=== PATIENT | male | born 1950 | race Caucasian/White ===

== ENCOUNTER → 2016-03-09 | Outpatient (CLI) | payer MEDICARE ==
--- NOTE | 2016-03-09 14:26 | CT ---
EXAMINATION TYPE: CT thoracic spine wo con DATE OF EXAM: 03/09/2016 12:35 PM COMPARISON: NONE HISTORY: 65-year-old male complaining of pain to the mid to lower back for 10-15 years TECHNIQUE: Contiguous axial scanning of the thoracic spine without IV contrast. Coronal and sagittal reconstructions performed. CT DLP: 1600 mGycm Automated exposure control for dose reduction was used. FINDINGS: There is a spinal stimulator array centered along the posterior spinal canal at the mid thoracic spin e opposite the T8-T7 level. The leads enter via the T11-T12 interlaminar space. Dependent atelectasis along with emphysema throughout the lungs. There is a slightly accentuated mid to lower thoracic kyphosis but with preserved alignment and verte bral body heights. Mild to moderate multilevel degenerative disc disease is present with variable disc interspace narrow ing, vacuum phenomenon. Scattered mild facet degenerative change mid to lower thoracic spine. At T11-T12, there is left paracentral disc protrusion which appears to cause mild spinal canal stenos is. Changes also result in moderate left neuroforaminal stenosis with the facet arthropathy. No prevertebral or paravertebral soft tissue abnormality seen. IMPRESSION: 1. MIDTHORACIC SPINAL STIMULATOR ARRAY. 2. MILD TO MODERATE MULTILEVEL DEGENERATIVE DISC DISEASE ESPECIALLY IN THE LOWER THORACIC SPINE WITH FACET ARTHROPATHY. 3. A LEFT PARACENTRAL DISC PROTRUSION AT T11-T12 CAUSES MILD SPINAL CANAL STENOSIS. THERE IS ALSO A M ODERATE LEFT NEUROFORAMINAL STENOSIS AT THIS LEVEL. 4. OTHERWISE, NO ELYSE CANAL COMPROMISE. NO VERTEBRAL COMPRESSION COLLAPSE OR MALALIGNMENT.
== END | disposition home or self-care (01) ==
LOC: RADCTMAIN 11:55
PROVIDERS: ATTEND Psychiatry & Neurology Neurology
DX: M51.24 Other intervertebral disc displacement, thoracic region (principal); M48.04 Spinal stenosis, thoracic region; M51.34 Other intervertebral disc degeneration, thoracic region; M99.72 Connective tissue and disc stenosis of intervertebral foramina of thoracic region; M46.94 Unspecified inflammatory spondylopathy, thoracic region
CPT/HCPCS: 72128

== ENCOUNTER → 2016-11-15 | Outpatient (CLI) | payer MEDICARE ==
[2016-11-15 12:39] LABS: CH 30.7; CHCM 31.9; HCT 51.6 % (39.0-53.0); HDW 2.32; HGB 16.5 gm/dL (13.0-17.5); MCH 30.9 pg (25.0-35.0); MCHC 31.9 g/dL (31.0-37.0); MCV 96.7 fL (80.0-100.0); Mean Platelet Volume 7.7; RBC 5.34 m/uL (4.30-5.90); RDW 14.5 % (11.5-15.5); WBC 10.8 k/uL (3.8-10.6)
[2016-11-15 14:52] LABS: Anion Gap 11 mmol/L; Blood Urea Nitrogen 17 mg/dL (9-20); Carbon Dioxide 25 mmol/L (22-30); Chloride 102 mmol/L (98-107); Non-African American GFR(MDRD) >60 (>60 ml/min/1.73 sqM); Potassium 4.7 mmol/L (3.5-5.1); Sodium 138 mmol/L (137-145)
== END | disposition home or self-care (01) ==
LOC: LABPAT 11:57
PROVIDERS: ATTEND Internal Medicine Cardiovascular Disease
DX: Z01.812 Encounter for preprocedural laboratory examination (principal); I35.0 Nonrheumatic aortic (valve) stenosis
CPT/HCPCS: 80051; 82565; 84520; 85027

== ENCOUNTER 2016-11-16 06:20 | Day surgery (SDC) | payer MEDICARE ==
[2016-11-16 07:14] VITALS: TEMP 97.9
[2016-11-16] MEDS ORDERED: MIDAZOLAM 2 MG/2 ML VIAL ONE (07:14)
[2016-11-16] MEDS ORDERED: fentaNYL (PF) 50 MCG/ML 2 ML AMP ONE (07:14)
[2016-11-16] MEDS ORDERED: SODIUM CHLORIDE 0.9% 1,000 ML IV ONE (07:22)
[2016-11-16 07:23] LABS: Glucose,Whole Blood 99 mg/dL (75-99)
[2016-11-16] MEDS ORDERED: BENZOCAINE SPRAY 1 SPRAY CAN MUCOUS MEM ONE (07:27)
[2016-11-16] MEDS ORDERED: MIDAZOLAM 2 MG/2 ML VIAL IV ONE ×2 (07:27→07:35)
[2016-11-16] MEDS ORDERED: fentaNYL (PF) 50 MCG/ML 2 ML AMP IV ONE (07:31)
[2016-11-16] MEDS ORDERED: SODIUM CHLORIDE 0.9% 1,000 ML IV SCH (08:00)
--- NOTE | 2016-11-16 08:04 | P.TEE ---
Indications for Procedure(s): Assessment of the aortic stenosis Date of Procedure: 11/16/16 Preoperative Diagnosis: Severe aortic stenosis, CAD Postoperative Diagnosis: Moderate to severe aortic stenosis Procedure(s) Performed: THERESA Description of Procedure(s): INDICATION: Assessment of the aortic stenosis CONSENT: . Informed consent was obtained from the patient verbally PROCEDURE: Patient was brought to the lab in a fasting state. He was prepped and draped in the usual fashion. He was given conscious sedation with a 2.5 mg of Versed and 50 of fentanyl. The throat was sprayed with Cetacaine. A lubricated Omni probe was introduced in the oropharynx and was advanced into the esophagus and stomach. Multiple views were obtained. Color, pulsed Doppler studies were obtained. Saline contrast bubble injection was also performed. Patient tolerated the procedure well. FINDINGS: The aortic valve is tricuspid with thickening and calcification and reduced opening excursion. By planimetry valve area of 1.1 cm was obtained. There is mild aortic regurgitation. The aortic root is measures 3.7. The mitral valve appeared to be normal without any significant regurgitation. Tricuspid valve appeared to be normal. Left atrial appendage is free of any clot. The interatrial septum appeared to be aneurysmal. Saline contrast bubble injection showed rare Bubbles crossing septum suggestive of a small PFO. Left ventricular function appeared to be normal. A peak gradient of 80 with a mean of 40 was obtained across the aortic valve. Doppler studies suggestive of severe aortic stenosis. There is moderate plaque in the aorta IMPRESSION: #1. Moderate to severe aortic stenosis. #2. Mild aortic regurgitation #3. Tricuspid aortic valve. #4. Normal mitral and tricuspid valves. #5. Aneurysmal interatrial septum with possible small PFO. #6. Left atrial appendage is free of any clot. #7. Left ankle function is normal. #8. There is moderate plaque in the aorta PLAN: . We will proceed with right and left heart catheterization. Further examination depend upon the findings on the cath.
[2016-11-16 08:21] VITALS: RESP 16
[2016-11-16 10:02] VITALS: BP 98/56; PULSE 91
== END 2016-11-16 10:10 | disposition home or self-care (01) ==
LOC: CATHCVL 06:20
PROVIDERS: ATTEND Internal Medicine Cardiovascular Disease
DX: I35.0 Nonrheumatic aortic (valve) stenosis (principal); E78.00 Pure hypercholesterolemia, unspecified; I71.3 Abdominal aortic aneurysm, ruptured; I10 Essential (primary) hypertension; E11.9 Type 2 diabetes mellitus without complications; I25.10 Atherosclerotic heart disease of native coronary artery without angina pectoris; I73.9 Peripheral vascular disease, unspecified; J44.9 Chronic obstructive pulmonary disease, unspecified; F17.210 Nicotine dependence, cigarettes, uncomplicated; Z95.5 Presence of coronary angioplasty implant and graft; Z79.84 Long term (current) use of oral hypoglycemic drugs; Z79.82 Long term (current) use of aspirin; Z79.899 Other long term (current) drug therapy; Z79.51 Long term (current) use of inhaled steroids; Z88.5 Allergy status to narcotic agent
CPT/HCPCS: 93312; 93320; 93325; 99152; J2250; J3010

== ENCOUNTER 2016-12-24 08:01 | Day surgery (SDC) | payer MEDICARE ==
[2016-12-14 12:47] VITALS: BMI 30.4
[~2016-12-24 08:01] MED LIST: ALPRAZolam 0.25 MG TAB PO PRN; ALPRAZolam 0.5 MG TAB PO PRN; ASPIRIN 325 MG TAB PO STA; ATORVASTATIN 80 MG TAB PO STA; NITROGLYCERIN SL TABS 0.4 MG TAB SUBLINGUAL PRN; SODIUM CHLORIDE 0.9% 1,000 ML in EMPTY BAG 1 BAG IV ONE
[2016-12-24 08:46] VITALS: RESP 18
[2016-12-24 08:51] LABS: Basophils # (A) 0.1 k/uL (0-0.2); Basophils % (A) 1 %; CH 30.4; CHCM 32.3; Eosinophils # (A) 0.3 k/uL (0-0.7); Eosinophils % (A) 3 %; HCT 47.9 % (39.0-53.0); HDW 2.17; HGB 15.5 gm/dL (13.0-17.5); Luc # (Auto) 0.13; Luc % (Auto) 1; Lymphocytes # (A) 1.9 k/uL (1.0-4.8); Lymphocytes % (A) 15 %; MCH 30.7 pg (25.0-35.0); MCHC 32.4 g/dL (31.0-37.0); MCV 94.5 fL (80.0-100.0); Mean Platelet Volume 8.5; Monocytes # (A) 0.6 k/uL (0-1.0); Monocytes % (A) 5 %; Neutrophils # (A) 9.2 k/uL (1.3-7.7); Neutrophils % (A) 76 %; RBC 5.07 m/uL (4.30-5.90); RDW 15.2 % (11.5-15.5); WBC 12.1 k/uL (3.8-10.6)
[2016-12-24 08:55] LABS: Glucose,Whole Blood 104 mg/dL (75-99)
[2016-12-24 09:04] LABS: Anion Gap 10 mmol/L; Blood Urea Nitrogen 30 mg/dL (9-20); Calcium 9.8 mg/dL (8.4-10.2); Carbon Dioxide 25 mmol/L (22-30); Chloride 105 mmol/L (98-107); Glucose 105 mg/dL (74-99); Non-African American GFR(MDRD) >60 (>60 ml/min/1.73 sqM); Potassium 4.5 mmol/L (3.5-5.1); Sodium 140 mmol/L (137-145)
[2016-12-24] MEDS ORDERED: MIDAZOLAM 2 MG/2 ML VIAL ONE (09:06)
[2016-12-24] MEDS ORDERED: LIDOCAINE 2% INJ 20 MG/ML (20 ML MDV) ONE ×2 (09:07→09:22)
[2016-12-24] MEDS ORDERED: fentaNYL (PF) 50 MCG/ML 2 ML AMP ONE (09:07)
[2016-12-24] MEDS: MIDAZOLAM 2 MG/2 ML VIAL IV ONE ×2 (09:09→09:13)
[2016-12-24] MEDS ORDERED: fentaNYL (PF) 50 MCG/ML 2 ML AMP IV ONE (09:09)
[2016-12-24] MEDS ORDERED: LIDOCAINE 2% INJ 20 MG/ML SQ ONE ×2 (09:11→09:32)
[2016-12-24] MEDS ORDERED: VERAPAMIL 2.5 MG/ML 2 ML AMP ONE (09:28)
[2016-12-24] MEDS ORDERED: HEPARIN SODIUM 1,000 UN/ML (10ML VL) ONE (09:35)
[2016-12-24] MEDS ORDERED: HYDROmorphone 2 MG/ML 1 ML SYRINGE ONE (09:38)
[2016-12-24] MEDS: HYDROmorphone 2 MG/ML 1 ML SYRINGE IV ONE ×2 (09:38→10:03)
[2016-12-24] MEDS ORDERED: HEPARIN SODIUM 1,000 UN/ML (10ML VL) IV ONE (09:39)
[2016-12-24 09:45] LABS: Site PA
[2016-12-24 09:45] LABS: Site RA
[2016-12-24 09:46] LABS: Site FA
[2016-12-24] MEDS ORDERED: RX INFO: IV CONTRAST WAS GIVEN 1 EACH MISC MISCELLANE PRN (10:17)
[2016-12-24 10:19] LABS: Site PA
[2016-12-24 10:20] LABS: Site RA
[2016-12-24] MEDS ORDERED: oxyCODONE-APAP 10-325MG 1 EACH TAB PO PRN (10:25)
[2016-12-24] MEDS ORDERED: NITROGLYCERIN SL TABS 0.4 MG TAB SUBLINGUAL PRN (10:25)
[2016-12-24] MEDS ORDERED: SODIUM CHLORIDE 0.9% 1,000 ML IV SCH (10:30)
--- NOTE | 2016-12-24 10:59 | P.PCN ---
Date of Procedure: 12/24/16 Preoperative Diagnosis: Aortic stenosis and coronary artery disease Postoperative Diagnosis: The same Procedure(s) Performed: Right heart catheterization through right femoral approach and left heart catheterization from a radial approach on the right side. Patient also had femoral artery cannulation and femoral arteriogram Description of Procedure: HISTORY: The 66-year-old gentleman with history of hypertension, dyslipidemia referral vascular disease and also diabetes and recently evidence of of aortic stenosis by transthoracic echo. Patient subsequently had a THERESA examination which was suggestive of moderate to severe aortic stenosis with a valve area of 1.1 but a peak gradient of 80 and a mean gradient of 40. Patient also has a previous stent placement of the mid RCA and abdominal aortic aneurysm repair. Patient is advised to have a right and left heart catheterization. CONSENT:I have discussed the risks, benefits and alternative therapies for the above-mentioned procedure and for both sedation/analgesia as well as necessary blood product administration, if indicated, as they pertain to this patient. The patient has indicated understanding and acceptance of the risks and procedures discussed. PROCEDURE: LEFT HEART CATHETERIZATION: Patient was brought to the lab in a fasting state. Patient was given some IV sedation. The right groin is infiltrated with lidocaine and right femoral artery was entered using Seldinger technique. A 6-Montserratian catheter was left in place but the wire could not be advanced beyond the bifurcation of the aorta and iliac arteries. Hand injection revealed severe diffuse disease and tortuosity. At this point, the dictation was made to do the left heart catheterization from right radial approach. The skin over the right radial artery was infiltrated with lidocaine. The right radial artery was entered using Seldinger technique and a 6-Montserratian sheath was left in place. Left heart catheterization with selective coronary arteriography was performed. Aortic valve was crossed. Left ventriculography was not performed. RIGHT HEART CATHETERIZATION: This was performed using a Delta- Ramiro catheter from the right femoral approach and right femoral vein. Patient tolerated the procedure well. Hemostasis was obtained with manual compression. TR band was used for the right radial approach. . Patient tolerated the procedure well. No immediate complications were noted and patient was transferred to [facility] in a stable condition Conscious Sedation: Versed 1.5 mg Fentany 50 gHistory.Dilaudid 2mg. Duration 61minutes HEMODYNAMICS: Right heart catheterization: Right atrial pressure is 4/6/1, right ventricular pressure 33/4, pulmonary artery pressure 36/16/23. Pulmonary wedge pressure 9/6/5. Cardiac output by thermodilution method is 6.6. By Kadie method is 5.8, oxygen saturation in the right atrium is 64.9. In the pulmonary artery 68, right to left flow of 1.58 L/m is calculated. Left heart catheterization, left ventricle pressure is 155/5/16. The aortic pressure is 112/67/87. The peak difference is 43 mmHg and the mean gradient is 36 across the aortic valve. The valve area is calculated is 1.1 SELECTIVE CORONARY ARTERIOGRAPHY: LEFT MAIN: This is a normal in length and free of occlusive disease THE LEFT ANTERIOR DESCENDING CORONARY ARTERY: . Huge caliber vessel and free of any Sigmund occlusive disease THE LEFT CIRCUMFLEX AND IS CORONARY ARTERY: This is a moderate caliber vessel with diffuse disease with eccentric 40-50% lesion proximally and about 70-80% stenosis distally before a PLV branch. THE RIGHT CORONARY ARTERY: . Good caliber vessel with a patent stent. There is about 30-40% stenosis in the proximal portion LEFT VENTRICULOGRAPHY: not Performed FINAL IMPRESSION: #1.. Moderate to severe aortic stenosis. #2. Mild pulmonary hypertension #3. Coronary artery disease with a critical lesion in the distal circumflex and mild to moderate disease in the proximal circumflex and proximal right. Plan: Continuation of the maximum medical therapy. Surgical evaluation for possible aortic valve replacement. May also consider stent placement of the circumflex, If I aortic valve replacement is not considered imminent.
[2016-12-24] MEDS ORDERED: HYDROmorphone 1 MG/ML 1 ML SYRINGE IVP PRN (12:14)
[2016-12-24] MEDS: HYDROmorphone 1 MG/ML 1 ML SYRINGE IVP PRN ×2 (12:18→19:40)
[2016-12-24] MEDS: MULTIVITAMINS, THERA 1 EACH TAB PO SCH (17:49)
[2016-12-24] MEDS: POTASSIUM CHLORIDE ER 10 MEQ TAB.ER.PRT PO SCH (17:49)
[2016-12-24] MEDS: NICOTINE 14MG/24HR PATCH TRANSDERM SCH (17:49)
[2016-12-24] MEDS: GLYCOPYRROLATE 1 MG TAB PO SCH ×2 (19:43→19:44)
[2016-12-24 20:14] LABS: Glucose,Whole Blood 88 mg/dL (75-99)
[2016-12-24] MEDS ORDERED: ATORVASTATIN 20 MG TAB PO SCH (21:00)
[2016-12-24] MEDS ORDERED: GABAPENTIN 300 MG CAP PO SCH (21:00)
[2016-12-24] MEDS ORDERED: DOXAZOSIN 4 MG TAB PO SCH (21:00)
[2016-12-24] MEDS: SYMBICORT 80-4.5 MCG INHALER INHALATION SCH (21:45)
[2016-12-25] MEDS: HYDROmorphone 1 MG/ML 1 ML SYRINGE IVP PRN (03:44)
[2016-12-25 06:59] LABS: Anion Gap 8 mmol/L; Blood Urea Nitrogen 18 mg/dL (9-20); Calcium 9.4 mg/dL (8.4-10.2); Carbon Dioxide 25 mmol/L (22-30); Chloride 106 mmol/L (98-107); Glucose 111 mg/dL (74-99); Non-African American GFR(MDRD) >60 (>60 ml/min/1.73 sqM); Potassium 4.5 mmol/L (3.5-5.1); Sodium 139 mmol/L (137-145)
[2016-12-25 07:09] LABS: Glucose,Whole Blood 109 mg/dL (75-99)
[2016-12-25] MEDS ORDERED: PANTOPRAZOLE 40 MG TABLET PO SCH (07:30)
[2016-12-25 08:07] VITALS: BP 137/74; PULSE 88; TEMP 98.1
[2016-12-25] MEDS ORDERED: ASPIRIN 325 MG TAB PO SCH (09:00)
[2016-12-25] MEDS ORDERED: FERROUS SULFATE 325 MG TAB PO SCH (09:00)
[2016-12-25] MEDS ORDERED: FUROSEMIDE 40 MG TAB PO SCH (09:00)
[2016-12-25] MEDS ORDERED: METOPROLOL TARTRATE 25 MG TAB PO SCH (09:00)
[2016-12-25] MEDS ORDERED: ISOSORBIDE MONONITRATE ER 30 MG TAB.ER.24H PO SCH (09:00)
[2016-12-25] MEDS: SYMBICORT 80-4.5 MCG INHALER INHALATION SCH (09:07)
[2016-12-25] MEDS: NICOTINE 14MG/24HR PATCH TRANSDERM SCH (09:25)
[2016-12-25] MEDS: MULTIVITAMINS, THERA 1 EACH TAB PO SCH (09:25)
[2016-12-25] MEDS: POTASSIUM CHLORIDE ER 10 MEQ TAB.ER.PRT PO SCH (09:26)
--- NOTE | 2016-12-25 12:41 | PN ---
PROGRESS NOTE Mr. Estrada was admitted yesterday by Dr. Yoon for a cardiac catheterization. He has aortic stenosis that is moderate to severe and also previous stent of the in the RCA which is patent, but has disease in circumflex. Postprocedure is resting comfortably. His right groin is clean and dry with a small area of ecchymosis and pulses good. Right radial pulse is also good. Blood pressure is 130/80, pulse is 84 per minute. Vital signs otherwise are normal. There is evidence of ejection systolic murmur with a second heart sound that is less obvious. Lungs are clear. Abdomen and lower extremity exam is unchanged. Plan is to increase activity and discharge the patient on his current medical regimen and have him see Dr. Yoon in 1 week. Consideration is being given for aortic valve replacement and single-vessel bypass versus percutaneous approach. This will be further discussed by Dr. Valentine upon discharge. We will increase activity and discharge the patient today and current home medications. Discharge instructions regarding activity, diet, medications were given. Thank you very much for the consult. MMODL / IJN: [id number] /
== END 2016-12-25 11:15 | disposition home or self-care (01) ==
LOC: CATHCVL 08:01 → 3OBS 10:10 → CATHCVL 12-25 11:15
PROVIDERS: ATTEND Internal Medicine Cardiovascular Disease
DX: I35.0 Nonrheumatic aortic (valve) stenosis (principal); I27.20 Pulmonary hypertension, unspecified; I25.10 Atherosclerotic heart disease of native coronary artery without angina pectoris; I10 Essential (primary) hypertension; J44.9 Chronic obstructive pulmonary disease, unspecified; Z95.5 Presence of coronary angioplasty implant and graft; E78.00 Pure hypercholesterolemia, unspecified; F17.210 Nicotine dependence, cigarettes, uncomplicated; Z88.5 Allergy status to narcotic agent; Z79.84 Long term (current) use of oral hypoglycemic drugs; Z79.82 Long term (current) use of aspirin; Z79.51 Long term (current) use of inhaled steroids; Z79.899 Other long term (current) drug therapy
CPT/HCPCS: 94640 ×2; 93460; 80048 ×2; 85018; 82810; 85025; 83036; C1894 ×3; C1769 ×3; S4990 ×2; J2001; J2250; J1170 ×3; J3010; J1644

== ENCOUNTER 2018-07-06 19:50 | Inpatient (IN) | payer MEDICARE, OTHER ==
[2018-07-06] MEDS ORDERED: HYDROmorphone 1 MG/ML 1 ML SYRINGE IVP STA (21:02)
[2018-07-06] MEDS ORDERED: KETOROLAC 30 MG/ML 1 ML VIAL IVP STA (21:02)
--- NOTE | 2018-07-06 21:18 | XR ---
EXAMINATION: XR chest 1V portable DATE AND TIME: 07/06/2018 9:00 PM CLINICAL INDICATION: PHH; Pain TECHNIQUE: AP upright portable COMPARISON: 10/31/2014 FINDINGS: The lungs show bilateral marked silhouetting of the pulmonary vasculature, greater on the right. This is due to a fine reticular pattern of increased density, and the differential includes advanced inte rstitial phase pulmonary edema versus bibasilar pneumonia; clinical delineation necessary. The pleural spaces are negative. The cardiac silhouette is mildly enlarged. The remainder of the mediastinal silhouette is unremarkabl e. The skeletal structures and soft tissues are negative for acute findings. IMPRESSION: BIBASILAR FINDINGS.
--- NOTE | 2018-07-06 21:20 | XR ---
PROCEDURE: XR ribs LT - 4V DATE AND TIME: 07/06/2018 9:13 PM CLINICAL INDICATION: PHH; Pain TECHNIQUE: Department protocol COMPARISON: None FINDINGS: There is no fracture or malalignment. The soft tissues are unremarkable. IMPRESSION: NO ACUTE PROCESS.
[2018-07-06 21:55] LABS: Appearance,Urine Clear (Clear); Bilirubin,Urine Negative (Negative); Blood,Urine Negative (Negative); Color,Urine Light Yellow; Glucose,Urine (UA) Negative (Negative); Ketones,Urine Negative (Negative); Leukocyte Esterase,Urine Negative (Negative); Nitrite,Urine Negative (Negative); Protein,Urine Negative (Negative); Specific Gravity,Urine 1.012 (1.001-1.035); Urobilinogen,Urine <2.0 mg/dL (<2.0)
[2018-07-06] MEDS ORDERED: ALBUTEROL NEBULIZED (CONC) 5 MG, SODIUM CHLORIDE 0.9% NEBULIZ 3 ML INHALATION STA ×2 (22:18)
[2018-07-06] MEDS ORDERED: LIDOCAINE 5% PATCH TOPICAL STA (22:18)
[2018-07-06] MEDS ORDERED: IPRATROPIUM 0.5 MG/2.5 ML NEBU INHALATION STA (22:18)
[2018-07-06] MEDS ORDERED: NALOXONE 0.4 MG/ML 1 ML VIAL IV PRN (23:34)
[2018-07-06] MEDS ORDERED: AZITHROMYCIN 500 MG in SODIUM CHLORIDE 0.9% 250 ML IVPB STA (23:34)
[2018-07-06] MEDS ORDERED: KETOROLAC 30 MG/ML 1 ML VIAL IVP PRN (23:39)
[2018-07-06 23:49] LABS: Basophils # (A) 0.1 k/uL (0-0.2); Basophils % (A) 1 %; Eosinophils # (A) 0.3 k/uL (0-0.7); Eosinophils % (A) 2 %; HCT 49.4 % (39.0-53.0); HGB 16.3 gm/dL (13.0-17.5); Lymphocytes # (A) 2.3 k/uL (1.0-4.8); Lymphocytes % (A) 21 %; MCH 29.8 pg (25.0-35.0); MCHC 33.1 g/dL (31.0-37.0); MCV 90.1 fL (80.0-100.0); Mean Platelet Volume 8.2; Monocytes # (A) 0.5 k/uL (0-1.0); Monocytes % (A) 5 %; Neutrophils # (A) 7.6 k/uL (1.3-7.7); Neutrophils % (A) 70 %; Platelet Count 132 k/uL (150-450); RBC 5.48 m/uL (4.30-5.90); RDW 14.1 % (11.5-15.5); WBC 10.9 k/uL (3.8-10.6)
--- NOTE | 2018-07-06 23:49 | ED ---
General Adult HPI - General Chief complaint: Fall Stated complaint: Fall, SOB, Rib pain Time Seen by Provider: 07/06/18 20:41 Source: patient, family Mode of arrival: ambulatory Limitations: no limitations - History of Present Illness Initial comments: 68-year-old male patient presents to the emergency department today for evaluation of left posterior rib pain after experiencing a fall in his shower. Patient states he was attempting to put on his underwear when he lost his balance and fell backward striking his ribs that on the edge of the shower. Patient states that the lip that is elevated about 4 inches off the ground. Patient denies hitting his head or losing consciousness. Denies any neck or back pain. Patient states that he is having significant pain to the left lower posterior ribs. Patient states the pain worsens significantly when attempting to inspire. Patient states he does feel short of breath with this. He denies any chest pain or hemoptysis. States that he does have COPD and is a smoker. Denies any abdominal pain, nausea, or vomiting. Denies any hematuria. Patient denies any headache, dizziness, weakness, abdominal pain, nausea, vomiting, or difficulties with bowel movements or urination. - Related Data Home Medications Medication Instructions Recorded Confirmed Doxazosin [Cardura] 4 mg PO HS 10/31/14 12/24/16 Ferrous Sulfate [Iron (65 MG 325 mg PO DAILY 10/31/14 12/24/16 Elemental)] Fluticasone/Salmeterol [Advair 2 inhalation PO RT-BID 10/31/14 12/24/16 250-50 Diskus] Furosemide [Lasix] 40 mg PO QAM 10/31/14 12/24/16 Isosorbide Mononitrate ER [Imdur] 30 mg PO QAM 10/31/14 12/24/16 Metoprolol Tartrate [Lopressor] 25 mg PO QAM 10/31/14 12/24/16 Multivitamins, Thera [Multivitamin 1 tab PO DAILY@1200 10/31/14 12/24/16 (formulary)] Omeprazole [PriLOSEC] 20 mg PO AC-BRKFST 10/31/14 12/24/16 Potassium Chloride [Klor-Con 10] 10 meq PO BID 10/31/14 12/24/16 Simvastatin [Zocor] 40 mg PO HS 10/31/14 12/24/16 oxyCODONE-APAP 10-325MG [Percocet 1 tab PO Q12H PRN 10/31/14 12/24/16 10-325 mg] Aspirin 325 mg PO DAILY 11/15/16 12/24/16 Gabapentin 600 mg PO HS 11/15/16 12/24/16 Glycopyrrolate [Robinul] 0.5 mg PO HS 11/15/16 12/24/16 Nitroglycerin Sl Tabs [Nitrostat] 0.4 mg PO DIRECTED PRN 11/15/16 12/24/16 Previous Rx's Medication Instructions Recorded metFORMIN HCL [Glucophage] 850 mg PO AC-BID #60 tab 11/02/14 Allergies Allergy/AdvReac Type Severity Reaction Status Date / Time No Known Allergies Allergy Verified 07/06/18 20:15 Review of Systems ROS Statement: Those systems with pertinent positive or pertinent negative responses have been documented in the HPI. ROS Other: All systems not noted in ROS Statement are negative. Past Medical History Past Medical History: Asthma, Coronary Artery Disease (CAD), Cancer, Heart Failure, Deep Vein Thrombosis (DVT), GERD/Reflux, Hyperlipidemia, Hypertension, Memory Impairment, Osteoarthritis (OA) Additional Past Medical History / Comment(s): Pt stated has had bladder cancer(sx and MED INSTALLALTION INTO BLADDER. ). SKIN CANCER ON LIP. MELANOMA(ON HIS BACK). Per old medical record showed prostate ca 2006/radiation tx. PAST ULCER ,HIATAL HERNIA. AORTIC ANEURYSM(HAD SX) History of Any Multi-Drug Resistant Organisms: None Reported Past Surgical History: Back Surgery, Bladder Surgery, Heart Catheterization With Stent, Hernia Repair, Orthopedic Surgery Additional Past Surgical History / Comment(s): CURRENTLY HAS : 11/07/16 PAIN PUMP (MORPHINE, 0.2 MG) & PAIN STIMULATOR. AAA REPAIR, X2. BACK SX CAGING AND FUSION L4-L5 FUSIONS . LT INGUINAL HERNIA,ABD HERNIA. RT THIGH SX D/T INJURY( PT POOR HX ON WHAT THEY DID BUT THINKS IT MAY HAVE BEEN A CLOT REMOVED. THERESA- 11/16/16 Past Anesthesia/Blood Transfusion Reactions: No Reported Reaction Additional Past Anesthesia/Blood Transfusion Reaction / Comment(s): CLAUSTROPHOBIA Date of Last Stent Placement:: UNK Past Psychological History: Depression Smoking Status: Current every day smoker Past Alcohol Use History: None Reported Past Drug Use History: Marijuana - Past Family History Father History Unknown: Yes Mother History Unknown: Yes General Exam Limitations: no limitations General appearance: alert, in no apparent distress, other (This and appearing adult male patient in mild distress related to pain. Vital signs upon presentation are temperature 98.9F, pulse 87, respirations 20, blood pressure 105/66, pulse ox 91% on room air.) Eye exam: Present: normal appearance, PERRL, EOMI. Absent: scleral icterus, conjunctival injection, periorbital swelling ENT exam: Present: normal exam, normal oropharynx, mucous membranes moist Respiratory exam: Present: wheezes (Coarse expiratory wheezing in the posterior lung chan), decreased breath sounds. Absent: normal lung sounds bilaterally, respiratory distress, rales, rhonchi, stridor Cardiovascular Exam: Present: regular rate, normal rhythm, normal heart sounds. Absent: systolic murmur, diastolic murmur, rubs, gallop, clicks GI/Abdominal exam: Present: soft, normal bowel sounds. Absent: distended, tenderness, guarding, rebound, rigid Extremities exam: Present: normal inspection, full ROM, normal capillary refill. Absent: pedal edema, joint swelling, calf tenderness Back exam: Present: normal inspection, tenderness (Left lower posterior ribs). Absent: CVA tenderness (R), CVA tenderness (L) Neurological exam: Present: alert, oriented X3, CN II-XII intact Psychiatric exam: Present: normal affect, normal mood Skin exam: Present: warm, dry, intact, normal color. Absent: rash Course Vital Signs 07/06/18 07/06/18 07/06/18 20:10 22:48 22:58 Temperature 98.9 F Pulse Rate 87 85 94 Respiratory 20 Rate Blood Pressure 105/66 O2 Sat by Pulse 91 L Oximetry 07/06/18 07/06/18 07/07/18 23:08 23:55 00:35 Temperature 98.8 F Pulse Rate 93 81 Respiratory 18 18 Rate Blood Pressure 119/88 104/70 O2 Sat by Pulse 95 89 L 93 L Oximetry Medical Decision Making - Medical Decision Making 68-year-old male patient presented to the emergency department today for evaluation of left posterior rib pain after this trip and fall accident at home. Physical examination did reveal tenderness over the left posterior lower ribs. Rib series was negative for any displaced fractures. One view chest x-ray shows a reticular pattern consistent with possible pneumonia. Patient does report cough with sputum production. Labs reviewed and did reveal elevated white blood cell count at 10.9. Patient did have evidence for hypoxia on the emergency department. Dipped down to 83% on room air. Given possible pneumonia, concern for rib fracture, and evidence for hypoxia we will admit for oxygen therapy, antibiotics, and pain management to enhance deep breathing. Incentive spirometry is ordered. Did discuss plan with the patient, he is agreeable. - Lab Data Result diagrams: 07/06/18 23:35 07/06/18 23:35 Lab Results 07/06/18 07/06/18 07/06/18 Range/Units 21:45 23:35 23:35 WBC 10.9 H (3.8-10.6) k/uL RBC 5.48 (4.30-5.90) m/uL Hgb 16.3 (13.0-17.5) gm/dL Hct 49.4 (39.0-53.0) % MCV 90.1 (80.0-100.0) fL MCH 29.8 (25.0-35.0) pg MCHC 33.1 (31.0-37.0) g/dL RDW 14.1 (11.5-15.5) % Plt Count 132 L (150-450) k/uL Neutrophils % 70 % Lymphocytes % 21 % Monocytes % 5 % Eosinophils % 2 % Basophils % 1 % Neutrophils # 7.6 (1.3-7.7) k/uL Lymphocytes # 2.3 (1.0-4.8) k/uL Monocytes # 0.5 (0-1.0) k/uL Eosinophils # 0.3 (0-0.7) k/uL Basophils # 0.1 (0-0.2) k/uL Sodium 137 (137-145) mmol/L Potassium 4.1 (3.5-5.1) mmol/L Chloride 103 (98-107) mmol/L Carbon Dioxide 25 (22-30) mmol/L Anion Gap 9 mmol/L BUN 25 H (9-20) mg/dL Creatinine 0.99 (0.66-1.25) mg/dL Est GFR (CKD-EPI)AfAm >90 (>60 ml/min/1.73 sqM) Est GFR (CKD-EPI)NonAf 78 (>60 ml/min/1.73 sqM) Glucose 100 H (74-99) mg/dL Plasma Lactic Acid Jose (0.7-2.0) mmol/L Calcium 9.7 (8.4-10.2) mg/dL Total Bilirubin 1.2 (0.2-1.3) mg/dL AST 14 L (17-59) U/L ALT 16 L (21-72) U/L Alkaline Phosphatase 61 (38-126) U/L Total Protein 7.0 (6.3-8.2) g/dL Albumin 4.1 (3.5-5.0) g/dL Urine Color Light Yellow Urine Appearance Clear (Clear) Urine pH 5.0 (5.0-8.0) Ur Specific [place] 1.012 (1.001-1.035) Urine Protein Negative (Negative) Urine Glucose (UA) Negative (Negative) Urine Ketones Negative (Negative) Urine Blood Negative (Negative) Urine Nitrite Negative (Negative) Urine Bilirubin Negative (Negative) Urine Urobilinogen <2.0 (<2.0) mg/dL Ur Leukocyte Esterase Negative (Negative) 07/06/18 Range/Units 23:35 WBC (3.8-10.6) k/uL RBC (4.30-5.90) m/uL Hgb (13.0-17.5) gm/dL Hct (39.0-53.0) % MCV (80.0-100.0) fL MCH (25.0-35.0) pg MCHC (31.0-37.0) g/dL RDW (11.5-15.5) % Plt Count (150-450) k/uL Neutrophils % % Lymphocytes % % Monocytes % % Eosinophils % % Basophils % % Neutrophils # (1.3-7.7) k/uL Lymphocytes # (1.0-4.8) k/uL Monocytes # (0-1.0) k/uL Eosinophils # (0-0.7) k/uL Basophils # (0-0.2) k/uL Sodium (137-145) mmol/L Potassium (3.5-5.1) mmol/L Chloride (98-107) mmol/L Carbon Dioxide (22-30) mmol/L Anion Gap mmol/L BUN (9-20) mg/dL Creatinine (0.66-1.25) mg/dL Est GFR (CKD-EPI)AfAm (>60 ml/min/1.73 sqM) Est GFR (CKD-EPI)NonAf (>60 ml/min/1.73 sqM) Glucose (74-99) mg/dL Plasma Lactic Acid Jose 1.0 (0.7-2.0) mmol/L Calcium (8.4-10.2) mg/dL Total Bilirubin (0.2-1.3) mg/dL AST (17-59) U/L ALT (21-72) U/L Alkaline Phosphatase (38-126) U/L Total Protein (6.3-8.2) g/dL Albumin (3.5-5.0) g/dL Urine Color Urine Appearance (Clear) Urine pH (5.0-8.0) Ur Specific [place] (1.001-1.035) Urine Protein (Negative) Urine Glucose (UA) (Negative) Urine Ketones (Negative) Urine Blood (Negative) Urine Nitrite (Negative) Urine Bilirubin (Negative) Urine Urobilinogen (<2.0) mg/dL Ur Leukocyte Esterase (Negative) - Radiology Data Radiology results: report reviewed, image reviewed One view x-ray of the chest is obtained. Report was reviewed in its entirety. The lungs show bilateral marketed silhouetting of the pulmonary vasculature, greater on the right. This is due to a fine reticular pattern of increased density in the differential includes advanced interstitial phase pulmonary edema versus bibasilar pneumonia. Clinical limitation as necessary. Result is from Dr. Cassandra Santos. Disposition Clinical Impression: Left rib fracture, Hypoxia, Pneumonia Disposition: ADMITTED IP TO THIS [facility] Condition: Serious Decision to Admit Reason: Admit from EC Decision Date: 07/06/18 Decision Time: 23:48
[2018-07-06 23:59] LABS: ALT 16 U/L (21-72); AST 14 U/L (17-59); Albumin 4.1 g/dL (3.5-5.0); Alkaline Phosphatase 61 U/L (38-126); Anion Gap 9 mmol/L; Blood Urea Nitrogen 25 mg/dL (9-20); Calcium 9.7 mg/dL (8.4-10.2); Carbon Dioxide 25 mmol/L (22-30); Chloride 103 mmol/L (98-107); Glucose 100 mg/dL (74-99); Potassium 4.1 mmol/L (3.5-5.1); Sodium 137 mmol/L (137-145); Total Bilirubin 1.2 mg/dL (0.2-1.3)
[2018-07-07] MEDS ORDERED: PNEUMONIA PROTOCOL UTILIZED 1 EACH MISC PO PRN (00:17)
[2018-07-07] MEDS: HYDROmorphone 1 MG/ML 1 ML SYRINGE IVP PRN ×4 (00:17→22:30)
[2018-07-07] MEDS ORDERED: IPRATROPIUM-ALBUTEROL 3 ML NEB INHALATION PRN (00:17)
[2018-07-07] MEDS ORDERED: NICOTINE 21MG/24HR PATCH TRANSDERM STA (00:26)
[2018-07-07 03:49] VITALS: BMI 28.1
[2018-07-07] MEDS: IPRATROPIUM-ALBUTEROL 3 ML NEB INHALATION SCH ×4 (07:29→19:39)
[2018-07-07] MEDS ORDERED: oxyCODONE-APAP 10-325MG 1 EACH TAB PO PRN (08:47)
[2018-07-07] MEDS ORDERED: NITROGLYCERIN SL TABS 0.4 MG TAB SUBLINGUAL PRN (08:47)
[2018-07-07] MEDS ORDERED: FUROSEMIDE 40 MG TAB PO SCH (09:00)
[2018-07-07] MEDS: GABAPENTIN 300 MG CAP PO SCH ×2 (09:47→22:21)
[2018-07-07] MEDS: ASPIRIN 325 MG TAB PO SCH (09:48)
[2018-07-07] MEDS: FAMOTIDINE 20 MG/2 ML VIAL IV SCH ×2 (09:48→22:29)
[2018-07-07] MEDS: HEPARIN SODIUM,PORCINE 5,000 UNIT/ML 1 ML VIAL SQ SCH ×2 (09:48→22:29)
[2018-07-07] MEDS: ISOSORBIDE MONONITRATE ER 30 MG TAB.ER.24H PO SCH (09:58)
[2018-07-07] MEDS: NICOTINE 21MG/24HR PATCH TRANSDERM SCH (09:58)
[2018-07-07] MEDS: LINAGLIPTIN 5 MG TABLET PO SCH (09:58)
[2018-07-07] MEDS: METOPROLOL TARTRATE 25 MG TAB PO SCH ×2 (09:58→22:28)
--- NOTE | 2018-07-07 12:32 | P.HPIM ---
History of Present Illness 68-year-old male had a mechanical fall in the shower and is came in complaining of rib pain posteriorly. Patient had a chest x-ray and rib x-ray and patient was believed to have pneumonia and was admitted patient does have cough unable to bring up much patient does smoke and does have COPD exacerbation because of that reason I am keeping the patient here. Patient does have aortic stenosis chest x-ray appears to have pulmonary edema rather pneumonia, suspicion is low for pneumonia. Patient although does have bronchitis patient will be treated for that. Patient will be started on a small dose oforal steroids and if he is doing okay patient will be discharged tomorrow patient follows up Dr. Hudson as an outpatient Dr. Hudson will be consulted.ration still has some moderate amount of pain in the left lower rib cage area although there are noted fractures on x- ray. Review of Systems REVIEW OF SYSTEMS: CONSTITUTIONAL: No fever, no malaise, no fatigue. HEENT: No recent visual problems or hearing problems. Denied any sore throat. CARDIOVASCULAR: No chest pain, orthopnea, PND, no palpitations, no syncope. PULMONARY: no hemoptysis. GASTROINTESTINAL: No diarrhea, no nausea, no vomiting, no abdominal pain. NEUROLOGICAL: No headaches, no weakness, no numbness. HEMATOLOGICAL: Denies any bleeding or petechiae. GENITOURINARY: Denies any burning micturition, frequency, or urgency. MUSCULOSKELETAL/RHEUMATOLOGICAL: Denies any joint pain, swelling, or any muscle pain. ENDOCRINE: Denies any polyuria or polydipsia. The rest of the 14-point review of systems is negative. Past Medical History Past Medical History: Asthma, Coronary Artery Disease (CAD), Cancer, Heart Failure, Diabetes Mellitus, Deep Vein Thrombosis (DVT), GERD/Reflux, Hype rlipidemia, Hypertension, Memory Impairment, Osteoarthritis (OA) Additional Past Medical History / Comment(s): Pt stated has had bladder cancer(sx and MED INSTALLALTION INTO BLADDER. ). SKIN CANCER ON LIP. MELANOMA(ON HIS BACK). Per old medical record showed prostate ca 2006/radiation tx. PAST ULCER ,HIATAL HERNIA. AORTIC ANEURYSM(HAD SX) History of Any Multi-Drug Resistant Organisms: None Reported Past Surgical History: Back Surgery, Bladder Surgery, Heart Catheterization With Stent, Hernia Repair, Orthopedic Surgery Additional Past Surgical History / Comment(s): CURRENTLY HAS : 11/07/16 PAIN PUMP (MORPHINE, 0.2 MG) & PAIN STIMULATOR. AAA REPAIR, X2. BACK SX CAGING AND FUSION L4-L5 FUSIONS . LT INGUINAL HERNIA,ABD HERNIA. RT THIGH SX D/T INJURY(PT POOR HX ON WHAT THEY DID BUT THINKS IT MAY HAVE BEEN A CLOT REMOVED. THERESA-11/16/16 Past Anesthesia/Blood Transfusion Reactions: No Reported Reaction Additional Past Anesthesia/Blood Transfusion Reaction / Comment(s): CLAUSTROPHOBIA Date of Last Stent Placement:: UNK Past Psychological History: Depression Additional Psychological History / Comment(s): SOMETIMES GETS DEPRESSED, NO MEDS TAKEN. Smoking Status: Current every day smoker Past Alcohol Use History: None Reported Additional Past Alcohol Use History / Comment(s): STARTED SMOKING AT AGE 14-15 SMOKES LESS THAN 1/2 PPD. Past Drug Use History: Marijuana Additional Drug Use History / Comment(s): OCC SMOKES MARIJUANA FOR PAIN. - Past Family History Father History Unknown: Yes Mother History Unknown: Yes Medications and Allergies Home Medications Medication Instructions Recorded Confirmed Type Doxazosin [Cardura] 4 mg PO HS 10/31/14 07/07/18 History Ferrous Sulfate [Iron (65 MG 325 mg PO DAILY@1200 10/31/14 07/07/18 History Elemental)] Fluticasone/Salmeterol [Advair 2 puff INHALATION RT-BID 10/31/14 07/07/18 History 250-50 Diskus] Furosemide [Lasix] 40 mg PO QAM 10/31/14 07/07/18 History Isosorbide Mononitrate ER [Imdur] 30 mg PO QAM 10/31/14 07/07/18 History Metoprolol Tartrate [Lopressor] 25 mg PO BID 10/31/14 07/07/18 History Multivitamins, Thera [Multivitamin 1 tab PO DAILY@1200 10/31/14 07/07/18 History (formulary)] Omeprazole [PriLOSEC] 20 mg PO AC-BRKFST 10/31/14 07/07/18 History Potassium Chloride [Klor-Con 10] 10 meq PO DAILY@1200 10/31/14 07/07/18 History Simvastatin [Zocor] 40 mg PO HS 10/31/14 07/07/18 History oxyCODONE-APAP 10-325MG [Percocet 1 tab PO Q12H PRN 10/31/14 07/07/18 History 10-325 mg] Nitroglycerin Sl Tabs [Nitrostat] 0.4 mg PO Q5M PRN 11/15/16 07/07/18 History Albuterol Inhaler [Ventolin Hfa 1 - 2 puff INHALATION RT-Q6H PRN 07/07/18 07/07/18 History Inhaler] Aspirin EC [Ecotrin] 325 mg PO DAILY 07/07/18 07/07/18 History Gabapentin [Neurontin] 300 mg PO TID 07/07/18 07/07/18 History sitaGLIPtin [Januvia] 100 mg PO DAILY 07/07/18 07/07/18 History Allergies Allergy/AdvReac Type Severity Reaction Status Date / Time No Known Allergies Allergy Verified 07/07/18 08:41 Physical Exam Vitals: Vital Signs Temp Pulse Pulse Resp BP BP Pulse Ox 07/07/18 11:39 88 07/07/18 11:21 88 07/07/18 08:00 18 07/07/18 07:45 92 07/07/18 07:32 88 07/07/18 07:01 98.8 F 87 18 116/65 94 L 07/07/18 01:39 98.4 F 82 16 125/72 95 07/07/18 00:35 98.8 F 81 18 104/70 93 L 07/06/18 23:55 89 L 07/06/18 23:08 93 18 119/88 95 07/06/18 22:58 94 07/06/18 22:48 85 07/06/18 20:10 98.9 F 87 20 105/66 91 L Intake and Output 07/06/18 07/07/18 07/07/18 22:59 06:59 14:59 Intake Total 240 240 Balance 240 240 Intake: Oral 240 240 Other: Weight 83.915 kg 83.915 kg PHYSICAL EXAMINATION: GENERAL: The patient is alert and oriented x3, not in any acute distress. Well developed, well nourished. HEENT: Pupils are round and equally reacting to light. EOMI. No scleral icterus. No conjunctival pallor. Normocephalic, atraumatic. No pharyngeal erythema. No thyromegaly. CARDIOVASCULAR: S1 and S2 present. No murmurs, rubs, or gallops. PULMONARY: decreased air entry with minimal expiratory wheezing on exam. does have some pain and tenderness below the left lower rib cage area ABDOMEN: Soft, nontender, nondistended, normoactive bowel sounds. No palpable organomegaly. MUSCULOSKELETAL: No joint swelling or deformity. EXTREMITIES: No cyanosis, clubbing, or pedal edema. NEUROLOGICAL: Gross neurological examination did not reveal any focal deficits. SKIN: No rashes. Results CBC & Chem 7: 07/06/18 23:35 07/06/18 23:35 Labs: Abnormal Lab Results - Last 24 Hours (Table) 07/06/18 07/06/18 Range/Units 23:35 23:35 WBC 10.9 H (3.8-10.6) k/uL Plt Count 132 L (150-450) k/uL BUN 25 H (9-20) mg/dL Glucose 100 H (74-99) mg/dL AST 14 L (17-59) U/L ALT 16 L (21-72) U/L Assessment and Plan Plan: -rib pain secondary to mechanical fall and some musculoskeletal injury no obviously fractures continue with anti-inflammatory medications. -tracheobronchitis: Continue the azithromycin my suspicion is low for pneumonia -Congestive heart failure chronic diastolic dysfunction with mild acute exacerbation patient was started on Lasix. Will be discharged tomorrow if his pulmonary edema improves. -COPD with mild acute exacerbation patient will be started on small dose of steroids inhalational treatments pulmonary will be consulted -Severe aortic stenosis -history of DVT in the past , not in any anti-coagulation presently heparin type 2 diabetes mellitus -Hyperlipidemia -Hypertension -Coronary artery disease -DVT prophylaxiswith subcutaneous heparin and the GI prophylaxis with Pepcid
[2018-07-07] MEDS: MULTIVITAMINS, THERA 1 EACH TAB PO SCH (12:39)
[2018-07-07] MEDS: AZITHROMYCIN 500 MG TAB PO SCH (12:39)
[2018-07-07] MEDS: FERROUS SULFATE 325 MG TAB PO SCH (12:39)
[2018-07-07] MEDS: predniSONE 20 MG TAB PO SCH (12:39)
[2018-07-07] MEDS: POTASSIUM CHLORIDE ER 10 MEQ TAB.ER.PRT PO SCH (12:40)
--- NOTE | 2018-07-07 15:49 | P.CNPUL ---
History of Present Illness Consult date: 07/07/18 Reason for consult: chest pain History of present illness: 68-year-old male patient with known history of COPD and moderate to severe aortic stenosis whereas been evaluated for surgical replacement of valvular the patient declined this surgical procedure. The patient is also known to have coronary artery disease, diabetes mellitus, hypertension and previous history of bladder cancer treated by localized chemotherapy and perivesicular and history of melanoma of the back that has been resected and skin cancer of the lip. The patient also reports history of prostate cancer treated by radiation therapy in 2005. This patient is a current every day smoker. The patient while getting out of the shower and wearing his underwear, he fell and 11 on his back causing significant trauma to his posterior chest area. The patient came into the e mergency department. X-rays showed lower lobe pulmonary infiltrates. The patient had noted fractures. No hemoptysis. No pleurisy at this point in time. His pulse ox on room air is 85%. He was placed on oxygen at 4 L to bring his saturation above 90%. He was started on broad-spectrum antibiotics with Zithromax suspecting pneumonia. Earlier this morning he was seen by hospitalist group and he was thought to be in a component of fluid overload. Based on that the patient was started on Lasix 40 mg IV push every 12 hours. He did have some increased lower extremity edema. He is on Symbicort as maintenance. He is doing DuoNeb nebulized treatments around the clock in addition. Pain control is with Percocet 10/325 one tablet every 12 hours and the patient on Dilaudid 1 mg every 3 hours on a when necessary basis. No nausea. No vomiting. No fever. No chills. Review of Systems Constitutional: Denies chills, Denies fever Eyes: denies as per HPI, denies blurred vision, denies bulging eye, denies decreased vision, denies diplopia, denies discharge, denies dry eye, denies irritation, denies itching, denies pain, denies photophobia, denies loss of peripheral vision, denies loss of vision, denies tunnel vision/blind spots Ears: deny: decreased hearing, ear discharge, earache, tinnitus Ears, nose, mouth and throat: Reports as per HPI Cardiovascular: Reports chest pain, Reports decreased exercise tolerance, Reports dyspnea on exertion, Reports edema, Reports leg edema, Reports shortness of breath Respiratory: Reports dyspnea, Reports home oxygen, Reports pain Gastrointestinal: Reports as per HPI Genitourinary: Reports as per HPI Musculoskeletal: Reports as per HPI Musculoskeletal: absent: ankle pain, ankle stiffness, ankle swelling Neurological: Denies numbness, Denies weakness Psychiatric: Reports as per HPI Endocrine: Reports as per HPI Hematologic/Lymphatic: Reports as per HPI Allergic/Immunologic: Reports as per HPI Past Medical History Past Medical History: Asthma, Coronary Artery Disease (CAD), Cancer, Heart Failure, Diabetes Mellitus, Deep Vein Thrombosis (DVT), GERD/Reflux, Hyperlipidemia, Hypertension, Memory Impairment, Osteoarthritis (OA) Additional Past Medical History / Comment(s): Coronary artery disease, moderate to severe aortic valve stenosis, COPD, history of prostate cancer treated by rad iation therapy back in 2005, history of melanoma of the back resected, history of lip cancer resected, history of bladder cancers treated intravesicular chemotherapy, abdominal aortic aneurysm surgically repaired, history of chronic back pain and the patient is a pain stimulator in place and the patient has undergone L4-L5 spinal fusion, diabetes mellitus, history of DVT, hypertension, hyperlipidemia, osteoarthritis, hiatal hernia History of Any Multi-Drug Resistant Organisms: None Reported Past Surgical History: Back Surgery, Bladder Surgery, Heart Catheterization With Stent, Hernia Repair, Orthopedic Surgery Additional Past Surgical History / Comment(s): Insertion of a pain pump on 11/07/2016 for chronic back pain/pain stimulator, abdominal aortic aneurysm repair 2, back pain with spinal fusion at the level of L4-L5, left inguinal hernia repair, abdominal hernia repair, THERESA, removal of a venous clot from the lower extremity in the setting of DVT, bladder surgery with intravesicular chemotherapy, cardiac catheterization with insertion of coronary stents, hernia repair Past Anesthesia/Blood Transfusion Reactions: No Reported Reaction Additional Past Anesthesia/Blood Transfusion Reaction / Comment(s): CLAUSTROPHOBIA Date of Last Stent Placement:: UNK Past Psychological History: Depression Additional Psychological History / Comment(s): SOMETIMES GETS DEPRESSED, NO MEDS TAKEN. Smoking Status: Current every day smoker Past Alcohol Use History: None Reported Additional Past Alcohol Use History / Comment(s): STARTED SMOKING AT AGE 15-15 SMOKES LESS THAN 1/2 PPD. Past Drug Use History: Marijuana Additional Drug Use History / Comment(s): OCC SMOKES MARIJUANA FOR PAIN. - Past Family History Father History Unknown: Yes Mother History Unknown: Yes Medications and Allergies Home Medications Medication Instructions Recorded Confirmed Type Doxazosin [Cardura] 4 mg PO HS 10/31/14 07/07/18 History Ferrous Sulfate [Iron (65 MG 325 mg PO DAILY@1200 10/31/14 07/07/18 History Elemental)] Fluticasone/Salmeterol [Advair 2 puff INHALATION RT-BID 10/31/14 07/07/18 History 250-50 Diskus] Furosemide [Lasix] 40 mg PO QAM 10/31/14 07/07/18 History Isosorbide Mononitrate ER [Imdur] 30 mg PO QAM 10/31/14 07/07/18 History Metoprolol Tartrate [Lopressor] 25 mg PO BID 10/31/14 07/07/18 History Multivitamins, Thera [Multivitamin 1 tab PO DAILY@1200 10/31/14 07/07/18 History (formulary)] Omeprazole [PriLOSEC] 20 mg PO AC-BRKFST 10/31/14 07/07/18 History Potassium Chloride [Klor-Con 10] 10 meq PO DAILY@1200 10/31/14 07/07/18 History Simvastatin [Zocor] 40 mg PO HS 10/31/14 07/07/18 History oxyCODONE-APAP 10-325MG [Percocet 1 tab PO Q12H PRN 10/31/14 07/07/18 History 10-325 mg] Nitroglycerin Sl Tabs [Nitrostat] 0.4 mg PO Q5M PRN 11/15/16 07/07/18 History Albuterol Inhaler [Ventolin Hfa 1 - 2 puff INHALATION RT-Q6H PRN 07/07/18 07/07/18 History Inhaler] Aspirin EC [Ecotrin] 325 mg PO DAILY 07/07/18 07/07/18 History Gabapentin [Neurontin] 300 mg PO TID 07/07/18 07/07/18 History sitaGLIPtin [Januvia] 100 mg PO DAILY 07/07/18 07/07/18 History Allergies Allergy/AdvReac Type Severity Reaction Status Date / Time No Known Allergies Allergy Verified 07/07/18 08:41 Physical Exam Vitals: Vital Signs Temp Pulse Pulse Resp BP BP Pulse Ox 07/07/18 13:32 98.8 F 88 18 92/52 90 L 07/07/18 11:39 88 07/07/18 11:21 88 07/07/18 08:00 18 07/07/18 07:45 92 07/07/18 07:32 88 07/07/18 07:01 98.8 F 87 18 116/65 94 L 07/07/18 01:39 98.4 F 82 16 125/72 95 07/07/18 00:35 98.8 F 81 18 104/70 93 L 07/06/18 23:55 89 L 07/06/18 23:08 93 18 119/88 95 07/06/18 22:58 94 07/06/18 22:48 85 07/06/18 20:10 98.9 F 87 20 105/66 91 L Intake and Output 07/07/18 07/07/18 07/07/18 06:59 14:59 22:59 Intake Total 240 240 Balance 240 240 Intake: Oral 240 240 Other: Weight 83.915 kg Gen. appearance the patient is calm and comfortable likely distress alert and oriented 3 Head exam was generally normal. There was no scleral icterus or corneal arcus. Mucous membranes were moist. Neck was supple and without jugular venous distension, thyromegaly, or carotid bruits. Carotids were easily palpable bilaterally. There was no adenopathy. Lungs sounds are diminished bilaterally along with some limited bibasilar crackles and few scattered expiratory wheeze. The patient has tenderness along the rib cage specially in the left area. No deformities. No his of excessive amount of breathing. Heart sounds are positive for a systolic ejection murmur grade 3/6 heard throughout the precordium mainly in the left lateral sternal border and apex radiating to the neck area. Abdominal exam revealed normal bowel sounds. The abdomen was soft, non-tender, and without masses, organomegaly, or appreciable enlargement of the abdominal aorta. Examination of the extremities revealed easily palpable radial, femoral and pedal pulses. There was no cyanosis, clubbing or edema. Examination of the skin revealed no evidence of significant rashes, suspicious appearing nevi or other concerning lesions. Neurologically the patient is awake and alert and there is no focal neurological deficit. Results - Laboratory Findings CBC and BMP: 07/06/18 23:35 07/06/18 23:35 Abnormal lab findings: Abnormal Labs 07/06/18 07/06/18 23:35 23:35 WBC 10.9 H Plt Count 132 L BUN 25 H Glucose 100 H AST 14 L ALT 16 L - Diagnostic Findings Chest x-ray: image reviewed Assessment and Plan Plan: Assessment 1 acute hypoxic respiratory failure with development of lower lobe pulmonary infiltrates post fall and trauma to the chest. Rule out pulmonary contusion. Rule out interstitial edema in the setting of valvular heart disease and the patient has known history of aortic valve stenosis. Pneumonia is felt to be less likely. 2 COPD 3 coronary artery disease with previous coronary stenting 4 moderate to severe aortic stenosis, not candidate for valve replacement and the patient has declined the surgery 5 aortic aneurysm with previous repair 6 diabetes mellitus 7 remote history of a DVT of lower extremity 8 hypertension 9 hyperlipidemia 10 chronic back pain post insertion of a pain pump/nerve stimulator 11 history of prostate cancer with previous radiation therapy, 2005 12 history of melanoma resected 13 history of skin cancer of the lip, resected 14 history of bladder cancer treated with local intravesicular chemotherapy 15 smoker 16 marijuana use Plan Check pro calcitonin level. Infection is doubtful. Continue diuretics. Wean off FiO2 and consider home oxygen therapy for this patient. Smoking cessation counseling was done. Pain control with Dilaudid and Percocet. We'll continue t o follow.
[2018-07-07] MEDS: SYMBICORT 80-4.5 MCG INHALER INHALATION SCH (19:40)
[2018-07-07] MEDS ORDERED: ATORVASTATIN 20 MG TAB PO SCH (21:00)
[2018-07-07] MEDS ORDERED: DOXAZOSIN 4 MG TAB PO SCH (21:00)
[2018-07-07] MEDS: FUROSEMIDE 10 MG/ML 4 ML VIAL IV SCH (22:29)
[2018-07-08] MEDS: GABAPENTIN 300 MG CAP PO SCH ×3 (01:48→16:25)
[2018-07-08] MEDS: SYMBICORT 80-4.5 MCG INHALER INHALATION SCH (06:02)
[2018-07-08] MEDS: IPRATROPIUM-ALBUTEROL 3 ML NEB INHALATION SCH ×3 (06:02→15:55)
[2018-07-08 07:38] LABS: Anion Gap 8 mmol/L; Blood Urea Nitrogen 27 mg/dL (9-20); Calcium 9.9 mg/dL (8.4-10.2); Carbon Dioxide 30 mmol/L (22-30); Chloride 101 mmol/L (98-107); Glucose 94 mg/dL (74-99); Potassium 4.7 mmol/L (3.5-5.1); Sodium 139 mmol/L (137-145)
[2018-07-08] MEDS: predniSONE 20 MG TAB PO SCH (08:26)
[2018-07-08] MEDS: LINAGLIPTIN 5 MG TABLET PO SCH (08:26)
[2018-07-08] MEDS: METOPROLOL TARTRATE 25 MG TAB PO SCH (08:26)
[2018-07-08] MEDS: AZITHROMYCIN 500 MG TAB PO SCH (08:27)
[2018-07-08] MEDS: ISOSORBIDE MONONITRATE ER 30 MG TAB.ER.24H PO SCH (08:27)
[2018-07-08] MEDS: ASPIRIN 325 MG TAB PO SCH (08:27)
[2018-07-08] MEDS: FAMOTIDINE 20 MG/2 ML VIAL IV SCH (08:27)
[2018-07-08] MEDS: HEPARIN SODIUM,PORCINE 5,000 UNIT/ML 1 ML VIAL SQ SCH (08:27)
[2018-07-08] MEDS: FUROSEMIDE 10 MG/ML 4 ML VIAL IV SCH (08:28)
[2018-07-08] MEDS: NICOTINE 21MG/24HR PATCH TRANSDERM SCH (08:28)
[2018-07-08 09:32] LABS: Glucose,Whole Blood 119 mg/dL (75-99)
[2018-07-08] MEDS: FERROUS SULFATE 325 MG TAB PO SCH (11:26)
[2018-07-08] MEDS: MULTIVITAMINS, THERA 1 EACH TAB PO SCH (11:26)
[2018-07-08] MEDS: POTASSIUM CHLORIDE ER 10 MEQ TAB.ER.PRT PO SCH (11:26)
[2018-07-08 11:32] LABS: Glucose,Whole Blood 96 mg/dL (75-99)
--- NOTE | 2018-07-08 13:02 | P.DS ---
Providers Date of admission: 07/07/18 00:08 Attending physician: Dede Hopkins Consults: 07/07/18 12:28 Consult Physician Routine Consulting Provider: Messi Ramos Consult Reason/Comments: copd Do you want consulting provider notified?: Yes Primary care physician: Marivel Hudson [facility] Course: 68-year-old male had a mechanical fall in the shower and is came in complaining of rib pain posteriorly. Patient had a chest x-ray and rib x-ray and patient was believed to have pneumonia and was admitted patient does have cough unable to bring up much patient does smoke and does have COPD exacerbation because of that reason I am keeping the patient here. Patient does have aortic stenosis chest x-ray appears to have pulmonary edema rather pneumonia, suspicion is low for pneumonia. Patient although does have bronchitis patient will be treated for that. Patient will be started on a small dose oforal steroids and if he is doing okay patient will be discharged tomorrow patient follows up Dr. Hudson as an outpatient Dr. Hudson will be consulted.ration still has some moderate amount of pain in the left lower rib cage area although there are noted fractures on x- ray. 07/08/2018 patient respiratory status improved improved although he is requiring oxygen up in amputation patient is desaturating patient is requiring 4 L his lungs sound clear. Patient will be discharged today and cleared by pulmonology. Patient will be discharged on 40 twice a day of oral Lasix. Patient appears to have diastolic dysfunction with acute exacerbation pulmonary contusion cannot be ruled out although suspicion for pneumonia is extremely low patient may have tracheobronchitis. Patient will not treat need any systemic steroids patient will continue with inhaled steroids will follow Dr. Hudson as an outpatient. PHYSICAL EXAMINATION: GENERAL: The patient is alert and oriented x3, not in any acute distress. Well developed, well nourished. HEENT: Pupils are round and equally reacting to light. EOMI. No scleral icterus. No conjunctival pallor. Normocephalic, atraumatic. No pharyngeal erythema. No thyromegaly. CARDIOVASCULAR: S1 and S2 present. No murmurs, rubs, or gallops. PULMONARY: Chest is clear to auscultation, no wheezing or crackles. ABDOMEN: Soft, nontender, nondistended, normoactive bowel sounds. No palpable organomegaly. MUSCULOSKELETAL: No joint swelling or deformity. EXTREMITIES: No cyanosis, clubbing, or pedal edema. NEUROLOGICAL: Gross neurological examination did not reveal any focal deficits. SKIN: No rashes. For the rest of the hospitalization course and other chronic medical problems that were addressed here please refer to my HPI from yesterday Patient Condition at Discharge: Serious Plan - Discharge Summary New Discharge Prescriptions: New Nicotine 21Mg/24Hr Patch [Habitrol] 1 patch TRANSDERM DAILY #14 patch Azithromycin [Zithromax] 500 mg PO DAILY #3 tab Tiotropium [place] [Spiriva] 1 cap INHALATION DAILY #1 device Continue oxyCODONE-APAP 10-325MG [Percocet 10-325 mg] 1 tab PO Q12H PRN PRN Reason: Pain Simvastatin [Zocor] 40 mg PO HS Omeprazole [PriLOSEC] 20 mg PO AC-BRKFST Isosorbide Mononitrate ER [Imdur] 30 mg PO QAM Multivitamins, Thera [Multivitamin (formulary)] 1 tab PO DAILY@1200 Metoprolol Tartrate [Lopressor] 25 mg PO BID Ferrous Sulfate [Iron (65 MG Elemental)] 325 mg PO DAILY@1200 Doxazosin [Cardura] 4 mg PO HS Fluticasone/Salmeterol [Advair 250-50 Diskus] 2 puff INHALATION RT-BID Potassium Chloride [Klor-Con 10] 10 meq PO DAILY@1200 Nitroglycerin Sl Tabs [Nitrostat] 0.4 mg PO Q5M PRN PRN Reason: Chest Pain sitaGLIPtin [Januvia] 100 mg PO DAILY Albuterol Inhaler [Ventolin Hfa Inhaler] 1 - 2 puff INHALATION RT-Q6H PRN PRN Reason: Shortness Of Breath Gabapentin [Neurontin] 300 mg PO TID Aspirin EC [Ecotrin] 325 mg PO DAILY Changed Furosemide [Lasix] 40 mg PO BID #0 Discharge Medication List Doxazosin [Cardura] 4 mg PO HS 10/31/14 [History] Ferrous Sulfate [Iron (65 MG Elemental)] 325 mg PO DAILY@1200 10/31/14 [History] Fluticasone/Salmeterol [Advair 250-50 Diskus] 2 puff INHALATION RT-BID 10/31/14 [History] Isosorbide Mononitrate ER [Imdur] 30 mg PO QAM 10/31/14 [History] Metoprolol Tartrate [Lopressor] 25 mg PO BID 10/31/14 [History] Multivitamins, Thera [Multivitamin (formulary)] 1 tab PO DAILY@1200 10/31/14 [History] Omeprazole [PriLOSEC] 20 mg PO AC-BRKFST 10/31/14 [History] Potassium Chloride [Klor-Con 10] 10 meq PO DAILY@1200 10/31/14 [History] Simvastatin [Zocor] 40 mg PO HS 10/31/14 [History] oxyCODONE-APAP 10-325MG [Percocet 10-325 mg] 1 tab PO Q12H PRN 10/31/14 [History] Nitroglycerin Sl Tabs [Nitrostat] 0.4 mg PO Q5M PRN 11/15/16 [History] Albuterol Inhaler [Ventolin Hfa Inhaler] 1 - 2 puff INHALATION RT-Q6H PRN 07/07/18 [History] Aspirin EC [Ecotrin] 325 mg PO DAILY 07/07/18 [History] Gabapentin [Neurontin] 300 mg PO TID 07/07/18 [History] sitaGLIPtin [Januvia] 100 mg PO DAILY 07/07/18 [History] Azithromycin [Zithromax] 500 mg PO DAILY #3 tab 07/08/18 [Rx] Furosemide [Lasix] 40 mg PO BID #0 07/08/18 [Rx] Nicotine 21Mg/24Hr Patch [Habitrol] 1 patch TRANSDERM DAILY #14 patch 07/08/18 [Rx] Tiotropium [place] [Spiriva] 1 cap INHALATION DAILY #1 device 07/08/18 [Rx] Follow up Appointment(s)/Referral(s): Marivel Hudson MD [Primary Care Provider] - 3 Days
[2018-07-08 15:01] VITALS: BP 102/54; TEMP 97.9
--- NOTE | 2018-07-08 15:06 | P.PN ---
Subjective Progress Note Date: 07/08/18 On today's evaluation of 07/08/2018, the patient doing extremely well. No specific complaints. Pain is subsided. Eating comfortably. Using incentive spirometer. 4 calcitonin level has been negative. Histamine oxygen 3 L per minute nasal cannula. He feels that his overall pulmonary status back to his baseline. His tachycardia. He is on Zithromax. He is on DuoNeb about treatments around the clock. He was also given Lasix 40 mg IV push every 12 hours. Is on prednisone burst taper starting with 20 mg Objective - Vital Signs Vital signs: Vital Signs Temp 97.9 F 07/08/18 15:00 Pulse 62 07/08/18 15:00 Resp 17 07/08/18 15:00 BP 102/54 07/08/18 15:00 Pulse Ox 91 L 07/08/18 15:00 Intake & Output 07/07/18 07/08/18 07/08/18 18:59 06:59 18:59 Intake Total 735 799 0575 Balance 009 975 9144 Weight 83.915 kg 81.3 kg Intake: Oral [phone] Other: Voiding Method Toilet Toilet # Voids 2 2 - Exam Gen. appearance the patient is calm and comfortable likely distress alert and oriented 3 Head exam was generally normal. There was no scleral icterus or corneal arcus. Mucous membranes were moist. Neck was supple and without jugular venous distension, thyromegaly, or carotid bruits. Carotids were easily palpable bilaterally. There was no adenopathy. Lungs sounds are diminished bilaterally along with some limited bibasilar crackles and few scattered expiratory wheeze. The patient has tenderness along the rib cage specially in the left area. No deformities. No his of excessive amount of breathing. Heart sounds are positive for a systolic ejection murmur grade 3/6 heard throughout the precordium mainly in the left lateral sternal border and apex radiating to the neck area. Abdominal exam revealed normal bowel sounds. The abdomen was soft, non-tender, and without masses, organomegaly, or appreciable enlargement of the abdominal aorta. Examination of the extremities revealed easily palpable radial, femoral and pedal pulses. There was no cyanosis, clubbing or edema. Examination of the skin revealed no evidence of significant rashes, suspicious appearing nevi or other concerning lesions. Neurologically the patient is awake and alert and there is no focal neurological deficit. - Labs CBC & Chem 7: 07/06/18 23:35 07/08/18 07:18 Labs: Abnormal Lab Results - Last 24 Hours (Table) 07/08/18 07/08/18 Range/Units 07:18 09:30 BUN 27 H (9-20) mg/dL POC Glucose (mg/dL) 119 H (75-99) mg/dL Microbiology - Last 24 Hours (Table) 07/07/18 23:35 Blood Culture - Preliminary Blood No Growth after 24 hours Assessment and Plan Plan: Assessment 1 acute hypoxic respiratory failure with development of lower lobe pulmonary infiltrates post fall and trauma to the chest. Rule out pulmonary contusion. Rule out interstitial edema in the setting of valvular heart disease and the patient has known history of aortic valve stenosis. Pneumonia is felt to be l ess likely. 2 COPD 3 coronary artery disease with previous coronary stenting 4 moderate to severe aortic stenosis, not candidate for valve replacement and the patient has declined the surgery 5 aortic aneurysm with previous repair 6 diabetes mellitus 7 remote history of a DVT of lower extremity 8 hypertension 9 hyperlipidemia 10 chronic back pain post insertion of a pain pump/nerve stimulator 11 history of prostate cancer with previous radiation therapy, 2005 12 history of melanoma resected 13 history of skin cancer of the lip, resected 14 history of bladder cancer treated with local intravesicular chemotherapy 15 smoker 16 marijuana use Plan Clinically improved. Pain is under good control. Pneumonia is very unlikely. The patient has been diuresed. Currently untreated oxygen nasal cannula. No shortness of breath. Possible discharge today. Smoking cessation counseling was done. Nicotine patch will be applied at a time of discharge. Follow-up with his primary care.
[2018-07-08 15:58] VITALS: RESP 18
[2018-07-08 16:06] VITALS: PULSE 110
[2018-07-08 16:30] LABS: Glucose,Whole Blood 133 mg/dL (75-99)
== END 2018-07-08 19:06 | disposition home or self-care (01) | DRG 291 ==
LOC: EC 19:50 → 4SSUR 07-07 00:08
PROVIDERS: ADMIT Hospitalist; ATTEND Hospitalist
DX: I11.0 Hypertensive heart disease with heart failure (principal); J96.01 Acute respiratory failure with hypoxia; J44.1 Chronic obstructive pulmonary disease with (acute) exacerbation; S27.329A Contusion of lung, unspecified, initial encounter; I50.33 Acute on chronic diastolic (congestive) heart failure; E11.9 Type 2 diabetes mellitus without complications; E78.5 Hyperlipidemia, unspecified; F17.200 Nicotine dependence, unspecified, uncomplicated; F32.9 Major depressive disorder, single episode, unspecified; F40.240 Claustrophobia; G89.29 Other chronic pain; I25.10 Atherosclerotic heart disease of native coronary artery without angina pectoris; I35.0 Nonrheumatic aortic (valve) stenosis; K21.9 Gastro-esophageal reflux disease without esophagitis; K44.9 Diaphragmatic hernia without obstruction or gangrene; M19.90 Unspecified osteoarthritis, unspecified site; M54.9 Dorsalgia, unspecified; R07.81 Pleurodynia; Z79.82 Long term (current) use of aspirin; Z79.84 Long term (current) use of oral hypoglycemic drugs; Z79.899 Other long term (current) drug therapy; Z85.46 Personal history of malignant neoplasm of prostate; Z85.51 Personal history of malignant neoplasm of bladder; Z85.819 Personal history of malignant neoplasm of unspecified site of lip, oral cavity, and pharynx; Z85.820 Personal history of malignant melanoma of skin; Z86.718 Personal history of other venous thrombosis and embolism; Z86.79 Personal history of other diseases of the circulatory system; Z92.3 Personal history of irradiation; Z95.5 Presence of coronary angioplasty implant and graft; Z98.1 Arthrodesis status; Z92.21 Personal history of antineoplastic chemotherapy; Z87.11 Personal history of peptic ulcer disease; W18.2XXA Fall in (into) shower or empty bathtub, initial encounter; Y92.002 Bathroom of unspecified non-institutional (private) residence as the place of occurrence of the external cause
CPT/HCPCS: 36415; 71045; 80048; 80053; 81003; 83605; 84145; 85025; 87040; 94640; 94760; 96365; 96375; 96376; 99285

== ENCOUNTER 2018-07-12 12:01 | Inpatient (IN) | payer MEDICARE, OTHER ==
--- NOTE | 2018-07-12 12:50 | ED ---
General Adult HPI - General Chief complaint: Shortness of Breath Stated complaint: Back pain Time Seen by Provider: 07/12/18 12:33 Source: patient Mode of arrival: wheelchair Limitations: no limitations - History of Present Illness Initial comments: Dictation was produced using [employer] dictation software. please excuse any grammatical, word or spelling errors. Chief Complaint: 68-year-old male past nuchal history asthma, COPD, heart failure, deep venous thrombosis, supplemental oxygen presents with worsening dyspnea. History of Present Illness: Patient is 68-year-old male with multiple comorbid pulmonary disease presents with worsening shortness of breath. Patient was dilated in the emergency department and admitted approximately 6 days ago. Patient was in hospital for 2 days and discharged. Patient was discharged with home oxygen. She was discharged in stable medical condition. There was concern of pulmonary contusion and possible pneumonia that was thought to be less likely however still a possibility. Patient has any constitutional symptoms. He states his symptoms are worse with exertion. Patient has been having worsening cough as well. The ROS documented in this emergency department record has been reviewed and confirmed by me. Those systems with pertinent positive or negative responses brush ve been documented in the HPI. All other systems are other negative and/or noncontributory. PHYSICAL EXAM: General Impression: Alert and oriented x3, dyspnea. HEENT: Normocephalic atraumatic, extra-ocular movements intact, pupils equal and reactive to light bilaterally, mucous membranes moist. Cardiovascular: Heart regular rate and rhythm, S1&S2 audible, no murmurs, rubs or gallops Chest: Bilateral lung crackling Abdomen: Bowel sounds present, abdomen soft, non-tender, non-distended, no organ omegaly Musculoskeletal: Pulses present and equal in all extremities, no peripheral edema Motor: no focal deficits noted Neurological: CN II-XII grossly intact, no focal motor or sensory deficits noted Skin: Intact with no visualized rashes Psych: Normal affect and mood ED course: 68-year-old male with multiple chronic pulmonary diseases presents with shortness of breath that has been progressive over a fall since the last 6 days. Vital signs upon arrival shows heart rate of 11, oxygen saturation 85% on room air. Patient immediately placed on supplemental oxygen and satting in the low 90s. Patient appears to be acutely dyspneic. He does have lung sounds bilaterally.Chest x-ray was performed showing resolution of previous bibasilar infiltrates however did not demonstrate any pneumothorax or hemothorax. Laboratory evaluation was obtained. Has a sense of 12.1. This appears to be s tress related or secondary to steroids. Blood gases shows alkalosis likely metabolic. Metabolic panel shows findings within acceptable limits. CT of the chest without contrast was obtained showing posterior left ninth rib fracture that is minimally displaced. There is also right middle lobe pneumonia. Clinical presentation is suspicious for pneumonia and given patient's comorbidities patient started on antibiotics. Patient appears stable at this time. Patient be admitted. Discussed patient case with because of is willing to accept admission. EKG interpretation: Ventricular rate 97, sinus rhythm with first-degree AV block, MD interval 210, QS 134, QTC 454. No MD prolongation, no QTC prolongation, no ST or T-wave changes noted. EKG compared to 11/01/2014 showing no changes. Overall, this EKG is unremarkable - Related Data Home Medications Medication Instructions Recorded Confirmed Doxazosin [Cardura] 4 mg PO HS 10/31/14 07/12/18 Ferrous Sulfate [Iron (65 MG 325 mg PO DAILY@1200 10/31/14 07/12/18 Elemental)] Fluticasone/Salmeterol [Advair 2 puff INHALATION RT-BID 10/31/14 07/12/18 250-50 Diskus] Isosorbide Mononitrate ER [Imdur] 30 mg PO QAM 10/31/14 07/12/18 Metoprolol Tartrate [Lopressor] 25 mg PO BID 10/31/14 07/12/18 Multivitamins, Thera [Multivitamin 1 tab PO DAILY@1200 10/31/14 07/12/18 (formulary)] Omeprazole [PriLOSEC] 20 mg PO AC-BRKFST 10/31/14 07/12/18 Potassium Chloride [Klor-Con 10] 10 meq PO DAILY@1200 10/31/14 07/12/18 Simvastatin [Zocor] 40 mg PO HS 10/31/14 07/12/18 oxyCODONE-APAP 10-325MG [Percocet 1 tab PO Q12H PRN 10/31/14 07/12/18 10-325 mg] Nitroglycerin Sl Tabs [Nitrostat] 0.4 mg PO Q5M PRN 11/15/16 07/12/18 Albuterol Inhaler [Ventolin Hfa 1 - 2 puff INHALATION RT-Q6H PRN 07/07/18 07/12/18 Inhaler] Aspirin EC [Ecotrin] 325 mg PO DAILY 07/07/18 07/12/18 Gabapentin [Neurontin] 300 mg PO TID 07/07/18 07/12/18 sitaGLIPtin [Januvia] 100 mg PO DAILY 07/07/18 07/12/18 Tiotropium [place] [Spiriva] 1 cap INHALATION RT-DAILY 07/12/18 07/12/18 Previous Rx's Medication Instructions Recorded Furosemide [Lasix] 40 mg PO BID #0 07/08/18 Nicotine 21Mg/24Hr Patch [Habitrol] 1 patch TRANSDERM DAILY #14 patch 07/08/18 Allergies Allergy/AdvReac Type Severity Reaction Status Date / Time No Known Allergies Allergy Verified 07/12/18 12:52 Review of Systems ROS Statement: Those systems with pertinent positive or pertinent negative responses have been documented in the HPI. ROS Other: All systems not noted in ROS Statement are negative. Past Medical History Past Medical History: Asthma, Coronary Artery Disease (CAD), Cancer, Heart Failure, Diabetes Mellitus, Deep Vein Thrombosis (DVT), GERD/Reflux, Hyperlipidemia, Hypertension, Memory Impairment, Osteoarthritis (OA) Additional Past Medical History / Comment(s): Coronary artery disease, moderate to severe aortic valve stenosis, COPD, history of prostate cancer treated by radiation therapy back in 2005, history of melanoma of the back resected, history of lip cancer resected, history of bladder cancers treated intravesicular chemotherapy, abdominal aortic aneurysm surgically repaired, history of chronic back pain and the patient is a pain stimulator in place and the patient has undergone L4-L5 spinal fusion, diabetes mellitus, history of DVT, hypertension, hyperlipidemia, osteoarthritis, hiatal hernia History of Any Multi-Drug Resistant Organisms: None Reported Past Surgical History: Back Surgery, Bladder Surgery, Heart Catheterization With Stent, Hernia Repair, Orthopedic Surgery Additional Past Surgical History / Comment(s): Insertion of a pain pump on 11/07/2016 for chronic back pain/pain stimulator, abdominal aortic aneurysm repair 2, back pain with spinal fusion at the level of L4-L5, left inguinal hernia repair, abdominal hernia repair, THERESA, removal of a venous clot from the lower extremity in the setting of DVT, bladder surgery with intravesicular chemotherapy, cardiac catheterization with insertion of coronary stents, hernia repair Past Anesthesia/Blood Transfusion Reactions: No Reported Reaction Additional Past Anesthesia/Blood Transfusion Reaction / Comment(s): CLAUSTROPHOBIA Date of Last Stent Placement:: UNK Past Psychological History: Depression Smoking Status: Current every day smoker Past Alcohol Use History: None Reported Past Drug Use History: Marijuana - Past Family History Father History Unknown: Yes Mother History Unknown: Yes General Exam Limitations: no limitations Course Vital Signs 07/12/18 12:23 Temperature 98.6 F Pulse Rate 101 H Respiratory 20 Rate Blood Pressure 119/74 O2 Sat by Pulse 85 L Oximetry Medical Decision Making - Lab Data Result diagrams: 07/12/18 12:52 07/12/18 12:52 Lab Results 07/12/18 07/12/18 07/12/18 Range/Units 12:52 12:52 12:52 WBC (3.8-10.6) k/uL RBC (4.30-5.90) m/uL Hgb (13.0-17.5) gm/dL Hct (39.0-53.0) % MCV (80.0-100.0) fL MCH (25.0-35.0) pg MCHC (31.0-37.0) g/dL RDW (11.5-15.5) % Plt Count (150-450) k/uL Neutrophils % % Lymphocytes % % Monocytes % % Eosinophils % % Basophils % % Neutrophils # (1.3-7.7) k/uL Lymphocytes # (1.0-4.8) k/uL Monocytes # (0-1.0) k/uL Eosinophils # (0-0.7) k/uL Basophils # (0-0.2) k/uL VBG pH 7.46 H (7.31-7.41) VBG pCO2 44 (37-51) mmHg VBG HCO3 31 H (24-28) mmol/L Sodium 140 (137-145) mmol/L Potassium 4.2 (3.5-5.1) mmol/L Chloride 98 (98-107) mmol/L Carbon Dioxide 30 (22-30) mmol/L Anion Gap 12 mmol/L BUN 34 H (9-20) mg/dL Creatinine 0.86 (0.66-1.25) mg/dL Est GFR (CKD-EPI)AfAm >90 (>60 ml/min/1.73 sqM) Est GFR (CKD-EPI)NonAf 90 (>60 ml/min/1.73 sqM) Glucose 124 H (74-99) mg/dL Calcium 10.5 H (8.4-10.2) mg/dL Magnesium 2.1 (1.6-2.3) mg/dL Troponin I (0.000-0.034) ng/mL NT-Pro-B Natriuret Pep pg/mL Blood Type O Positive Blood Type Recheck No Antibody Screen NEGATIVE Spec Expiration Date 07/15/2018235107/12/18 07/12/18 07/12/18 Range/Units 12:52 12:52 12:52 WBC 12.1 H (3.8-10.6) k/uL RBC 6.10 H (4.30-5.90) m/uL Hgb 18.0 H (13.0-17.5) gm/dL Hct 55.5 H (39.0-53.0) % MCV 91.0 (80.0-100.0) fL MCH 29.5 (25.0-35.0) pg MCHC 32.5 (31.0-37.0) g/dL RDW 13.9 (11.5-15.5) % Plt Count 171 (150-450) k/uL Neutrophils % 84 % Lymphocytes % 9 % Monocytes % 5 % Eosinophils % 1 % Basophils % 0 % Neutrophils # 10.1 H (1.3-7.7) k/uL Lymphocytes # 1.1 (1.0-4.8) k/uL Monocytes # 0.6 (0-1.0) k/uL Eosinophils # 0.1 (0-0.7) k/uL Basophils # 0.0 (0-0.2) k/uL VBG pH (7.31-7.41) VBG pCO2 (37-51) mmHg VBG HCO3 (24-28) mmol/L Sodium (137-145) mmol/L Potassium (3.5-5.1) mmol/L Chloride (98-107) mmol/L Carbon Dioxide (22-30) mmol/L Anion Gap mmol/L BUN (9-20) mg/dL Creatinine (0.66-1.25) mg/dL Est GFR (CKD-EPI)AfAm (>60 ml/min/1.73 sqM) Est GFR (CKD-EPI)NonAf (>60 ml/min/1.73 sqM) Glucose (74-99) mg/dL Calcium (8.4-10.2) mg/dL Magnesium (1.6-2.3) mg/dL Troponin I <0.012 (0.000-0.034) ng/mL NT-Pro-B Natriuret Pep 299 pg/mL Blood Type Blood Type Recheck Antibody Screen Spec Expiration Date Disposition Clinical Impression: Pneumonia Disposition: ADMITTED IP TO THIS HOSP Condition: Fair Referrals: Marivel Hudson MD [Primary Care Provider] - 1-2 days Decision Time: 14:42
[2018-07-12 13:03] LABS: Basophils % (A) 0 %; Eosinophils # (A) 0.1 k/uL (0-0.7); Eosinophils % (A) 1 %; HCT 55.5 % (39.0-53.0); Lymphocytes # (A) 1.1 k/uL (1.0-4.8); Lymphocytes % (A) 9 %; MCH 29.5 pg (25.0-35.0); MCHC 32.5 g/dL (31.0-37.0); Mean Platelet Volume 8.5; Monocytes # (A) 0.6 k/uL (0-1.0); Monocytes % (A) 5 %; Neutrophils # (A) 10.1 k/uL (1.3-7.7); Neutrophils % (A) 84 %; Platelet Count 171 k/uL (150-450); RDW 13.9 % (11.5-15.5); WBC 12.1 k/uL (3.8-10.6)
[2018-07-12 13:09] LABS: VBG PH 7.46 (7.31-7.41)
[2018-07-12 13:12] LABS: Anion Gap 12 mmol/L; Blood Urea Nitrogen 34 mg/dL (9-20); Calcium 10.5 mg/dL (8.4-10.2); Carbon Dioxide 30 mmol/L (22-30); Chloride 98 mmol/L (98-107); Glucose 124 mg/dL (74-99); Magnesium 2.1 mg/dL (1.6-2.3); Potassium 4.2 mmol/L (3.5-5.1); Sodium 140 mmol/L (137-145)
--- NOTE | 2018-07-12 13:18 | XR ---
EXAMINATION TYPE: XR chest 1V portable DATE OF EXAM: 07/12/2018 COMPARISON: 07/06/2018 INDICATION: Short of breath TECHNIQUE: Single frontal view of the chest is obtained. FINDINGS: The heart size is normal. The pulmonary vasculature is normal. Previous bibasilar infiltrates have largely resolved. IMPRESSION: 1. Resolution previous bibasilar infiltrates
--- NOTE | 2018-07-12 13:31 | CT ---
EXAMINATION TYPE: CT chest wo con DATE OF EXAM: 07/12/2018 COMPARISON: Chest x-ray same date HISTORY: Back pain CT DLP: 351.2 mGycm. Automated Exposure Control for Dose Reduction was Utilized. TECHNIQUE: CT scan of the thorax is performed without IV contrast. FINDINGS: LUNGS: The right middle lobe shows some partial atelectatic change, some air bronchograms noted, abbi elate for pneumonia. Centrilobular emphysematous changes are present. There is no pleural effusion or pneumothorax seen. The tracheobronchial tree is patent. MEDIASTINUM: Lack of IV contrast is noted to limit evaluation for mediastinal and especially hilar ad enopathy. There are no definitive greater than 1 cm hilar or mediastinal lymph nodes. No cardiomega ly or pericardial effusion is seen. There are dense coronary artery calcifications present. Aorta als o shows atheromatous change. Pulmonary artery is prominent. Metallic density present at the root of t he aorta. OTHER: Gallbladder is distended. Punctate calcifications present within the liver. There is a thoraci c stimulator lead present coursing within the thecal sac to the T8 level. There is a posterior minima lly displaced fracture of the left ninth rib. IMPRESSION: Posterior left ninth rib fracture is minimally displaced. Noncontrast exam. Right middle lobe pneumonia suspected. Coronary artery disease. Correlate for pulmonary artery hypertension. Addit ional findings above.
[2018-07-12] MEDS ORDERED: AZITHROMYCIN 500 MG in SODIUM CHLORIDE 0.9% 250 ML IVPB STA (13:52)
[2018-07-12] MEDS ORDERED: LIDOCAINE 5% PATCH TOPICAL STA (14:44)
[2018-07-12] MEDS: IPRATROPIUM-ALBUTEROL 3 ML NEB INHALATION PRN ×2 (15:10→18:35)
[2018-07-12] MEDS ORDERED: PANTOPRAZOLE 40 MG/10 ML VIAL IVP ONE (15:49)
[2018-07-12] MEDS ORDERED: METOCLOPRAMIDE 5 MG/ML 2 ML VIAL IVP STA (15:49)
[2018-07-12] MEDS ORDERED: NITROGLYCERIN SL TABS 0.4 MG TAB SUBLINGUAL PRN (16:11)
--- NOTE | 2018-07-12 16:21 | P.HPIM ---
History of Present Illness 68-year-old pleasant male with the known history of COPD was recently discharged from the hospital after he was treated for pulmonary contusion came in with compensative shortness of breath cough with the greenish sputum production found to have bilateral pneumonia. Patient is also complaining of severe epigastric abdominal burning sensation patient has predominant right middle lobe pneumonia. Patient denied any fever chills does have leukocytosis. Patient does have COPD, continues to smoke. Patient does have minimal reason examined saturations around 90% on 2 L of oxygen patient had a recent chest wall, and pulmonary con tusion. Patient is still complaining of pain in the knee he takes a deep breath patient does have a pain pump in place. Review of Systems REVIEW OF SYSTEMS: CONSTITUTIONAL: No fever, no malaise, no fatigue. HEENT: No recent visual problems or hearing problems. Denied any sore throat. CARDIOVASCULAR: orthopnea, PND, no palpitations, no syncope. PULMONARY: no hemoptysis. GASTROINTESTINAL: No diarrhea, no nausea, no vomiting, no abdominal pain. NEUROLOGICAL: No headaches, no weakness, no numbness. HEMATOLOGICAL: Denies any bleeding or petechiae. GENITOURINARY: Denies any burning micturition, frequency, or urgency. MUSCULOSKELETAL/RHEUMATOLOGICAL: Denies any joint pain, swelling, or any muscle pain. ENDOCRINE: Denies any polyuria or polydipsia. The rest of the 14-point review of systems is negative. Past Medical History Past Medical History: Asthma, Coronary Artery Disease (CAD), Cancer, Heart Failure, Diabetes Mellitus, Deep Vein Thrombosis (DVT), GERD/Reflux, Hyperlipidemia, Hypertension, Memory Impairment, Osteoarthritis (OA) Additional Past Medical History / Comment(s): Coronary artery disease, moderate to severe aortic valve stenosis, COPD, history of prostate cancer treated by radiation therapy back in 2005, history of melanoma of the back resected, history of lip cancer resected, history of bladder cancers treated intravesicular chemotherapy, abdominal aortic aneurysm surgically repaired, history of chronic back pain and the patient is a pain stimulator in place and the patient has undergone L4-L5 spinal fusion, diabetes mellitus, history of DVT, hypertension, hyperlipidemia, osteoarthritis, hiatal hernia History of Any Multi-Drug Resistant Organisms: None Reported Past Surgical History: Back Surgery, Bladder Surgery, Heart Catheterization With Stent, Hernia Repair, Orthopedic Surgery Additional Past Surgical History / Comment(s): Insertion of a pain pump on 11/07/2016 for chronic back pain/pain stimulator, abdominal aortic aneurysm repair 2, back pain with spinal fusion at the level of L4-L5, left inguinal hernia repair, abdominal hernia repair, THERESA, removal of a venous clot from the lower extremity in the setting of DVT, bladder surgery with intravesicular chemotherapy, cardiac catheterization with insertion of coronary stents, hernia repair Past Anesthesia/Blood Transfusion Reactions: No Reported Reaction Additional Past Anesthesia/Blood Transfusion Reaction / Comment(s): CLAUSTROPHOBIA Date of Last Stent Placement:: UNK Past Psychological History: Depression Smoking Status: Current every day smoker Past Alcohol Use History: None Reported Past Drug Use History: Marijuana - Past Family History Father History Unknown: Yes Mother History Unknown: Yes Medications and Allergies Home Medications Medication Instructions Recorded Confirmed Type Doxazosin [Cardura] 4 mg PO HS 10/31/14 07/12/18 History Ferrous Sulfate [Iron (65 MG 325 mg PO DAILY@1200 10/31/14 07/12/18 History Elemental)] Fluticasone/Salmeterol [Advair 2 puff INHALATION RT-BID 10/31/14 07/12/18 History 250-50 Diskus] Isosorbide Mononitrate ER [Imdur] 30 mg PO QAM 10/31/14 07/12/18 History Metoprolol Tartrate [Lopressor] 25 mg PO BID 10/31/14 07/12/18 History Multivitamins, Thera [Multivitamin 1 tab PO DAILY@1200 10/31/14 07/12/18 History (formulary)] Omeprazole [PriLOSEC] 20 mg PO AC-BRKFST 10/31/14 07/12/18 History Potassium Chloride [Klor-Con 10] 10 meq PO DAILY@1200 10/31/14 07/12/18 History Simvastatin [Zocor] 40 mg PO HS 10/31/14 07/12/18 History oxyCODONE-APAP 10-325MG [Percocet 1 tab PO Q12H PRN 10/31/14 07/12/18 History 10-325 mg] Nitroglycerin Sl Tabs [Nitrostat] 0.4 mg PO Q5M PRN 11/15/16 07/12/18 History Albuterol Inhaler [Ventolin Hfa 1 - 2 puff INHALATION RT-Q6H PRN 07/07/18 07/12/18 History Inhaler] Aspirin EC [Ecotrin] 325 mg PO DAILY 07/07/18 07/12/18 History Gabapentin [Neurontin] 300 mg PO TID 07/07/18 07/12/18 History sitaGLIPtin [Januvia] 100 mg PO DAILY 07/07/18 07/12/18 History Furosemide [Lasix] 40 mg PO BID #0 07/08/18 07/12/18 Rx Nicotine 21Mg/24Hr Patch [Habitrol] 1 patch TRANSDERM DAILY #14 patch 07/08/18 07/12/18 Rx Tiotropium [place] [Spiriva] 1 cap INHALATION RT-DAILY 07/12/18 07/12/18 History Allergies Allergy/AdvReac Type Severity Reaction Status Date / Time No Known Allergies Allergy Verified 07/12/18 12:52 Physical Exam Vitals: Vital Signs Temp Pulse Resp BP Pulse Ox 07/12/18 16:02 105 H 20 126/64 92 L 07/12/18 15:19 99 14 07/12/18 15:10 98 14 95 07/12/18 14:55 105 H 22 117/95 95 07/12/18 12:23 98.6 F 101 H 20 119/74 85 L Intake and Output 07/12/18 07/12/18 07/12/18 06:59 14:59 22:59 Other: Weight 83.915 kg PHYSICAL EXAMINATION: GENERAL: The patient is alert and oriented x3, not in any acute distress. Well developed, well nourished. HEENT: Pupils are round and equally reacting to light. EOMI. No scleral icterus. No conjunctival pallor. Normocephalic, atraumatic. No pharyngeal erythema. No thyromegaly. CARDIOVASCULAR: S1 and S2 present. No murmurs, rubs, or gallops. PULMONARY: Decreased air entry into bilateral lung chan minimal expiratory wheezing was appreciated ABDOMEN: Minimal epigastric abdominal tenderness nondistended, normoactive bowel sounds. No palpable organomegaly. MUSCULOSKELETAL: No joint swelling or deformity. EXTREMITIES: No cyanosis, clubbing, or pedal edema. NEUROLOGICAL: Gross neurological examination did not reveal any focal deficits. SKIN: No rashes. Results CBC & Chem 7: 07/12/18 12:52 05/29/19 12:52 Labs: Abnormal Lab Results - Last 24 Hours (Table) 07/12/18 07/12/18 07/12/18 Range/Units 12:52 12:52 12:52 WBC 12.1 H (3.8-10.6) k/uL RBC 6.10 H (4.30-5.90) m/uL Hgb 18.0 H (13.0-17.5) gm/dL Hct 55.5 H (39.0-53.0) % Neutrophils # 10.1 H (1.3-7.7) k/uL VBG pH 7.46 H (7.31-7.41) VBG HCO3 31 H (24-28) mmol/L BUN 34 H (9-20) mg/dL Glucose 124 H (74-99) mg/dL Calcium 10.5 H (8.4-10.2) mg/dL Assessment and Plan Plan: -Acute hypoxic and hypercapnic respiratory failure secondary to right middle lobe pneumonia along with some mild pneumonia on the left side as well patient will be started on ceftriaxone and azithromycin which is appropriate patient does have COPD exacerbation as well patient will be started on inhaled steroids because of his severe gastritis will hold off on systemic steroids for now pulmonary will be consulted -Epigastric abdominal pain: Secondary to peptic ulcer disease patient will be started on Protonix 40 mg IV twice a day -COPD with mild acute exacerbation -Coronary artery disease received CABG in the past -Moderate to severe aortic stenosis separately not a candidate for anti- correlation patient is not in heart failure exacerbation at this time possibility of a diastolic dysfunction patient is on Lasix at home which will be resumed and continued kidney function is okay -Aortic aneurysm -Type 2 diabetes mellitus -History of DVT in the past not in any anti-coagulation at this time chronic back pain with a pain pump in place -Hyperlipidemia -Continue nicotine use: Counseling was provided -Benign prostatic hypertrophy DVT prophylaxis with the subcutaneous heparin
[2018-07-12] MEDS: SYMBICORT 80-4.5 MCG INHALER INHALATION SCH (18:39)
[2018-07-12] MEDS ORDERED: DOXAZOSIN 4 MG TAB PO SCH (21:00)
[2018-07-12] MEDS ORDERED: ATORVASTATIN 20 MG TAB PO SCH (21:00)
[2018-07-12] MEDS: METOPROLOL TARTRATE 25 MG TAB PO SCH (21:45)
[2018-07-12] MEDS: GABAPENTIN 300 MG CAP PO SCH (21:45)
[2018-07-12] MEDS: oxyCODONE-APAP 10-325MG 1 EACH TAB PO PRN (21:45)
[2018-07-12] MEDS: HEPARIN SODIUM,PORCINE 5,000 UNIT/ML 1 ML VIAL SQ SCH (23:44)
[2018-07-13] MEDS: HEPARIN SODIUM,PORCINE 5,000 UNIT/ML 1 ML VIAL SQ SCH ×2 (07:13→17:26)
[2018-07-13] MEDS: GABAPENTIN 300 MG CAP PO SCH ×2 (07:15→17:26)
[2018-07-13] MEDS: METOPROLOL TARTRATE 25 MG TAB PO SCH (07:15)
[2018-07-13] MEDS ORDERED: NON-FORMULARY DRUG (Omeprazole [Prilosec] 20 MG) PO SCH (07:30)
[2018-07-13] MEDS ORDERED: PANTOPRAZOLE 40 MG/10 ML VIAL IVP SCH (09:00)
[2018-07-13] MEDS ORDERED: ASPIRIN 325 MG TAB PO SCH (09:00)
[2018-07-13] MEDS ORDERED: FUROSEMIDE 40 MG TAB PO SCH (09:00)
[2018-07-13] MEDS ORDERED: NICOTINE 21MG/24HR PATCH TRANSDERM SCH (09:00)
[2018-07-13] MEDS ORDERED: ISOSORBIDE MONONITRATE ER 30 MG TAB.ER.24H PO SCH (09:00)
[2018-07-13] MEDS ORDERED: LINAGLIPTIN 5 MG TABLET PO SCH (09:00)
[2018-07-13] MEDS: oxyCODONE-APAP 10-325MG 1 EACH TAB PO PRN (09:07)
[2018-07-13] MEDS: SYMBICORT 80-4.5 MCG INHALER INHALATION SCH (09:54)
[2018-07-13] MEDS ORDERED: MORPHINE SULFATE 4 MG/ML SYRINGE IVP PRN (11:26)
[2018-07-13] MEDS ORDERED: SENNOSIDES 8.6 MG TAB PO SCH (11:30)
[2018-07-13] MEDS ORDERED: POTASSIUM CHLORIDE ER 10 MEQ TAB.ER.PRT PO SCH (12:00)
[2018-07-13] MEDS ORDERED: FERROUS SULFATE 325 MG TAB PO SCH (12:00)
--- NOTE | 2018-07-13 12:08 | P.CNPUL ---
History of Present Illness Consult date: 07/13/18 Requesting physician: Bebe Pimentel Reason for consult: dyspnea Chief complaint: Worsening shortness of breath, hypoxemia History of present illness: This is 68-year-old white male patient with past medical history of COPD, coronary artery disease, hypertension, hyperlipidemia, osteoarthritis, diabetes mellitus, previous episode of DVT, GERD/reflux, nicotine dependence, and patient just quit smoking last Tuesday, valvular heart disease, recent has severe aortic stenosis and he had declined surgery. Patient's FEV1 from 2017 was 2.63 L or 84% of predicted, with diffusion abnormality, patient has mild COPD. Patient was recently hospitalized last week after sustaining a fall after ge tting out of the shower and tried to put on his underwear, he fell on his back causing significant trauma to his posterior left chest area. Chest x-ray during that admission showed bilateral lower lobe pulmonary infiltrates, patient was treated with antibiotics, and diuretics, and was discharged home in stable condition on 07/08/2018. On 07/12/2018 patient came in to the emergency department for evaluation of worsening shortness of breath, coughing, and patient has been complaining of a lot of pain with deep inspiration in his chest, particularly in posterior left lower area. Patient has been having worsening cough, his room air pulse ox was 85% on room air on admission, he was placed on supplemental oxygen, chest x-ray was performed showing resolution of the previous bibasilar infiltrates, it was negative for pneumothorax or hemothorax. CT chest without contrast was completed showing posterior left ninth rib fracture which is minimally displaced. Showed right middle lobe infiltrate or atelectatic change. Patient is having trouble clearing secretions, his breathing is impaired by his thoracic pain, he does have a pain pump in place for chronic back pain he is on Percocet every 12 hours in addition to Neurontin. Her work showed a white blood cell count of 12.1, hemoglobin was 18, venous blood gas was obtained showing pH of 7.46, pCO2 is 44, and bicarb was 31, related to metabolic alkalosis, electrolytes are within normal limits, BUN is 34 and creatinine was 0.86. Troponin was negative 1, proBNP was 299. Review of Systems All systems: negative Constitutional: Denies chills, Denies fever Eyes: denies blurred vision, denies pain Ears, nose, mouth and throat: Denies headache, Denies sore throat Cardiovascular: Denies chest pain, Denies shortness of breath Respiratory: Reports dyspnea, Reports pain on inspiration, Denies cough Gastrointestinal: Denies abdominal pain, Denies diarrhea, Denies nausea, Denies vomiting Musculoskeletal: Denies myalgias Integumentary: Denies pruritus, Denies rash Neurological: Denies numbness, Denies weakness Psychiatric: Denies anxiety, Denies depression Endocrine: Denies fatigue, Denies weight change Past Medical History Past Medical History: Asthma, Coronary Artery Disease (CAD), Cancer, Heart Failure, Diabetes Mellitus, Deep Vein Thrombosis (DVT), GERD/Reflux, Hyperlipid emia, Hypertension, Memory Impairment, Osteoarthritis (OA) Additional Past Medical History / Comment(s): Coronary artery disease, moderate to severe aortic valve stenosis, COPD, history of prostate cancer treated by radiation therapy back in 2005, history of melanoma of the back resected, history of lip cancer resected, history of bladder cancers treated intravesicular chemotherapy, abdominal aortic aneurysm surgically repaired, history of chronic back pain and the patient is a pain stimulator in place and the patient has undergone L4-L5 spinal fusion, diabetes mellitus, history of DVT, hypertension, hyperlipidemia, osteoarthritis, hiatal hernia History of Any Multi-Drug Resistant Organisms: None Reported Past Surgical History: Back Surgery, Bladder Surgery, Heart Catheterization With Stent, Hernia Repair, Orthopedic Surgery Additional Past Surgical History / Comment(s): Insertion of a pain pump on 11/07/2016 for chronic back pain/pain stimulator, abdominal aortic aneurysm repair 2, back pain with spinal fusion at the level of L4-L5, left inguinal hernia repair, abdominal hernia repair, THERESA, removal of a venous clot from the lower extremity in the setting of DVT, bladder surgery with intravesicular chemotherapy, cardiac catheterization with insertion of coronary stents, hernia repair Past Anesthesia/Blood Transfusion Reactions: No Reported Reaction Additional Past Anesthesia/Blood Transfusion Reaction / Comment(s): CLAUSTROPH OBIA Date of Last Stent Placement:: UNK Past Psychological History: Depression Additional Psychological History / Comment(s): SOMETIMES GETS DEPRESSED, NO MEDS TAKEN. Smoking Status: Former smoker Past Alcohol Use History: None Reported Additional Past Alcohol Use History / Comment(s): STARTED SMOKING AT AGE 14-15 SMOKES LESS THAN 1/2 PPD. Past Drug Use History: Marijuana Additional Drug Use History / Comment(s): OCC SMOKES MARIJUANA FOR PAIN. - Past Family History Father History Unknown: Yes Mother History Unknown: Yes Medications and Allergies Home Medications Medication Instructions Recorded Confirmed Type Doxazosin [Cardura] 4 mg PO HS 10/31/14 07/12/18 History Ferrous Sulfate [Iron (65 MG 325 mg PO DAILY@1200 10/31/14 07/12/18 History Elemental)] Fluticasone/Salmeterol [Advair 2 puff INHALATION RT-BID 10/31/14 07/12/18 History 250-50 Diskus] Isosorbide Mononitrate ER [Imdur] 30 mg PO QAM 10/31/14 07/12/18 History Metoprolol Tartrate [Lopressor] 25 mg PO BID 10/31/14 07/12/18 History Multivitamins, Thera [Multivitamin 1 tab PO DAILY@1200 10/31/14 07/12/18 History (formulary)] Omeprazole [PriLOSEC] 20 mg PO AC-BRKFST 10/31/14 07/12/18 History Potassium Chloride [Klor-Con 10] 10 meq PO DAILY@1200 10/31/14 07/12/18 History Simvastatin [Zocor] 40 mg PO HS 10/31/14 07/12/18 History oxyCODONE-APAP 10-325MG [Percocet 1 tab PO Q12H PRN 10/31/14 07/12/18 History 10-325 mg] Nitroglycerin Sl Tabs [Nitrostat] 0.4 mg PO Q5M PRN 11/15/16 07/12/18 History Albuterol Inhaler [Ventolin Hfa 1 - 2 puff INHALATION RT-Q6H PRN 07/07/18 07/12/18 History Inhaler] Aspirin EC [Ecotrin] 325 mg PO DAILY 07/07/18 07/12/18 History Gabapentin [Neurontin] 300 mg PO TID 07/07/18 07/12/18 History sitaGLIPtin [Januvia] 100 mg PO DAILY 07/07/18 07/12/18 History Furosemide [Lasix] 40 mg PO BID #0 07/08/18 07/12/18 Rx Nicotine 21Mg/24Hr Patch [Habitrol] 1 patch TRANSDERM DAILY #14 patch 05/25/19 05/29/19 Rx Tiotropium [place] [Spiriva] 1 cap INHALATION RT-DAILY 07/12/18 07/12/18 History Allergies Allergy/AdvReac Type Severity Reaction Status Date / Time No Known Allergies Allergy Verified 07/12/18 12:52 Physical Exam Vitals: Vital Signs Temp Pulse Pulse Resp BP BP Pulse Ox 07/13/18 08:00 85 17 07/13/18 07:00 99.4 F 85 17 115/68 90 L 07/13/18 00:57 98.4 F 88 15 126/70 91 L 07/12/18 19:37 98.5 F 113 H 15 105/61 91 L 07/12/18 18:48 100 07/12/18 18:40 100 07/12/18 18:18 101 H 20 131/72 100 07/12/18 16:02 105 H 20 126/64 92 L 07/12/18 15:19 99 14 07/12/18 15:10 98 14 95 07/12/18 14:55 105 H 22 117/95 95 07/12/18 12:23 98.6 F 101 H 20 119/74 85 L Intake and Output 07/12/18 07/13/18 07/13/18 22:59 06:59 14:59 Intake Total 280 280 320 Balance 280 280 320 Intake: Oral 280 280 320 GENERAL EXAM: Alert, pleasant, 68-year-old white male on 2 L of oxygen, with a pulse ox of 90-91% comfortable in no apparent distress. HEAD: Normocephalic/atraumatic. EYES: Normal reaction of pupils, equal size. Conjunctiva pink, sclera white. NOSE: Clear with pink turbinates. THROAT: No erythema or exudates. NECK: No masses, no JVD, no thyroid enlargement, no adenopathy. CHEST: No chest wall deformity. Symmetrical expansion. Posterior left lower chest wall has bruising from a previous fall LUNGS: Equal air entry with diminished breath sounds, basilar crackles CVS: Regular rate and rhythm, normal S1 and S2, no gallops, no murmurs, no rubs ABDOMEN: Soft, nontender. No hepatosplenomegaly, normal bowel sounds, no guarding or rigidity. EXTREMITIES: No clubbing, no edema, no cyanosis, 2+ pulses and upper and lower extremities. MUSCULOSKELETAL: Muscle strength and tone normal. SPINE: No scoliosis or deformity SKIN: No rashes CENTRAL NERVOUS SYSTEM: Alert and oriented -3. No focal deficits, tone is normal in all 4 extremities. PSYCHIATRIC: Alert and oriented -3. Appropriate affect. Intact judgment and insight. Results - Laboratory Findings CBC and BMP: 07/12/18 12:52 07/12/18 12:52 Abnormal lab findings: Abnormal Labs 07/12/18 07/12/18 07/12/18 12:52 12:52 12:52 WBC 12.1 H RBC 6.10 H Hgb 18.0 H Hct 55.5 H Neutrophils # 10.1 H VBG pH 7.46 H VBG HCO3 31 H BUN 34 H Glucose 124 H Calcium 10.5 H - Diagnostic Findings Chest x-ray: report reviewed, image reviewed CT scan - chest: report reviewed, image reviewed Additional studies: EKG reviewed Assessment and Plan Plan: Assessment: #1. Acute hypoxemic respiratory failure related to possibility of underlying pneumonia, chest x-ray showed resolving bilateral infiltrates, but CT chest showed a right middle lobe atelectasis versus pneumonic infiltrate #2. Recent hospitalization for dyspnea related to possibility of pulmonary contusion after sustaining a fall, patient is experiencing amount of pain with deep inspiration related to the chest wall trauma and left ninth rib fracture #3. Mild COPD with baseline FEV1 of 84% #4. Coronary artery disease with previous coronary stenting #5. Moderate to severe aortic stenosis, patient was a poor surgical candidate, and he did decline surgery #6. Abdominal aortic aneurysm with previous repair #7. Diabetes mellitus #8. Remote history of DVT in the lower extremities #9. Hypertension, hyperlipidemia #10. Chronic back pain status post insertion of a pain pump/nerve stimulator #11. History of prostate cancer with previous radiation therapy in 2005 #12. History of melanoma postresection #13. History of skin cancer of the lip, resected #14. History of bladder cancer treated with local intravesicular chemotherapy #15. Nicotine dependence, patient quit smoking last Tuesday, does have extensive smoking history #16. Dehydration, likely related to diuretic therapy, we'll cut back the dose of Lasix Plan: We'll continue current antibiotic coverage, maintain pain control, patient is having difficulty clearing secretions, deep breathing and coughing related to his chest wall pain with deep inspiration. Provide incentive spirometer, breathing and coughing. Continue breathing treatments, chest x-ray and CT chest has been reviewed by Dr. Riggs, patient was seen and evaluated by Dr. Riggs, there is a small patch of atelectasis/infiltrate seen in the right middle lobe, possibly related to early pneumonia. Will cut back to oral Lasix to once daily, patient is prerenal, appears to be dehydrated. I performed a history & physical examination of the patient and discussed their management with my nurse practitioner, Alondra Hartley. I reviewed the nurse practitioner's note and agree with the documented findings and plan of care. Lung sounds are positive for bibasilar crackles. The findings and the impression was discussed with the patient. I attest to the documentation by the nurse practitioner. Time with Patient: Greater than 30
[2018-07-13 15:03] VITALS: BP 110/62; PULSE 93; RESP 15; TEMP 98.4
--- NOTE | 2018-07-13 15:30 | P.DS ---
Providers Date of admission: 07/12/18 14:53 Attending physician: Bebe Pimentel Primary care physician: Marivel [facility] Course: 68-year-old pleasant male with the known history of COPD was recently discharged from the hospital after he was treated for pulmonary contusion came in with compensative shortness of breath cough with the greenish sputum production found to have bilateral pneumonia. Patient is also complaining of severe epigastric abdominal burning sensation patient has predominant right middle lobe pneumonia. Patient denied any fever chills does have leukocytosis. Patient does have COPD, continues to smoke. Patient does have minimal reason examined saturations around 90% on 2 L of oxygen patient had a recent chest wall, and pulmonary contusion. Patient is still complaining of pain in the knee he takes a deep breath patient does have a pain pump in place. 07/13/2018 Patient is hematologically stable was evaluated by pulmonary patient will be discharged on levofloxacin patient is complaining of pain in his pain pump need to be filled. PHYSICAL EXAMINATION: GENERAL: The patient is alert and oriented x3, not in any acute distress. Well developed, well nourished. HEENT: Pupils are round and equally reacting to light. EOMI. No scleral icterus. No conjunctival pallor. Normocephalic, atraumatic. No pharyngeal erythema. No thyromegaly. CARDIOVASCULAR: S1 and S2 present. No murmurs, rubs, or gallops. PULMONARY: Decreased air entry into bilateral lung chan minimal expiratory wheezing was appreciated, minimal improvement in wheezing. But yesterday but pretty much his baseline ABDOMEN: Minimal epigastric abdominal tenderness nondistended, normoactive bowel sounds. No palpable organomegaly. MUSCULOSKELETAL: No joint swelling or deformity. EXTREMITIES: No cyanosis, clubbing, or pedal edema. NEUROLOGICAL: Gross neurological examination did not reveal any focal deficits. SKIN: No rashes. Assessment and Plan Plan: -Acute hypoxic and hypercapnic respiratory failure secondary to right middle lobe pneumonia along with some mild pneumonia on the left side as well patient will be discharged on levofloxacin patient does have COPD exacerbation as well patient will be started on inhaled steroids because of his severe gastritis will hold off on systemic steroids for now pulmonary will be consulted -Epigastric abdominal pain: Secondary to peptic ulcer disease , improved s ymptoms now -COPD with mild acute exacerbation -Coronary artery disease received CABG in the past -Moderate to severe aortic stenosis separately not a candidate for anti- violation patient is not in heart failure exacerbation at this time possibility of a diastolic dysfunction patient is on Lasix at home which will be resumed and continued kidney function is okay -Aortic aneurysm -Type 2 diabetes mellitus -History of DVT in the past not in any anti-coagulation at this time chronic back pain with a pain pump in place -Hyperlipidemia -Continue nicotine use: Counseling was provided -Benign prostatic hypertrophy Patient Condition at Discharge: Fair Plan - Discharge Summary Discharge Rx Participant: Yes New Discharge Prescriptions: New Levofloxacin [Levaquin] 500 mg PO DAILY 5 Days #3 tab No Action oxyCODONE-APAP 10-325MG [Percocet 10-325 mg] 1 tab PO Q12H PRN PRN Reason: Pain Simvastatin [Zocor] 40 mg PO HS Omeprazole [PriLOSEC] 20 mg PO AC-BRKFST Isosorbide Mononitrate ER [Imdur] 30 mg PO QAM Multivitamins, Thera [Multivitamin (formulary)] 1 tab PO DAILY@1200 Metoprolol Tartrate [Lopressor] 25 mg PO BID Ferrous Sulfate [Iron (65 MG Elemental)] 325 mg PO DAILY@1200 Doxazosin [Cardura] 4 mg PO HS Fluticasone/Salmeterol [Advair 250-50 Diskus] 2 puff INHALATION RT-BID Potassium Chloride [Klor-Con 10] 10 meq PO DAILY@1200 Nitroglycerin Sl Tabs [Nitrostat] 0.4 mg PO Q5M PRN PRN Reason: Chest Pain sitaGLIPtin [Januvia] 100 mg PO DAILY Albuterol Inhaler [Ventolin Hfa Inhaler] 1 - 2 puff INHALATION RT-Q6H PRN PRN Reason: Shortness Of Breath Gabapentin [Neurontin] 300 mg PO TID Aspirin EC [Ecotrin] 325 mg PO DAILY Nicotine 21Mg/24Hr Patch [Habitrol] 1 patch TRANSDERM DAILY #14 patch Furosemide [Lasix] 40 mg PO BID #0 Tiotropium [place] [Spiriva] 1 cap INHALATION RT-DAILY Discharge Medication List Doxazosin [Cardura] 4 mg PO HS 10/31/14 [History] Ferrous Sulfate [Iron (65 MG Elemental)] 325 mg PO DAILY@1200 10/31/14 [History] Fluticasone/Salmeterol [Advair 250-50 Diskus] 2 puff INHALATION RT-BID 10/31/14 [History] Isosorbide Mononitrate ER [Imdur] 30 mg PO QAM 10/31/14 [History] Metoprolol Tartrate [Lopressor] 25 mg PO BID 10/31/14 [History] Multivitamins, Thera [Multivitamin (formulary)] 1 tab PO DAILY@1200 10/31/14 [History] Omeprazole [PriLOSEC] 20 mg PO AC-BRKFST 10/31/14 [History] Potassium Chloride [Klor-Con 10] 10 meq PO DAILY@1200 10/31/14 [History] Simvastatin [Zocor] 40 mg PO HS 10/31/14 [History] oxyCODONE-APAP 10-325MG [Percocet 10-325 mg] 1 tab PO Q12H PRN 10/31/14 [History] Nitroglycerin Sl Tabs [Nitrostat] 0.4 mg PO Q5M PRN 11/15/16 [History] Albuterol Inhaler [Ventolin Hfa Inhaler] 1 - 2 puff INHALATION RT-Q6H PRN 07/07/18 [History] Aspirin EC [Ecotrin] 325 mg PO DAILY 07/07/18 [History] Gabapentin [Neurontin] 300 mg PO TID 07/07/18 [History] sitaGLIPtin [Januvia] 100 mg PO DAILY 07/07/18 [History] Furosemide [Lasix] 40 mg PO BID #0 07/08/18 [Rx] Nicotine 21Mg/24Hr Patch [Habitrol] 1 patch TRANSDERM DAILY #14 patch 07/08/18 [Rx] Tiotropium [place] [Spiriva] 1 cap INHALATION RT-DAILY 07/12/18 [History] Levofloxacin [Levaquin] 500 mg PO DAILY 5 Days #3 tab 07/13/18 [Rx] Follow up Appointment(s)/Referral(s): Marivel Hudson MD [Primary Care Provider] - 3 Days Discharge Disposition: HOME SELF-CARE
[2018-07-13 16:52] VITALS: BMI 28.1
[2018-07-14] MEDS ORDERED: PANTOPRAZOLE 40 MG TABLET PO SCH (07:30)
[2018-07-14] MEDS ORDERED: FUROSEMIDE 40 MG TAB PO SCH (09:00)
== END 2018-07-13 17:34 | disposition home or self-care (01) | DRG 193 ==
LOC: EC 12:01 → 4SSUR 14:53
PROVIDERS: ADMIT Internal Medicine; ATTEND Internal Medicine
DX: J18.9 Pneumonia, unspecified organism (principal); J96.02 Acute respiratory failure with hypercapnia; J96.01 Acute respiratory failure with hypoxia; S22.32XA Fracture of one rib, left side, initial encounter for closed fracture; E87.3 Alkalosis; I50.30 Unspecified diastolic (congestive) heart failure; J44.0 Chronic obstructive pulmonary disease with (acute) lower respiratory infection; J44.1 Chronic obstructive pulmonary disease with (acute) exacerbation; F17.210 Nicotine dependence, cigarettes, uncomplicated; E11.9 Type 2 diabetes mellitus without complications; E78.5 Hyperlipidemia, unspecified; E86.0 Dehydration; F32.9 Major depressive disorder, single episode, unspecified; F40.240 Claustrophobia; G89.29 Other chronic pain; I11.0 Hypertensive heart disease with heart failure; I25.10 Atherosclerotic heart disease of native coronary artery without angina pectoris; I35.0 Nonrheumatic aortic (valve) stenosis; I44.0 Atrioventricular block, first degree; I71.4 Abdominal aortic aneurysm, without rupture; K21.9 Gastro-esophageal reflux disease without esophagitis; K27.9 Peptic ulcer, site unspecified, unspecified as acute or chronic, without hemorrhage or perforation; K29.70 Gastritis, unspecified, without bleeding; N40.0 Benign prostatic hyperplasia without lower urinary tract symptoms; T50.2X5A Adverse effect of carbonic-anhydrase inhibitors, benzothiadiazides and other diuretics, initial encounter; Z79.82 Long term (current) use of aspirin; S27.329D Contusion of lung, unspecified, subsequent encounter; W18.30XD Fall on same level, unspecified, subsequent encounter; Z79.84 Long term (current) use of oral hypoglycemic drugs; Z79.899 Other long term (current) drug therapy; Z85.46 Personal history of malignant neoplasm of prostate; Z85.51 Personal history of malignant neoplasm of bladder; Z85.819 Personal history of malignant neoplasm of unspecified site of lip, oral cavity, and pharynx; Z85.820 Personal history of malignant melanoma of skin; Z86.718 Personal history of other venous thrombosis and embolism; Z92.3 Personal history of irradiation; Z95.1 Presence of aortocoronary bypass graft; Z95.5 Presence of coronary angioplasty implant and graft; Z98.1 Arthrodesis status; Z92.21 Personal history of antineoplastic chemotherapy; R41.3 Other amnesia; Z71.6 Tobacco abuse counseling; M54.9 Dorsalgia, unspecified; M19.90 Unspecified osteoarthritis, unspecified site
CPT/HCPCS: 36415; 71045; 71250; 80048; 82803; 83735; 83880; 84484; 85025; 86850; 86900; 86901; 87040; 93005; 94640; 96365; 96366; 96367; 96375; 99285

== ENCOUNTER 2018-12-05 13:26 | Inpatient (IN) | payer MEDICARE, OTHER ==
[2018-12-05] MEDS ORDERED: IPRATROPIUM-ALBUTEROL 3 ML NEB INHALATION STA (14:53)
[2018-12-05] MEDS ORDERED: AZITHROMYCIN 500 MG in SODIUM CHLORIDE 0.9% 250 ML IVPB STA (14:58)
[2018-12-05] MEDS ORDERED: MORPHINE SULFATE 4 MG/ML SYRINGE IV STA (15:00)
[2018-12-05] MEDS ORDERED: IBUPROFEN 600 MG TAB PO STA (15:00)
[2018-12-05] MEDS ORDERED: ACETAMINOPHEN TAB 500 MG TAB PO STA (15:00)
[2018-12-05] MEDS ORDERED: SODIUM CHLORIDE 0.9% 1,000 ML IV STA (15:06)
--- NOTE | 2018-12-05 15:10 | ED ---
General Adult HPI <Nico Daiz - Last Filed: 12/05/18 17:02> - General Source: patient, RN notes reviewed, old records reviewed Mode of arrival: ambulatory Limitations: physical limitation <Dhruv Lovelace - Last Filed: 12/05/18 17:24> - General Chief complaint: Shortness of Breath Stated complaint: Poss Pnuemonia, Abd Pain Time Seen by Provider: 12/05/18 14:41 - History of Present Illness Initial comments: 68-year-old male patient with extensive past medical history including coronary artery disease, COPD on home O2, history of aortic aneurysm repair, DVT, presents ED chief complaint of productive cough, fever, shortness of breath, pleuritic pain in his right upper quadrant/right lower lobe region. Patient worsens has been ongoing for 4 days. Patient denies any chest pain anteriorly. Denies any nausea vomiting. Denies any other complaints. Patient reports that he had aortic aneurysm repair in 3 places in approximately 1984, declines any maintenance or complications since. Systemic: Pt denies fatigue, rash. Pt denies weakness, night sweats, weight loss. Neuro: Pt denies headache, visual disturbances, syncope or pre-syncope. HEENT: Pt denies ocular discharge or irritation, otalgia, rhinorrhea, pharyngitis or notable lymphadenopathy. Cardiopulmonary: Pt denies chest pain, heart palpitations, dyspnea on exertion. Abdominal/GI: Pt denies abdominal pain, n/v/d. : Pt denies dysuria, burning w/ urination, frequency/urgency. Denies new onset urinary or bowel incontinence. MSK: Pt denies myalgia, loss of strength or function in extremities. Neuro: Pt denies new onset weakness, paresthesias. (Dhruv Lovelace) - Related Data Home Medications Medication Instructions Recorded Confirmed Doxazosin [Cardura] 4 mg PO DAILY 10/31/14 12/05/18 Ferrous Sulfate [Iron (65 MG 325 mg PO DAILY 10/31/14 12/05/18 Elemental)] Metoprolol Tartrate [Lopressor] 25 mg PO BID 10/31/14 12/05/18 Potassium Chloride [Klor-Con 10] 20 meq PO DAILY 10/31/14 12/05/18 Simvastatin [Zocor] 40 mg PO DAILY 10/31/14 12/05/18 oxyCODONE-APAP 10-325MG [Percocet 1 tab PO DAILY PRN 10/31/14 12/05/18 10-325 mg] Aspirin EC [Ecotrin] 325 mg PO DAILY 07/07/18 12/05/18 Gabapentin [Neurontin] 300 mg PO TID 07/07/18 12/05/18 Furosemide [Lasix] 40 mg PO DAILY 12/05/18 12/05/18 Omeprazole [PriLOSEC] 20 mg PO AC-BRKFST 12/05/18 12/05/18 metFORMIN HCL [Glucophage] 850 mg PO BID 12/05/18 12/05/18 Allergies Allergy/AdvReac Type Severity Reaction Status Date / Time No Known Allergies Allergy Verified 12/05/18 15:44 Review of Systems ROS Other: All systems not noted in ROS Statement are negative. <Nico Diaz - Last Filed: 12/05/18 17:02> ROS Other: All systems not noted in ROS Statement are negative. <Dhruv Lovelace - Last Filed: 12/05/18 17:24> ROS Statement: Those systems with pertinent positive or pertinent negative responses have been documented in the HPI. Past Medical History Past Medical History: Asthma, Coronary Artery Disease (CAD), Cancer, Heart Failure, Diabetes Mellitus, Deep Vein Thrombosis (DVT), GERD/Reflux, Hyperlipidemia, Hypertension, Memory Impairment, Osteoarthritis (OA) Additional Past Medical History / Comment(s): Coronary artery disease, moderate to severe aortic valve stenosis, COPD, history of prostate cancer treated by radiation therapy back in 2005, history of melanoma of the back resected, history of lip cancer resected, history of bladder cancers treated intravesicular chemotherapy, abdominal aortic aneurysm surgically repaired, history of chronic back pain and the patient is a pain stimulator in place and the patient has undergone L4-L5 spinal fusion, diabetes mellitus, history of DVT, hypertension, hyperlipidemia, osteoarthritis, hiatal hernia History of Any Multi-Drug Resistant Organisms: None Reported Past Surgical History: Back Surgery, Bladder Surgery, Heart Catheterization With Stent, Hernia Repair, Orthopedic Surgery Additional Past Surgical History / Comment(s): Insertion of a pain pump on 11/07/2016 for chronic back pain/pain stimulator, abdominal aortic aneurysm repair 2, back pain with spinal fusion at the level of L4-L5, left inguinal hernia repair, abdominal hernia repair, THERESA, removal of a venous clot from the lower extremity in the setting of DVT, bladder surgery with intravesicular chemotherapy, cardiac catheterization with insertion of coronary stents, hernia repair Past Anesthesia/Blood Transfusion Reactions: No Reported Reaction Additional Past Anesthesia/Blood Transfusion Reaction / Comment(s): CLAUSTROPHOBIA Date of Last Stent Placement:: UNK Past Psychological History: Depression Smoking Status: Former smoker Past Alcohol Use History: None Reported Past Drug Use History: Marijuana - Past Family History Father History Unknown: Yes Mother History Unknown: Yes <Dhruv Lovelace - Last Filed: 12/05/18 17:24> General Exam Limitations: physical limitation <Dhruv Lovelace - Last Filed: 12/05/18 17:24> - General Exam Comments Initial Comments: Constitutional: NAD, AOX3, Pt has pleasant affect. HEENT: NC/AT, trachea midline, neck supple, no lymphadenopathy. Posterior pharynx non erythematous, without exudates. External ears appear normal, without discharge. Mucous membranes moist. Eyes PERRLA, EOM intact. There is no scleral icterus. No pallor noted. Cardiopulmonary: RRR, no murmurs, rubs or gallops, no JVD noted. Wheezing in anterior and posterior lung chan. No peripheral edema. Abdominal exam: Abdomen soft and non-distended. Abdomen mildly tender to palpation in right upper quadrant region. No pulsatile mass. No other areas of abdominal tenderness. Bowel sounds active in LLQ. No hepatosplenomegaly. No ecchymosis Neuro: CN II-XII grossly intact. No nuchal rigidity. No raccon eyes, no brower sign, no hemotympanum. No cervical spinal tenderness. MSK: No posterior calf tenderness bilaterally, homans sign negative bilaterally. Posterior tibialis and radial pulse +2 bilaterally. Sensation intact in upper and lower extremities. Full active ROM in upper and lower extremities, 5/5 stregnth. (Dhruv Lovelace) Course <Nico Diaz - Last Filed: 12/05/18 17:02> Vital Signs 12/05/18 12/05/18 12/05/18 14:21 14:24 15:09 Temperature 101.2 F H Pulse Rate 101 H 100 Respiratory 17 26 H Rate Blood Pressure 125/76 O2 Sat by Pulse 85 L Oximetry 12/05/18 12/05/18 12/05/18 15:24 15:27 16:39 Temperature Pulse Rate 102 H 104 H 104 H Respiratory 26 H 24 Rate Blood Pressure 127/69 O2 Sat by Pulse 90 L 90 L Oximetry - Reevaluation(s) Reevaluation #1: 12/05/18 17:02 Patient reexamined and reevaluated by myself, Dr. Diaz. Patient resting comfortably in bed. Lungs with continued wheezing. Patient and family updated on results and plan. I do agree with the findings, this includes diagnostic interpretation and treatment plan. Case was also discussed in detail with Dr. eubanks, covering for Dr. Hudson who will admit. His group has previously seen this patient. Dr. Hudson will be placed on consult. Case was also discussed with Dr. Galeas with vascular who will review CT films. (Nico Diaz) Medical Decision Making - Lab Data Result diagrams: 12/05/18 15:12 12/05/18 15:12 <Nico Diaz - Last Filed: 12/05/18 17:02> - Lab Data Result diagrams: 12/05/18 15:12 12/05/18 15:12 - EKG Data -: EKG Interpreted by Me (and Dr. Diaz ) <Dhruv Lovelace - Last Filed: 12/05/18 17:24> - Medical Decision Making 68-year-old male patient presented to the chief complaint of 4 days of shortness of breath, right upper quadrant pain, pleuritic right upper quadrant/right lower lobe lung pain. Patient also had productive cough and fevers at home. Patient vital signs are displayed hypoxia, fever. Physical exam displayed mild amount right upper quadrant tenderness. Wheezing in anterior and posterior lung chan. Left investigations revealed a leukocytosis of 13, correlation states the normal limits, bilirubin mildly elevated, no transaminitis. Lactic acid 1.3. Troponin negative. BNP 924. EKG unchanged from prior. Chest x-ray revealed new bibasilar lipase of these concerning for for multifocal pneumonia. CTA revealed a 0.2 cm abdominal aortic aneurysm, no evidence of leakage. Wide patency of aortoiliac bypass graft. No evidence of PE. Emphysema. Patchy right middle lobe pneumonia. Patient administered IV antibiotics Rocephin and azithromycin. 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 Patient pulse ox patient in room during evaluation prior to admission was 95%. Patient will be admitted for pneumonia versus COPD exacerbation. Vascular surgery consulted. Case discussed in depth with Dr. Diaz. (Dhruv Lovelace) - Lab Data Lab Results 12/05/18 12/05/18 12/05/18 Range/Units 15:12 15:12 15:12 WBC 13.0 H (3.8-10.6) k/uL RBC 5.49 (4.30-5.90) m/uL Hgb 17.0 (13.0-17.5) gm/dL Hct 51.8 (39.0-53.0) % MCV 94.4 (80.0-100.0) fL MCH 31.0 (25.0-35.0) pg MCHC 32.8 (31.0-37.0) g/dL RDW 14.4 (11.5-15.5) % Plt Count 147 L (150-450) k/uL Neutrophils % 83 % Lymphocytes % 10 % Monocytes % 5 % Eosinophils % 1 % Basophils % 1 % Neutrophils # 10.7 H (1.3-7.7) k/uL Lymphocytes # 1.3 (1.0-4.8) k/uL Monocytes # 0.7 (0-1.0) k/uL Eosinophils # 0.1 (0-0.7) k/uL Basophils # 0.1 (0-0.2) k/uL PT (9.0-12.0) sec INR (<1.2) APTT (22.0-30.0) sec Sodium 138 (137-145) mmol/L Potassium 4.5 (3.5-5.1) mmol/L Chloride 101 (98-107) mmol/L Carbon Dioxide 25 (22-30) mmol/L Anion Gap 12 mmol/L BUN 17 (9-20) mg/dL Creatinine 0.84 (0.66-1.25) mg/dL Est GFR (CKD-EPI)AfAm >90 (>60 ml/min/1.73 sqM) Est GFR (CKD-EPI)NonAf >90 (>60 ml/min/1.73 sqM) Glucose 109 H (74-99) mg/dL Plasma Lactic Acid Jose 1.3 (0.7-2.0) mmol/L Calcium 9.9 (8.4-10.2) mg/dL Total Bilirubin 2.4 H (0.2-1.3) mg/dL AST 17 (17-59) U/L ALT 16 L (21-72) U/L Alkaline Phosphatase 64 (38-126) U/L Troponin I (0.000-0.034) ng/mL NT-Pro-B Natriuret Pep pg/mL Total Protein 7.9 (6.3-8.2) g/dL Albumin 4.6 (3.5-5.0) g/dL 12/05/18 12/05/18 12/05/18 Range/Units 15:12 15:12 15:12 WBC (3.8-10.6) k/uL RBC (4.30-5.90) m/uL Hgb (13.0-17.5) gm/dL Hct (39.0-53.0) % MCV (80.0-100.0) fL MCH (25.0-35.0) pg MCHC (31.0-37.0) g/dL RDW (11.5-15.5) % Plt Count (150-450) k/uL Neutrophils % % Lymphocytes % % Monocytes % % Eosinophils % % Basophils % % Neutrophils # (1.3-7.7) k/uL Lymphocytes # (1.0-4.8) k/uL Monocytes # (0-1.0) k/uL Eosinophils # (0-0.7) k/uL Basophils # (0-0.2) k/uL PT 11.4 (9.0-12.0) sec INR 1.1 (<1.2) APTT 28.2 (22.0-30.0) sec Sodium (137-145) mmol/L Potassium (3.5-5.1) mmol/L Chloride (98-107) mmol/L Carbon Dioxide (22-30) mmol/L Anion Gap mmol/L BUN (9-20) mg/dL Creatinine (0.66-1.25) mg/dL Est GFR (CKD-EPI)AfAm (>60 ml/min/1.73 sqM) Est GFR (CKD-EPI)NonAf (>60 ml/min/1.73 sqM) Glucose (74-99) mg/dL Plasma Lactic Acid Jose (0.7-2.0) mmol/L Calcium (8.4-10.2) mg/dL Total Bilirubin (0.2-1.3) mg/dL AST (17-59) U/L ALT (21-72) U/L Alkaline Phosphatase (38-126) U/L Troponin I <0.012 (0.000-0.034) ng/mL NT-Pro-B Natriuret Pep 924 pg/mL Total Protein (6.3-8.2) g/dL Albumin (3.5-5.0) g/dL - EKG Data EKG Comments: Ventricular rate 100, painful to 26, QRS 142, QT/QTC 356 is 459. Sinus rhythm with first-degree AV block. Possible left atrial enlargement. Rigth bundle branch block. Abnormal EKG. No considerable change from prior. No concern for acute ischemia. (Dhruv Lovelace) Disposition <Nico Diaz - Last Filed: 12/05/18 17:02> Is patient prescribed a controlled substance at d/c from ED?: No <Dhruv Lovelace - Last Filed: 12/05/18 17:24> Clinical Impression: Pneumonia, COPD exacerbation, Abdominal aortic aneurysm, Sepsis Disposition: ADMITTED IP TO THIS HOSP Condition: Serious Referrals: Marivel Hudson MD [Primary Care Provider] - 1-2 days
[2018-12-05 15:32] LABS: ALT 16 U/L (21-72); AST 17 U/L (17-59); African American GFR (CKD) >90 (>60 ml/min/1.73 sqM); Albumin 4.6 g/dL (3.5-5.0); Alkaline Phosphatase 64 U/L (38-126); Anion Gap 12 mmol/L; Blood Urea Nitrogen 17 mg/dL (9-20); Calcium 9.9 mg/dL (8.4-10.2); Carbon Dioxide 25 mmol/L (22-30); Chloride 101 mmol/L (98-107); Glucose 109 mg/dL (74-99); Potassium 4.5 mmol/L (3.5-5.1); Sodium 138 mmol/L (137-145); Total Bilirubin 2.4 mg/dL (0.2-1.3); Total Protein 7.9 g/dL (6.3-8.2)
[2018-12-05 15:36] LABS: Basophils # (A) 0.1 k/uL (0-0.2); Basophils % (A) 1 %; Eosinophils # (A) 0.1 k/uL (0-0.7); Eosinophils % (A) 1 %; HCT 51.8 % (39.0-53.0); Lymphocytes # (A) 1.3 k/uL (1.0-4.8); Lymphocytes % (A) 10 %; MCHC 32.8 g/dL (31.0-37.0); MCV 94.4 fL (80.0-100.0); Monocytes # (A) 0.7 k/uL (0-1.0); Monocytes % (A) 5 %; Neutrophils # (A) 10.7 k/uL (1.3-7.7); Neutrophils % (A) 83 %; Platelet Count 147 k/uL (150-450); RBC 5.49 m/uL (4.30-5.90); RDW 14.4 % (11.5-15.5)
--- NOTE | 2018-12-05 15:41 | XR ---
EXAMINATION TYPE: XR chest 2V DATE OF EXAM: 12/05/2018 COMPARISON: 07/12/2017 HISTORY: Cough and fever TECHNIQUE: Frontal and lateral views of the chest are obtained. FINDINGS: New right basilar opacity is seen abutting the right minor fissure with right lower lobe v olume loss depressing minor fissure. Left basilar opacity is also developed in the interim. Chronic i nterstitial prominence and pulmonary hyperinflation of COPD. Cardiomediastinal silhouette is within n ormal limits. Diffuse osseous sacralization. Moderate degenerative changes of the spine. IMPRESSION: New bibasilar opacities concerning for multifocal pneumonia.
[2018-12-05] MEDS ORDERED: methylPREDNISolone SOD SUCCI 125 MG/2 ML VIAL IV STA (15:59)
[2018-12-05 16:01] LABS: INR 1.1 (<1.2); Partial Thromboplastin Time 28.2 sec (22.0-30.0); Prothrombin Time 11.4 sec (9.0-12.0)
--- NOTE | 2018-12-05 16:51 | CT ---
EXAMINATION TYPE: CT angio thor/abd pel aorta DATE OF EXAM: 12/05/2018 COMPARISON: None HISTORY: Right upper quadrant pain. Chest pain. CT DLP: mGycm. Automated Exposure Control for Dose Reduction was Utilized. CONTRAST: CT scan of the thorax, abdomen and pelvis is performed , patient injected with mL of . The contrast was Isovue 100 mL. There are 3-D post processed images. FINDINGS: Multiple axial sections were obtained from the diaphragm to the floor the pelvis without and with IV contrast. There is pulmonary emphysema. There is coarse interstitial infiltrate in the posterior lung bases. Th ere is some mild airspace consolidation and atelectasis in the right middle lobe laterally. There is no pleural effusion. There are no hilar masses. There is normal contrast opacification of the pulmona ry arteries. There is no filling defect. Thoracic aorta shows mild atheromatous change. The ascending aorta measures 3.5 cm. There is no thoracic aortic dissection. There are a few mediastinal lymph nod es up to 1 cm. There are no hilar masses. There is large fusiform aneurysm of the lower abdominal aorta. There is aortoiliac bypass graft which appears patent. Aneurysm measures up to 8.1 cm. There is arterial flow in the celiac artery and superior mesenteric artery. There is arterial flow in both renal arteries. I see no evidence of hemodynamic stenosis. There is moderate plaque in the manuelito c arteries. I see no hemodynamic stenosis. There is no evidence of abdominal aortic dissection. Bladder distends smoothly. There is no inguinal hernia. There are multiple diverticula in the sigmoid colon. There is no sign of diverticulitis. There is no evidence of a bowel obstruction. There is no mesenteric edema. There is no ascites or free air. There is implanted device over the left anterior a bdomen. There is implanted device over the posterior right iliac bone. There are spondylotic changes in the thoracic and lumbar spine. I see no bony destructive process. Th ere is no compression fracture. There is disc prosthesis at L4-5 L5-S1. Appendix is not seen. There i s no sign of thickened appendix. IMPRESSION: 8.2 cm abdominal aortic aneurysm. No evidence of leakage. Wide patency of the aortoiliac bypass graft . No evidence of pulmonary embolism. Emphysema. Fibrotic changes and atelectasis at the lung bases. Patchy right middle lobe pneumonia. Si gmoid diverticulosis.
--- NOTE | 2018-12-05 17:42 | ED ---
Medical Decision Making - Lab Data Result diagrams: 12/05/18 15:12 12/05/18 15:12 Lab Results 12/05/18 12/05/18 12/05/18 Range/Units 15:12 15:12 15:12 WBC 13.0 H (3.8-10.6) k/uL RBC 5.49 (4.30-5.90) m/uL Hgb 17.0 (13.0-17.5) gm/dL Hct 51.8 (39.0-53.0) % MCV 94.4 (80.0-100.0) fL MCH 31.0 (25.0-35.0) pg MCHC 32.8 (31.0-37.0) g/dL RDW 14.4 (11.5-15.5) % Plt Count 147 L (150-450) k/uL Neutrophils % 83 % Lymphocytes % 10 % Monocytes % 5 % Eosinophils % 1 % Basophils % 1 % Neutrophils # 10.7 H (1.3-7.7) k/uL Lymphocytes # 1.3 (1.0-4.8) k/uL Monocytes # 0.7 (0-1.0) k/uL Eosinophils # 0.1 (0-0.7) k/uL Basophils # 0.1 (0-0.2) k/uL PT (9.0-12.0) sec INR (<1.2) APTT (22.0-30.0) sec Sodium 138 (137-145) mmol/L Potassium 4.5 (3.5-5.1) mmol/L Chloride 101 (98-107) mmol/L Carbon Dioxide 25 (22-30) mmol/L Anion Gap 12 mmol/L BUN 17 (9-20) mg/dL Creatinine 0.84 (0.66-1.25) mg/dL Est GFR (CKD-EPI)AfAm >90 (>60 ml/min/1.73 sqM) Est GFR (CKD-EPI)NonAf >90 (>60 ml/min/1.73 sqM) Glucose 109 H (74-99) mg/dL Plasma Lactic Acid Jose 1.3 (0.7-2.0) mmol/L Calcium 9.9 (8.4-10.2) mg/dL Total Bilirubin 2.4 H (0.2-1.3) mg/dL AST 17 (17-59) U/L ALT 16 L (21-72) U/L Alkaline Phosphatase 64 (38-126) U/L Troponin I (0.000-0.034) ng/mL NT-Pro-B Natriuret Pep pg/mL Total Protein 7.9 (6.3-8.2) g/dL Albumin 4.6 (3.5-5.0) g/dL 12/05/18 12/05/18 12/05/18 Range/Units 15:12 15:12 15:12 WBC (3.8-10.6) k/uL RBC (4.30-5.90) m/uL Hgb (13.0-17.5) gm/dL Hct (39.0-53.0) % MCV (80.0-100.0) fL MCH (25.0-35.0) pg MCHC (31.0-37.0) g/dL RDW (11.5-15.5) % Plt Count (150-450) k/uL Neutrophils % % Lymphocytes % % Monocytes % % Eosinophils % % Basophils % % Neutrophils # (1.3-7.7) k/uL Lymphocytes # (1.0-4.8) k/uL Monocytes # (0-1.0) k/uL Eosinophils # (0-0.7) k/uL Basophils # (0-0.2) k/uL PT 11.4 (9.0-12.0) sec INR 1.1 (<1.2) APTT 28.2 (22.0-30.0) sec Sodium (137-145) mmol/L Potassium (3.5-5.1) mmol/L Chloride (98-107) mmol/L Carbon Dioxide (22-30) mmol/L Anion Gap mmol/L BUN (9-20) mg/dL Creatinine (0.66-1.25) mg/dL Est GFR (CKD-EPI)AfAm (>60 ml/min/1.73 sqM) Est GFR (CKD-EPI)NonAf (>60 ml/min/1.73 sqM) Glucose (74-99) mg/dL Plasma Lactic Acid Jose (0.7-2.0) mmol/L Calcium (8.4-10.2) mg/dL Total Bilirubin (0.2-1.3) mg/dL AST (17-59) U/L ALT (21-72) U/L Alkaline Phosphatase (38-126) U/L Troponin I <0.012 (0.000-0.034) ng/mL NT-Pro-B Natriuret Pep 924 pg/mL Total Protein (6.3-8.2) g/dL Albumin (3.5-5.0) g/dL Critical Care Time Critical Care Time: Yes Total Critical Care Time: 27 Disposition Clinical Impression: Pneumonia, COPD exacerbation, Abdominal aortic aneurysm, Sepsis Disposition: ADMITTED IP TO THIS HOSP Condition: Serious Is patient prescribed a controlled substance at d/c from ED?: No Referrals: Marivel Hudson MD [Primary Care Provider] - 1-2 days
[2018-12-05] MEDS: IPRATROPIUM-ALBUTEROL 3 ML NEB INHALATION SCH (19:09)
[2018-12-05] MEDS: SODIUM CHLORIDE 0.9% 1,000 ML IV SCH (19:31)
[2018-12-05] MEDS: IBUPROFEN 800 MG TAB PO PRN (23:22)
[2018-12-05] MEDS: ACETAMINOPHEN TAB 325 MG TAB PO PRN (23:23)
[2018-12-06] MEDS: methylPREDNISolone SOD SUCCI 125 MG/2 ML VIAL IV SCH ×5 (01:27→23:30)
[2018-12-06 05:43] LABS: Appearance,Urine Clear (Clear); Bilirubin,Urine Negative (Negative); Blood,Urine Negative (Negative); Color,Urine Yellow; Glucose,Urine (UA) Negative (Negative); Ketones,Urine Negative (Negative); Leukocyte Esterase,Urine Negative (Negative); Mucus,Urine Rare /hpf; Nitrite,Urine Negative (Negative); PH, Urine 5.5 (5.0-8.0); Protein,Urine 1+ (Negative); RBC,Urine 2 /hpf (0-5); Squamous Epithelial Cell,Urine <1 /hpf (0-4); Urobilinogen,Urine <2.0 mg/dL (<2.0); WBC,Urine 1 /hpf (0-5)
[2018-12-06 05:47] LABS: Specific Gravity,Urine 1.047 (1.001-1.035)
[2018-12-06] MEDS: PANTOPRAZOLE 40 MG TABLET PO SCH (06:33)
[2018-12-06] MEDS: IBUPROFEN 800 MG TAB PO PRN ×2 (06:33→22:51)
[2018-12-06] MEDS: SODIUM CHLORIDE 0.9% 1,000 ML IV SCH ×3 (06:38→20:51)
[2018-12-06 06:51] LABS: Basophils % (A) 0 %; Eosinophils % (A) 0 %; HCT 45.7 % (39.0-53.0); Lymphocytes # (A) 0.6 k/uL (1.0-4.8); Lymphocytes % (A) 7 %; MCH 31.2 pg (25.0-35.0); MCHC 32.7 g/dL (31.0-37.0); MCV 95.2 fL (80.0-100.0); Mean Platelet Volume 7.7; Monocytes # (A) 0.2 k/uL (0-1.0); Monocytes % (A) 2 %; Neutrophils # (A) 7.1 k/uL (1.3-7.7); Neutrophils % (A) 90 %; Platelet Count 117 k/uL (150-450); RDW 14.3 % (11.5-15.5); WBC 7.8 k/uL (3.8-10.6)
[2018-12-06 06:56] LABS: African American GFR (CKD) >90 (>60 ml/min/1.73 sqM); Anion Gap 11 mmol/L; Blood Urea Nitrogen 23 mg/dL (9-20); Calcium 9.2 mg/dL (8.4-10.2); Carbon Dioxide 22 mmol/L (22-30); Chloride 104 mmol/L (98-107); Glucose 186 mg/dL (74-99); Potassium 4.3 mmol/L (3.5-5.1); Sodium 137 mmol/L (137-145)
[2018-12-06] MEDS: IPRATROPIUM-ALBUTEROL 3 ML NEB INHALATION SCH ×4 (07:01→20:12)
--- NOTE | 2018-12-06 09:15 | P.GSCN ---
History of Present Illness Consult date: 12/06/18 History of present illness: The patient is a 68-year-old who presented to the ER for worsening shortness of breath. Upon initial evaluation and workup a computed tomography scan of his thorax and abdomen was performed, it identified a 8 cm aneurysm per the report therefore we were notified. After further investigation the patient previously had an open aortobifemoral bypass which is patent and excluding the aneurysm sac. The patient denies any abdominal pains. Chest pains. He denies any fevers, chills, nausea, vomiting or diarrhea. Review of Systems 14 point review of systems performed, pertinent positives and negatives per the HPI Past Medical History Past Medical History: Asthma, Coronary Artery Disease (CAD), Cancer, Heart Failure, Diabetes Mellitus, Deep Vein Thrombosis (DVT), GERD/Reflux, Hyperlipidemia, Hypertension, Memory Impairment, Osteoarthritis (OA) Additional Past Medical History / Comment(s): Coronary artery disease, moderate to severe aortic valve stenosis, COPD, history of prostate cancer treated by radiation therapy back in 2005, history of melanoma of the back resected, history of lip cancer resected, history of bladder cancers treated intravesicular chemotherapy, abdominal aortic aneurysm surgically repaired, history of chronic back pain and the patient is a pain stimulator in place and the patient has undergone L4-L5 spinal fusion, diabetes mellitus, history of DVT, hypertension, hyperlipidemia, osteoarthritis, hiatal hernia History of Any Multi-Drug Resistant Organisms: None Reported Past Surgical History: Back Surgery, Bladder Surgery, Heart Catheterization With Stent, Hernia Repair, Orthopedic Surgery Additional Past Surgical History / Comment(s): Insertion of a pain pump on 11/07/2016 for chronic back pain/pain stimulator, abdominal aortic aneurysm repair 2, back pain with spinal fusion at the level of L4-L5, left inguinal hernia repair, abdominal hernia repair, THERESA, removal of a venous clot from the lower extremity in the setting of DVT, bladder surgery with intravesicular chemotherapy, cardiac catheterization with insertion of coronary stents, hernia repair Past Anesthesia/Blood Transfusion Reactions: No Reported Reaction Additional Past Anesthesia/Blood Transfusion Reaction / Comm: CLAUSTROPHOBIA Date of Last Stent Placement:: UNK Past Psychological History: Depression Smoking Status: Former smoker Past Alcohol Use History: None Reported Past Drug Use History: Marijuana - Past Family History Father History Unknown: Yes Mother History Unknown: Yes Medications and Allergies Home Medications Medication Instructions Recorded Confirmed Type Doxazosin [Cardura] 4 mg PO DAILY 10/31/14 12/05/18 History Ferrous Sulfate [Iron (65 MG 325 mg PO DAILY 10/31/14 12/05/18 History Elemental)] Metoprolol Tartrate [Lopressor] 25 mg PO BID 10/31/14 12/05/18 History Potassium Chloride [Klor-Con 10] 20 meq PO DAILY 10/31/14 12/05/18 History Simvastatin [Zocor] 40 mg PO DAILY 10/31/14 12/05/18 History oxyCODONE-APAP 10-325MG [Percocet 1 tab PO DAILY PRN 10/31/14 12/05/18 History 10-325 mg] Aspirin EC [Ecotrin] 325 mg PO DAILY 07/07/18 12/05/18 History Gabapentin [Neurontin] 300 mg PO TID 07/07/18 12/05/18 History Furosemide [Lasix] 40 mg PO DAILY 12/05/18 12/05/18 History Omeprazole [PriLOSEC] 20 mg PO AC-BRKFST 12/05/18 12/05/18 History metFORMIN HCL [Glucophage] 850 mg PO BID 12/05/18 12/05/18 History Allergies Allergy/AdvReac Type Severity Reaction Status Date / Time No Known Allergies Allergy Verified 12/05/18 15:44 Surgical - Exam Vital Signs Temp Pulse Resp BP Pulse Ox 101.2 F H 101 H 17 125/76 85 L 12/05/18 14:21 12/05/18 14:21 12/05/18 14:21 12/05/18 14:21 12/05/18 14:21 Gen. is a pleasant cooperative male in no acute distress sitting at the bedside. HEENT is normocephalic, atraumatic, excellent motion intact. He wears glasses. Heart is regular in rate and rhythm. Lungs with x-ray wheezes bilaterally. Abdomen is soft, nontender nondistended. Appropriate scarring. There is a nerve stimulator the subcu tissues. Bilateral lower extremities are warm and dry. Easily palpable left dorsalis pedis and posterior tibial. Weakly palpable right dorsalis pedis and posterior tibial. Adequate capillary refill. Chronic venous stasis changes Results Computed tomography scan is reviewed. Aorto bifemoral bypass intact with exclusion of the aneurysmal sac - Labs 12/06/18 06:05 12/06/18 06:05 Abnormal Lab Results - Last 24 Hours (Table) 12/05/18 12/05/18 12/06/18 Range/Units 15:12 15:12 05:00 WBC 13.0 H (3.8-10.6) k/uL Plt Count 147 L (150-450) k/uL Neutrophils # 10.7 H (1.3-7.7) k/uL Lymphocytes # (1.0-4.8) k/uL BUN (9-20) mg/dL Glucose 109 H (74-99) mg/dL Total Bilirubin 2.4 H (0.2-1.3) mg/dL ALT 16 L (21-72) U/L Ur Specific Lilly 1.047 H (1.001-1.035) Urine Protein 1+ H (Negative) Urine Mucus Rare H (None) /hpf 12/06/18 12/06/18 Range/Units 06:05 06:05 WBC (3.8-10.6) k/uL Plt Count 117 L (150-450) k/uL Neutrophils # (1.3-7.7) k/uL Lymphocytes # 0.6 L (1.0-4.8) k/uL BUN 23 H (9-20) mg/dL Glucose 186 H (74-99) mg/dL Total Bilirubin (0.2-1.3) mg/dL ALT (21-72) U/L Ur Specific Lilly (1.001-1.035) Urine Protein (Negative) Urine Mucus (None) /hpf Diabetes panel 12/05/18 12/06/18 Range/Units 15:12 06:05 Sodium 138 137 (137-145) mmol/L Potassium 4.5 4.3 (3.5-5.1) mmol/L Chloride 101 104 (98-107) mmol/L Carbon Dioxide 25 22 (22-30) mmol/L BUN 17 23 H (9-20) mg/dL Creatinine 0.84 0.93 (0.66-1.25) mg/dL Glucose 109 H 186 H (74-99) mg/dL Calcium 9.9 9.2 (8.4-10.2) mg/dL AST 17 (17-59) U/L ALT 16 L (21-72) U/L Alkaline Phosphatase 64 (38-126) U/L Total Protein 7.9 (6.3-8.2) g/dL Albumin 4.6 (3.5-5.0) g/dL Calcium panel 12/05/18 12/06/18 Range/Units 15:12 06:05 Calcium 9.9 9.2 (8.4-10.2) mg/dL Albumin 4.6 (3.5-5.0) g/dL Pituitary panel 12/05/18 12/06/18 Range/Units 15:12 06:05 Sodium 138 137 (137-145) mmol/L Potassium 4.5 4.3 (3.5-5.1) mmol/L Chloride 101 104 (98-107) mmol/L Carbon Dioxide 25 22 (22-30) mmol/L BUN 17 23 H (9-20) mg/dL Creatinine 0.84 0.93 (0.66-1.25) mg/dL Glucose 109 H 186 H (74-99) mg/dL Calcium 9.9 9.2 (8.4-10.2) mg/dL Adrenal panel 12/05/18 12/06/18 Range/Units 15:12 06:05 Sodium 138 137 (137-145) mmol/L Potassium 4.5 4.3 (3.5-5.1) mmol/L Chloride 101 104 (98-107) mmol/L Carbon Dioxide 25 22 (22-30) mmol/L BUN 17 23 H (9-20) mg/dL Creatinine 0.84 0.93 (0.66-1.25) mg/dL Glucose 109 H 186 H (74-99) mg/dL Calcium 9.9 9.2 (8.4-10.2) mg/dL Total Bilirubin 2.4 H (0.2-1.3) mg/dL AST 17 (17-59) U/L ALT 16 L (21-72) U/L Alkaline Phosphatase 64 (38-126) U/L Total Protein 7.9 (6.3-8.2) g/dL Albumin 4.6 (3.5-5.0) g/dL Assessment and Plan Assessment: #1 infrarenal abdominal aortic aneurysm status post repair in the 80s #2 shortness of breath #3 history of cardiac stent placement Plan: At this time, the patient appears to be fully protected in regards to his abdominal aortic aneurysm. The repair appears durable per the computed tomography scan. At this time no further workup or evaluation from our standpoint. We'll follow-up with him as an outpatient since he has no vascular follow-up in many years.
[2018-12-06] MEDS: HEPARIN SODIUM,PORCINE 5,000 UNIT/ML 1 ML VIAL SQ SCH ×3 (10:04→23:30)
[2018-12-06] MEDS: METOPROLOL TARTRATE 25 MG TAB PO SCH ×2 (10:05→20:51)
[2018-12-06] MEDS: DOXAZOSIN 4 MG TAB PO SCH (10:05)
[2018-12-06] MEDS: ATORVASTATIN 20 MG TAB PO SCH (10:05)
[2018-12-06] MEDS: GABAPENTIN 300 MG CAP PO SCH ×3 (10:14→20:51)
--- NOTE | 2018-12-06 12:47 | P.HPIM ---
History of Present Illness H&P Date: 12/05/18 Chief Complaint: Back pain Patient is a 68-year-old male with a known history of COPD on home oxygen, hypertension, diabetes type 2 [id number], coronary artery disease with history of stent placement November impairment and previous history of DVT, moderate to severe aortic valve stenosis and other multiple medical problems came to ER with complaints of cough fever and worsening shortness of breath. Patient has been having symptoms for the past 4 days. Patient's symptoms started with right upper abdominal pain and back pain and has been getting worse. Patient also developed fever and rigors to ER with worsening symptoms. Otherwise patient denied any chest pain. No nausea vomiting or abdominal pain or diarrhea. Patient does have shortness of breath. Cough with minimal sputum production. Patient does use oxygen at home due to COPD Patient does have a history of abdominal aortic aneurysm repaired. Chest x-ray showed new bibasilar opacities concerning for multifocal pneumonia WBC 13.4, T-max was [address] angiogram of the thorax showed 8.2 cm abdominal aortic aneurysm. No evidence of leakage. Wide patency of the aortoiliac bypass graft. No evidence of pulmonary embolism. Fibrotic changes and atelectasis at the lung bases. Patchy right middle lobe pneumonia. Sigmoid diverticulosis. Review of Systems Constitutional: Does have fever and chills.. No generalized weakness or weight loss. Abdomen: Patient denied nausea vomiting and diarrhea and abdominal pain. Cardiovascular: Patient denies any chest pain or short of breath no palpitations. Respiratory: Cough with minimal sputum production and shortness of breath Neurologic: Patient denied any numbness or tingling headache. Musculoskeletal: Patient denies any complaints of joint swelling or deformity. Skin: Negative Psychiatric: Negative Endocrine: No heat or cold intolerance. No recent weight gain. Genitourinary: No dysuria or hematuria. All other 14 point ROS negative except the above Past Medical History Past Medical History: Asthma, Coronary Artery Disease (CAD), Cancer, Heart Failure, Diabetes Mellitus, Deep Vein Thrombosis (DVT), GERD/Reflux, Hyperlipi demia, Hypertension, Memory Impairment, Osteoarthritis (OA) Additional Past Medical History / Comment(s): Coronary artery disease, moderate to severe aortic valve stenosis, COPD, history of prostate cancer treated by radiation therapy back in 2005, history of melanoma of the back resected, history of lip cancer resected, history of bladder cancers treated intravesicular chemotherapy, abdominal aortic aneurysm surgically repaired, history of chronic back pain and the patient is a pain stimulator in place and the patient has undergone L4-L5 spinal fusion, diabetes mellitus, history of DVT, hypertension, hyperlipidemia, osteoarthritis, hiatal hernia History of Any Multi-Drug Resistant Organisms: None Reported Past Surgical History: Back Surgery, Bladder Surgery, Heart Catheterization With Stent, Hernia Repair, Orthopedic Surgery Additional Past Surgical History / Comment(s): Insertion of a pain pump on 11/07/2016 for chronic back pain/pain stimulator, abdominal aortic aneurysm repair 2, back pain with spinal fusion at the level of L4-L5, left inguinal hernia repair, abdominal hernia repair, THERESA, removal of a venous clot from the lower extremity in the setting of DVT, bladder surgery with intravesicular chemotherapy, cardiac catheterization with insertion of coronary stents, hernia repair Past Anesthesia/Blood Transfusion Reactions: No Reported Reaction Additional Past Anesthesia/Blood Transfusion Reaction / Comment(s): CLAUSTROP HOBIA Date of Last Stent Placement:: UNK Past Psychological History: Depression Smoking Status: Former smoker Past Alcohol Use History: None Reported Past Drug Use History: Marijuana - Past Family History Father History Unknown: Yes Mother History Unknown: Yes Medications and Allergies Home Medications Medication Instructions Recorded Confirmed Type Doxazosin [Cardura] 4 mg PO DAILY 10/31/14 12/05/18 History Ferrous Sulfate [Iron (65 MG 325 mg PO DAILY 10/31/14 12/05/18 History Elemental)] Metoprolol Tartrate [Lopressor] 25 mg PO BID 10/31/14 12/05/18 History Potassium Chloride [Klor-Con 10] 20 meq PO DAILY 10/31/14 12/05/18 History Simvastatin [Zocor] 40 mg PO DAILY 10/31/14 12/05/18 History oxyCODONE-APAP 10-325MG [Percocet 1 tab PO DAILY PRN 10/31/14 12/05/18 History 10-325 mg] Aspirin EC [Ecotrin] 325 mg PO DAILY 07/07/18 12/05/18 History Gabapentin [Neurontin] 300 mg PO TID 07/07/18 12/05/18 History Furosemide [Lasix] 40 mg PO DAILY 12/05/18 12/05/18 History Omeprazole [PriLOSEC] 20 mg PO AC-BRKFST 12/05/18 12/05/18 History metFORMIN HCL [Glucophage] 850 mg PO BID 12/05/18 12/05/18 History Allergies Allergy/AdvReac Type Severity Reaction Status Date / Time No Known Allergies Allergy Verified 12/05/18 15:44 Physical Exam Vitals: Vital Signs Temp Pulse Resp BP Pulse Ox 12/05/18 19:19 98 12/05/18 19:10 98 12/05/18 19:00 100 112/68 92 L 12/05/18 18:30 98 8 L 122/63 90 L 12/05/18 18:22 98 18 128/83 90 L 12/05/18 18:17 93 18 89 L 12/05/18 16:39 104 H 24 127/69 90 L 12/05/18 15:27 104 H 12/05/18 15:24 102 H 26 H 90 L 12/05/18 15:09 100 12/05/18 14:24 26 H 12/05/18 14:21 101.2 F H 101 H 17 125/76 85 L Intake and Output 12/05/18 12/05/18 12/06/18 14:59 22:59 06:59 Other: Weight 81.647 kg PHYSICAL EXAMINATION: Patient is lying in the bed comfortably, no acute distress, awake alert and oriented.. HEENT: Normocephalic. Neck is supple. Pupils reactive. Nostrils clear. Oral cavity is moist. Ears reveal no drainage. Neck reveals no JVD, carotid bruits, or thyromegaly. CHEST EXAMINATION: Trachea is central. Symmetrical expansion. Bibasilar diminis hed air entry and coarse breath sounds. Mild expiratory wheeze.. CARDIAC: Normal S1, S2 with no gallops. No murmurs ABDOMEN: Soft. Nontender. Bowel sounds normal. No organomegaly. No abdominal bruits. Extremities: reveal no edema. No clubbing or cyanosis Neurologically awake, alert, oriented x3 with well-coordinated movements. No focal deficits noted Skin: No rash or skin lesions. Psychiatric: Coperative. Nonsuicidal Musculoskeletal: No joint swelling or deformity. Normal range of motion. Results CBC & Chem 7: 12/06/18 06:05 12/06/18 06:05 Labs: Abnormal Lab Results - Last 24 Hours (Table) 10/22/19 10/22/19 Range/Units 15:12 15:12 WBC 13.0 H (3.8-10.6) k/uL Plt Count 147 L (150-450) k/uL Neutrophils # 10.7 H (1.3-7.7) k/uL Glucose 109 H (74-99) mg/dL Total Bilirubin 2.4 H (0.2-1.3) mg/dL ALT 16 L (21-72) U/L Thrombosis Risk Factor Assmnt - DVT/VTE Prophylaxis DVT/VTE Prophylaxis: Pharmacologic Prophylaxis ordered Assessment and Plan Assessment: Multifocal pneumonia Sepsis secondary to pneumonia Acute COPD exacerbation secondary to above Chronic hypoxic respiratory failure. On home oxygen dependent 8.2 cm abdominal aortic aneurysm. With history of repair. Coronary artery disease with history of stent placement Chronic CHF with diastolic dysfunction Moderate to severe aortic valve stenosis History of prostate cancer status post radiation in 2005 History of melanoma of the back resected Diabetes type 2 non-insulin. History of DVT Hyperlipidemia Osteoarthritis of multiple joints Hiatal hernia Chronic back pain with metastatic bladder and placement History of spinal fusion at the level JULIA to L5 Depression Previous history of smoking and marijuana use DVT problems with heparin subcu Plan: Patient be continued on antibiotics no cough ceftriaxone and azithromycin. Continue with DuoNeb's and IV steroids. Pulmonary was consulted. Due to abdominal aortic aneurysm at 8.2 cm vascular surgery was counseled as well. Continue the home medications and follow closely. Prognosis is guarded with multiple medical problems and comorbid conditions. Discussed with his son at bedside in detail. Time with Patient: Greater than 30
[2018-12-06 15:20] LABS: Glucose,Whole Blood 162 mg/dL (75-99)
--- NOTE | 2018-12-06 16:12 | P.CNPUL ---
History of Present Illness Consult date: 12/06/18 Requesting physician: Ronald E Mandeep Reason for consult: dyspnea, cough Chief complaint: Shortness of breath, cough, fever History of present illness: This is a 68-year-old white male patient with history of moderately severe chronic obstructive pulmonary disease with a baseline FEV1 of 3.12 L or 84% of predicted, history of aortic aneurysm, chronic pain syndrome, diabetes mellitus type 2, coronary arteriosclerosis, hypertension, hyperlipidemia, and chronic and ongoing tobacco dependence who came into the hospital on 12/05/2018 for evaluation of cough with production of phlegm, fever, worsening shortness of breath, pleuritic pain in his right mid and lower chest area. Apparently his sy mptoms started 4 days prior to presentation. No nausea or vomiting, no hemoptysis. He was quite bronchospastic and congested on presentation, chest x- ray was obtained showing new bibasilar opacities concerning for multifocal pneumonia. CT of the thoracic aorta showed 8.2 cm abdominal aortic aneurysm with no evidence of leakage, and patient's aorto iliac bypass graft was patent, no evidence of pulmonary embolism. She was febrile on presentation with the temp of 101.2F. Labs showed a mild leukocytosis with a white blood cell count 13, hemoglobin of 17, Coreg ablation profile was within normal limits, electrolytes and renal profile were normal, proBNP was 124, troponin was negative, urinalysis was negative for any signs of infection. He was started on azithromycin and ceftriaxone, breathing treatments and IV steroids. Review of Systems All systems: negative Constitutional: Denies chills, Denies fever Eyes: denies blurred vision, denies pain Ears, nose, mouth and throat: Denies headache, Denies sore throat Cardiovascular: Reports chest pain, Denies shortness of breath Respiratory: Reports cough with sputum, Reports dyspnea, Reports home oxygen, Denies cough Gastrointestinal: Denies abdominal pain, Denies diarrhea, Denies nausea, Denies vomiting Musculoskeletal: Denies myalgias Integumentary: Denies pruritus, Denies rash Neurological: Denies numbness, Denies weakness Psychiatric: Denies anxiety, Denies depression Endocrine: Denies fatigue, Denies weight change Past Medical History Past Medical History: Asthma, Coronary Artery Disease (CAD), Cancer, Heart Failure, Diabetes Mellitus, Deep Vein Thrombosis (DVT), GERD/Reflux, Hyperlipidemia, Hypertension, Memory Impairment, Osteoarthritis (OA) Additional Past Medical History / Comment(s): Coronary artery disease, moderate to severe aortic valve stenosis, COPD, history of prostate cancer treated by radiation therapy back in 2005, history of melanoma of the back resected, history of lip cancer resected, history of bladder cancers treated intravesicular chemotherapy, abdominal aortic aneurysm surgically repaired, history of chronic back pain and the patient is a pain stimulator in place and the patient has undergone L4-L5 spinal fusion, diabetes mellitus, history of DVT, hypertension, hyperlipidemia, osteoarthritis, hiatal hernia History of Any Multi-Drug Resistant Organisms: None Reported Past Surgical History: Back Surgery, Bladder Surgery, Heart Catheterization With Stent, Hernia Repair, Orthopedic Surgery Additional Past Surgical History / Comment(s): Insertion of a pain pump on 11/07/2016 for chronic back pain/pain stimulator, abdominal aortic aneurysm repair 2, back pain with spinal fusion at the level of L4-L5, left inguinal hernia repair, abdominal hernia repair, THERESA, removal of a venous clot from the lower extremity in the setting of DVT, bladder surgery with intravesicular chemotherapy, cardiac catheterization with insertion of coronary stents, hernia repair Past Anesthesia/Blood Transfusion Reactions: No Reported Reaction Additional Past Anesthesia/Blood Transfusion Reaction / Comment(s): CLAUSTROPHOBIA Date of Last Stent Placement:: UNK Past Psychological History: Depression Smoking Status: Former smoker Past Alcohol Use History: None Reported Past Drug Use History: Marijuana - Past Family History Father History Unknown: Yes Mother History Unknown: Yes Medications and Allergies Home Medications Medication Instructions Recorded Confirmed Type Doxazosin [Cardura] 4 mg PO DAILY 10/31/14 12/05/18 History Ferrous Sulfate [Iron (65 MG 325 mg PO DAILY 10/31/14 12/05/18 History Elemental)] Metoprolol Tartrate [Lopressor] 25 mg PO BID 10/31/14 12/05/18 History Potassium Chloride [Klor-Con 10] 20 meq PO DAILY 10/31/14 12/05/18 History Simvastatin [Zocor] 40 mg PO DAILY 10/31/14 12/05/18 History oxyCODONE-APAP 10-325MG [Percocet 1 tab PO DAILY PRN 10/31/14 12/05/18 History 10-325 mg] Aspirin EC [Ecotrin] 325 mg PO DAILY 07/07/18 12/05/18 History Gabapentin [Neurontin] 300 mg PO TID 07/07/18 12/05/18 History Furosemide [Lasix] 40 mg PO DAILY 12/05/18 12/05/18 History Omeprazole [PriLOSEC] 20 mg PO AC-BRKFST 12/05/18 12/05/18 History metFORMIN HCL [Glucophage] 850 mg PO BID 12/05/18 12/05/18 History Allergies Allergy/AdvReac Type Severity Reaction Status Date / Time No Known Allergies Allergy Verified 12/05/18 15:44 Physical Exam Vitals: Vital Signs Temp Pulse Pulse Resp BP BP Pulse Ox 12/06/18 15:41 98 12/06/18 15:31 90 90 L 12/06/18 14:00 97.9 F 93 30 H 111/65 12/06/18 11:55 97.6 F 84 20 111/65 90 L 12/06/18 11:02 80 12/06/18 10:53 85 12/06/18 08:45 97.1 F L 98 20 107/58 93 L 12/06/18 07:12 82 12/06/18 07:02 75 12/06/18 04:00 97.2 F L 71 18 116/84 12/06/18 00:00 98 F 85 16 105/64 93 L 12/05/18 19:19 98 12/05/18 19:10 98 12/05/18 19:00 100 112/68 92 L 12/05/18 18:30 98 8 L 122/63 90 L 12/05/18 18:22 98 18 128/83 90 L 12/05/18 18:17 93 18 89 L 12/05/18 16:39 104 H 24 127/69 90 L Intake and Output 12/06/18 12/06/18 12/06/18 06:59 14:59 22:59 Intake Total 800 740 Output Total 450 Balance 350 740 Intake: Intake, IV Titration 800 740 Amount Sodium Chloride 0.9% 1, 800 640 000 ml @ 80 mls/hr IV . [id number] [facility] Rx#:[id number] cefTRIAXone 1 gm In 100 Sodium Chloride 0.9% 50 ml @ 100 mls/hr IVPB Q24HR [facility] Rx#:[id number] Output: Urine 450 GENERAL EXAM: Alert, pleasant, 68-year-old white male, comfortable in no apparent distress. HEAD: Normocephalic/atraumatic. EYES: Normal reaction of pupils, equal size. Conjunctiva pink, sclera white. NOSE: Clear with pink turbinates. THROAT: No erythema or exudates. NECK: No masses, no JVD, no thyroid enlargement, no adenopathy. CHEST: No chest wall deformity. Symmetrical expansion. LUNGS: Equal air entry with CVS: Regular rate and rhythm, normal S1 and S2, no gallops, no murmurs, no rubs ABDOMEN: Soft, nontender. No hepatosplenomegaly, normal bowel sounds, no guarding or rigidity. EXTREMITIES: No clubbing, no edema, no cyanosis, 2+ pulses and upper and lower extremities. MUSCULOSKELETAL: Muscle strength and tone normal. SPINE: No scoliosis or deformity SKIN: No rashes CENTRAL NERVOUS SYSTEM: Alert and oriented -3. No focal deficits, tone is normal in all 4 extremities. PSYCHIATRIC: Alert and oriented -3. Appropriate affect. Intact judgment and insight. Results - Laboratory Findings CBC and BMP: 12/06/18 06:05 12/06/18 06:05 PT/INR, D-dimer PT 11.4 sec (9.0-12.0) 12/05/18 15:12 INR 1.1 (<1.2) 12/05/18 15:12 Abnormal lab findings: Abnormal Labs 12/05/18 12/05/18 12/06/18 15:12 15:12 05:00 WBC 13.0 H Plt Count 147 L Neutrophils # 10.7 H Lymphocytes # BUN Glucose 109 H POC Glucose (mg/dL) Total Bilirubin 2.4 H ALT 16 L Ur Specific [place] 1.047 H Urine Protein 1+ H Urine Mucus Rare H 12/06/18 12/06/18 12/06/18 06:05 06:05 15:08 WBC Plt Count 117 L Neutrophils # Lymphocytes # 0.6 L BUN 23 H Glucose 186 H POC Glucose (mg/dL) 162 H Total Bilirubin ALT Ur Specific [place] Urine Protein Urine Mucus - Diagnostic Findings Chest x-ray: report reviewed, image reviewed CT scan - chest: report reviewed, image reviewed Assessment and Plan Plan: Assessment: #1. Acute dyspnea, fever, pleuritic chest pain related to possibility of right lower lobe pneumonia #2. 8.2 cm abdominal aortic aneurysm without evidence of a leak, vascular surgery is following, no further intervention recommended at this time. CT of the thoracic aorta showed patent aortoiliac bypass graft #3. Mild COPD with baseline FEV1 of 84% of predicted #4. Coronary artery disease with previous coronary artery stenting graft #5. Moderate to severe aortic stenosis, and patient was a poor surgical candidate and he did decline surgery #5. Abdominal aortic aneurysm with previous repair #6. Diabetes mellitus type 2 #7. Remote history of DVT in the lower extremities #8. Hypertension #9. Hyperlipidemia #10. Chronic back pain status post insertion of the pump/nerve stimulator #11. History of prostate cancer with previous radiation therapy in 2005 #12. History of melanoma, postresection #13. History of bladder cancer treated with local intravesicular chemotherapy #14. Nicotine dependence, chronic and ongoing Plan: Continue current antibiotic coverage, continue IV steroids and nebulized bronchodilators, chest x-ray has been reviewed showing right lower lobe basilar opacity likely related to underlying pneumonia. Collect sputum culture. Patient is in no acute distress, will continue to closely follow. Smoking cessation was again recommended I performed a history & physical examination of the patient and discussed their management with my nurse practitioner, Alondra Hartley. I reviewed the nurse practitioner's note and agree with the documented findings and plan of care. Lung sounds are positive for diffuse wheezes throughout the lung chan. The findings and the impression was discussed with the patient. I attest to the documentation by the nurse practitioner. Time with Patient: Greater than 30
[2018-12-06] MEDS: AZITHROMYCIN 500 MG in SODIUM CHLORIDE 0.9% 250 ML IVPB SCH (16:49)
[2018-12-06] MEDS: oxyCODONE-APAP 10-325MG 1 EACH TAB PO PRN (17:09)
[2018-12-06] MEDS: INSULIN ASPART (NovoLOG) 100 UNIT/ML VIAL SQ SCH ×2 (17:10→20:50)
[2018-12-06 17:16] LABS: Glucose,Whole Blood 146 mg/dL (75-99)
[2018-12-06 20:41] LABS: Glucose,Whole Blood 212 mg/dL (75-99)
[2018-12-07] MEDS: ACETAMINOPHEN TAB 325 MG TAB PO PRN (00:30)
[2018-12-07 05:44] LABS: Basophils % (A) 0 %; Eosinophils % (A) 0 %; HGB 14.7 gm/dL (13.0-17.5); Lymphocytes # (A) 0.5 k/uL (1.0-4.8); Lymphocytes % (A) 4 %; MCH 30.8 pg (25.0-35.0); MCV 96.4 fL (80.0-100.0); Mean Platelet Volume 8.4; Monocytes # (A) 0.3 k/uL (0-1.0); Monocytes % (A) 2 %; Neutrophils # (A) 12.7 k/uL (1.3-7.7); Neutrophils % (A) 93 %; Platelet Count 122 k/uL (150-450); RBC 4.77 m/uL (4.30-5.90); RDW 14.1 % (11.5-15.5); WBC 13.7 k/uL (3.8-10.6)
[2018-12-07 05:51] LABS: African American GFR (CKD) >90 (>60 ml/min/1.73 sqM); Anion Gap 7 mmol/L; Blood Urea Nitrogen 25 mg/dL (9-20); Carbon Dioxide 24 mmol/L (22-30); Chloride 106 mmol/L (98-107); Glucose 158 mg/dL (74-99); Sodium 137 mmol/L (137-145)
[2018-12-07] MEDS: methylPREDNISolone SOD SUCCI 125 MG/2 ML VIAL IV SCH ×4 (06:44→23:18)
[2018-12-07] MEDS: INSULIN ASPART (NovoLOG) 100 UNIT/ML VIAL SQ SCH ×4 (06:44→20:34)
[2018-12-07] MEDS: PANTOPRAZOLE 40 MG TABLET PO SCH (06:45)
[2018-12-07 06:46] LABS: Glucose,Whole Blood 164 mg/dL (75-99)
--- NOTE | 2018-12-07 07:17 | XR ---
EXAMINATION TYPE: XR chest 1V DATE OF EXAM: 12/07/2018 HISTORY: Shortness of breath. COMPARISON: 12/05/2018 TECHNIQUE: Single view of the chest is submitted. FINDINGS: Demonstrated are scattered senescent parenchymal change. Right lower lobe infiltrate persists. Patchy density left lower lobe persists as well although does a ppear to be improved. The heart is stable. Hilar and mediastinal structures are within normal limits. Degenerative changes are seen of the dorsal spine. IMPRESSION: 1. Right lower lobe infiltrate persists. Patchy density left lower lobe persists as well although do es appear to be improved.
[2018-12-07] MEDS: METOPROLOL TARTRATE 25 MG TAB PO SCH ×2 (08:23→20:34)
[2018-12-07] MEDS: DOXAZOSIN 4 MG TAB PO SCH (08:23)
[2018-12-07] MEDS: oxyCODONE-APAP 10-325MG 1 EACH TAB PO PRN (08:23)
[2018-12-07] MEDS: HEPARIN SODIUM,PORCINE 5,000 UNIT/ML 1 ML VIAL SQ SCH ×3 (08:24→23:18)
[2018-12-07] MEDS: GABAPENTIN 300 MG CAP PO SCH ×3 (08:24→20:34)
[2018-12-07] MEDS: ATORVASTATIN 20 MG TAB PO SCH (08:24)
[2018-12-07] MEDS: IPRATROPIUM-ALBUTEROL 3 ML NEB INHALATION SCH ×4 (10:08→20:07)
--- NOTE | 2018-12-07 11:22 | P.PN ---
Subjective Progress Note Date: 12/07/18 Principal diagnosis: Acute right lower lobe community-acquired pneumonia and acute exacerbation of COPD This is a 68-year-old white male patient with history of moderately severe c hronic obstructive pulmonary disease with a baseline FEV1 of 3.12 L or 84% of predicted, history of aortic aneurysm, chronic pain syndrome, diabetes mellitus type 2, coronary arteriosclerosis, hypertension, hyperlipidemia, and chronic and ongoing tobacco dependence who came into the hospital on 12/05/2018 for evaluation of cough with production of phlegm, fever, worsening shortness of breath, pleuritic pain in his right mid and lower chest area. Apparently his symptoms started 4 days prior to presentation. No nausea or vomiting, no hemoptysis. He was quite bronchospastic and congested on presentation, chest x- ray was obtained showing new bibasilar opacities concerning for multifocal pneum onia. CT of the thoracic aorta showed 8.2 cm abdominal aortic aneurysm with no evidence of leakage, and patient's aorto iliac bypass graft was patent, no evidence of pulmonary embolism. She was febrile on presentation with the temp of 101.2F. Labs showed a mild leukocytosis with a white blood cell count 13, hemoglobin of 17, Coreg ablation profile was within normal limits, electrolytes and renal profile were normal, proBNP was 124, troponin was negative, urinalysis was negative for any signs of infection. He was started on azithromycin and ceftriaxone, breathing treatments and IV steroids. Patient was reevaluated today on 12/07/2018, patient is feeling much better, breathing a lot easier, hardly any cough no wheezing no shortness of breath, no chest pain. O2 saturation remains marginal, patient is presently on 5 L nasal cannula, and O2 saturation is 90%. His chest x-ray showed right lower lobe infiltrate, and patchy density in the left lower lobe with minimal improvement. CBC continues to show leukocytosis with WBC count of 13.7 hemoglobin is 14.7 basic metabolic profile is normal. Overall the patient feels much better today compared to how he felt yesterday. Remains on antibiotics and bronchodilators for presumptive community-acquired pneumonia and mild exacerbation of COPD. Objective - Vital Signs Vital signs: Vital Signs Temp 97.7 F 12/07/18 08:00 Pulse 87 12/07/18 10:26 Resp 18 12/07/18 08:00 BP 124/80 12/07/18 08:00 Pulse Ox 90 L 12/07/18 08:00 Intake & Output 12/06/18 12/07/18 12/07/18 18:59 06:59 18:59 Intake Total 1060 960 370 Output Total 1450 250 Balance 1060 -490 120 Weight 83.6 kg Intake: IV 320 960 320 Sodium Chloride 0.9% 1, 320 960 320 000 ml @ 80 mls/hr IV . [id number] [facility] Rx#:[id number] Intake, IV Titration 740 50 Amount Sodium Chloride 0.9% 1, 640 000 ml @ 80 mls/hr IV . [id number] [facility] Rx#:[id number] cefTRIAXone 1 gm In 100 50 Sodium Chloride 0.9% 50 ml @ 100 mls/hr IVPB Q24HR [facility] Rx#:[id number] Output: Urine 1450 250 - Exam GENERAL EXAM: Alert, pleasant, 68-year-old white male, comfortable in no apparent distress. HEENT: PERRLA, EOMI, no active. CHEST: No chest wall deformity. Symmetrical expansion. LUNGS: Minimal fine crackles at the bases especially at the right base, diminished bilaterally. CVS: Regular rate and rhythm, normal S1 and S2, no gallops, no murmurs, no rubs ABDOMEN: Multiple old surgical scars noted, soft nontender no megaly no rebound no guarding. EXTREMITIES: No clubbing, no edema, no cyanosis, 2+ pulses and upper and lower extremities. MUSCULOSKELETAL: Muscle strength and tone normal. SPINE: No scoliosis or deformity SKIN: No rashes CENTRAL NERVOUS SYSTEM: Alert and oriented -3. No gross focal neurologic deficit. PSYCHIATRIC: Normal mood, affect and normal mental status examination. - Labs CBC & Chem 7: 12/07/18 04:41 12/07/18 04:41 Labs: Abnormal Lab Results - Last 24 Hours (Table) 12/06/18 12/06/18 12/06/18 Range/Units 15:08 17:05 20:30 WBC (3.8-10.6) k/uL Plt Count (150-450) k/uL Neutrophils # (1.3-7.7) k/uL Lymphocytes # (1.0-4.8) k/uL BUN (9-20) mg/dL Glucose (74-99) mg/dL POC Glucose (mg/dL) 162 H 146 H 212 H (75-99) mg/dL 10/24/19 10/24/19 10/24/19 Range/Units 04:41 04:41 06:34 WBC 13.7 H (3.8-10.6) k/uL Plt Count 122 L (150-450) k/uL Neutrophils # 12.7 H (1.3-7.7) k/uL Lymphocytes # 0.5 L (1.0-4.8) k/uL BUN 25 H (9-20) mg/dL Glucose 158 H (74-99) mg/dL POC Glucose (mg/dL) 164 H (75-99) mg/dL Microbiology - Last 24 Hours (Table) 12/05/18 15:12 Blood Culture - Preliminary Blood No Growth after 24 hours Assessment and Plan Assessment: #1. Acute right lower lobe community-acquired pneumonia. And possible left lower lobe limited infiltrate/pneumonia. #2. 8.2 cm abdominal aortic aneurysm without evidence of a leak, vascular surgery is following, no further intervention recommended at this time. CT of the thoracic aorta showed patent aortoiliac bypass graft #3. Mild COPD with baseline FEV1 of 84% of predicted #4. Coronary artery disease with previous coronary artery stenting graft #5. Moderate to severe aortic stenosis, and patient was a poor surgical candidate and he did decline surgery #5. Abdominal aortic aneurysm with previous repair #6. Diabetes mellitus type 2 #7. Remote history of DVT in the lower extremities #8. Hypertension #9. Hyperlipidemia #10. Chronic back pain status post insertion of the pump/nerve stimulator #11. History of prostate cancer with previous radiation therapy in 2005 #12. History of melanoma, postresection #13. History of bladder cancer treated with local intravesicular chemotherapy #14. Nicotine dependence, chronic and ongoing #15 acute hypoxic respiratory failure secondary to bilateral pneumonia. [place] to be community-acquired, unless proven otherwise Recommendation: Continue oxygen, Continue bronchodilators Continue antibiotics presently on Rocephin and Zithromax Counseled regarding smoking cessation Resume his previous home meds Patient will be transferred to a regular medical floor he is presently a selective overflow. We'll continue to follow, possible discharge planning in the next 24-48 hours. Time with Patient: Less than 30
[2018-12-07 11:59] LABS: Glucose,Whole Blood 133 mg/dL (75-99)
[2018-12-07] MEDS: AZITHROMYCIN 500 MG in SODIUM CHLORIDE 0.9% 250 ML IVPB SCH (15:25)
[2018-12-07 16:37] LABS: Glucose,Whole Blood 134 mg/dL (75-99)
[2018-12-07 20:30] LABS: Glucose,Whole Blood 148 mg/dL (75-99)
[2018-12-07] MEDS: SODIUM CHLORIDE 0.9% 1,000 ML IV SCH (20:34)
[2018-12-07] MEDS: IBUPROFEN 800 MG TAB PO PRN (23:18)
--- NOTE | 2018-12-07 23:27 | P.PN ---
Subjective Progress Note Date: 12/06/18 Principal diagnosis: Right lower lobe pneumonia Patient is a 68-year-old male with a known history of COPD on home oxygen, hypertension, diabetes type 2 [id number], coronary artery disease with history of stent placement November impairment and previous history of DVT, moderate to severe aortic valve stenosis and other multiple medical problems came to ER with complaints of cough fever and worsening shortness of breath. Patient has been having symptoms for the past 4 days. Patient's symptoms started with right upper abdominal pain and back pain and has been getting worse. Patient also developed fever and rigors to ER with worsening symptoms. Otherwise patient denied any chest pain. No nausea vomiting or abdominal pain or diarrhea. Patient does have shortness of breath. Cough with minimal sputum production. Patient does use oxygen at home due to COPD Patient does have a history of abdominal aortic aneurysm repaired. Chest x-ray showed new bibasilar opacities concerning for multifocal pneumonia WBC 13.4, T-max was [address] angiogram of the thorax showed 8.2 cm abdominal aortic aneurysm. No evidence of leakage. Wide patency of the aortoiliac bypass graft. No evidence of pulmonary embolism. Fibrotic changes and atelectasis at the lung bases. Patchy right middle lobe pneumonia. Sigmoid diverticulosis. 12/06/2018 Patient's breathing status is improving. Currently being continued on antibiotics in the form of ceftriaxone and azithromycin. Pulmonary is following. Patient was seen vascular surgery. No surgical intervention recommended for aortic aneurysm which has been previously pain and is stable now. Patient has been afebrile. Continued on breathing treatments and IV steroids. Patient is having expiratory wheezing present. Currently requiring oxygen with another cannula. Current medications reviewed. Objective - Vital Signs Vital signs: Vital Signs Temp 97.6 F 12/06/18 20:00 Pulse 89 12/06/18 20:25 Resp 16 12/06/18 20:00 BP 105/67 12/06/18 20:00 Pulse Ox 89 L 12/06/18 20:00 Intake & Output 12/06/18 12/06/18 12/07/18 06:59 18:59 06:59 Intake Total 880 1060 80 Output Total 700 650 Balance 180 1060 -570 Intake: IV 320 80 Sodium Chloride 0.9% 1, 320 80 000 ml @ 80 mls/hr IV . [id number] [facility] Rx#:[id number] Intake, IV Titration 880 740 Amount Sodium Chloride 0.9% 1, 880 640 000 ml @ 80 mls/hr IV . [id number] [facility] Rx#:[id number] cefTRIAXone 1 gm In 100 Sodium Chloride 0.9% 50 ml @ 100 mls/hr IVPB Q24HR [facility] Rx#:[id number] Output: Urine 700 650 - Exam PHYSICAL EXAMINATION: Patient is lying in the bed comfortably, no acute distress, awake alert and oriented.. HEENT: Normocephalic. Neck is supple. Pupils reactive. Nostrils clear. Oral cavity is moist. Ears reveal no drainage. Neck reveals no JVD, carotid bruits, or thyromegaly. CHEST EXAMINATION: Trachea is central. Symmetrical expansion. bi lateral expiratory wheeze Lung chan clear to auscultation and percussion. CARDIAC: Normal S1, S2 with no gallops. No murmurs ABDOMEN: Soft. Bowel sounds normal. No organomegaly. No abdominal bruits. Extremities: reveal no edema. No clubbing or cyanosis Neurologically awake, alert, oriented x3 with well-coordinated movements. No focal deficits noted Skin: No rash or skin lesions. Psychiatric: Coperative. Nonsuicidal Musculoskeletal: No joint swelling or deformity. Normal range of motion. - Labs CBC & Chem 7: 12/07/18 04:41 12/07/18 04:41 Labs: Abnormal Lab Results - Last 24 Hours (Table) 12/06/18 12/06/18 12/06/18 Range/Units 05:00 06:05 06:05 Plt Count 117 L (150-450) k/uL Lymphocytes # 0.6 L (1.0-4.8) k/uL BUN 23 H (9-20) mg/dL Glucose 186 H (74-99) mg/dL POC Glucose (mg/dL) (75-99) mg/dL Ur Specific [place] 1.047 H (1.001-1.035) Urine Protein 1+ H (Negative) Urine Mucus Rare H (None) /hpf 12/06/18 12/06/18 12/06/18 Range/Units 15:08 17:05 20:30 Plt Count (150-450) k/uL Lymphocytes # (1.0-4.8) k/uL BUN (9-20) mg/dL Glucose (74-99) mg/dL POC Glucose (mg/dL) 162 H 146 H 212 H (75-99) mg/dL Ur Specific [place] (1.001-1.035) Urine Protein (Negative) Urine Mucus (None) /hpf Microbiology - Last 24 Hours (Table) 12/05/18 15:12 Blood Culture - Preliminary Blood No Growth after 24 hours Assessment and Plan Assessment: Right lower lobe pneumonia Sepsis secondary to pneumonia Acute COPD exacerbation secondary to above Chronic hypoxic respiratory failure. On home oxygen dependent 8.2 cm abdominal aortic aneurysm. With history of repair. Coronary artery disease with history of stent placement Chronic CHF with diastolic dysfunction Moderate to severe aortic valve stenosis History of prostate cancer status post radiation in 2005 History of melanoma of the back resected Diabetes type 2 non-insulin. History of DVT Hyperlipidemia Osteoarthritis of multiple joints Hiatal hernia Chronic back pain with metastatic bladder and placement History of spinal fusion at the level JULIA to L5 Depression Previous history of smoking and marijuana use DVT problems with heparin subcu Plan: Patient be continued on antibiotics no cough ceftriaxone and azithromycin. Continue with DuoNeb's and IV steroids. Pulmonary is following. Due to abdominal aortic aneurysm at 8.2 cm vascular surgery was counseled as well. No surgical intervention recommended at this time. Continue the home medications and follow closely. Prognosis is guarded with multiple medical problems and comorbid conditions. Discussed with his son at bedside in detail. Time with Patient: Greater than 30
--- NOTE | 2018-12-07 23:29 | P.PN ---
Subjective Progress Note Date: 12/07/18 Principal diagnosis: Right lower lobe pneumonia Patient is a 68-year-old male with a known history of COPD on home oxygen, hypertension, diabetes type 2 [id number], coronary artery disease with history of stent placement November impairment and previous history of DVT, moderate to severe aortic valve stenosis and other multiple medical problems came to ER with complaints of cough fever and worsening shortness of breath. Patient has been having symptoms for the past 4 days. Patient's symptoms started with right upper abdominal pain and back pain and has been getting worse. Patient also developed fever and rigors to ER with worsening symptoms. Otherwise patient denied any chest pain. No nausea vomiting or abdominal pain or diarrhea. Patient does have shortness of breath. Cough with minimal sputum production. Patient does use oxygen at home due to COPD Patient does have a history of abdominal aortic aneurysm repaired. Chest x-ray showed new bibasilar opacities concerning for multifocal pneumonia WBC 13.4, T-max was [address] angiogram of the thorax showed 8.2 cm abdominal aortic aneurysm. No evidence of leakage. Wide patency of the aortoiliac bypass graft. No evidence of pulmonary embolism. Fibrotic changes and atelectasis at the lung bases. Patchy right middle lobe pneumonia. Sigmoid diverticulosis. 12/06/2018 Patient's breathing status is improving. Currently being continued on antibiotics in the form of ceftriaxone and azithromycin. Pulmonary is following. Patient was seen vascular surgery. No surgical intervention recommended for aortic aneurysm which has been previously pain and is stable now. Patient has been afebrile. Continued on breathing treatments and IV steroids. Patient is having expiratory wheezing present. Currently requiring oxygen with another cannula. 12/07/2018 Patient is currently sitting in a chair comfortably. Breathing status is much improved. Currently requiring oxygen with another cannula at 5 L. Chest x-ray showed right lower lobe infiltrate and patchy density in the left lower lobe with minimal improvement. WBC count increased to 13.7. Hemoglobin 14.7 Patient is being continued on antibiotics IV steroids and breathing treatments. Anticipate discharge in next 24-48 hours of more clinical improvement Current medications reviewed. Objective - Vital Signs Vital signs: Vital Signs Temp 97.8 F 12/07/18 16:00 Pulse 98 12/07/18 20:07 Resp 30 H 12/07/18 19:00 BP 118/73 12/07/18 19:00 Pulse Ox 90 L 12/07/18 20:07 Intake & Output 12/07/18 12/07/18 12/08/18 06:59 18:59 06:59 Intake Total 960 1980 Output Total 1450 850 Balance -490 1130 Weight 83.6 kg Intake: IV 960 730 Azithromycin 500 mg In 250 Sodium Chloride 0.9% 250 ml @ 250 mls/hr IVPB DAILY@1600 [facility] Rx#: [id number] Sodium Chloride 0.9% 1, 960 480 000 ml @ 20 mls/hr IV . Q24H [facility] Rx#:[id number] Intake, IV Titration 50 Amount cefTRIAXone 1 gm In 50 Sodium Chloride 0.9% 50 ml @ 100 mls/hr IVPB Q24HR [facility] Rx#:[id number] Oral 1200 Output: Urine 1450 850 Other: # Voids 2 - Exam PHYSICAL EXAMINATION: Patient is lying in the bed comfortably, no acute distress, awake alert and oriented.. HEENT: Normocephalic. Neck is supple. Pupils reactive. Nostrils clear. Oral cavity is moist. Ears reveal no drainage. Neck reveals no JVD, carotid bruits, or thyromegaly. CHEST EXAMINATION: Trachea is central. Symmetrical expansion. bi lateral expiratory wheeze Lung chan clear to auscultation and percussion. CARDIAC: Normal S1, S2 with no gallops. No murmurs ABDOMEN: Soft. Bowel sounds normal. No organomegaly. No abdominal bruits. Extremities: reveal no edema. No clubbing or cyanosis Neurologically awake, alert, oriented x3 with well-coordinated movements. No focal deficits noted Skin: No rash or skin lesions. Psychiatric: Coperative. Nonsuicidal Musculoskeletal: No joint swelling or deformity. Normal range of motion. - Labs CBC & Chem 7: 12/07/18 04:41 12/07/18 04:41 Labs: Abnormal Lab Results - Last 24 Hours (Table) 12/06/18 12/07/18 12/07/18 Range/Units 20:30 04:41 04:41 WBC 13.7 H (3.8-10.6) k/uL Plt Count 122 L (150-450) k/uL Neutrophils # 12.7 H (1.3-7.7) k/uL Lymphocytes # 0.5 L (1.0-4.8) k/uL BUN 25 H (9-20) mg/dL Glucose 158 H (74-99) mg/dL POC Glucose (mg/dL) 212 H (75-99) mg/dL 12/07/18 12/07/18 12/07/18 Range/Units 06:34 11:47 16:26 WBC (3.8-10.6) k/uL Plt Count (150-450) k/uL Neutrophils # (1.3-7.7) k/uL Lymphocytes # (1.0-4.8) k/uL BUN (9-20) mg/dL Glucose (74-99) mg/dL POC Glucose (mg/dL) 164 H 133 H 134 H (75-99) mg/dL Microbiology - Last 24 Hours (Table) 12/05/18 15:12 Blood Culture - Preliminary Blood No Growth after 48 hours Assessment and Plan Assessment: Right lower lobe pneumonia Sepsis secondary to pneumonia Acute COPD exacerbation secondary to above Chronic hypoxic respiratory failure. On home oxygen dependent 8.2 cm abdominal aortic aneurysm. With history of repair. Coronary artery disease with history of stent placement Chronic CHF with diastolic dysfunction Moderate to severe aortic valve stenosis History of prostate cancer status post radiation in 2005 History of melanoma of the back resected Diabetes type 2 non-insulin. History of DVT Hyperlipidemia Osteoarthritis of multiple joints Hiatal hernia Chronic back pain with metastatic bladder and placement History of spinal fusion at the level JULIA to L5 Depression Previous history of smoking and marijuana use DVT problems with heparin subcu Plan: Patient be continued on antibiotics no cough ceftriaxone and azithromycin. Continue with DuoNeb's and IV steroids. Pulmonary is following. Due to abdominal aortic aneurysm at 8.2 cm vascular surgery was counseled as well. No surgical intervention recommended at this time. Continue the home medications and follow closely. Prognosis is guarded with multiple medical problems and comorbid conditions. Discussed with his son at bedside in detail. Time with Patient: Greater than 30
[2018-12-08] MEDS: methylPREDNISolone SOD SUCCI 125 MG/2 ML VIAL IV SCH ×2 (06:16→12:11)
[2018-12-08] MEDS: INSULIN ASPART (NovoLOG) 100 UNIT/ML VIAL SQ SCH ×2 (06:54→13:01)
[2018-12-08] MEDS: PANTOPRAZOLE 40 MG TABLET PO SCH (06:55)
[2018-12-08 06:58] LABS: Glucose,Whole Blood 119 mg/dL (75-99)
--- NOTE | 2018-12-08 07:13 | XR ---
EXAMINATION TYPE: XR chest 1V DATE OF EXAM: 12/08/2018 CLINICAL HISTORY: Difficulty breathing progress study. TECHNIQUE: Single AP portable upright view of the chest is obtained. COMPARISON: Chest x-ray from one day earlier and older studies. FINDINGS: Cardiac silhouette size is stable and mildly enlarged. There are reticular interstitial ch anges with persistent right lateral basilar opacity. Some improved aeration since prior study. Patchy left basilar atelectasis remains present. No pleural effusion or pneumothorax. Osseous structures ar e intact. IMPRESSION: Improving right lower lobe acute infiltrate. No new infiltrate is seen.
[2018-12-08] MEDS: IPRATROPIUM-ALBUTEROL 3 ML NEB INHALATION SCH ×2 (08:37→11:41)
[2018-12-08 08:42] VITALS: PULSE 112
[2018-12-08] MEDS: METOPROLOL TARTRATE 25 MG TAB PO SCH (08:42)
[2018-12-08] MEDS: ATORVASTATIN 20 MG TAB PO SCH (08:42)
[2018-12-08] MEDS: GABAPENTIN 300 MG CAP PO SCH ×2 (08:42→15:15)
[2018-12-08] MEDS: HEPARIN SODIUM,PORCINE 5,000 UNIT/ML 1 ML VIAL SQ SCH ×2 (08:43→15:15)
[2018-12-08] MEDS: DOXAZOSIN 4 MG TAB PO SCH (08:43)
[2018-12-08 12:05] LABS: Glucose,Whole Blood 129 mg/dL (75-99)
[2018-12-08 12:15] VITALS: RESP 24; TEMP 98.2
--- NOTE | 2018-12-08 12:22 | P.PN ---
Subjective Progress Note Date: 12/08/18 Principal diagnosis: Acute right lower lobe community-acquired pneumonia and acute exacerbation of COPD This is a 68-year-old white male patient with history of moderately severe c hronic obstructive pulmonary disease with a baseline FEV1 of 3.12 L or 84% of predicted, history of aortic aneurysm, chronic pain syndrome, diabetes mellitus type 2, coronary arteriosclerosis, hypertension, hyperlipidemia, and chronic and ongoing tobacco dependence who came into the hospital on 12/05/2018 for evaluation of cough with production of phlegm, fever, worsening shortness of breath, pleuritic pain in his right mid and lower chest area. Apparently his symptoms started 4 days prior to presentation. No nausea or vomiting, no hemoptysis. He was quite bronchospastic and congested on presentation, chest x- ray was obtained showing new bibasilar opacities concerning for multifocal pneum onia. CT of the thoracic aorta showed 8.2 cm abdominal aortic aneurysm with no evidence of leakage, and patient's aorto iliac bypass graft was patent, no evidence of pulmonary embolism. She was febrile on presentation with the temp of 101.2F. Labs showed a mild leukocytosis with a white blood cell count 13, hemoglobin of 17, Coreg ablation profile was within normal limits, electrolytes and renal profile were normal, proBNP was 124, troponin was negative, urinalysis was negative for any signs of infection. He was started on azithromycin and ceftriaxone, breathing treatments and IV steroids. Patient was reevaluated today on 12/07/2018, patient is feeling much better, breathing a lot easier, hardly any cough no wheezing no shortness of breath, no chest pain. O2 saturation remains marginal, patient is presently on 5 L nasal cannula, and O2 saturation is 90%. His chest x-ray showed right lower lobe infiltrate, and patchy density in the left lower lobe with minimal improvement. CBC continues to show leukocytosis with WBC count of 13.7 hemoglobin is 14.7 basic metabolic profile is normal. Overall the patient feels much better today compared to how he felt yesterday. Remains on antibiotics and bronchodilators for presumptive community-acquired pneumonia and mild exacerbation of COPD. Patient was reevaluated today on 12/08/2018, continues to improve, continues to feel better, he has a bit of a cough slightly blood-tinged, no fever no chills no chest pain no nausea no vomiting no abdominal pain. All labs this morning were reviewed, continues to have normal electrolytes, WBC count is 13.7. Clinically the patient is doing great, chest x-ray is showing slight improvemen t. In the right lower lobe infiltrate. Hence I would recommend sending the patient home today on oral antibiotics, and bronchodilators and follow up with me in the next 10 days in the office. Objective - Vital Signs Vital signs: Vital Signs Temp 98.2 F 12/08/18 12:00 Pulse 112 H 12/08/18 12:05 Resp 24 12/08/18 12:00 BP 141/125 12/08/18 12:00 Pulse Ox 90 L 12/08/18 12:00 Intake & Output 12/07/18 12/08/18 12/08/18 18:59 06:59 18:59 Intake Total 1980 240 210 Output Total 850 900 325 Balance 1130 -660 -115 Intake: IV 730 240 160 Azithromycin 500 mg In 250 Sodium Chloride 0.9% 250 ml @ 250 mls/hr IVPB DAILY@1600 [facility] Rx#: [id number] Sodium Chloride 0.9% 1, 480 240 160 000 ml @ 20 mls/hr IV . Q24H [facility] Rx#:[id number] Intake, IV Titration 50 50 Amount cefTRIAXone 1 gm In 50 50 Sodium Chloride 0.9% 50 ml @ 100 mls/hr IVPB Q24HR [facility] Rx#:[id number] Oral 1200 Output: Urine 850 900 325 Other: Voiding Method Urinal # Voids 2 1 - Exam GENERAL EXAM: Alert, pleasant, 68-year-old white male, comfortable in no apparent distress. HEENT: PERRLA, EOMI, no active. CHEST: No chest wall deformity. Symmetrical expansion. LUNGS: Minimal fine crackles at the bases especially at the right base, diminished bilaterally. CVS: Regular rate and rhythm, normal S1 and S2, no gallops, no murmurs, no rubs ABDOMEN: Multiple old surgical scars noted, soft nontender no megaly no rebound no guarding. EXTREMITIES: No clubbing, no edema, no cyanosis, 2+ pulses and upper and lower extremities. MUSCULOSKELETAL: Muscle strength and tone normal. SPINE: No scoliosis or deformity SKIN: No rashes CENTRAL NERVOUS SYSTEM: Alert and oriented -3. No gross focal neurologic deficit. PSYCHIATRIC: Normal mood, affect and normal mental status examination. - Labs CBC & Chem 7: 12/07/18 04:41 12/07/18 04:41 Labs: Abnormal Lab Results - Last 24 Hours (Table) 12/07/18 12/07/18 12/08/18 Range/Units 16:26 20:18 06:46 POC Glucose (mg/dL) 134 H 148 H 119 H (75-99) mg/dL 12/08/18 Range/Units 11:54 POC Glucose (mg/dL) 129 H (75-99) mg/dL Microbiology - Last 24 Hours (Table) 12/05/18 15:12 Blood Culture - Preliminary Blood No Growth after 48 hours Assessment and Plan Assessment: #1. Acute right lower lobe community-acquired pneumonia. And possible left lower lobe limited infiltrate/pneumonia. #2. 8.2 cm abdominal aortic aneurysm without evidence of a leak, vascular surgery is following, no further intervention recommended at this time. CT of the thoracic aorta showed patent aortoiliac bypass graft #3. Mild COPD with baseline FEV1 of 84% of predicted #4. Coronary artery disease with previous coronary artery stenting graft #5. Moderate to severe aortic stenosis, and patient was a poor surgical candidate and he did decline surgery #5. Abdominal aortic aneurysm with previous repair #6. Diabetes mellitus type 2 #7. Remote history of DVT in the lower extremities #8. Hypertension #9. Hyperlipidemia #10. Chronic back pain status post insertion of the pump/nerve stimulator #11. History of prostate cancer with previous radiation therapy in 2005 #12. History of melanoma, postresection #13. History of bladder cancer treated with local intravesicular chemotherapy #14. Nicotine dependence, chronic and ongoing #15 acute hypoxic respiratory failure secondary to bilateral pneumonia. Oark to be community-acquired, unless proven otherwise Recommendation: Continue oxygen, Continue bronchodilators Switch patient to oral antibiotics. Oral prednisone burst and taper, and consider discharging the patient home today. Follow-up on outpatient basis. Suggest Ceftin 500 twice a day for 1 week and prednisone 30 mg tapered over 2 weeks. Time with Patient: Less than 30
[2018-12-08 12:29] VITALS: BP 135/85
[2018-12-08] MEDS ORDERED: predniSONE 50 MG TAB PO SCH (14:15)
[2018-12-08] MEDS: oxyCODONE-APAP 10-325MG 1 EACH TAB PO PRN (15:15)
[2018-12-08] MEDS ORDERED: AZITHROMYCIN 500 MG TAB PO SCH (16:00)
--- NOTE | 2018-12-12 14:07 | CDI ---
Documentation Clarification Form Date: 12/12/18 From: Yennifer Cope Phone: If you have a question about this query, please contact Jennifer Irizarry, Voice Systems Engineer at [phone] between 8am and 5pm. Admit Date: 12/05/18 Discharge Date: 12/08/18 Patient Name: Sean Noble Visit Number: [id number] ATTENTION: The Clinical Documentation Specialists (CDI) and [facility] Coding Staff appreciate your assistance in clarifying documentation. Please respond to the clarification below the line at the bottom and electronically sign. The CDI & [facility] Coding staff will review the response and follow-up if needed. Please note: Queries are made part of the Legal Health Record. If you have any questions, please contact the author of this message via ITS. Dear Dr Woodard documentation has been found in the medical record: You stated in the H&P and PNs that the patient had chronic hypoxic respiratory failure ans on home oxygen dependent. Dr Hudson states in the PNs 12/06 12/07 & 12/08 the patient has acute on chronic hypoxic respiratory failure secondary to bilateral pneumonia. History/Risk Factors: COPD on home oxygen, chronic diastolic CHF w HTN, aortic stenosis, AAA Clinical Indicators: He presents w complaint of productive cough, fever, SOB, pleuritic pain in his right upper quadrant/right lower lobe region. Vitals: T-101.2, P-101, R-26, O2 sat-85 RA, SOB, labored, accessory muscle, pursed lip cough Treatment: ATP acute respiratory distress/pneumonia - advance triage protocol, nebulizer, IV Zithromax, IV Rocephin, IV Solu-Medrol, oxygen In your opinion, what is the most clinically appropriate diagnosis for this patient? Chronic hypoxic respiratory failure Acute on chronic hypoxic respiratory failure Other explanation of clinical findings Unable to determine (no explanation for clinical findings) Acute on chronic hypoxic respiratory failure MTDD
--- NOTE | 2018-12-17 23:42 | P.DS ---
Providers Date of admission: 12/05/18 16:51 Expected date of discharge: 12/08/18 Attending physician: Ronald Kaufman MD Consults: 12/05/18 17:18 Consult Physician Stat Consulting Provider: Tiffany Galeas Consult Reason/Comments: abdominal aortic aneursym Do you want consulting provider notified?: Yes Consult Physician Stat Consulting Provider: Marivel Hudson Consult Reason/Comments: CAP, copd exacerbation, abdominal aortic aneursym Do you want consulting provider notified?: Yes Primary care physician: Marivel Hudson Hospital Course: Discharge Diagnosis Right lower lobe pneumonia Sepsis secondary to pneumonia Acute COPD exacerbation secondary to above acute on Chronic hypoxic respiratory failure. On home oxygen dependent 8.2 cm abdominal aortic aneurysm. With history of repair. Coronary artery disease with history of stent placement Chronic CHF with diastolic dysfunction Moderate to severe aortic valve stenosis History of prostate cancer status post radiation in 2005 History of melanoma of the back resected Diabetes type 2 non-insulin. History of DVT Hyperlipidemia Osteoarthritis of multiple joints Hiatal hernia Chronic back pain with metastatic bladder and placement History of spinal fusion at the level JULIA to L5 Depression Previous history of smoking and marijuana use DVT problems with heparin subcu Hospital course Patient is a 68-year-old male with a known history of COPD on home oxygen, hypertension, diabetes type 2 [id number], coronary artery disease with history of stent placement November impairment and previous history of DVT, moderate to severe aortic valve stenosis and other multiple medical problems came to ER with complaints of cough fever and worsening shortness of breath. Patient has been having symptoms for the past 4 days. Patient's symptoms started with right upper abdominal pain and back pain and has been getting worse. Patient also developed fever and rigors to ER with worsening symptoms. Otherwise patient denied any chest pain. No nausea vomiting or abdominal pain or diarrhea. Patient does have shortness of breath. Cough with minimal sputum production. Patient does use oxygen at home due to COPD Patient does have a history of abdominal aortic aneurysm repaired. Chest x-ray showed new bibasilar opacities concerning for multifocal pneumonia WBC 13.4, T-max was [address] angiogram of the thorax showed 8.2 cm abdominal aortic aneurysm. No evidence of leakage. Wide patency of the aortoiliac bypass graft. No evidence of pulmonary embolism. Fibrotic changes and atelectasis at the lung bases. Patchy right middle lobe pneumonia. Sigmoid diverticulosis. 12/06/2018 Patient's breathing status is improving. Currently being continued on antibiotics in the form of ceftriaxone and azithromycin. Pulmonary is following. Patient was seen vascular surgery. No surgical intervention recommended for aortic aneurysm which has been previously pain and is stable now. Patient has been afebrile. Continued on breathing treatments and IV steroids. Patient is having expiratory wheezing present. Currently requiring oxygen with another cannula. 12/07/2018 Patient is currently sitting in a chair comfortably. Breathing status is much improved. Currently requiring oxygen with another cannula at 5 L. Chest x-ray showed right lower lobe infiltrate and patchy density in the left lower lobe with minimal improvement. WBC count increased to 13.7. Hemoglobin 14.7 Patient is being continued on antibiotics IV steroids and breathing treatments. Anticipate discharge in next 24-48 hours of more clinical improvement 12/08/2018 Patient is currently feeling better. No complaints of chest pain not worsening shortness of breath. Patient does have cough without sputum. Able to ambulate without much short of breath. Electrolytes within normal limits. WBC count is 13.7. Chest x-ray showed improvement in aeration. Patient with likely done antibiotic course and follow-up as an outpatient in the pulmonary clinic. Currently being discharged home. - Vital Signs Vital signs: Vital Signs Temp 98.2 F 12/08/18 12:00 Pulse 112 H 12/08/18 12:05 Resp 24 12/08/18 12:00 BP 141/125 12/08/18 12:00 Pulse Ox 90 L 12/08/18 12:00 Intake & Output 12/07/18 12/08/18 12/08/18 18:59 06:59 18:59 Intake Total 1980 240 210 Output Total 850 900 325 Balance 1130 -660 -115 Intake: IV 730 240 160 Azithromycin 500 mg In 250 Sodium Chloride 0.9% 250 ml @ 250 mls/hr IVPB DAILY@1600 [facility] Rx#: [id number] Sodium Chloride 0.9% 1, 480 240 160 000 ml @ 20 mls/hr IV . Q24H [facility] Rx#:[id number] Intake, IV Titration 50 50 Amount cefTRIAXone 1 gm In 50 50 Sodium Chloride 0.9% 50 ml @ 100 mls/hr IVPB Q24HR [facility] Rx#:[id number] Oral 1200 Output: Urine 850 900 325 Other: Voiding Method Urinal # Voids 2 1 - Exam GENERAL EXAM: Alert, pleasant, 68-year-old white male, comfortable in no apparent distress. HEENT: PERRLA, EOMI, no active. CHEST: No chest wall deformity. Symmetrical expansion. LUNGS: Minimal fine crackles at the bases especially at the right base, diminished bilaterally. CVS: Regular rate and rhythm, normal S1 and S2, no gallops, no murmurs, no rubs ABDOMEN: Multiple old surgical scars noted, soft nontender no megaly no rebound no guarding. EXTREMITIES: No clubbing, no edema, no cyanosis, 2+ pulses and upper and lower extremities. MUSCULOSKELETAL: Muscle strength and tone normal. SPINE: No scoliosis or deformity SKIN: No rashes CENTRAL NERVOUS SYSTEM: Alert and oriented -3. No gross focal neurologic deficit. PSYCHIATRIC: Normal mood, affect and normal mental status examination. - Labs CBC & Chem 7: 12/07/18 04:41 12/07/18 04:41 Labs: Abnormal Lab Results - Last 24 Hours (Table) 12/07/18 12/07/18 12/08/18 Range/Units 16:26 20:18 06:46 POC Glucose (mg/dL) 134 H 148 H 119 H (75-99) mg/dL 12/08/18 Range/Units 11:54 POC Glucose (mg/dL) 129 H (75-99) mg/dL Microbiology - Last 24 Hours (Table) 12/05/18 15:12 Blood Culture - Preliminary Blood No Growth after 48 hours Patient Condition at Discharge: Fair Plan - Discharge Summary Discharge Rx Participant: Yes New Discharge Prescriptions: New Cefuroxime Axetil [Ceftin] 500 mg PO BID 7 Days #14 tab predniSONE See Taper PO DIRECTED #30 tab Ipratropium-Albuterol Nebulize [Duoneb 0.5 mg-3 mg/3 ml Soln] 3 ml INHALATION RT-QID #60 ampul.neb Continue oxyCODONE-APAP 10-325MG [Percocet 10-325 mg] 1 tab PO DAILY PRN PRN Reason: Pain Simvastatin [Zocor] 40 mg PO DAILY Metoprolol Tartrate [Lopressor] 25 mg PO BID Ferrous Sulfate [Iron (65 MG Elemental)] 325 mg PO DAILY Doxazosin [Cardura] 4 mg PO DAILY Potassium Chloride [Klor-Con 10] 20 meq PO DAILY Gabapentin [Neurontin] 300 mg PO TID Aspirin EC [Ecotrin] 325 mg PO DAILY metFORMIN HCL [Glucophage] 850 mg PO BID Omeprazole [PriLOSEC] 20 mg PO AC-BRKFST Furosemide [Lasix] 40 mg PO DAILY Discharge Medication List Doxazosin [Cardura] 4 mg PO DAILY 10/31/14 [History] Ferrous Sulfate [Iron (65 MG Elemental)] 325 mg PO DAILY 10/31/14 [History] Metoprolol Tartrate [Lopressor] 25 mg PO BID 10/31/14 [History] Potassium Chloride [Klor-Con 10] 20 meq PO DAILY 10/31/14 [History] Simvastatin [Zocor] 40 mg PO DAILY 10/31/14 [History] oxyCODONE-APAP 10-325MG [Percocet 10-325 mg] 1 tab PO DAILY PRN 10/31/14 [History] Aspirin EC [Ecotrin] 325 mg PO DAILY 07/07/18 [History] Gabapentin [Neurontin] 300 mg PO TID 07/07/18 [History] Furosemide [Lasix] 40 mg PO DAILY 12/05/18 [History] Omeprazole [PriLOSEC] 20 mg PO AC-BRKFST 12/05/18 [History] metFORMIN HCL [Glucophage] 850 mg PO BID 12/05/18 [History] Cefuroxime Axetil [Ceftin] 500 mg PO BID 7 Days #14 tab 12/08/18 [Rx] Ipratropium-Albuterol Nebulize [Duoneb 0.5 mg-3 mg/3 ml Soln] 3 ml INHALATION RT-QID #60 ampul.neb 12/08/18 [Rx] predniSONE See Taper PO DIRECTED #30 tab 12/08/18 [Rx] Follow up Appointment(s)/Referral(s): Marivel Hudson MD [Primary Care Provider] - 12/22/18 3:00 pm [facility], [NON-STAFF] - 1-2 Days Patient Instructions/Handouts: COPD (Chronic Obstructive Pulmonary Disease) (DC) Discharge Disposition: HOME WITH HOME HEALTH SERVICES
== END 2018-12-08 15:20 | disposition home health service (06) | DRG 871 ==
LOC: EC 13:26 → 3SCARD 16:51 → 2SICU 12-06 13:45 → 4MS4W 12-08 12:55
PROVIDERS: ADMIT Internal Medicine; ATTEND Internal Medicine
DX: A41.9 Sepsis, unspecified organism (principal); J18.1 Lobar pneumonia, unspecified organism; J96.21 Acute and chronic respiratory failure with hypoxia; J44.0 Chronic obstructive pulmonary disease with (acute) lower respiratory infection; J44.1 Chronic obstructive pulmonary disease with (acute) exacerbation; I50.32 Chronic diastolic (congestive) heart failure; J98.11 Atelectasis; I35.0 Nonrheumatic aortic (valve) stenosis; I71.4 Abdominal aortic aneurysm, without rupture; K21.9 Gastro-esophageal reflux disease without esophagitis; E78.5 Hyperlipidemia, unspecified; M19.90 Unspecified osteoarthritis, unspecified site; K44.9 Diaphragmatic hernia without obstruction or gangrene; I44.0 Atrioventricular block, first degree; G89.4 Chronic pain syndrome; M54.9 Dorsalgia, unspecified; I11.0 Hypertensive heart disease with heart failure; K57.30 Diverticulosis of large intestine without perforation or abscess without bleeding; I25.10 Atherosclerotic heart disease of native coronary artery without angina pectoris; F17.210 Nicotine dependence, cigarettes, uncomplicated; Z71.6 Tobacco abuse counseling; Z99.81 Dependence on supplemental oxygen; Z79.82 Long term (current) use of aspirin; Z79.84 Long term (current) use of oral hypoglycemic drugs; Z79.899 Other long term (current) drug therapy; Z96.9 Presence of functional implant, unspecified; Z86.79 Personal history of other diseases of the circulatory system; Z86.718 Personal history of other venous thrombosis and embolism; Z85.46 Personal history of malignant neoplasm of prostate; Z92.3 Personal history of irradiation; Z85.820 Personal history of malignant melanoma of skin; Z85.819 Personal history of malignant neoplasm of unspecified site of lip, oral cavity, and pharynx; Z85.51 Personal history of malignant neoplasm of bladder; Z92.21 Personal history of antineoplastic chemotherapy; Z98.1 Arthrodesis status; Z95.5 Presence of coronary angioplasty implant and graft; Z86.59 Personal history of other mental and behavioral disorders; E11.9 Type 2 diabetes mellitus without complications
CPT/HCPCS: 36415; 71045; 71046; 71275; 74174; 80048; 80053; 81001; 83605; 83880; 84484; 85025; 85610; 85730; 87040; 87070; 87205; 93005; 94640; 96361; 96365; 96366; 96367; 96372; 96375; 96376; 99285

== ENCOUNTER 2019-01-02 13:46 | Inpatient (IN) | payer MEDICARE, OTHER ==
--- NOTE | 2019-01-02 14:19 | ED ---
Extremity Problem HPI - General Chief complaint: Extremity Problem,Nontraumatic Stated complaint: Ankle Swelling Time Seen by Provider: 01/02/19 13:54 Source: patient Mode of arrival: wheelchair Limitations: no limitations - History of Present Illness Initial comments: Patient is a 68-year-old male presenting to the emergency Department with complaints of left lower leg, left ankle, left foot swelling x 1 week. Patient denies any injuries or trauma to his leg or ankle. Patient denies history of DVT. Patient states he noticed this some mild pain and swelling about a week ago and symptoms have just worsened. Patient is able to walk however it get sore quickly. Patient denies any recent travel. Patient denies recent fever, chills. Patient states he is getting over pneumonia for the past month. Patient states those symptoms have been resolving. Patient has no other complaints at this time. Upon arrival to the ER, vital signs are stable. - Related Data Home Medications Medication Instructions Recorded Confirmed Doxazosin [Cardura] 4 mg PO DAILY 10/31/14 01/02/19 oxyCODONE-APAP 10-325MG [Percocet 1 tab PO DAILY PRN 10/31/14 01/02/19 10-325 mg] Omeprazole [PriLOSEC] 20 mg PO DAILY 12/05/18 01/02/19 metFORMIN HCL [Glucophage] 850 mg PO BID 12/05/18 01/02/19 Previous Rx's Medication Instructions Recorded Ipratropium-Albuterol Nebulize 3 ml INHALATION RT-QID #60 12/08/18 [Duoneb 0.5 mg-3 mg/3 ml Soln] ampul.neb Allergies Allergy/AdvReac Type Severity Reaction Status Date / Time No Known Allergies Allergy Verified 01/02/19 16:31 Review of Systems ROS Statement: Those systems with pertinent positive or pertinent negative responses have been documented in the HPI. ROS Other: All systems not noted in ROS Statement are negative. Past Medical History Past Medical History: Asthma, Coronary Artery Disease (CAD), Cancer, Heart Failure, Diabetes Mellitus, Deep Vein Thrombosis (DVT), GERD/Reflux, Hyperl ipidemia, Hypertension, Memory Impairment, Osteoarthritis (OA) Additional Past Medical History / Comment(s): Coronary artery disease, moderate to severe aortic valve stenosis, COPD, history of prostate cancer treated by radiation therapy back in 2005, history of melanoma of the back resected, history of lip cancer resected, history of bladder cancers treated intravesicular chemotherapy, abdominal aortic aneurysm surgically repaired, history of chronic back pain and the patient is a pain stimulator in place and the patient has undergone L4-L5 spinal fusion, diabetes mellitus, history of DVT, hypertension, hyperlipidemia, osteoarthritis, hiatal hernia History of Any Multi-Drug Resistant Organisms: None Reported Past Surgical History: Back Surgery, Bladder Surgery, Heart Catheterization With Stent, Hernia Repair, Orthopedic Surgery Additional Past Surgical History / Comment(s): Insertion of a pain pump on 11/07/2016 for chronic back pain/pain stimulator, abdominal aortic aneurysm repair 2, back pain with spinal fusion at the level of L4-L5, left inguinal hernia repair, abdominal hernia repair, THERESA, removal of a venous clot from the lower extremity in the setting of DVT, bladder surgery with intravesicular chemotherapy, cardiac catheterization with insertion of coronary stents, hernia repair Past Anesthesia/Blood Transfusion Reactions: No Reported Reaction Additional Past Anesthesia/Blood Transfusion Reaction / Comment(s): CLAUST ROPHOBIA Date of Last Stent Placement:: UNK Past Psychological History: Depression Smoking Status: Former smoker Past Alcohol Use History: None Reported Past Drug Use History: Marijuana - Past Family History Father History Unknown: Yes Mother History Unknown: Yes General Exam - General Exam Comments Initial Comments: GENERAL: Well-appearing, well-nourished and in no acute distress. HEAD: Atraumatic, normocephalic. EYES: Pupils equal round and reactive to light, extraocular movements intact, sclera anicteric, conjunctiva are normal. ENT: TMs normal, nares patent, oropharynx clear without exudates. Moist mucous membranes. NECK: Normal range of motion, supple without lymphadenopathy or JVD. LUNGS: Breath sounds clear to auscultation bilaterally and equal. No wheezes rales or rhonchi. HEART: Regular rate and rhythm without murmurs, rubs or gallops. ABDOMEN: Soft, nontender, normoactive bowel sounds. No guarding, no rebound. No masses appreciated. : Deferred EXTREMITIES: Patient has moderate swelling of the left lower leg, ankle, foot. Area is eryt hematous, dry skin and bruising into the left foot. Patient does have normal range of motion of the left ankle over painful at the end range. Patient has pain with palpation of the posterior Achilles area as well as distal calf area. Patient is neurovascular intact. Sensation is equal and bilateral. NEUROLOGICAL: Normal speech, normal gait. PSYCH: Normal mood, normal affect. SKIN: Warm, Dry, normal turgor, no rashes or lesions noted. Limitations: no limitations Course Vital Signs 01/02/19 13:50 Temperature 98.8 F Pulse Rate 104 H Respiratory 20 Rate Blood Pressure 119/97 O2 Sat by Pulse 90 L Oximetry Medical Decision Making - Medical Decision Making Patient is a 68-year-old male presenting with left lower leg, ankle, foot swelling 1 week. Patient denies any injuries or trauma to the area. X-rays reveal no acute fractures or dislocations of the ankle or foot. Ultrasound of the left lower extremity reveals an acute DVT from the external iliac vein through the popliteal vein. Case is discussed with Dr. Daiz. Patient will be admitted and started on high-dose heparin. Patient was accepted by Dr. Pimentel. Lab work, chest x-ray, BMP were ordered and are pending at this time. - Lab Data Result diagrams: 01/02/19 16:20 01/02/19 16:20 Lab Results 01/02/19 01/02/19 01/02/19 Range/Units 16:20 16:20 16:20 WBC 6.7 (3.8-10.6) k/uL RBC 4.86 (4.30-5.90) m/uL Hgb 14.7 (13.0-17.5) gm/dL Hct 45.8 (39.0-53.0) % MCV 94.3 (80.0-100.0) fL MCH 30.3 (25.0-35.0) pg MCHC 32.1 (31.0-37.0) g/dL RDW 14.4 (11.5-15.5) % Plt Count 170 (150-450) k/uL Neutrophils % 61 % Lymphocytes % 25 % Monocytes % 6 % Eosinophils % 5 % Basophils % 1 % Neutrophils # 4.1 (1.3-7.7) k/uL Lymphocytes # 1.7 (1.0-4.8) k/uL Monocytes # 0.4 (0-1.0) k/uL Eosinophils # 0.3 (0-0.7) k/uL Basophils # 0.1 (0-0.2) k/uL PT 10.9 (9.0-12.0) sec INR 1.0 (<1.2) APTT 26.9 (22.0-30.0) sec Sodium 138 (137-145) mmol/L Potassium 4.2 (3.5-5.1) mmol/L Chloride 103 (98-107) mmol/L Carbon Dioxide 28 (22-30) mmol/L Anion Gap 7 mmol/L BUN 14 (9-20) mg/dL Creatinine 0.71 (0.66-1.25) mg/dL Est GFR (CKD-EPI)AfAm >90 (>60 ml/min/1.73 sqM) Est GFR (CKD-EPI)NonAf >90 (>60 ml/min/1.73 sqM) Glucose 87 (74-99) mg/dL Calcium 9.5 (8.4-10.2) mg/dL Total Bilirubin 0.9 (0.2-1.3) mg/dL AST 16 L (17-59) U/L ALT 17 L (21-72) U/L Alkaline Phosphatase 65 (38-126) U/L Total Protein 6.4 (6.3-8.2) g/dL Albumin 3.7 (3.5-5.0) g/dL Disposition Clinical Impression: Deep vein thrombosis (DVT) of left lower extremity Disposition: ADMITTED IP TO THIS [facility] Condition: Stable Is patient prescribed a controlled substance at d/c from ED?: No Referrals: Marivel Hudson MD [Primary Care Provider] - 1-2 days Decision Date: 01/02/19 Decision Time: 16:18
--- NOTE | 2019-01-02 14:33 | XR ---
EXAMINATION TYPE: XR ankle complete LT, XR foot complete LT DATE OF EXAM: 01/02/2019 CLINICAL HISTORY: Left foot and ankle swelling with no known injury TECHNIQUE: Frontal, lateral and oblique images of the left ankle and foot are obtained. COMPARISON: None. FINDINGS: There is no acute fracture/dislocation evident in the left ankle. The ankle mortise appea rs within normal limits. The overlying soft tissue appears unremarkable. There is no acute fracture or dislocation evident in the left foot. Very small plantar heel spur is seen. The joint spaces in t he left foot are aligned. There is extensive degenerative change of the first metatarsal phalangeal j oint with osseous proliferation, joint space narrowing, and opposing surface sclerosis. Degenerative changes of the first tarsometatarsal joint and distal interphalangeal joints are also seen. Diffuse s oft tissue swelling is seen around the low ankle joint. IMPRESSION: 1. No acute fracture or dislocation in the left ankle or foot. 2. Diffuse soft tissue swelling in the low ankle joint is moderate. 3. Advanced degenerative change of the first metatarsal phalangeal joint and mild degenerative change s of the first tarsometatarsal joint and distal interphalangeal joints.
--- NOTE | 2019-01-02 15:36 | US ---
EXAMINATION TYPE: US venous doppler duplex LE LT DATE OF EXAM: 01/02/2019 3:24 PM COMPARISON: NONE CLINICAL HISTORY: pain, swelling left lower leg. Left leg swelling. SIDE PERFORMED: Left TECHNIQUE: The lower extremity deep venous system is examined utilizing real time linear array sonog price with graded compression, doppler sonography and color-flow sonography. VESSELS IMAGED: External Iliac Vein (EIV) Common Femoral Vein Deep Femoral Vein Greater Saphenous Vein * Femoral Vein Popliteal Vein Small Saphenous Vein * Proximal Calf Veins (* superficial vessels) Left Leg: Positive for DVT External iliac Vein to the Popliteal Vein. Grayscale, color doppler, spectral doppler imaging performed of the deep veins of the lower extremiti es. IMPRESSION: Exam is positive for acute deep venous thrombosis from the external iliac vein through t he popliteal vein.
[2019-01-02] MEDS ORDERED: HEPARIN SODIUM,PORCINE 5,000 UNIT/ML 1 ML VIAL IV PRN (16:07)
[2019-01-02] MEDS ORDERED: HEPARIN SODIUM,PORCINE 10,000 UNIT/ML 1 ML VIAL IV ONE (16:07)
[2019-01-02] MEDS ORDERED: NALOXONE 0.4 MG/ML 1 ML VIAL IV PRN (16:08)
[2019-01-02] MEDS ORDERED: ACETAMINOPHEN TAB 325 MG TAB PO PRN (16:08)
[2019-01-02 16:40] LABS: ALT 17 U/L (21-72); AST 16 U/L (17-59); African American GFR (CKD) >90 (>60 ml/min/1.73 sqM); Albumin 3.7 g/dL (3.5-5.0); Alkaline Phosphatase 65 U/L (38-126); Anion Gap 7 mmol/L; Blood Urea Nitrogen 14 mg/dL (9-20); Calcium 9.5 mg/dL (8.4-10.2); Carbon Dioxide 28 mmol/L (22-30); Chloride 103 mmol/L (98-107); Glucose 87 mg/dL (74-99); Non-African American GFR(CKD) >90 (>60 ml/min/1.73 sqM); Potassium 4.2 mmol/L (3.5-5.1); Sodium 138 mmol/L (137-145); Total Bilirubin 0.9 mg/dL (0.2-1.3); Total Protein 6.4 g/dL (6.3-8.2)
[2019-01-02 16:41] LABS: Partial Thromboplastin Time 26.9 sec (22.0-30.0); Prothrombin Time 10.9 sec (9.0-12.0)
[2019-01-02 16:46] LABS: Basophils # (A) 0.1 k/uL (0-0.2); Basophils % (A) 1 %; Eosinophils # (A) 0.3 k/uL (0-0.7); Eosinophils % (A) 5 %; HCT 45.8 % (39.0-53.0); HGB 14.7 gm/dL (13.0-17.5); Lymphocytes # (A) 1.7 k/uL (1.0-4.8); Lymphocytes % (A) 25 %; MCH 30.3 pg (25.0-35.0); MCHC 32.1 g/dL (31.0-37.0); MCV 94.3 fL (80.0-100.0); Mean Platelet Volume 7.5; Monocytes # (A) 0.4 k/uL (0-1.0); Monocytes % (A) 6 %; Neutrophils # (A) 4.1 k/uL (1.3-7.7); Neutrophils % (A) 61 %; Platelet Count 170 k/uL (150-450); RBC 4.86 m/uL (4.30-5.90); RDW 14.4 % (11.5-15.5); WBC 6.7 k/uL (3.8-10.6)
--- NOTE | 2019-01-02 16:56 | XR ---
EXAMINATION TYPE: XR chest 2V DATE OF EXAM: 01/02/2019 COMPARISON: 12/22/2018 HISTORY: Ankle swelling TECHNIQUE: Frontal and lateral views of the chest are obtained. FINDINGS: There is some patchy infiltrates and the lower lobes bilaterally. Heart size is normal. Th ere is no pleural effusion. There is no mediastinal adenopathy. There are no hilar masses. IMPRESSION: Infiltrate and atelectasis in both lower lobes slightly worse than last exam. No heart f ailure seen.
--- NOTE | 2019-01-02 17:15 | P.HPIM ---
History of Present Illness 68-year-old pleasant male came in with complaints of left leg swelling going on for about a week. Patient denies any previous history of DVT. Patient denied any recent travel but patient doesn't ambulate much are not active because of the low back pain. Patient had recent surgery. Patient denied any recent weight loss. Patient had CAT scan of the chest or thoracic aortic CT which did not show any pulmonary nodules. Patient the Tumor When His Colonoscopy Were Prostate Testing Was Done. Patient Is Found to Have DVT Extensive Extending up to the Left External Iliacs. Patient Was Started on IV Heparin . Review of Systems REVIEW OF SYSTEMS: CONSTITUTIONAL: No fever, no malaise, no fatigue. HEENT: No recent visual problems or hearing problems. Denied any sore throat. CARDIOVASCULAR: No chest pain, orthopnea, PND, no palpitations, no syncope. PULMONARY: No shortness of breath, no cough, no hemoptysis. GASTROINTESTINAL: No diarrhea, no nausea, no vomiting, no abdominal pain. NEUROLOGICAL: No headaches, no weakness, no numbness. HEMATOLOGICAL: Denies any bleeding or petechiae. GENITOURINARY: Denies any burning micturition, frequency, or urgency. MUSCULOSKELETAL/RHEUMATOLOGICAL: Denies any joint pain, does have left leg swelling, or any muscle pain. ENDOCRINE: Denies any polyuria or polydipsia. The rest of the 14-point review of systems is negative. Past Medical History Past Medical History: Asthma, Coronary Artery Disease (CAD), Cancer, Heart Failure, Diabetes Mellitus, Deep Vein Thrombosis (DVT), GERD/Reflux, Hyperlipidemia, Hypertension, Memory Impairment, Osteoarthritis (OA) Additional Past Medical History / Comment(s): Coronary artery disease, moderate to severe aortic valve stenosis, COPD, history of prostate cancer treated by radiation therapy back in 2005, history of melanoma of the back resected, history of lip cancer resected, history of bladder cancers treated intravesicular chemotherapy, abdominal aortic aneurysm surgically repaired, history of chronic back pain and the patient is a pain stimulator in place and the patient has undergone L4-L5 spinal fusion, diabetes mellitus, history of DVT, hypertension, hyperlipidemia, osteoarthritis, hiatal hernia History of Any Multi-Drug Resistant Organisms: None Reported Past Surgical History: Back Surgery, Bladder Surgery, Heart Catheterization With Stent, Hernia Repair, Orthopedic Surgery Additional Past Surgical History / Comment(s): Insertion of a pain pump on 11/07/2016 for chronic back pain/pain stimulator, abdominal aortic aneurysm repair 2, back pain with spinal fusion at the level of L4-L5, left inguinal hernia repair, abdominal hernia repair, THERESA, removal of a venous clot from the lower extremity in the setting of DVT, bladder surgery with intravesicular chemotherapy, cardiac catheterization with insertion of coronary stents, hernia repair Past Anesthesia/Blood Transfusion Reactions: No Reported Reaction Additional Past Anesthesia/Blood Transfusion Reaction / Comment(s): CLAUSTROPHOBIA Date of Last Stent Placement:: UNK Past Psychological History: Depression Smoking Status: Former smoker Past Alcohol Use History: None Reported Past Drug Use History: Marijuana - Past Family History Father History Unknown: Yes Mother History Unknown: Yes Medications and Allergies Home Medications Medication Instructions Recorded Confirmed Type Doxazosin [Cardura] 4 mg PO DAILY 10/31/14 12/05/18 History oxyCODONE-APAP 10-325MG [Percocet 1 tab PO DAILY PRN 10/31/14 12/05/18 History 10-325 mg] Omeprazole [PriLOSEC] 20 mg PO AC-BRKFST 12/05/18 12/05/18 History metFORMIN HCL [Glucophage] 850 mg PO BID 12/05/18 12/05/18 History Ipratropium-Albuterol Nebulize 3 ml INHALATION RT-QID #60 12/08/18 Rx [Duoneb 0.5 mg-3 mg/3 ml Soln] ampul.neb Allergies Allergy/AdvReac Type Severity Reaction Status Date / Time No Known Allergies Allergy Verified 01/02/19 16:31 Physical Exam Vitals: Vital Signs Temp Pulse Resp BP Pulse Ox 01/02/19 13:50 98.8 F 104 H 20 119/97 90 L Intake and Output 01/02/19 01/02/19 01/02/19 06:59 14:59 22:59 Other: Weight 81.647 kg PHYSICAL EXAMINATION: GENERAL: The patient is alert and oriented x3, not in any acute distress. Well developed, well nourished. HEENT: Pupils are round and equally reacting to light. EOMI. No scleral icterus. No conjunctival pallor. Normocephalic, atraumatic. No pharyngeal erythema. No thyromegaly. CARDIOVASCULAR: S1 and S2 present. No murmurs, rubs, or gallops. PULMONARY: Chest is clear to auscultation, no wheezing or crackles. ABDOMEN: Soft, nontender, nondistended, normoactive bowel sounds. No palpable organomegaly. MUSCULOSKELETAL: No joint swelling or deformity. EXTREMITIES: No cyanosis, clubbing, significant swelling of the left leg NEUROLOGICAL: Gross neurological examination did not reveal any focal deficits. SKIN: No rashes. Results CBC & Chem 7: 01/02/19 16:20 01/02/19 16:20 Labs: Abnormal Lab Results - Last 24 Hours (Table) 01/02/19 Range/Units 16:20 AST 16 L (17-59) U/L ALT 17 L (21-72) U/L Assessment and Plan Plan: 1 acute left lower limb DVT: Etiology of for DVT is unknown patient is less functional lately. Patient can use to smoke. Patient will be started on Eliquis probably can be discharged tomorrow. Will order compression socks to prevent post-thrombotic pain -COPD without any acute exacerbation, patient can use to smoke consulted alivia ha smoking cessation is provided Heparin coronary artery disease -Congestive heart failure chronic diastolic dysfunction without any acute exacerbation -Hyperlipidemia -Hypertension -History of severe stenosis follows up with the cardiology as an outpatient -Chronic low back pain with previous history of L4-L5 lumbar spinal fusion surgery
[2019-01-02] MEDS: HEPARIN SOD,PORK IN 0.45% NACL 25,000 UNIT in 0.45% NACL 1 250ML.BAG IV SCH (17:16)
[2019-01-02] MEDS ORDERED: oxyCODONE-APAP 10-325MG 1 EACH TAB PO PRN (17:16)
[2019-01-02 18:07] LABS: Glucose,Whole Blood 80 mg/dL (75-99)
[2019-01-02] MEDS: metFORMIN 850 MG TAB PO SCH (18:08)
[2019-01-02] MEDS: IPRATROPIUM-ALBUTEROL 3 ML NEB INHALATION SCH (19:39)
[2019-01-02 21:06] LABS: Glucose,Whole Blood 117 mg/dL (75-99)
[2019-01-03] MEDS ORDERED: PANTOPRAZOLE 40 MG TABLET PO STA (00:07)
[2019-01-03] MEDS ORDERED: MAG HYDROX/AL HYDROX/SIMETH 30 ML CUP PO PRN (00:07)
[2019-01-03 06:35] LABS: Basophils # (A) 0.1 k/uL (0-0.2); Basophils % (A) 1 %; Eosinophils # (A) 0.4 k/uL (0-0.7); Eosinophils % (A) 5 %; HCT 46.3 % (39.0-53.0); HGB 15.3 gm/dL (13.0-17.5); Lymphocytes # (A) 1.5 k/uL (1.0-4.8); Lymphocytes % (A) 20 %; MCH 31.3 pg (25.0-35.0); MCV 94.8 fL (80.0-100.0); Monocytes # (A) 0.5 k/uL (0-1.0); Monocytes % (A) 6 %; Neutrophils # (A) 5.2 k/uL (1.3-7.7); Neutrophils % (A) 67 %; Platelet Count 204 k/uL (150-450); RBC 4.88 m/uL (4.30-5.90); RDW 14.3 % (11.5-15.5); WBC 7.8 k/uL (3.8-10.6)
--- NOTE | 2019-01-03 06:40 | P.GSCN ---
History of Present Illness History of present illness: 68-year-old white male, patient came with history of for left leg swelling and pain for the past 1 week. Patient has no history of shortness of breath or chest pain no history of DVT in the past. Patient had ultrasound which showed DVT of the left extremity patient is on heparin medical history history of COPD diabetes hypertension Patient has history of for chronic pain and has a pain pump patient also history of COPD diabetes hypertension Neck examination neck is supple no bruit appreciated chest examination first and second sound is normal good entry both lungs Abdomen soft nontender vascular examination brachial radial femoral pulses are palpable left leg has a marked swelling no vascular compromise noted Impression is DVT left lower extremity with no vascular compromise Plan is patient will heparin which will be continued thigh-high KASSIE hose follow with you thank you Past Medical History Past Medical History: Asthma, Coronary Artery Disease (CAD), Cancer, Heart Failure, Diabetes Mellitus, Deep Vein Thrombosis (DVT), GERD/Reflux, Hyperlipidemia, Hypertension, Memory Impairment, Osteoarthritis (OA) Additional Past Medical History / Comment(s): Coronary artery disease, moderate to severe aortic valve stenosis, COPD, history of prostate cancer treated by radiation therapy back in 2005, history of melanoma of the back resected, history of lip cancer resected, history of bladder cancers treated i ntravesicular chemotherapy, abdominal aortic aneurysm surgically repaired, history of chronic back pain and the patient is a pain stimulator in place and the patient has undergone L4-L5 spinal fusion, diabetes mellitus, history of DVT, hypertension, hyperlipidemia, osteoarthritis, hiatal hernia History of Any Multi-Drug Resistant Organisms: None Reported Past Surgical History: Back Surgery, Bladder Surgery, Heart Catheterization With Stent, Hernia Repair, Orthopedic Surgery Additional Past Surgical History / Comment(s): Insertion of a pain pump on 11/07/2016 for chronic back pain/pain stimulator, abdominal aortic aneurysm repair 2, back pain with spinal fusion at the level of L4-L5, left inguinal hernia repair, abdominal hernia repair, THERESA, removal of a venous clot from the lower extremity in the setting of DVT, bladder surgery with intravesicular chemotherapy, cardiac catheterization with insertion of coronary stents, hernia repair Past Anesthesia/Blood Transfusion Reactions: No Reported Reaction Additional Past Anesthesia/Blood Transfusion Reaction / Comm: CLAUSTROPHOBIA Date of Last Stent Placement:: UNK Past Psychological History: Depression Smoking Status: Former smoker Past Alcohol Use History: None Reported Past Drug Use History: Marijuana - Past Family History Father History Unknown: Yes Mother History Unknown: Yes Medications and Allergies Home Medications Medication Instructions Recorded Confirmed Type Doxazosin [Cardura] 4 mg PO DAILY 10/31/14 01/02/19 History oxyCODONE-APAP 10-325MG [Percocet 1 tab PO DAILY PRN 10/31/14 01/02/19 History 10-325 mg] Omeprazole [PriLOSEC] 20 mg PO DAILY 12/05/18 01/02/19 History metFORMIN HCL [Glucophage] 850 mg PO BID 12/05/18 01/02/19 History Ipratropium-Albuterol Nebulize 3 ml INHALATION RT-QID #60 12/08/18 01/02/19 Rx [Duoneb 0.5 mg-3 mg/3 ml Soln] ampul.neb Apixaban [Eliquis] 5 mg PO BID #45 tab 01/02/19 Rx Allergies Allergy/AdvReac Type Severity Reaction Status Date / Time No Known Allergies Allergy Verified 01/02/19 16:31 Surgical - Exam Vital Signs Temp Pulse Resp BP Pulse Ox 98.8 F 104 H 20 119/97 90 L 01/02/19 13:50 01/02/19 13:50 01/02/19 13:50 01/02/19 13:50 01/02/19 13:50 Results - Labs 01/03/19 06:07 01/02/19 16:20 Abnormal Lab Results - Last 24 Hours (Table) 01/02/19 01/02/19 01/02/19 Range/Units 16:20 21:05 22:22 APTT 83.7 H (22.0-30.0) sec POC Glucose (mg/dL) 117 H (75-99) mg/dL AST 16 L (17-59) U/L ALT 17 L (21-72) U/L Diabetes panel 01/02/19 Range/Units 16:20 Sodium 138 (137-145) mmol/L Potassium 4.2 (3.5-5.1) mmol/L Chloride 103 (98-107) mmol/L Carbon Dioxide 28 (22-30) mmol/L BUN 14 (9-20) mg/dL Creatinine 0.71 (0.66-1.25) mg/dL Glucose 87 (74-99) mg/dL Calcium 9.5 (8.4-10.2) mg/dL AST 16 L (17-59) U/L ALT 17 L (21-72) U/L Alkaline Phosphatase 65 (38-126) U/L Total Protein 6.4 (6.3-8.2) g/dL Albumin 3.7 (3.5-5.0) g/dL Calcium panel 01/02/19 Range/Units 16:20 Calcium 9.5 (8.4-10.2) mg/dL Albumin 3.7 (3.5-5.0) g/dL Pituitary panel 01/02/19 Range/Units 16:20 Sodium 138 (137-145) mmol/L Potassium 4.2 (3.5-5.1) mmol/L Chloride 103 (98-107) mmol/L Carbon Dioxide 28 (22-30) mmol/L BUN 14 (9-20) mg/dL Creatinine 0.71 (0.66-1.25) mg/dL Glucose 87 (74-99) mg/dL Calcium 9.5 (8.4-10.2) mg/dL Adrenal panel 01/02/19 Range/Units 16:20 Sodium 138 (137-145) mmol/L Potassium 4.2 (3.5-5.1) mmol/L Chloride 103 (98-107) mmol/L Carbon Dioxide 28 (22-30) mmol/L BUN 14 (9-20) mg/dL Creatinine 0.71 (0.66-1.25) mg/dL Glucose 87 (74-99) mg/dL Calcium 9.5 (8.4-10.2) mg/dL Total Bilirubin 0.9 (0.2-1.3) mg/dL AST 16 L (17-59) U/L ALT 17 L (21-72) U/L Alkaline Phosphatase 65 (38-126) U/L Total Protein 6.4 (6.3-8.2) g/dL Albumin 3.7 (3.5-5.0) g/dL
[2019-01-03 07:03] LABS: Glucose,Whole Blood 97 mg/dL (75-99)
[2019-01-03] MEDS: metFORMIN 850 MG TAB PO SCH (07:13)
[2019-01-03] MEDS: IPRATROPIUM-ALBUTEROL 3 ML NEB INHALATION SCH ×2 (07:20→11:28)
[2019-01-03] MEDS ORDERED: PANTOPRAZOLE 40 MG TABLET PO SCH (07:30)
[2019-01-03] MEDS: HEPARIN SOD,PORK IN 0.45% NACL 25,000 UNIT in 0.45% NACL 1 250ML.BAG IV SCH (08:06)
[2019-01-03] MEDS ORDERED: DOXAZOSIN 4 MG TAB PO SCH (09:00)
[2019-01-03 11:20] LABS: Glucose,Whole Blood 106 mg/dL (75-99)
[2019-01-03] MEDS ORDERED: APIXABAN 5 MG TAB PO SCH (11:45)
[2019-01-03 13:43] VITALS: BP 114/66; PULSE 112; RESP 16; TEMP 98.2
--- NOTE | 2019-01-03 14:44 | P.DS ---
Providers Date of admission: 01/02/19 16:02 Attending physician: Bebe Pimentel Consults: 01/02/19 16:49 Consult Physician Routine Consulting Provider: Rigoberto Aranda Consult Reason/Comments: dvt extensive Do you want consulting provider notified?: Yes Primary care physician: Mairvel Tristan [facility] Course: 68-year-old pleasant male came in with complaints of left leg swelling going on for about a week. Patient denies any previous history of DVT. Patient denied any recent travel but patient doesn't ambulate much are not active because of the low back pain. Patient had recent surgery. Patient denied any recent weight loss. Patient had CAT scan of the chest or thoracic aortic CT which did not show any pulmonary nodules. Patient the Tumor When His Colonoscopy Were Prostate Testing Was Done. Patient Is Found to Have DVT Extensive Extending up to the Left External Iliacs. Patient Was Started on IV Heparin . 01/03/2019 Patient is feeling well patient was evaluated by Dr. Aranda from vascular surgery patient started having some wheeze because of which I'll provide him with this prescription of Symbicort and patient was asked to quit smoking. Patient will be discharged on Eliquis and compression socks. Follow-up with vascular surgery as an outpatient PHYSICAL EXAMINATION: GENERAL: The patient is alert and oriented x3, not in any acute distress. Well developed, well nourished. HEENT: Pupils are round and equally reacting to light. EOMI. No scleral icterus. No conjunctival pallor. Normocephalic, atraumatic. No pharyngeal erythema. No thyromegaly. CARDIOVASCULAR: S1 and S2 present. No murmurs, rubs, or gallops. PULMONARY: Chest is clear to auscultation, no wheezing or crackles. ABDOMEN: Soft, nontender, nondistended, normoactive bowel sounds. No palpable organomegaly. MUSCULOSKELETAL: No joint swelling or deformity. EXTREMITIES: No cyanosis, clubbing, significant swelling of the left leg NEUROLOGICAL: Gross neurological examination did not reveal any focal deficits. SKIN: No rashes. Assessment and Plan Plan: acute left lower limb DVT: Etiology of for DVT is unknown patient is less functional lately. Xiomara Patient will be started on Eliquis probably can be discharged tomorrow. -COPD with mild acute exacerbation, patient can use to smoke consulted regarding smoking cessation is provided Heparin coronary artery disease -Congestive heart failure chronic diastolic dysfunction without any acute exacerbation -Hyperlipidemia -Hypertension -History of severe aortic stenosis follows up with the cardiology as an outpatient -Chronic low back pain with previous history of L4-L5 lumbar spinal fusion surgery Patient Condition at Discharge: Stable Plan - Discharge Summary New Discharge Prescriptions: New Apixaban [Eliquis] 5 mg PO BID #45 tab No Action oxyCODONE-APAP 10-325MG [Percocet 10-325 mg] 1 tab PO DAILY PRN PRN Reason: Pain Doxazosin [Cardura] 4 mg PO DAILY metFORMIN HCL [Glucophage] 850 mg PO BID Omeprazole [PriLOSEC] 20 mg PO DAILY Ipratropium-Albuterol Nebulize [Duoneb 0.5 mg-3 mg/3 ml Soln] 3 ml INHALATION RT-QID #60 ampul.neb Discharge Medication List Doxazosin [Cardura] 4 mg PO DAILY 10/31/14 [History] oxyCODONE-APAP 10-325MG [Percocet 10-325 mg] 1 tab PO DAILY PRN 10/31/14 [History] Omeprazole [PriLOSEC] 20 mg PO DAILY 12/05/18 [History] metFORMIN HCL [Glucophage] 850 mg PO BID 12/05/18 [History] Ipratropium-Albuterol Nebulize [Duoneb 0.5 mg-3 mg/3 ml Soln] 3 ml INHALATION RT-QID #60 ampul.neb 12/08/18 [Rx] Apixaban [Eliquis] 5 mg PO BID #45 tab 01/02/19 [Rx] Follow up Appointment(s)/Referral(s): Marivel Hudson MD [Primary Care Provider] - 01/05/19 9:45 am [facility], [NON-STAFF] - Rigoberto Aranda MD [STAFF PHYSICIAN] - 01/10/19 1:00 pm Patient Instructions/Handouts: Deep Vein Thrombosis (DC) Activity/Diet/Wound Care/Special Instructions: Eliquis is filled in [facility] pharmacy with a free month coupon and then cost per month is $8.50. Discharge Disposition: HOME WITH HOME HEALTH SERVICES
== END 2019-01-03 13:05 | disposition home health service (06) | DRG 300 ==
LOC: EC 13:46 → 4MS4W 16:02
PROVIDERS: ADMIT Internal Medicine; ATTEND Internal Medicine
DX: I82.422 Acute embolism and thrombosis of left iliac vein (principal); I50.32 Chronic diastolic (congestive) heart failure; J44.1 Chronic obstructive pulmonary disease with (acute) exacerbation; I82.432 Acute embolism and thrombosis of left popliteal vein; I25.10 Atherosclerotic heart disease of native coronary artery without angina pectoris; M19.90 Unspecified osteoarthritis, unspecified site; F32.9 Major depressive disorder, single episode, unspecified; E78.5 Hyperlipidemia, unspecified; G89.29 Other chronic pain; I11.0 Hypertensive heart disease with heart failure; I35.0 Nonrheumatic aortic (valve) stenosis; E11.9 Type 2 diabetes mellitus without complications; K21.9 Gastro-esophageal reflux disease without esophagitis; Z79.899 Other long term (current) drug therapy; Z79.84 Long term (current) use of oral hypoglycemic drugs; Z79.01 Long term (current) use of anticoagulants; Z85.46 Personal history of malignant neoplasm of prostate; Z85.819 Personal history of malignant neoplasm of unspecified site of lip, oral cavity, and pharynx; Z85.820 Personal history of malignant melanoma of skin; Z86.718 Personal history of other venous thrombosis and embolism; Z86.79 Personal history of other diseases of the circulatory system; Z87.891 Personal history of nicotine dependence; Z95.5 Presence of coronary angioplasty implant and graft; Z98.1 Arthrodesis status; Z98.890 Other specified postprocedural states
CPT/HCPCS: 36415; 71046; 80053; 83880; 85025; 85610; 85730; 87324; 94640; 96365; 96376; 99285

== ENCOUNTER 2020-11-11 16:31 | Inpatient (IN) | payer MEDICARE ==
--- NOTE | 2020-11-11 17:58 | ED ---
General Adult HPI - General Chief complaint: Extremity Problem,Nontraumatic Stated complaint: foot pain Time Seen by Provider: 11/11/20 17:48 Source: patient, family, RN notes reviewed, old records reviewed Mode of arrival: ambulatory Limitations: no limitations - History of Present Illness Initial comments: This is a 70-year-old male, alert and oriented 4, presents to the emergency room with a family member complaining of left foot and lower leg swelling over the past week. He states over the past 2 days the toes have become increasingly red with drainage and discoloration. He states it has a foul smell. He denies any pain but states has good sensation. He denies any fevers or nausea and vomiting. He has a history of coronary artery disease, [id number] diabetes, retention, DVT, osteoarthritis, COPD with home oxygen at 3 L. He is a smoker. -: week(s) (1) Location: left (Foot and lower leg), lower extremity Associated Symptoms: denies other symptoms Treatments Prior to Arrival: none - Related Data Home Medications Medication Instructions Recorded Confirmed oxyCODONE-APAP 10-325MG [Percocet 1 tab PO DAILY 10/31/14 11/11/20 10-325 mg] Omeprazole [PriLOSEC] 20 mg PO DAILY 12/05/18 11/11/20 metFORMIN HCL [Glucophage] 850 mg PO BID 12/05/18 11/11/20 Aspirin EC [Ecotrin Low Dose] 81 mg PO DAILY 11/11/20 11/11/20 Budesonide/Formoterol Fumarate 2 puff INHALATION RT-BID 11/11/20 11/11/20 [Symbicort 160-4.5 Mcg Inhaler] Potassium Chloride [Potassium 10 meq PO BID 11/11/20 11/11/20 Chloride ER] Allergies Allergy/AdvReac Type Severity Reaction Status Date / Time No Known Allergies Allergy Verified 11/11/20 20:57 Review of Systems ROS Statement: Those systems with pertinent positive or pertinent negative responses have been documented in the HPI. ROS Other: All systems not noted in ROS Statement are negative. Past Medical History Past Medical History: Asthma, Coronary Artery Disease (CAD), Cancer, Heart Failure, Diabetes Mellitus, Deep Vein Thrombosis (DVT), GERD/Reflux, Hyperlipidemia, Hypertension, Memory Impairment, Osteoarthritis (OA) Additional Past Medical History / Comment(s): Coronary artery disease, moderate to severe aortic valve stenosis, COPD, history of prostate cancer treated by radiation therapy back in 2005, history of melanoma of the back resected, history of lip cancer resected, history of bladder cancers treated intravesicular chemotherapy, abdominal aortic aneurysm surgically repaired, history of chronic back pain and the patient is a pain stimulator in place and the patient has undergone L4-L5 spinal fusion, diabetes mellitus, history of DVT, hypertension, hyperlipidemia, osteoarthritis, hiatal hernia History of Any Multi-Drug Resistant Organisms: None Reported Past Surgical History: Back Surgery, Bladder Surgery, Heart Catheterization With Stent, Hernia Repair, Orthopedic Surgery Additional Past Surgical History / Comment(s): Insertion of a pain pump on 11/07/2016 for chronic back pain/pain stimulator, abdominal aortic aneurysm repair 2, back pain with spinal fusion at the level of L4-L5, left inguinal hernia repair, abdominal hernia repair, THERESA, removal of a venous clot from the lower extremity in the setting of DVT, bladder surgery with intravesicular chemotherapy, cardiac catheterization with insertion of coronary stents, hernia repair Past Anesthesia/Blood Transfusion Reactions: No Reported Reaction Additional Past Anesthesia/Blood Transfusion Reaction / Comment(s): CLAUSTROPHOBIA Date of Last Stent Placement:: UNK Past Psychological History: Depression Smoking Status: Current every day smoker Past Alcohol Use History: None Reported Past Drug Use History: Marijuana - Past Family History Father History Unknown: Yes Mother History Unknown: Yes General Exam Limitations: no limitations General appearance: alert, in no apparent distress Head exam: Present: atraumatic, normocephalic, normal inspection Eye exam: Present: normal appearance, EOMI ENT exam: Present: normal exam, normal oropharynx, mucous membranes moist Neck exam: Present: normal inspection, full ROM. Absent: tenderness, meningismus, lymphadenopathy Respiratory exam: Present: decreased breath sounds. Absent: respiratory distress, wheezes, chest wall tenderness, accessory muscle use Cardiovascular Exam: Present: regular rate, normal rhythm, normal heart sounds. Absent: systolic murmur, diastolic murmur, rubs, gallop, clicks Left Lower Leg exam: Present: tenderness, swelling, erythema. Absent: Homans' sign Ankle exam: Present: tenderness, swelling, erythema Foot/Toe exam: Present: tenderness, swelling, erythema. Absent: deformity, calcaneal tenderness Neurovascular tendon exam: Absent: abnormal cap refill, motor deficit, sensory deficit, extremity cold to touch, pallor Neurological exam: Present: alert, oriented X3 Psychiatric exam: Present: normal affect, normal mood Skin exam: Present: warm, dry, intact, normal color. Absent: rash, cyanosis, diaphoretic, petechiae, pallor Course Vital Signs 11/11/20 17:08 Temperature 98.9 F Pulse Rate 98 Respiratory 20 Rate Blood Pressure 113/73 O2 Sat by Pulse 91 L Oximetry EKG Findings - EKG Results: EKG: sinus rhythm (Ventricular rate 97, IA interval of 0.260 first degree block. QRS 0.138, QTc 0.452), not changed from: (12/05/2018) Medical Decision Making - Medical Decision Making X-ray of the left foot shows some osteoarthritis at the first MP joint with soft tissue swelling. Patient's white blood cell count is 7.3 he has been afebrile. Patient will be started on IV antibiotics and admitted to the hospital for cellulitis. I did speak with Shelby Dean regarding admission. Case was discussed with Dr. Sunshine. - Lab Data Result diagrams: 11/11/20 18:24 11/11/20 18:24 Lab Results 11/11/20 11/11/20 Range/Units 18:24 18:24 WBC 7.3 (3.8-10.6) k/uL RBC 5.42 (4.30-5.90) m/uL Hgb 16.3 (13.0-17.5) gm/dL Hct 50.8 (39.0-53.0) % MCV 93.7 (80.0-100.0) fL MCH 30.1 (25.0-35.0) pg MCHC 32.2 (31.0-37.0) g/dL RDW 14.4 (11.5-15.5) % Plt Count 129 L (150-450) k/uL MPV 9.9 Neutrophils % 65 % Lymphocytes % 23 % Monocytes % 7 % Eosinophils % 3 % Basophils % 1 % Neutrophils # 4.7 (1.3-7.7) k/uL Lymphocytes # 1.7 (1.0-4.8) k/uL Monocytes # 0.5 (0-1.0) k/uL Eosinophils # 0.2 (0-0.7) k/uL Basophils # 0.1 (0-0.2) k/uL Sodium 133 L (137-145) mmol/L Potassium 5.3 H (3.5-5.1) mmol/L Chloride 101 (98-107) mmol/L Carbon Dioxide 21 L (22-30) mmol/L Anion Gap 11 mmol/L BUN 15 (9-20) mg/dL Creatinine 0.69 (0.66-1.25) mg/dL Est GFR (CKD-EPI)AfAm >90 (>60 ml/min/1.73 sqM) Est GFR (CKD-EPI)NonAf >90 (>60 ml/min/1.73 sqM) Glucose 80 (74-99) mg/dL Calcium 9.4 (8.4-10.2) mg/dL Total Bilirubin 1.0 (0.2-1.3) mg/dL AST 20 (17-59) U/L ALT 8 (4-49) U/L Alkaline Phosphatase 74 (38-126) U/L Total Protein 7.1 (6.3-8.2) g/dL Albumin 4.0 (3.5-5.0) g/dL Disposition Clinical Impression: Cellulitis and abscess of foot Disposition: ADMITTED IP TO THIS [facility] Condition: Fair Decision Date: 11/11/20 Decision Time: 19:29
--- NOTE | 2020-11-11 18:29 | XR ---
EXAMINATION TYPE: XR foot complete LT DATE OF EXAM: 11/11/2020 COMPARISON: 01/02/2019 HISTORY: Pain and swelling TECHNIQUE: 3 views FINDINGS: There is spurring at the first MP joint. I see no fracture nor dislocation. There is small plantar calcaneal spur. There is soft tissue swelling of the forefoot. IMPRESSION: There is some osteoarthritis at the first MP joint. Soft tissue swelling which appears ne w compared to old exam.
[2020-11-11 19:00] LABS: ALT 8 U/L (4-49); AST 20 U/L (17-59); African American GFR (CKD) >90 (>60 ml/min/1.73 sqM); Alkaline Phosphatase 74 U/L (38-126); Anion Gap 11 mmol/L; Blood Urea Nitrogen 15 mg/dL (9-20); Calcium 9.4 mg/dL (8.4-10.2); Carbon Dioxide 21 mmol/L (22-30); Chloride 101 mmol/L (98-107); Glucose 80 mg/dL (74-99); Non-African American GFR(CKD) >90 (>60 ml/min/1.73 sqM); Sodium 133 mmol/L (137-145); Total Protein 7.1 g/dL (6.3-8.2)
[2020-11-11 19:05] LABS: Basophils # (A) 0.1 k/uL (0-0.2); Basophils % (A) 1 %; Eosinophils # (A) 0.2 k/uL (0-0.7); Eosinophils % (A) 3 %; HCT 50.8 % (39.0-53.0); HGB 16.3 gm/dL (13.0-17.5); Lymphocytes # (A) 1.7 k/uL (1.0-4.8); Lymphocytes % (A) 23 %; MCH 30.1 pg (25.0-35.0); MCHC 32.2 g/dL (31.0-37.0); MCV 93.7 fL (80.0-100.0); Mean Platelet Volume 9.9; Monocytes # (A) 0.5 k/uL (0-1.0); Monocytes % (A) 7 %; Neutrophils # (A) 4.7 k/uL (1.3-7.7); Neutrophils % (A) 65 %; Platelet Count 129 k/uL (150-450); RBC 5.42 m/uL (4.30-5.90); RDW 14.4 % (11.5-15.5); WBC 7.3 k/uL (3.8-10.6)
[2020-11-11 19:09] LABS: Potassium 5.3 mmol/L (3.5-5.1)
[2020-11-11] MEDS ORDERED: cefTRIAXone IN SWFI 1,000 MG/10 ML SYRINGE IVP STA (19:12)
[2020-11-11] MEDS ORDERED: NALOXONE 0.4 MG/ML 1 ML VIAL IV PRN (19:29)
--- NOTE | 2020-11-12 09:30 | P.HPIM ---
History of Present Illness This is a pleasant 70 years old male with multiple medical problems including Asthma, Coronary Artery Disease status post stent placement, urinary bladder cancer status post intravesical chemotherapy, Heart Failure, Diabetes Mellitus, Deep Vein Thrombosis , GERD/Reflux, Hyperlipidemia, Hypertension, Memory Impairment, Osteoarthritis , with history of back surgery and pain pump and stimulator since 2017 and L4 to L5 spinal fusion,moderate to severe aortic valve stenosis status post aortic aneurysm repair Patient presents because of left lower extremity cellulitis with redness and swelling for about one week involving his left foot and distal left leg. His leg problem with stainless. He denies chest pain or dyspnea or coughing. No diarrhea or abdominal complaints. No urinary complaint He takes metformin 850 mg twice a day for his diabetes Hemodynamically stable and afebrile on admission Labs including CBC, BMP and liver enzymes are unremarkable except for mildly high potassium at 5.3 and mildly low sodium at 133 EKG showing sinus rhythm with first-degree AV block at [address]-T changes with right bundle branch block and QTC 452 Left foot x-ray, there is some osteoarthritis of the first MP joint. Soft tissue swelling which appears new compared to old exam Review of Systems CONSTITUTIONAL: No fever, no malaise, no fatigue. HEENT: No recent visual problems or hearing problems. Denied any sore throat. CARDIOVASCULAR: No orthopnea, PND, no palpitations, no syncope. PULMONARY: No shortness of breath, no cough, no hemoptysis. GASTROINTESTINAL: No diarrhea, no nausea, no vomiting, no abdominal pain. Normoactive bowel sounds. NEUROLOGICAL: No headaches, no weakness, no numbness. HEMATOLOGICAL: Denies any bleeding or petechiae. GENITOURINARY: Denies any burning micturition, frequency, or urgency. MUSCULOSKELETAL/RHEUMATOLOGICAL: Denies any joint pain, swelling, or any muscle pain. ENDOCRINE: Denies any polyuria or polydipsia. Past Medical History Past Medical History: Asthma, Coronary Artery Disease (CAD), Cancer, Heart Failure, Diabetes Mellitus, Deep Vein Thrombosis (DVT), GERD/Reflux, Hyperlipidemia, Hypertension, Memory Impairment, Osteoarthritis (OA) Additional Past Medical History / Comment(s): Coronary artery disease, moderate to severe aortic valve stenosis, COPD, history of prostate cancer treated by radiation therapy back in 2005, history of melanoma of the back resected, history of lip cancer resected, history of bladder cancers treated intravesicular chemotherapy, abdominal aortic aneurysm surgically repaired, history of chronic back pain and the patient is a pain stimulator in place and the patient has undergone L4-L5 spinal fusion, diabetes mellitus, history of DVT, hypertension, hyperlipidemia, osteoarthritis, hiatal hernia History of Any Multi-Drug Resistant Organisms: None Reported Past Surgical History: Back Surgery, Bladder Surgery, Heart Catheterization With Stent, Hernia Repair, Orthopedic Surgery Additional Past Surgical History / Comment(s): Insertion of a pain pump on 11/07/2016 for chronic back pain/pain stimulator, abdominal aortic aneurysm repair 2, back pain with spinal fusion at the level of L4-L5, left inguinal hernia repair, abdominal hernia repair, THERESA, removal of a venous clot from the lower extremity in the setting of DVT, bladder surgery with intravesicular chemotherapy, cardiac catheterization with insertion of coronary stents, hernia repair Past Anesthesia/Blood Transfusion Reactions: No Reported Reaction Additional Past Anesthesia/Blood Transfusion Reaction / Comment(s): CLAUSTROPHOBIA Date of Last Stent Placement:: UNK Past Psychological History: Depression Smoking Status: Current every day smoker Past Alcohol Use History: None Reported Past Drug Use History: Marijuana - Past Family History Father History Unknown: Yes Mother History Unknown: Yes Medications and Allergies Home Medications Medication Instructions Recorded Confirmed Type oxyCODONE-APAP 10-325MG [Percocet 1 tab PO DAILY 10/31/14 11/11/20 History 10-325 mg] Omeprazole [PriLOSEC] 20 mg PO DAILY 12/05/18 11/11/20 History metFORMIN HCL [Glucophage] 850 mg PO BID 12/05/18 11/11/20 History Aspirin EC [Ecotrin Low Dose] 81 mg PO DAILY 11/11/20 11/11/20 History Budesonide/Formoterol Fumarate 2 puff INHALATION RT-BID 11/11/20 11/11/20 History [Symbicort 160-4.5 Mcg Inhaler] Potassium Chloride [Potassium 10 meq PO BID 11/11/20 11/11/20 History Chloride ER] Allergies Allergy/AdvReac Type Severity Reaction Status Date / Time No Known Allergies Allergy Verified 11/11/20 20:57 Physical Exam Vitals: Vital Signs Temp Pulse Resp BP Pulse Ox 11/11/20 17:08 98.9 F 98 20 113/73 91 L Intake and Output 11/11/20 11/11/20 11/11/20 06:59 14:59 22:59 Other: Weight 77.111 kg GENERAL: The patient is alert and oriented x3, not in any acute distress. Well developed, well nourished. HEENT: Pupils are round and equally reacting to light. EOMI. No scleral icterus. No conjunctival pallor. Normocephalic, atraumatic. No pharyngeal erythema. No thyromegaly. CARDIOVASCULAR: S1 and S2 present. No murmurs, rubs, or gallops. PULMONARY: Chest is clear to auscultation, no wheezing or crackles. ABDOMEN: Soft, nontender, nondistended, normoactive bowel sounds. No palpable o rganomegaly. MUSCULOSKELETAL: No joint swelling or deformity. -EXTREMITIES: No cyanosis, clubbing, or pedal edema. Cellulitis of the left foot up to the distal half of the leg, with redness swelling. Nontender. No ulcer or discharge. small Black ischar on the lateral leg NEUROLOGICAL: Gross neurological examination did not reveal any focal deficits. SKIN: No rashes. No petechiae Results CBC & Chem 7: 11/11/20 18:24 11/11/20 18:24 Labs: Abnormal Lab Results - Last 24 Hours (Table) 11/11/20 11/11/20 Range/Units 18:24 18:24 Plt Count 129 L (150-450) k/uL Sodium 133 L (137-145) mmol/L Potassium 5.3 H (3.5-5.1) mmol/L Carbon Dioxide 21 L (22-30) mmol/L Assessment and Plan Assessment: Left foot cellulitis Diabetes mellitus Hypertension Hyperlipidemia History of coronary artery disease status post stent placement History of coronary bladder cancer status post internal physical chemotherapy Chronic heart failure History of deep venous thrombosis, currently not on anticoagulation History of GERD MEMORY impairment History of osteoarthritis and degenerative back disease status post L4 to L5 spinal effusion and pain pump and stimulator Under to severe aortic valve stenosis History of aortic aneurysm repair Plan: This is a pleasant 70 years old male who presents with left foot cellulitis Continue with antibiotics,and follow-up culture results Monitored glucose and insulin sliding scale consult infectious disease and vascular surgery team given his extensive vascular surgery Check hemoglobin A1c Labs and medication were reviewed.. Continue same treatment. Continue with symptomatic treatment. Resume home medication. Monitor lytes and vitals. DVT and GI prophylaxis. Further recommendations depends on the clinical course of the patient DVT prophylaxis: Subcutaneous heparin GI Prophylaxis: Pepcid PT/OT: Pending Prognosis is guarded
[2020-11-12] MEDS: ASPIRIN 81 MG PO SCH (10:33)
[2020-11-12] MEDS: metFORMIN 850 MG TAB PO SCH ×2 (10:33→17:58)
--- NOTE | 2020-11-12 13:50 | P.GSCN ---
History of Present Illness Consult date: 11/12/20 Reason for Consult: cellulitis Requesting physician: Ronald E Sheet History of present illness: This is a 70-year-old male who presented to the emergency department with increased redness and swelling to his left lower extremity. Patient states he's noticed a couple wounds with drainage over the last week which has been progressively getting worse. He has a past medical history including aortic valve stenosis with aortic artery repair in the 1980s, aortobifem bypass, DVT, coronary artery disease with stent, diabetes mellitus, current smoker history of prostate cancer status post radiation therapy, hypertension, hyperlipidemia, osteoarthritis and GERD. Patient is not on any anticoagulation or antiplatelet therapy other than a low-dose aspirin. States his blood sugars have been well controlled, he was diagnosed with type 2 diabetes approximately one year ago. He does not follow with any vascular surgeons. States he has seen Dr. Aranda in the past. He denies any known fevers but states that he has had some chills at home. He has been afebrile. He denies any shortness of breath, chest pain, abdominal pain, nausea, vomiting, however does state that he still has lower extremity pain but improved with pain medication. Patient had a x-ray of the left foot showing some osteoarthritis at the first MP joint. Soft tissue swelling which appears new compared to old exam. Review of Systems A 14 point review of systems was completed all pertinent positives and negatives as stated in the HPI. Past Medical History Past Medical History: Asthma, Coronary Artery Disease (CAD), Cancer, Heart Failure, Diabetes Mellitus, Deep Vein Thrombosis (DVT), GERD/Reflux, Hyperlipidemia, Hypertension, Memory Impairment, Osteoarthritis (OA) Additional Past Medical History / Comment(s): Coronary artery disease, moderate to severe aortic valve stenosis, COPD, history of prostate cancer treated by radiation therapy back in 2005, history of melanoma of the back resected, history of lip cancer resected, history of bladder cancers treated intravesicular chemotherapy, abdominal aortic aneurysm surgically repaired, history of chronic back pain and the patient is a pain stimulator in place and the patient has undergone L4-L5 spinal fusion, diabetes mellitus, history of DVT, hypertension, hyperlipidemia, osteoarthritis, hiatal hernia History of Any Multi-Drug Resistant Organisms: None Reported Past Surgical History: Back Surgery, Bladder Surgery, Heart Catheterization With Stent, Hernia Repair, Orthopedic Surgery Additional Past Surgical History / Comment(s): Insertion of a pain pump on 11/07/2016 for chronic back pain/pain stimulator, abdominal aortic aneurysm repair 2, back pain with spinal fusion at the level of L4-L5, left inguinal hernia repair, abdominal hernia repair, THERESA, removal of a venous clot from the lower extremity in the setting of DVT, bladder surgery with intravesicular chemotherapy, cardiac catheterization with insertion of coronary stents, hernia repair Past Anesthesia/Blood Transfusion Reactions: No Reported Reaction Additional Past Anesthesia/Blood Transfusion Reaction / Comm: CLAUSTROPHOBIA Date of Last Stent Placement:: UNK Past Psychological History: Depression Smoking Status: Current every day smoker Past Alcohol Use History: None Reported Past Drug Use History: Marijuana - Past Family History Father History Unknown: Yes Mother History Unknown: Yes Medications and Allergies Home Medications Medication Instructions Recorded Confirmed Type oxyCODONE-APAP 10-325MG [Percocet 1 tab PO DAILY 10/31/14 11/11/20 History 10-325 mg] Omeprazole [PriLOSEC] 20 mg PO DAILY 12/05/18 11/11/20 History metFORMIN HCL [Glucophage] 850 mg PO BID 12/05/18 11/11/20 History Aspirin EC [Ecotrin Low Dose] 81 mg PO DAILY 11/11/20 11/11/20 History Budesonide/Formoterol Fumarate 2 puff INHALATION RT-BID 11/11/20 11/11/20 History [Symbicort 160-4.5 Mcg Inhaler] Potassium Chloride [Potassium 10 meq PO BID 11/11/20 11/11/20 History Chloride ER] Allergies Allergy/AdvReac Type Severity Reaction Status Date / Time No Known Allergies Allergy Verified 11/11/20 20:57 Surgical - Exam Vital Signs Temp Pulse Resp BP Pulse Ox 98.9 F 98 20 113/73 91 L 11/11/20 17:08 11/11/20 17:08 11/11/20 17:08 11/11/20 17:08 11/11/20 17:08 General appearance: The patient is alert, oriented, in no acute distress. HET: Head is normocephalic and atraumatic. Neck: Supple without lymphadenopathy. Trachea midline. Heart: S1 S2. Regular rate and rhythm. Lungs: Diminished with wheezes. Abdomen: Soft, nontender, nondistended. Extremities: Bilateral palpable lower extremity pulses. Left lower extremity with +1 edema, redness to anterior aspect of jorgensen and first through fourth toes. Nontender to palpation. Diabetic ulcer to the anterior aspect of jorgensen and small diabetic ulcer to the posterior aspect of calf. No drainage noted. Neurological: No focal deficits. Alert and oriented 3. Strength and sensation are grossly intact. Results - Labs 11/11/20 18:24 11/11/20 18:24 Abnormal Lab Results - Last 24 Hours (Table) 11/11/20 11/11/20 Range/Units 18:24 18:24 Plt Count 129 L (150-450) k/uL Sodium 133 L (137-145) mmol/L Potassium 5.3 H (3.5-5.1) mmol/L Carbon Dioxide 21 L (22-30) mmol/L Microbiology - Last 24 Hours (Table) 11/11/20 18:24 Gram Stain - Preliminary Foot - Left Wound Culture - Preliminary Diabetes panel 11/11/20 Range/Units 18:24 Sodium 133 L (137-145) mmol/L Potassium 5.3 H (3.5-5.1) mmol/L Chloride 101 (98-107) mmol/L Carbon Dioxide 21 L (22-30) mmol/L BUN 15 (9-20) mg/dL Creatinine 0.69 (0.66-1.25) mg/dL Glucose 80 (74-99) mg/dL Calcium 9.4 (8.4-10.2) mg/dL AST 20 (17-59) U/L ALT 8 (4-49) U/L Alkaline Phosphatase 74 (38-126) U/L Total Protein 7.1 (6.3-8.2) g/dL Albumin 4.0 (3.5-5.0) g/dL Calcium panel 11/11/20 Range/Units 18:24 Calcium 9.4 (8.4-10.2) mg/dL Albumin 4.0 (3.5-5.0) g/dL Pituitary panel 11/11/20 Range/Units 18:24 Sodium 133 L (137-145) mmol/L Potassium 5.3 H (3.5-5.1) mmol/L Chloride 101 (98-107) mmol/L Carbon Dioxide 21 L (22-30) mmol/L BUN 15 (9-20) mg/dL Creatinine 0.69 (0.66-1.25) mg/dL Glucose 80 (74-99) mg/dL Calcium 9.4 (8.4-10.2) mg/dL Adrenal panel 11/11/20 Range/Units 18:24 Sodium 133 L (137-145) mmol/L Potassium 5.3 H (3.5-5.1) mmol/L Chloride 101 (98-107) mmol/L Carbon Dioxide 21 L (22-30) mmol/L BUN 15 (9-20) mg/dL Creatinine 0.69 (0.66-1.25) mg/dL Glucose 80 (74-99) mg/dL Calcium 9.4 (8.4-10.2) mg/dL Total Bilirubin 1.0 (0.2-1.3) mg/dL AST 20 (17-59) U/L ALT 8 (4-49) U/L Alkaline Phosphatase 74 (38-126) U/L Total Protein 7.1 (6.3-8.2) g/dL Albumin 4.0 (3.5-5.0) g/dL - Imaging Comments: X-ray left foot: There is some osteoarthritis at the first MP joint. Soft tissue swelling which appears new compared to exam. Assessment and Plan Assessment: 1. Cellulitis of left lower extremity 2. History of vascular disease, status post aortobifem bypass 3. History of coronary artery disease status post stent 4. History of abdominal aortic aneurysm with repair 5. Type 2 diabetes mellitus 6. Current smoker Plan: 1. Continue IV antibiotics as ordered 2. Elevate left lower extremity, compression stocking 3. Patient has palpable bilateral lower extremity pulses, there is no indication for any vascular surgical intervention Thank you for this consultation and allowing us take part in the plan of care of your patient during his hospital stay The impression and plan of care has been dictated as directed. Dr. Galeas I performed a history and examination of this patient, discussed the same with the dictator. I agree with the dictator's note ,documented as a scribe. Any additional findings or plans will be noted.
[2020-11-12] MEDS ORDERED: oxyCODONE-APAP 5-325MG 1 EACH TAB PO PRN (14:52)
[2020-11-12 17:48] LABS: Glucose,Whole Blood 80 mg/dL (75-99)
[2020-11-12 20:28] LABS: Glucose,Whole Blood 94 mg/dL (75-99)
[2020-11-12] MEDS: SYMBICORT 160-4.5 MCG INHALER INHALATION SCH (20:42)
[2020-11-12] MEDS ORDERED: FAMOTIDINE 20 MG/2 ML VIAL IV SCH (21:00)
[2020-11-12] MEDS: HEPARIN SODIUM,PORCINE/PF 5,000 UNIT/0.5 ML SYRINGE SQ SCH (21:16)
[2020-11-13 06:36] LABS: African American GFR (CKD) >90 (>60 ml/min/1.73 sqM); Anion Gap 6 mmol/L; Blood Urea Nitrogen 16 mg/dL (9-20); Calcium 9.1 mg/dL (8.4-10.2); Carbon Dioxide 28 mmol/L (22-30); Chloride 99 mmol/L (98-107); Glucose 81 mg/dL (74-99); Non-African American GFR(CKD) >90 (>60 ml/min/1.73 sqM); Potassium 4.6 mmol/L (3.5-5.1); Sodium 133 mmol/L (137-145)
[2020-11-13 07:44] LABS: Glucose,Whole Blood 90 mg/dL (75-99)
[2020-11-13] MEDS: SYMBICORT 160-4.5 MCG INHALER INHALATION SCH ×2 (08:19→19:40)
--- NOTE | 2020-11-13 08:36 | P.CONS ---
History of Present Illness - Reason for Consult Consult date: 11/12/20 left leg and foot cellulitis Requesting physician: Ronald E Sheet - Chief Complaint redness and swelling to the left leg and foot x 1 week - History of Present Illness History of present illness : Patient is 70-year-old male presenting to the ER for evaluation of left lower leg and left foot swelling and redness that have been getting worse for the last 1 week patient denies having any trauma to the area patient main complaint has been increasing redness with drainage and discoloration and a foul smell patient did have mild dull aching pain 2-3 out of 10 no radiation did have some chills but denies high-grade fever with the symptom the patient has been evaluated by the ER physician on arrival to the ER patient was afebrile patient did have a normal white count kidney function was normal liver enzymes are normal varghese PCR was negative patient did have x-rays of the foot osteoarthritis at the first MP joint soft tissue swelling patient was started on cefazolin admitted to the hospital infectious disease was consulted for further management of antibiotic therapy Review of system: CONSTITUTIONAL: Positive for weakness denies fever. EYES: No complaint. ENT: No complaint. RESPIRATORY: No complaint. CARDIOVASCULAR: No complaint. GENITOURINARY: No complaint. GASTROINTESTINAL: No complaint. MUSCULOSKELETAL as per history of present illness. INTEGUMENTARY: As per history of present illness PSYCHOLOGIC: No complaint. ENDOCRINE: No complaint. NEUROLOGIC: No complaint. Past medical history : Reviewed, documented below Past surgical history : Reviewed, documented below Social history: Reviewed, documented below Medications: Reviewed, as documented below EXAMINATION: Vital sigans= Reviewed and documented below GENERAL DESCRIPTION: Elderly male lying in bed, no distress. No tachypnea or accessory muscle of respiration use. HEENT: Shows Pallor , no scleral icterus. Oral mucous membrane is dry. NECK: Trachea central, no thyromegaly. LUNGS: Unlabored breathing. Clear to auscultation anteriorly. No wheeze or crackle. HEART: S1, S2, regular rate and rhythm. ABDOMEN: Soft, no tenderness , guarding or rigidity EXTREMITIES: Left lower leg with swelling redness and did have a swelling redness on dorsal aspect of his left foot with some maceration but no drainage was noticed. SKIN: No rash, no masses palpable. NEUROLOGICAL: The patient is awake, alert, oriented x3, mood and affect normal. LABS AND RADIOLOGY: Reviewed results see below Assessment : Patient with a left lower extremity cellulitis as well as involving the left foot dorsal aspect with some maceration possible her combination of bacterial as well as fungal cellulitis, with evidence of any abscess Plan: 1-cefazolin dose will be adjusted up to 2 g every 8 hour 2-we will apply Mycolog cream to the left foot and left leg area 3-gentle IV fluid We will follow on clinical condition and cultures to further adjust medication if needed Thank you for this consultation we will follow the patient along with you Past Medical History Past Medical History: Asthma, Coronary Artery Disease (CAD), Cancer, Heart Failure, Diabetes Mellitus, Deep Vein Thrombosis (DVT), GERD/Reflux, Hyperlipidemia, Hypertension, Memory Impairment, Osteoarthritis (OA) Additional Past Medical History / Comment(s): Coronary artery disease, moderate to severe aortic valve stenosis, COPD, history of prostate cancer treated by radiation therapy back in 2005, history of melanoma of the back resected, history of lip cancer resected, history of bladder cancers treated intravesicular chemotherapy, abdominal aortic aneurysm surgically repaired, history of chronic back pain and the patient is a pain stimulator in place and the patient has undergone L4-L5 spinal fusion, diabetes mellitus, history of DVT, hypertension, hyperlipidemia, osteoarthritis, hiatal hernia History of Any Multi-Drug Resistant Organisms: None Reported Past Surgical History: Back Surgery, Bladder Surgery, Heart Catheterization With Stent, Hernia Repair, Orthopedic Surgery Additional Past Surgical History / Comment(s): Insertion of a pain pump on 11/07/2016 for chronic back pain/pain stimulator, abdominal aortic aneurysm repair 2, back pain with spinal fusion at the level of L4-L5, left inguinal hernia repair, abdominal hernia repair, THERESA, removal of a venous clot from the lower extremity in the setting of DVT, bladder surgery with intravesicular chemotherapy, cardiac catheterization with insertion of coronary stents, hernia repair Past Anesthesia/Blood Transfusion Reactions: No Reported Reaction Additional Past Anesthesia/Blood Transfusion Reaction / Comm: CLAUSTROPHOBIA Date of Last Stent Placement:: UNK Past Psychological History: Depression Additional Psychological History / Comment(s): SOMETIMES GETS DEPRESSED, NO MEDS TAKEN. Smoking Status: Current every day smoker Past Alcohol Use History: None Reported Additional Past Alcohol Use History / Comment(s): STARTED SMOKING AT AGE 14-15 SMOKES LESS THAN 1/2 PPD. Past Drug Use History: Marijuana Additional Drug Use History / Comment(s): OCC SMOKES MARIJUANA FOR PAIN. - Past Family History Father History Unknown: Yes Mother History Unknown: Yes Medications and Allergies Home Medications Medication Instructions Recorded Confirmed Type oxyCODONE-APAP 10-325MG [Percocet 1 tab PO DAILY 10/31/14 11/11/20 History 10-325 mg] Omeprazole [PriLOSEC] 20 mg PO DAILY 12/05/18 11/11/20 History metFORMIN HCL [Glucophage] 850 mg PO BID 12/05/18 11/11/20 History Aspirin EC [Ecotrin Low Dose] 81 mg PO DAILY 11/11/20 11/11/20 History Budesonide/Formoterol Fumarate 2 puff INHALATION RT-BID 11/11/20 11/11/20 History [Symbicort 160-4.5 Mcg Inhaler] Potassium Chloride [Potassium 10 meq PO BID 11/11/20 11/11/20 History Chloride ER] Allergies Allergy/AdvReac Type Severity Reaction Status Date / Time No Known Allergies Allergy Verified 11/11/20 20:57 Physical Exam Vitals: Vital Signs Temp Pulse Pulse Pulse Resp BP BP 11/12/20 20:00 92 20 11/12/20 19:08 98.7 F 92 20 132/75 11/12/20 14:08 97.7 F 89 16 132/80 11/12/20 13:23 87 18 130/84 11/12/20 10:35 87 18 108/59 Pulse Ox 11/12/20 20:00 11/12/20 19:08 97 11/12/20 14:08 94 L 11/12/20 13:23 95 11/12/20 10:35 96 Intake and Output 11/12/20 11/12/20 11/13/20 14:59 22:59 06:59 Intake Total 240 Balance 240 Intake: Oral 240 Other: Voiding Method Toilet Urinal # Voids 1 Weight 77.111 kg Results CBC & Chem 7: 11/11/20 18:24 11/13/20 04:44 Labs: Microbiology - Last 24 Hours (Table) 11/11/20 18:30 Blood Culture - Preliminary Blood No Growth after 24 hours 11/11/20 18:15 Blood Culture - Preliminary Blood No Growth after 24 hours 09/28/21 18:24 Gram Stain - Preliminary Foot - Left Wound Culture - Preliminary
[2020-11-13] MEDS: metFORMIN 850 MG TAB PO SCH ×2 (08:59→18:53)
[2020-11-13] MEDS: ASPIRIN 81 MG PO SCH (08:59)
[2020-11-13] MEDS: HEPARIN SODIUM,PORCINE/PF 5,000 UNIT/0.5 ML SYRINGE SQ SCH ×2 (08:59→21:14)
[2020-11-13] MEDS: TRIAMCINOLONE 0.1% CREAM 80 GM TUBE TOPICAL SCH ×2 (08:59→21:14)
[2020-11-13] MEDS: NYSTATIN 100,000UNIT/GM CREAM 30 GM TUBE TOPICAL SCH ×2 (08:59→21:14)
[2020-11-13] MEDS: FAMOTIDINE 20 MG TAB PO SCH ×2 (08:59→21:14)
[2020-11-13] MEDS ORDERED: NYSTAT-TRIAMCIN 100,000-0.1 UNIT/GM-% CREAM 30 GM TUBE TOPICAL SCH (09:00)
[2020-11-13 09:18] LABS: HCT 47.3 % (39.6-50.0); HGB 15.4 g/dL (13.0-17.0); Lymphocytes % (A) 22.5 %; MCH 29.7 pg (27.0-32.0); MCHC 32.6 g/dL (32.0-37.0); MCV 91.3 fL (80.0-97.0); Mean Platelet Volume 11.9 fL (9.5-12.2); Monocytes % (A) 7.6 %; Neutrophils # (A) 5.04 X 10*3/uL (1.80-7.70); Neutrophils % (A) 64.6 %; Platelet Count 137 X 10*3/uL (140-440); RBC 5.18 X 10*6/uL (4.40-5.60); RDW 14.8 % (11.5-14.5); WBC 7.79 X 10*3/uL (4.50-10.00)
[2020-11-13 09:19] LABS: Basophils # (A) 0.08 X 10*3/uL (0.00-0.10); Eosinophils # (A) 0.31 X 10*3/uL (0.04-0.35); Lymphocytes # (A) 1.75 X 10*3/uL (0.90-5.00); Monocytes # (A) 0.59 X 10*3/uL (0.20-1.00)
--- NOTE | 2020-11-13 10:25 | CDI ---
Documentation Clarification Form Date: 11/13/2020 09:59:14 AM From: Melany Rodriguez RN CCDS Admit Date: 11/13/2020 08:37:00 AM Patient Name: Real Estrada Visit Number: [id number] Discharge Date: ATTENTION: The Clinical Documentation Specialists (CDI) and [facility] Coding Staff appreciate your assistance in clarifying documentation. Please respond to the clarification below the line at the bottom and electronically sign. The CDI & [facility] Coding staff will review the response and follow-up if needed. Please note: Queries are made part of the Legal Health Record. If you have any questions, please contact the author of this message via ITS. Dr. Ronald Kaufman Cellulitis is documented 11/11, H&P. Additional clarification regarding the type of cellulitis is requested. History/risk factors: 70-year-old male presents to the ED with left lower extremity cellulitis with redness and swelling for approximately one week. Medical History: CAD, DM, HTN and Osteoarthritis. H&P 11/12 Clinical Indicators: Left foot x-ray 11/11: There is some osteoarthritis at the first MP joint. Soft tissue swelling which appears new compared to old exam. ID Consult 11/12: Patient with a left lower extremity cellulitis as well as involving the left foot dorsal aspect with some maceration possible combination of bacterial as well as fungal cellulitis, without evidence of abscess. Treatment: 11/11 x 1 Rocephin IVP; 11/11 d/c 11/12 Cefazolin 1,000mg Ivpb Q8HR; 11/13 to present Cefazolin 2gm IVPB Q8HR EVANGELINA. 11/12 to current Metformin Hcl 850mg PO BID w/ meals. Please clarify the type of cellulitis, if known: [ ] Cellulitis due to diabetes [ ] Other, please specify: [ ] Unable to determine (Template Last Revised: April 2020) Cellulitis , risk factor is diabetes MTDD
--- NOTE | 2020-11-13 11:40 | P.PN ---
Subjective Progress Note Date: 11/13/20 Shunt seen and examined with no acute changes through the night. He has Gio wrap to the left lower extremity for compression. Antibiotics have been increased to Cefazolin 2 g every 8 hours. Patient has remained afebrile. He denies any increased pain to left lower extremity. Objective - Vital Signs Vital signs: Vital Signs Temp 98.1 F 11/13/20 07:00 Pulse 82 11/13/20 07:00 Resp 16 11/13/20 07:00 BP 129/75 11/13/20 07:00 Pulse Ox 94 L 11/13/20 07:00 Intake & Output 11/12/20 11/13/20 11/13/20 18:59 06:59 18:59 Intake Total 240 Balance 240 Weight 77.111 kg Intake: Oral 240 Other: Voiding Method Toilet Urinal # Voids 1 1 - Exam General appearance: The patient is alert, oriented, in no acute distress. HET: Head is normocephalic and atraumatic. Extremities: Normal skin color and turgor. Left lower extremity with swelling. Dressing clean dry and intact. Good capillary refill. Bilateral palpable dorsalis pedis pulses. Neurological: No focal deficits. Strength and sensation are grossly intact. - Labs CBC & Chem 7: 11/13/20 04:44 11/13/20 04:44 Labs: Abnormal Lab Results - Last 24 Hours (Table) 11/13/20 Range/Units 04:44 Sodium 133 L (137-145) mmol/L Microbiology - Last 24 Hours (Table) 11/11/20 18:30 Blood Culture - Preliminary Blood No Growth after 24 hours 11/11/20 18:15 Blood Culture - Preliminary Blood No Growth after 24 hours 11/11/20 18:24 Gram Stain - Preliminary Foot - Left Wound Culture - Preliminary Assessment and Plan Assessment: 1. Cellulitis of left lower extremity 2. History of vascular disease, status post aortobifem bypass 3. History of coronary artery disease status post stent 4. History of abdominal aortic aneurysm with repair 5. Type 2 diabetes mellitus 6. Current smoker Plan: 1. Continue IV antibiotics as ordered 2. Elevate left lower extremity, compression stocking 3. Patient has palpable bilateral lower extremity pulses, there is no indication for any vascular surgical intervention 4. We will sign off at this time. Discussed with patient recommend outpatient follow-up with vascular surgery due to previous vascular disease. Thank you for this consultation and allowing us take part in the plan of care of your patient during his hospital stay The impression and plan of care has been dictated as directed. Dr. Galeas I performed a history and examination of this patient, discussed the same with the dictator. I agree with the dictator's note ,documented as a scribe. Any additional findings or plans will be noted.
[2020-11-13 11:54] LABS: Glucose,Whole Blood 97 mg/dL (75-99)
--- NOTE | 2020-11-13 12:34 | P.PN ---
Subjective This is a pleasant 70 years old male with multiple medical problems including Asthma, Coronary Artery Disease status post stent placement, urinary bladder cancer status post intravesical chemotherapy, Heart Failure, Diabetes Mellitus, Deep Vein Thrombosis , GERD/Reflux, Hyperlipidemia, Hypertension, Memory Impairment, Osteoarthritis , with history of back surgery and pain pump and stimulator since 2017 and L4 to L5 spinal fusion,moderate to severe aortic valve stenosis status post aortic aneurysm repair Patient presents because of left lower extremity cellulitis with redness and swelling for about one week involving his left foot and distal left leg. His leg problem with stainless. He denies chest pain or dyspnea or coughing. No diarrhea or abdominal complaints. No urinary complaint He takes metformin 850 mg twice a day for his diabetes Hemodynamically stable and afebrile on admission Labs including CBC, BMP and liver enzymes are unremarkable except for mildly high potassium at 5.3 and mildly low sodium at 133 EKG showing sinus rhythm with first-degree AV block at [address]-T changes with right bundle branch block and QTC 452 Left foot x-ray, there is some osteoarthritis of the first MP joint. Soft tissue swelling which appears new compared to old exam 11/13/2020 Patient with left leg cellulitis which is significantly improved today. He was continued on cefazolin. He was prescribed Percocet daily when necessary for pain Vitals and labs are stable. Patient wants to go home however he agrees to stay for now Continue on cefazolin No need for surgical intervention per vascular team Objective - Vital Signs Vital signs: Vital Signs Temp 98.1 F 11/13/20 07:00 Pulse 82 11/13/20 08:00 Resp 16 11/13/20 08:00 BP 129/75 11/13/20 07:00 Pulse Ox 94 L 11/13/20 07:00 Intake & Output 11/12/20 11/13/20 11/13/20 18:59 06:59 18:59 Intake Total 240 Balance 240 Weight 77.111 kg Intake: Oral 240 Other: Voiding Method Toilet Toilet Urinal Urinal # Voids 1 1 - Exam GENERAL: The patient is alert and oriented x3, not in any acute distress. Well developed, well nourished. HEENT: Pupils are round and equally reacting to light. EOMI. No scleral icterus. No conjunctival pallor. Normocephalic, atraumatic. No pharyngeal erythema. No thyromegaly. CARDIOVASCULAR: S1 and S2 present. No murmurs, rubs, or gallops. PULMONARY: Chest is clear to auscultation, no wheezing or crackles. ABDOMEN: Soft, nontender, nondistended, normoactive bowel sounds. No palpable organomegaly. MUSCULOSKELETAL: No joint swelling or deformity. -EXTREMITIES: No cyanosis, clubbing, or pedal edema. Cellulitis of the left foot up to the distal half of the leg, with redness swelling. Nontender. No ulcer or discharge. small Black ischar on the lateral leg NEUROLOGICAL: Gross neurological examination did not reveal any focal deficits. SKIN: No rashes. No petechiae - Labs CBC & Chem 7: 11/13/20 04:44 11/13/20 04:44 Labs: Abnormal Lab Results - Last 24 Hours (Table) 11/13/20 11/13/20 Range/Units 04:44 04:44 RDW 14.8 H (11.5-14.5) % Plt Count 137 L (140-440) X 10*3/uL Sodium 133 L (137-145) mmol/L Microbiology - Last 24 Hours (Table) 11/11/20 18:30 Blood Culture - Preliminary Blood No Growth after 24 hours 11/11/20 18:15 Blood Culture - Preliminary Blood No Growth after 24 hours Assessment and Plan Assessment: Left foot cellulitis Diabetes mellitus Hypertension Hyperlipidemia History of coronary artery disease status post stent placement History of coronary bladder cancer status post internal physical chemotherapy Chronic heart failure History of deep venous thrombosis, currently not on anticoagulation History of GERD MEMORY impairment History of osteoarthritis and degenerative back disease status post L4 to L5 spinal effusion and pain pump and stimulator Under to severe aortic valve stenosis History of aortic aneurysm repair Plan: This is a pleasant 70 years old male who presents with left foot cellulitis Continue with antibiotics, cefazolin Monitored glucose and insulin sliding scale consult infectious disease and vascular surgery team on the case Labs and medication were reviewed.. Continue same treatment. Continue with symptomatic treatment. Resume home medication. Monitor lytes and vitals. DVT and GI prophylaxis. Further recommendations depends on the clinical course of the patient DVT prophylaxis: Subcutaneous heparin GI Prophylaxis: Pepcid PT/OT: Pending
[2020-11-13 17:55] LABS: Glucose,Whole Blood 93 mg/dL (75-99)
[2020-11-13 20:41] LABS: Glucose,Whole Blood 124 mg/dL (75-99)
[2020-11-13] MEDS ORDERED: QUEtiapine 50 MG TAB PO ONE (23:10)
[2020-11-13] MEDS: NICOTINE 14MG/24HR PATCH TRANSDERM SCH (23:18)
--- NOTE | 2020-11-14 01:33 | PN ---
PROGRESS NOTE DATE OF SERVICE: 11/13/2020. REASON FOR FOLLOW UP: left leg and foot cellulitis. INTERVAL HISTORY: The patient is afebrile. The patient is breathing comfortably. Patient denies having any chest pain, shortness of breath, cough, no abdominal pain, or any worsening pain to the left foot or leg area. PHYSICAL EXAMINATION: Blood pressure 143/79, pulse of 105, temperature 98.6. He is 94% on 4 L nasal cannula. General description is an elderly male up in the bed in no distress. Respiratory system: Unlabored breathing, clear to auscultation anteriorly. Heart S1, S2. Regular rate and rhythm. Abdomen soft, no tenderness. The left foot and leg swelling and redness has slightly decreased. LABS: Wound culture now showing Staph aureus. DIAGNOSTIC IMPRESSION AND PLAN: Patient with left foot and leg abscess and cellulitis. Culture with presumptive Staph aureus. Patient is covered with cefazolin, local care to continue with Mycolog cream with discharge antibiotic based on culture report. Continue supportive care. MMODL / IJN: [id number] / MTDD
[2020-11-14 07:35] LABS: Glucose,Whole Blood 81 mg/dL (75-99)
[2020-11-14] MEDS: SYMBICORT 160-4.5 MCG INHALER INHALATION SCH ×2 (07:51→20:27)
[2020-11-14] MEDS: TRIAMCINOLONE 0.1% CREAM 80 GM TUBE TOPICAL SCH ×2 (08:17→21:29)
[2020-11-14] MEDS: NYSTATIN 100,000UNIT/GM CREAM 30 GM TUBE TOPICAL SCH ×2 (08:17→21:29)
[2020-11-14] MEDS: FAMOTIDINE 20 MG TAB PO SCH ×2 (09:39→21:27)
[2020-11-14] MEDS: ASPIRIN 81 MG PO SCH (09:39)
[2020-11-14] MEDS: metFORMIN 850 MG TAB PO SCH ×2 (09:39→18:00)
[2020-11-14] MEDS: NICOTINE 14MG/24HR PATCH TRANSDERM SCH (09:39)
[2020-11-14] MEDS: HEPARIN SODIUM,PORCINE/PF 5,000 UNIT/0.5 ML SYRINGE SQ SCH ×2 (09:39→21:28)
[2020-11-14 12:33] LABS: Glucose,Whole Blood 76 mg/dL (75-99)
--- NOTE | 2020-11-14 15:56 | PN ---
PROGRESS NOTE DATE OF SERVICE: 11/14/2020 REASON FOR FOLLOWUP: Left foot and leg wound and cellulitis. INTERVAL HISTORY: The patient is afebrile. The patient is currently breathing comfortably. No chest pain, shortness of breath or cough. No abdominal pain or any worsening pain to the left foot and leg area. PHYSICAL EXAMINATION: Blood pressure 135/80 with a pulse of 97, temperature 98.1. He is 92% on 4 L nasal cannula. GENERAL DESCRIPTION: General description is an elderly male up in the chair in no distress. RESPIRATORY SYSTEM: Unlabored breathing. Clear to auscultation anteriorly. HEART: S1, S2. Regular rate and rhythm. ABDOMEN: Soft. No tenderness. Left foot and leg swelling and redness have improved. DIAGNOSTIC IMPRESSION AND PLAN: Patient with left foot and leg cellulitis. Culture with presumptive Staph aureus. Sensitivities pending. Plan at this time is to continue with IV cefazolin with attention to white count culture. To continue supportive care. MMODL / IJN: [id number] /
[2020-11-14 17:24] LABS: Glucose,Whole Blood 79 mg/dL (75-99)
[2020-11-14 20:21] LABS: Glucose,Whole Blood 100 mg/dL (75-99)
[2020-11-15 07:34] LABS: Glucose,Whole Blood 81 mg/dL (75-99)
[2020-11-15] MEDS: HEPARIN SODIUM,PORCINE/PF 5,000 UNIT/0.5 ML SYRINGE SQ SCH (07:36)
[2020-11-15] MEDS: FAMOTIDINE 20 MG TAB PO SCH (07:36)
[2020-11-15] MEDS: NICOTINE 14MG/24HR PATCH TRANSDERM SCH (07:36)
[2020-11-15] MEDS: ASPIRIN 81 MG PO SCH (07:36)
[2020-11-15] MEDS: TRIAMCINOLONE 0.1% CREAM 80 GM TUBE TOPICAL SCH (07:37)
[2020-11-15] MEDS: metFORMIN 850 MG TAB PO SCH (07:37)
[2020-11-15] MEDS: NYSTATIN 100,000UNIT/GM CREAM 30 GM TUBE TOPICAL SCH (07:37)
[2020-11-15 08:25] VITALS: BP 144/76; PULSE 96; RESP 17; TEMP 96.8
[2020-11-15] MEDS: SYMBICORT 160-4.5 MCG INHALER INHALATION SCH (08:35)
--- NOTE | 2020-11-15 11:21 | P.PN ---
Subjective Progress Note Date: 11/14/20 Principal diagnosis: Left foot/leg cellulitis/abscess 70 years old male with multiple medical problems including Asthma, Coronary Artery Disease status post stent placement, urinary bladder cancer status post intravesical chemotherapy, Heart Failure, Diabetes Mellitus, Deep Vein Thrombosis , GERD/Reflux, Hyperlipidemia, Hypertension, Memory Impairment, Osteoarthritis , with history of back surgery and pain pump and stimulator since 2017 and L4 to L5 spinal fusion,moderate to severe aortic valve stenosis status post aortic aneurysm repair Patient presents because of left lower extremity cellulitis with redness and swelling for about one week involving his left foot and distal left leg. His leg problem with stainless. He denies chest pain or dyspnea or coughing. No diarrhea or abdominal complaints. No urinary complaint He takes metformin 850 mg twice a day for his diabetes Hemodynamically stable and afebrile on admission Labs including CBC, BMP and liver enzymes are unremarkable except for mildly high potassium at 5.3 and mildly low sodium at 133 EKG showing sinus rhythm with first-degree AV block at [address]-T changes with right bundle branch block and QTC 452 Left foot x-ray, there is some osteoarthritis of the first MP joint. Soft tissue swelling which appears new compared to old exam Objective - Vital Signs Vital signs: Vital Signs Temp 98.1 F 11/14/20 07:00 Pulse 97 11/14/20 07:00 Resp 18 11/14/20 07:00 BP 135/80 11/14/20 07:00 Pulse Ox 92 L 11/14/20 07:00 Intake & Output 11/13/20 11/14/20 11/14/20 18:59 06:59 18:59 Other: Voiding Method Toilet Toilet Urinal Urinal # Voids 3 2 - Exam GENERAL: The patient is alert and oriented x3, not in any acute distress. Well developed, well nourished. HEENT: Pupils are round and equally reacting to light. EOMI. No scleral icterus. No conjunctival pallor. Normocephalic, atraumatic. No pharyngeal erythema. No thyromegaly. CARDIOVASCULAR: S1 and S2 present. No murmurs, rubs, or gallops. PULMONARY: Chest is clear to auscultation, no wheezing or crackles. ABDOMEN: Soft, nontender, nondistended, normoactive bowel sounds. No palpable organomegaly. MUSCULOSKELETAL: No joint swelling or deformity. -EXTREMITIES: No cyanosis, clubbing, or pedal edema. Cellulitis of the left foot up to the distal half of the leg, with redness swelling. Nontender. No ulcer or discharge. small Black ischar on the lateral leg NEUROLOGICAL: Gross neurological examination did not reveal any focal deficits. SKIN: No rashes. No petechiae - Labs CBC & Chem 7: 11/13/20 04:44 11/13/20 04:44 Labs: Abnormal Lab Results - Last 24 Hours (Table) 11/13/20 Range/Units 20:40 POC Glucose (mg/dL) 124 H (75-99) mg/dL Microbiology - Last 24 Hours (Table) 11/11/20 18:15 Blood Culture - Preliminary Blood No Growth after 48 hours 11/11/20 18:30 Blood Culture - Preliminary Blood No Growth after 48 hours 11/11/20 18:24 Gram Stain - Preliminary Foot - Left Wound Culture - Preliminary Presumptive Staph aureus Assessment and Plan Assessment: Left foot cellulitis Diabetes mellitus Hypertension Hyperlipidemia History of coronary artery disease status post stent placement History of coronary bladder cancer status post internal physical chemotherapy Chronic heart failure History of deep venous thrombosis, currently not on anticoagulation History of GERD MEMORY impairment History of osteoarthritis and degenerative back disease status post L4 to L5 spinal effusion and pain pump and stimulator Under to severe aortic valve stenosis History of aortic aneurysm repair Plan: This is a pleasant 70 years old male who presents with left foot cellulitis Continue with antibiotics, cefazolin Monitored glucose and insulin sliding scale consult infectious disease and vascular surgery team on the case Labs and medication were reviewed.. Continue same treatment. Continue with symptomatic treatment. Resume home medication. Monitor lytes and vitals. DVT and GI prophylaxis. Further recommendations depends on the clinical course of the patient DVT prophylaxis: Subcutaneous heparin GI Prophylaxis: Pepcid PT/OT: Pending
[2020-11-15 12:36] LABS: Glucose,Whole Blood 80 mg/dL (75-99)
--- NOTE | 2020-11-15 14:17 | PN ---
PROGRESS NOTE DATE OF SERVICE: 11/15/2020 REASON FOR FOLLOWUP: Left foot, leg wound and cellulitis. INTERVAL HISTORY: The patient is afebrile. The patient is feeling better, breathing comfortably. Overall pain and discomfort to the left foot and leg has decreased. No abdominal pain or diarrhea. PHYSICAL EXAMINATION: Blood pressure is 144/76, pulse of 96, temperature 97.8. He is 91% on 4 L nasal cannula. GENERAL DESCRIPTION: General description is an elderly male up in the chair in no distress. RESPIRATORY SYSTEM: Unlabored breathing. Left leg is currently dressed. No obvious drainage. LABS: Wound culture finalized with MSSA. Blood culture has been negative. DIAGNOSTIC IMPRESSION AND PLAN: Patient with left foot wound and cellulitis, finishing therapy with oral Keflex with Mycolog cream to the left foot, leg wound. Advised to follow up in one week and close outpatient followup. MMEMBERL / IJN: [id number] /
== END 2020-11-15 12:53 | disposition home or self-care (01) | DRG 603 ==
LOC: EC 16:31 → 6NMEDSUR 19:50 → OBSVTOIN 11-13 08:37 → 6NMEDSUR 11-14 00:46
PROVIDERS: ADMIT Hospitalist; ATTEND Hospitalist
DX: L03.116 Cellulitis of left lower limb (principal); L02.612 Cutaneous abscess of left foot; E11.9 Type 2 diabetes mellitus without complications; E78.5 Hyperlipidemia, unspecified; F17.200 Nicotine dependence, unspecified, uncomplicated; F32.9 Major depressive disorder, single episode, unspecified; F40.240 Claustrophobia; I25.10 Atherosclerotic heart disease of native coronary artery without angina pectoris; I35.0 Nonrheumatic aortic (valve) stenosis; I44.0 Atrioventricular block, first degree; I50.9 Heart failure, unspecified; I11.0 Hypertensive heart disease with heart failure; J44.9 Chronic obstructive pulmonary disease, unspecified; Z20.822 Contact with and (suspected) exposure to COVID-19; M19.079 Primary osteoarthritis, unspecified ankle and foot; Z79.51 Long term (current) use of inhaled steroids; Z79.82 Long term (current) use of aspirin; Z79.84 Long term (current) use of oral hypoglycemic drugs; Z85.46 Personal history of malignant neoplasm of prostate; Z85.51 Personal history of malignant neoplasm of bladder; Z85.819 Personal history of malignant neoplasm of unspecified site of lip, oral cavity, and pharynx; Z85.820 Personal history of malignant melanoma of skin; Z86.718 Personal history of other venous thrombosis and embolism; Z86.79 Personal history of other diseases of the circulatory system; Z92.3 Personal history of irradiation; Z95.5 Presence of coronary angioplasty implant and graft; Z98.1 Arthrodesis status; Z92.21 Personal history of antineoplastic chemotherapy
CPT/HCPCS: 36415; 80048; 80053; 85025; 87040; 87070; 87077; 87186; 87205; 87635; 93005; 94640; 99284

== ENCOUNTER 2021-08-24 19:30 | Inpatient (IN) | payer MEDICARE ==
[2021-08-24] MEDS ORDERED: SODIUM CHLORIDE 0.9% 1,000 ML IV STA (20:05)
[2021-08-24] MEDS ORDERED: SODIUM CHLORIDE 0.9% 1,000 ML IV ONE (20:05)
[2021-08-24] MEDS ORDERED: ACETAMINOPHEN TAB 500 MG TAB PO STA (20:08)
[2021-08-24 20:49] LABS: Basophils # (A) 0.1 k/uL (0-0.2); Basophils % (A) 1 %; Eosinophils % (A) 1 %; HCT 45.3 % (39.0-53.0); HGB 14.9 gm/dL (13.0-17.5); Lymphocytes # (A) 0.3 k/uL (1.0-4.8); Lymphocytes % (A) 6 %; MCH 30.6 pg (25.0-35.0); MCHC 32.9 g/dL (31.0-37.0); MCV 92.9 fL (80.0-100.0); Mean Platelet Volume 9.6; Monocytes # (A) 0.6 k/uL (0-1.0); Monocytes % (A) 11 %; Neutrophils # (A) 4.5 k/uL (1.3-7.7); Neutrophils % (A) 80 %; Platelet Count 131 k/uL (150-450); RBC 4.88 m/uL (4.30-5.90); RDW 13.5 % (11.5-15.5); WBC 5.6 k/uL (3.8-10.6)
[2021-08-24 21:05] LABS: ALT 18 U/L (4-49); AST 48 U/L (17-59); African American GFR (CKD) >90 (>60 ml/min/1.73 sqM); Albumin 3.9 g/dL (3.5-5.0); Alcohol <10 mg/dL; Alkaline Phosphatase 69 U/L (38-126); Anion Gap 12 mmol/L; Blood Urea Nitrogen 20 mg/dL (9-20); Calcium 9.1 mg/dL (8.4-10.2); Carbon Dioxide 22 mmol/L (22-30); Chloride 101 mmol/L (98-107); Glucose 107 mg/dL (74-99); Non-African American GFR(CKD) >90 (>60 ml/min/1.73 sqM); Sodium 135 mmol/L (137-145); Total Bilirubin 1.5 mg/dL (0.2-1.3); Total Protein 6.9 g/dL (6.3-8.2)
--- NOTE | 2021-08-24 21:13 | XR ---
EXAMINATION TYPE: XR chest 2V DATE OF EXAM: 08/24/2021 8:55 PM COMPARISON: Chest radiographs from 01/02/2019, CT angiogram 12/05/2018. TECHNIQUE: XR chest 2V Frontal and lateral views of the chest. CLINICAL INDICATION:Male, 71 years old with history of altered mental status; FINDINGS: Lungs/Pleura: Chronic interstitial lung changes seen throughout the lungs. There are hazy opacities w ithin lung bases. There is no evidence of pleural effusion or pneumothorax. Pulmonary vascularity: Unremarkable. Heart/mediastinum: Cardiomediastinal silhouette is unremarkable. Musculoskeletal: No acute osseous pathology. IMPRESSION: Suspected airspace disease within the lung bases superimposed on chronic interstitial changes and [employer] D. Correlate for aspiration.
[2021-08-24 21:14] LABS: INR 1.2 (<1.2); Partial Thromboplastin Time 27.6 sec (22.0-30.0); Prothrombin Time 12.3 sec (9.0-12.0)
--- NOTE | 2021-08-24 21:18 | CT ---
EXAMINATION TYPE: CT brain wo con CT DLP: 1512.4 mGycm, Automated exposure control for dose reduction was used. DATE OF EXAM: 08/24/2021 9:12 PM COMPARISON: None CLINICAL INDICATION:Male, 71 years old with history of Altered mental status, TECHNIQUE: Brain: Multiple axial CT images of the brain were obtained without IV contrast. FINDINGS: Brain: Extra-axial spaces: No abnormal extra-axial fluid collections. Ventricular system: Dilatation in proportion to cerebral atrophy. Cerebral parenchyma: Cerebral atrophy. No acute intraparenchymal hemorrhage or mass effect. The jeffries -white junction is well differentiated. Scattered hypoattenuating areas are seen within the white mat ter. Cerebellum: Unremarkable. Mass effect: No evidence of midline shift. Intracranial vasculature: Atherosclerotic calcifications of the intracranial vessels. Soft tissues: Normal. Calvarium/osseous structures: No depressed skull fracture. Paranasal sinuses and mastoid air cells: Moderate scattered paranasal sinus disease. Visualized orbits: Orbital contents are intact. IMPRESSION: 1. No acute intracranial process. 2. Nonspecific white matter changes, likely secondary to chronic small vessel ischemic disease. 3. Moderate paranasal sinus disease.
[2021-08-24 21:39] LABS: Appearance,Urine Cloudy (Clear); Bilirubin,Urine Negative (Negative); Blood,Urine Small (Negative); Color,Urine Yellow; Glucose,Urine (UA) Negative (Negative); Ketones,Urine 2+ (Negative); Leukocyte Esterase,Urine Negative (Negative); Mucus,Urine Rare /hpf; Nitrite,Urine Negative (Negative); PH, Urine 5.5 (5.0-8.0); Protein,Urine 1+ (Negative); RBC,Urine 3 /hpf (0-5); Specific Gravity,Urine 1.022 (1.001-1.035); Squamous Epithelial Cell,Urine <1 /hpf (0-4); Urobilinogen,Urine <2.0 mg/dL (<2.0); WBC,Urine 1 /hpf (0-5)
[2021-08-24] MEDS ORDERED: AMPICILLIN-SULBACTAM 3 GM in SODIUM CHLORIDE 0.9% 100 ML IVPB STA (22:19)
--- NOTE | 2021-08-24 22:20 | ED ---
Altered Mental Status HPI - General Chief Complaint: Altered Mental Status Stated Complaint: Altered mental status Time Seen by Provider: 08/24/21 20:05 Source: EMS Mode of arrival: EMS Limitations: altered mental status - History of Present Illness Initial Comments: 71-year-old male with past medical history of AAA, diabetes, coronary artery disease presents to the emergency department with altered mental status. EMS provided the history. States that the patient has been weak and altered at home. He lives with his sister and nephew. They state that at baseline he is normally able to take care of himself however he has decompensated over the past several days. Patient presents with a strong smell of urine. He had a high fever and cough. Patient does admit to some abdominal discomfort. No chest pain. No numbness or tingling in his extremities. Patient is a very poor historian and therefore the remainder of the HPI is limited - Related Data Home Medications Medication Instructions Recorded Confirmed oxyCODONE-APAP 10-325MG [Percocet 1 tab PO DAILY 10/31/14 08/24/21 10-325 mg] Omeprazole [PriLOSEC] 20 mg PO DAILY 12/05/18 08/24/21 metFORMIN HCL [Glucophage] 850 mg PO BID 12/05/18 08/24/21 Budesonide/Formoterol Fumarate 2 puff INHALATION RT-BID 11/11/20 08/24/21 [Symbicort 160-4.5 Mcg Inhaler] Potassium Chloride [Potassium 20 meq PO DAILY 11/11/20 08/24/21 Chloride ER] Morphine Pain Pump 1 dose SQ CONTINUOUS 08/24/21 08/24/21 Naloxone HCl 4 mg NS ONETIME PRN 08/24/21 08/24/21 Allergies Allergy/AdvReac Type Severity Reaction Status Date / Time No Known Allergies Allergy Verified 08/24/21 21:58 Review of Systems ROS Statement: Those systems with pertinent positive or pertinent negative responses have been documented in the HPI. ROS Other: All systems not noted in ROS Statement are negative. Past Medical History Past Medical History: Asthma, Coronary Artery Disease (CAD), Cancer, Heart Failure, Diabetes Mellitus, Deep Vein Thrombosis (DVT), GERD/Reflux, Hyperlipidemia, Hypertension, Memory Impairment, Osteoarthritis (OA) Additional Past Medical History / Comment(s): Coronary artery disease, moderate to severe aortic valve stenosis, COPD, history of prostate cancer treated by radiation therapy back in 2005, history of melanoma of the back resected, history of lip cancer resected, history of bladder cancers treated intravesicular chemotherapy, abdominal aortic aneurysm surgically repaired, history of chronic back pain and the patient is a pain stimulator in place and the patient has undergone L4-L5 spinal fusion, diabetes mellitus, history of DVT, hypertension, hyperlipidemia, osteoarthritis, hiatal hernia History of Any Multi-Drug Resistant Organisms: None Reported Past Surgical History: Back Surgery, Bladder Surgery, Heart Catheterization With Stent, Hernia Repair, Orthopedic Surgery Additional Past Surgical History / Comment(s): Insertion of a pain pump on 11/07/2016 for chronic back pain/pain stimulator, abdominal aortic aneurysm repair 2, back pain with spinal fusion at the level of L4-L5, left inguinal hernia repair, abdominal hernia repair, THERESA, removal of a venous clot from the lower extremity in the setting of DVT, bladder surgery with intravesicular chemotherapy, cardiac catheterization with insertion of coronary stents, hernia repair Past Anesthesia/Blood Transfusion Reactions: No Reported Reaction Additional Past Anesthesia/Blood Transfusion Reaction / Comment(s): CLAUSTROPHOBIA Date of Last Stent Placement:: UNK Past Psychological History: Depression Additional Psychological History / Comment(s): SOMETIMES GETS DEPRESSED, NO MEDS TAKEN. Smoking Status: Current every day smoker Past Alcohol Use History: None Reported Additional Past Alcohol Use History / Comment(s): STARTED SMOKING AT AGE 14-15 SMOKES LESS THAN 1/2 PPD. Past Drug Use History: Marijuana Additional Drug Use History / Comment(s): OCC SMOKES MARIJUANA FOR PAIN. - Past Family History Father History Unknown: Yes Mother History Unknown: Yes General Exam Limitations: altered mental status General appearance: in no apparent distress, lethargic Head exam: Present: atraumatic, normocephalic, normal inspection Eye exam: Present: normal appearance, PERRL, EOMI. Absent: scleral icterus, conjunctival injection, periorbital swelling ENT exam: Present: mucous membranes dry, other (Copious nasal secretions) Neck exam: Present: normal inspection. Absent: tenderness, meningismus, lymphadenopathy Respiratory exam: Present: wheezes. Absent: respiratory distress Cardiovascular Exam: Present: normal rhythm, tachycardia GI/Abdominal exam: Present: soft, normal bowel sounds, other (Pain pump over left abdomen). Absent: distended, tenderness, guarding, rebound, rigid Extremities exam: Present: pedal edema (Chronic lower extremity venous stasis) Neurological exam: Present: altered Psychiatric exam: Present: flat affect Skin exam: Present: warm, dry, intact. Absent: rash Course Vital Signs 08/24/21 08/24/21 08/24/21 20:01 20:27 21:44 Temperature 102.6 F H 99.6 F Pulse Rate 127 H 115 H Respiratory 20 19 Rate Blood Pressure 148/112 143/85 O2 Sat by Pulse 95 98 Oximetry 08/24/21 21:57 Temperature Pulse Rate 123 H Respiratory 16 Rate Blood Pressure 106/63 O2 Sat by Pulse 97 Oximetry Medical Decision Making - Medical Decision Making Upon arrival patient is placed into room 8. A thorough history and physical exam was performed. Patient does have chronic venous stasis of the lower extremities. IV access is established and laboratories is her conducted. He is given a gram of Tylenol and started on normal saline. Laboratory studies are reviewed. He does have small ketones in the urine. He does come back positive for Covid. I did CT the patient's abdomen and pelvis because of his reported abdominal pain which does demonstrate an 8 cm aneurysm. This is unchanged from the patient's previous imaging in 2019. Patient was given a dose of antibiotics while awaiting workup. CT of his brain was performed which demonstrates no acute injury no process. Chest x-ray demonstrates airspace disease with the lung bases superimposed on chronic interstitial changes. Possible aspiration. Upon reevaluation the patient is much more awake and alert. His heart rate has improved to 100. I did speak with the patient's nephew. Recommended admission for which he did agree to. I spoke with Sonido from [facility] and I will place pulmonology on consult - Lab Data Result diagrams: 08/24/21 20:26 08/24/21 20:26 Lab Results 08/24/21 08/24/21 08/24/21 Range/Units 20:26 20:26 20:26 WBC 5.6 (3.8-10.6) k/uL RBC 4.88 (4.30-5.90) m/uL Hgb 14.9 (13.0-17.5) gm/dL Hct 45.3 (39.0-53.0) % MCV 92.9 (80.0-100.0) fL MCH 30.6 (25.0-35.0) pg MCHC 32.9 (31.0-37.0) g/dL RDW 13.5 (11.5-15.5) % Plt Count 131 L (150-450) k/uL MPV 9.6 Neutrophils % 80 % Lymphocytes % 6 % Monocytes % 11 % Eosinophils % 1 % Basophils % 1 % Neutrophils # 4.5 (1.3-7.7) k/uL Lymphocytes # 0.3 L (1.0-4.8) k/uL Monocytes # 0.6 (0-1.0) k/uL Eosinophils # 0.0 (0-0.7) k/uL Basophils # 0.1 (0-0.2) k/uL PT 12.3 H (9.0-12.0) sec INR 1.2 H (<1.2) APTT 27.6 (22.0-30.0) sec Sodium (137-145) mmol/L Potassium (3.5-5.1) mmol/L Chloride (98-107) mmol/L Carbon Dioxide (22-30) mmol/L Anion Gap mmol/L BUN (9-20) mg/dL Creatinine (0.66-1.25) mg/dL Est GFR (CKD-EPI)AfAm (>60 ml/min/1.73 sqM) Est GFR (CKD-EPI)NonAf (>60 ml/min/1.73 sqM) Glucose (74-99) mg/dL Plasma Lactic Acid Jose (0.7-2.0) mmol/L Calcium (8.4-10.2) mg/dL Total Bilirubin (0.2-1.3) mg/dL AST (17-59) U/L ALT (4-49) U/L Alkaline Phosphatase (38-126) U/L Troponin I (0.000-0.034) ng/mL Total Protein (6.3-8.2) g/dL Albumin (3.5-5.0) g/dL Urine Color Yellow Urine Appearance Cloudy (Clear) Urine pH 5.5 (5.0-8.0) Ur Specific [place] 1.022 (1.001-1.035) Urine Protein 1+ H (Negative) Urine Glucose (UA) Negative (Negative) Urine Ketones 2+ H (Negative) Urine Blood Small H (Negative) Urine Nitrite Negative (Negative) Urine Bilirubin Negative (Negative) Urine Urobilinogen <2.0 (<2.0) mg/dL Ur Leukocyte Esterase Negative (Negative) Urine RBC 3 (0-5) /hpf Urine WBC 1 (0-5) /hpf Ur Squamous Epith Cells <1 (0-4) /hpf Urine Mucus Rare H (None) /hpf Serum Alcohol mg/dL Coronavirus (PCR) (Not Detectd) Influenza Type A RNA (Not Detectd) Influenza Type B (PCR) (Not Detectd) 08/24/21 08/24/21 08/24/21 Range/Units 20:26 20:26 20:26 WBC (3.8-10.6) k/uL RBC (4.30-5.90) m/uL Hgb (13.0-17.5) gm/dL Hct (39.0-53.0) % MCV (80.0-100.0) fL MCH (25.0-35.0) pg MCHC (31.0-37.0) g/dL RDW (11.5-15.5) % Plt Count (150-450) k/uL MPV Neutrophils % % Lymphocytes % % Monocytes % % Eosinophils % % Basophils % % Neutrophils # (1.3-7.7) k/uL Lymphocytes # (1.0-4.8) k/uL Monocytes # (0-1.0) k/uL Eosinophils # (0-0.7) k/uL Basophils # (0-0.2) k/uL PT (9.0-12.0) sec INR (<1.2) APTT (22.0-30.0) sec Sodium 135 L (137-145) mmol/L Potassium 4.0 (3.5-5.1) mmol/L Chloride 101 (98-107) mmol/L Carbon Dioxide 22 (22-30) mmol/L Anion Gap 12 mmol/L BUN 20 (9-20) mg/dL Creatinine 0.78 (0.66-1.25) mg/dL Est GFR (CKD-EPI)AfAm >90 (>60 ml/min/1.73 sqM) Est GFR (CKD-EPI)NonAf >90 (>60 ml/min/1.73 sqM) Glucose 107 H (74-99) mg/dL Plasma Lactic Acid Jose 1.3 (0.7-2.0) mmol/L Calcium 9.1 (8.4-10.2) mg/dL Total Bilirubin 1.5 H (0.2-1.3) mg/dL AST 48 (17-59) U/L ALT 18 (4-49) U/L Alkaline Phosphatase 69 (38-126) U/L Troponin I <0.012 (0.000-0.034) ng/mL Total Protein 6.9 (6.3-8.2) g/dL Albumin 3.9 (3.5-5.0) g/dL Urine Color Urine Appearance (Clear) Urine pH (5.0-8.0) Ur Specific [place] (1.001-1.035) Urine Protein (Negative) Urine Glucose (UA) (Negative) Urine Ketones (Negative) Urine Blood (Negative) Urine Nitrite (Negative) Urine Bilirubin (Negative) Urine Urobilinogen (<2.0) mg/dL Ur Leukocyte Esterase (Negative) Urine RBC (0-5) /hpf Urine WBC (0-5) /hpf Ur Squamous Epith Cells (0-4) /hpf Urine Mucus (None) /hpf Serum Alcohol <10 mg/dL Coronavirus (PCR) (Not Detectd) Influenza Type A RNA (Not Detectd) Influenza Type B (PCR) (Not Detectd) 08/24/21 08/24/21 Range/Units 23:42 23:42 WBC (3.8-10.6) k/uL RBC (4.30-5.90) m/uL Hgb (13.0-17.5) gm/dL Hct (39.0-53.0) % MCV (80.0-100.0) fL MCH (25.0-35.0) pg MCHC (31.0-37.0) g/dL RDW (11.5-15.5) % Plt Count (150-450) k/uL MPV Neutrophils % % Lymphocytes % % Monocytes % % Eosinophils % % Basophils % % Neutrophils # (1.3-7.7) k/uL Lymphocytes # (1.0-4.8) k/uL Monocytes # (0-1.0) k/uL Eosinophils # (0-0.7) k/uL Basophils # (0-0.2) k/uL PT (9.0-12.0) sec INR (<1.2) APTT (22.0-30.0) sec Sodium (137-145) mmol/L Potassium (3.5-5.1) mmol/L Chloride (98-107) mmol/L Carbon Dioxide (22-30) mmol/L Anion Gap mmol/L BUN (9-20) mg/dL Creatinine (0.66-1.25) mg/dL Est GFR (CKD-EPI)AfAm (>60 ml/min/1.73 sqM) Est GFR (CKD-EPI)NonAf (>60 ml/min/1.73 sqM) Glucose (74-99) mg/dL Plasma Lactic Acid Jose (0.7-2.0) mmol/L Calcium (8.4-10.2) mg/dL Total Bilirubin (0.2-1.3) mg/dL AST (17-59) U/L ALT (4-49) U/L Alkaline Phosphatase (38-126) U/L Troponin I (0.000-0.034) ng/mL Total Protein (6.3-8.2) g/dL Albumin (3.5-5.0) g/dL Urine Color Urine Appearance (Clear) Urine pH (5.0-8.0) Ur Specific [place] (1.001-1.035) Urine Protein (Negative) Urine Glucose (UA) (Negative) Urine Ketones (Negative) Urine Blood (Negative) Urine Nitrite (Negative) Urine Bilirubin (Negative) Urine Urobilinogen (<2.0) mg/dL Ur Leukocyte Esterase (Negative) Urine RBC (0-5) /hpf Urine WBC (0-5) /hpf Ur Squamous Epith Cells (0-4) /hpf Urine Mucus (None) /hpf Serum Alcohol mg/dL Coronavirus (PCR) Detected A (Not Detectd) Influenza Type A RNA Not Detected (Not Detectd) Influenza Type B (PCR) Not Detected (Not Detectd) - EKG Data EKG Comments: EKG demonstrates a sinus tachycardia with a rate of 122. AK interval 180. QRS 154. QTC is 391. There is a right bundle-branch block. ST segment depression V2 through V6 as well as one, 2, aVL and no changes compared to previous Disposition Clinical Impression: Acute encephalopathy, Pyrexia, COVID-19, Tachycardia, Abdominal aortic aneurysm Disposition: ADMITTED IP TO THIS HOSP Condition: Stable Is patient prescribed a controlled substance at d/c from ED?: No Time of Disposition: 00:20 Decision to Admit Reason: Admit from EC Decision Date: 08/25/21 Decision Time: 00:20
--- NOTE | 2021-08-24 23:45 | CT ---
EXAMINATION TYPE: CT abdomen pelvis w con DATE OF EXAM: 08/24/2021 COMPARISON: 12/05/2018 HISTORY: Abd pain fever CT DLP: 965.8 mGycm Automated exposure control for dose reduction was used. CONTRAST: Performed with IV Contrast, patient injected with 100 mL of Isovue 370. Images obtained from the diaphragm to the floor the pelvis with IV contrast. There is some mild atelectasis at the lung bases. Heart size is fairly normal. No pericardial effusio n. No pleural effusion. Liver spleen stomach pancreas and gallbladder appear intact. The bile ducts a re not dilated. Abdominal aorta is atheromatous. There is aortoiliac bypass graft. There is contrast opacification of the graft. There is 8.2 cm aneurysm of the lower abdominal aorta. Right kidney is sm all and consistent with some atrophy. Left kidney appears fairly normal. There is no hydronephrosis. Ureters are not dilated. No retroperitoneal adenopathy. There is extensive vascular calcification. Th ere is Galeas catheter in the urinary bladder. Urinary bladder almost empty. No inguinal hernia. No fr ee fluid in the pelvis. No pelvic mass. There is a neurostimulator implant over the right posterior lower lumbar spine. There is disc prosthe sis at L4-5 and L5-S1. There is apparent laminectomy defect in the lower lumbar spine. The hip joints appear intact. No free air. No sign of a bowel obstruction. No mesenteric edema. There is arterial flow in the celiac artery and superior mesenteric artery. There is arterial flow in both renal arteries. There is plaque formation at the origins of the vessels of the abdominal aorta. There is patency of the proximal femoral arteries. There is extensive plaque in the iliac arteries b ilaterally. There is arterial flow demonstrated in the branches of both internal iliac arteries. IMPRESSION: Large lower abdominal aortic aneurysm. Aorto femoral bypass graft which appears patent. Extensive wander que formation. There is some stenosis at the origins of the celiac artery and superior mesenteric art jayy and renal arteries up to 50%. Subsegmental atelectasis at the lung bases. There is progression of the plaque formation in the phillip c artery and superior mesenteric artery compared to the old exam. Atelectasis at the lung bases impro patricia compared to old exam. Aneurysm is unchanged.
[2021-08-25] MEDS ORDERED: ACETAMINOPHEN TAB 325 MG TAB PO PRN (00:20)
[2021-08-25] MEDS ORDERED: NALOXONE 0.4 MG/ML 1 ML VIAL IV PRN (00:20)
[2021-08-25] MEDS ORDERED: IBUPROFEN 400 MG TAB PO PRN (00:20)
[2021-08-25] MEDS: SYMBICORT 160-4.5 MCG INHALER INHALATION SCH ×2 (07:28→19:32)
[2021-08-25 07:56] LABS: Glucose,Whole Blood 99 mg/dL (70-110)
[2021-08-25] MEDS: PANTOPRAZOLE 40 MG TABLET PO SCH (08:04)
[2021-08-25] MEDS: oxyCODONE-APAP 10-325MG 1 EACH TAB PO SCH (10:21)
[2021-08-25] MEDS: POTASSIUM CHLORIDE ER 10 MEQ TAB.ER.PRT PO SCH (10:22)
--- NOTE | 2021-08-25 10:59 | P.CNPUL ---
History of Present Illness Consult date: 08/25/21 Requesting physician: Dede Hopkins Reason for consult: dyspnea, cough, hypoxemia, pneumonia, abnormal CXR/CT Chief complaint: Shortness of breath. History of present illness: Pulmonary consult dated 08/25/2021. 71-year-old male, seen in room 8, and emergency department. The patient looks much older than his stated age. He has a history of abdominal aortic aneurysm, diabetes, coronary disease, and COPD. The patient apparently came in to the emergency room, with mental status changes. EMS apparently provided history to the physician in the emergency department. He apparently been weak and poorly responsive at home. He apparently lives with his sister and nephew. Over the couple days or so prior to admission to the emergency department, the patient's mental status to decline. He also apparently smelled of urine. He apparently also had a high fever and cough, and some shortness of breath. Currently, the patient's on 3 L nasal cannula. He is getting saline at 130 mL an hour. The patient is a very poor historian. The patient did test positive for coronavirus. He states he is vaccinated. Medical history the chart includes COPD, diabetes, and GERD. The patient does continue to smoke cigarettes. White count 5.6, hemoglobin 14.9, hematocrit 45.3, platelet count 231,000. PT 12.3 INR 1.2 PTT 27.6. Sodium 135, potassium 4, chlorides 101, CO2 22, BUN 20, and creatinine 0.78. Total bilirubin was 1.5. Urine has 2+ ketones small amount of blood 1+ protein and rare mucus. Testing for coronavirus was positive. Brain CT was negative. Chest x-ray shows some possible bibasilar airspace disease in a patient with possible underlying COPD chronic interstitial changes. Review of Systems REVIEW OF SYSTEMS: CONSTITUTIONAL: Weakness. NEUROLOGIC: Mental status changes. HEENT: [ Negative.] CARDIAC: [Negative.] PULMONARY: Shortness of breath and cough. GI: [Negative.] : [Negative.] RHEUMATOLOGIC: [ Negative.] IMMUNOLOGIC: [ Negative.] ENDOCRINE: [Negative. ] DERMATOLOGIC: [Negative.] Past Medical History Past Medical History: Asthma, Coronary Artery Disease (CAD), Cancer, Heart Failure, Diabetes Mellitus, Deep Vein Thrombosis (DVT), GERD/Reflux, Hyperlipidemia, Hypertension, Memory Impairment, Osteoarthritis (OA) Additional Past Medical History / Comment(s): Coronary artery disease, moderate to severe aortic valve stenosis, COPD, history of prostate cancer treated by radiation therapy back in 2005, history of melanoma of the back resected, history of lip cancer resected, history of bladder cancers treated intravesicular chemotherapy, abdominal aortic aneurysm surgically repaired, history of chronic back pain and the patient is a pain stimulator in place and the patient has undergone L4-L5 spinal fusion, diabetes mellitus, history of DVT, hypertension, hyperlipidemia, osteoarthritis, hiatal hernia History of Any Multi-Drug Resistant Organisms: None Reported Past Surgical History: Back Surgery, Bladder Surgery, Heart Catheterization With Stent, Hernia Repair, Orthopedic Surgery Additional Past Surgical History / Comment(s): Insertion of a pain pump on 11/07/2016 for chronic back pain/pain stimulator, abdominal aortic aneurysm repair 2, back pain with spinal fusion at the level of L4-L5, left inguinal hernia repair, abdominal hernia repair, THERESA, removal of a venous clot from the lower extremity in the setting of DVT, bladder surgery with intravesicular chemotherapy, cardiac catheterization with insertion of coronary stents, hernia repair Past Anesthesia/Blood Transfusion Reactions: No Reported Reaction Additional Past Anesthesia/Blood Transfusion Reaction / Comment(s): CLAUSTROPHOBIA Date of Last Stent Placement:: UNK Past Psychological History: Depression Additional Psychological History / Comment(s): SOMETIMES GETS DEPRESSED, NO MEDS TAKEN. Smoking Status: Current every day smoker Past Alcohol Use History: None Reported Additional Past Alcohol Use History / Comment(s): STARTED SMOKING AT AGE 14-15 SMOKES LESS THAN 1/2 PPD. Past Drug Use History: Marijuana Additional Drug Use History / Comment(s): OCC SMOKES MARIJUANA FOR PAIN. - Past Family History Father History Unknown: Yes Mother History Unknown: Yes Medications and Allergies Home Medications Medication Instructions Recorded Confirmed Type oxyCODONE-APAP 10-325MG [Percocet 1 tab PO DAILY 10/31/14 08/24/21 History 10-325 mg] Omeprazole [PriLOSEC] 20 mg PO DAILY 12/05/18 08/24/21 History metFORMIN HCL [Glucophage] 850 mg PO BID 12/05/18 08/24/21 History Budesonide/Formoterol Fumarate 2 puff INHALATION RT-BID 11/11/20 08/24/21 History [Symbicort 160-4.5 Mcg Inhaler] Potassium Chloride [Potassium 20 meq PO DAILY 11/11/20 08/24/21 History Chloride ER] Morphine Pain Pump 1 dose SQ CONTINUOUS 08/24/21 08/24/21 History Naloxone HCl 4 mg NS ONETIME PRN 08/24/21 08/24/21 History Allergies Allergy/AdvReac Type Severity Reaction Status Date / Time No Known Allergies Allergy Verified 08/24/21 21:58 Physical Exam Osteopathic Statement: *. No significant issues noted on an osteopathic structural exam other than those noted in the History and Physical/Consult. Vitals: Vital Signs Temp Pulse Resp BP Pulse Ox 08/25/21 10:25 96 16 129/77 95 08/25/21 07:40 97.4 F L 101 H 16 133/89 100 08/25/21 07:29 100 08/25/21 05:31 100 16 130/86 96 08/25/21 03:05 99 14 118/71 97 08/24/21 21:57 123 H 16 106/63 97 08/24/21 21:44 99.6 F 08/24/21 20:27 115 H 19 143/85 98 08/24/21 20:01 102.6 F H 127 H 20 148/112 95 Intake and Output 08/24/21 08/25/21 08/25/21 22:59 06:59 14:59 Output Total 1300 Balance -1300 Output: Urine 1300 Uretheral ([place]) 1300 Other: Weight 68.039 kg No acute distress, oriented 3. No conversational dyspnea or use of accessory muscles. HEENT examination is grossly unremarkable. Neck supple. Full range of motion. No adenopathy thyromegaly or neck vein distention. Cardiovascular examination reveals regular rhythm rate. S1-S2 normal. No S3 or S4. No discernible murmur noted. Heart rate 96 bpm. Heart sounds are distant. Lungs reveal scattered bilateral rhonchi. No wheezes. No crackles. Breath sounds equal bilaterally. 3 L saturation is 95%. Abdomen soft bowel sounds are heard. No masses or tenderness. Extremities reveal lower extremity chronic venous stasis changes, with mild edema. No cyanosis or clubbing. Skin is without rash or lesion. Neurologic examination is brief but nonfocal. Results - Laboratory Findings CBC and BMP: 08/24/21 20:26 08/24/21 20:26 PT/INR, D-dimer PT 12.3 sec (9.0-12.0) H 08/24/21 20:26 INR 1.2 (<1.2) H 08/24/21 20:26 Abnormal lab findings: Abnormal Labs 08/24/21 08/24/21 08/24/21 20:26 20:26 20:26 Plt Count 131 L Lymphocytes # 0.3 L PT 12.3 H INR 1.2 H Sodium Glucose Total Bilirubin Urine Protein 1+ H Urine Ketones 2+ H Urine Blood Small H Urine Mucus Rare H Coronavirus (PCR) 08/24/21 08/24/21 20:26 23:42 Plt Count Lymphocytes # PT INR Sodium 135 L Glucose 107 H Total Bilirubin 1.5 H Urine Protein Urine Ketones Urine Blood Urine Mucus Coronavirus (PCR) Detected A - Diagnostic Findings Chest x-ray: image reviewed Assessment and Plan Assessment: Acute mental status changes, currently being evaluated by the primary service. Brain CT was negative for anything acute. Shortness of breath, likely related to patient's underlying COPD, as well as possible coronavirus associated pneumonitis. Ongoing tobacco use with nicotine addiction. History of diabetes mellitus. History of gastroesophageal reflux disease. Possible coronary artery disease. History of heart failure. History of deep venous thrombosis. History of hyperlipidemia. History of hypertension. Prostate cancer, status post radiation, 2005. History of melanoma. History of bladder cancer. Multiple other medical problems and comorbidities. Plan: Plan dated 08/25/2021. Currently, the patient's on Symbicort. We will had a albuterol inhaler. In addition, the patient should be on vitamins, have a d-dimer done, be given Decadron 6 mg a day, and also Lovenox at 40 mg subcu daily. We will continue to follow the patient make recommendations were appropriate. Prognosis is guarded. It's hard to know whether or not his shortness of breath relates his underlying COPD, or mild coronavirus associated pneumonitis. The patient was given a dose of Unasyn in the emergency department. We will continue to follow. Prognosis is guarded. Time with Patient: Greater than 30
[2021-08-25] MEDS: ALBUTEROL HFA INHALER INHALATION SCH ×3 (11:41→19:32)
[2021-08-25 12:48] LABS: Glucose,Whole Blood 98 mg/dL (70-110)
[2021-08-25] MEDS: INSULIN ASPART (NovoLOG) 100 UNIT/ML VIAL SQ SCH ×3 (14:36→20:06)
--- NOTE | 2021-08-25 14:57 | P.HPIM ---
History of Present Illness H&P Date: 08/25/21 This is a 71-year-old male who was recently brought to the emergency room altered mental status via EMS and admitted for further evaluation. Patient reports he lives with his sister and family members and is normally able to care for himself but has been becoming more weak and unable to walk. Patient is somewhat of a poor historian and will have conversation but gets confused often. Patient with some abdominal discomfort with no guarding or rigidity noted on exam and patient reports he was having some nausea but denies vomiting or diarrhea. Patient is currently maintained on oxygen and reports he does not wear this at home. Patient does have a past medical history of asthma, coronary artery disease, heart failure, diabetes, DVT gastroesophageal reflux disease, hyperlipidemia, hypertension, osteoarthritis, and memory impairment. Patient does report chronic back pain as well. Patient also presented to the emergency department with fever and was found to be Covid positive. Patient currently maintained on 6 L via nasal cannula and does report shortness of breath. Pulmonary has been consulted. Chest x-ray showed airspace disease with the lung bases superimposed on chronic interstitial changes and COPD with possible aspiration. EKG showed sinus tachycardia with a heart rate of 122. When asking if the patient was vaccinated for Covid he was unsure and did not believe so. Again, the patient is a poor historian. Pulmonary has been consulted. Review Of Systems: Constitutional: No fever, no chills, no night sweats. No weight change. No weakness, fatigue or lethargy. No daytime sleepiness. EENT: No headache. No blurred vision or double vision, no loss of vision. No loss of Hearing, no ringing in the ears, no dizziness. No nasal drainage or congestion. No epistaxis. No sore throat. Lungs: No shortness of breath, cough, no sputum production. No wheezing. Cardiovascular: No chest pain, no lower extremity edema. No palpitations. No paroxysmal nocturnal dyspnea. No orthopnea. No lightheadedness or dizziness. No syncopal episodes. Abdominal: No abdominal pain. No nausea, vomiting. No diarrhea. No constipation. No bloody or tarry stools.. No loss of appetite. Genitourinary: No dysuria, increased frequency, urgency. No urinary retention. Musculoskeletal: No myalgias. No muscle weakness, no gait dysfunction, no frequent falls. No back pain. No neck pain. Integumentary: No wounds, no lesions. No rash or pruritus. No unusual bruising. No change in hair or nails. Neurologic: No aphasia. No facial droop. No change in mentation. No head injury. No headache. No paralysis. No paresthesia. Psychiatric: No depression. No anxiety. No mood swings. Endocrine: No abnormal blood sugars. No weight change. No excessive sweating or thirst. No cold intolerance. PHYSICAL EXAMINATION: GENERAL: The patient is alert and oriented x2, ill-appearing, unkempt, thin, frail , hunched over HEENT: Pupils are round and equally reacting to light. EOMI. no scleral icterus. No conjunctival pallor. Normocephalic, atraumatic. No pharyngeal erythema. No thyromegaly. CARDIOVASCULAR: S1 and S2 muffled PULMONARY: diminished breath sounds bilaterally with some scattered rhonchi noted. ABDOMEN: soft. Nontender on exam. non-distended, normoactive bowel sounds. No palpable organomegaly. MUSCULOSKELETAL: No joint swelling or deformity. EXTREMITIES: No cyanosis, clubbing, or pedal edema. Mild lower extremity edema noted NEUROLOGICAL: Gross neurological examination did not reveal any focal deficits. Diffuse weakness SKIN: No rashes. Assessment: Altered mental status, present on admission, possibly secondary to COVID-19 Acute hypoxic respiratory failure with shortness of breath possibly secondary to COPD, acute exacerbation and also a component of COVID-19, possible pneumonitis Diabetes mellitus Gastroesophageal reflux disease History of heart failure, unknown EF History of deep vein thrombosis Hyperlipidemia Hypertension Continued ongoing nicotine dependence Chronic back pain GI prophylaxis DVT prophylaxis Full code Plan: Recommend to continue with current medications and management of COVID-19. Pulmonary following and patient will be initiated on Decadron along with vitamin C and D and zinc supplements and will receive albuterol and Symbicort inhalers. Patient currently on 4-6 L via nasal cannula and reports he does not wear oxygen in the outpatient setting and will wean FiO2 as tolerated. Patient also has COPD history. Per ER report patient did have some abdominal pain on admission and underwent CT abdomen which shows a large lower abdominal aortic aneurysm and aortofemoral bypass graft appears patent and there is extensive plaque formation with some stenosis at the origins of the celiac artery and superior mesenteric artery and renal arteries up to 50% and these appear new compared to previous exam and the aneurysm is unchanged. Will need outpatient follow-up for this. Patient also with weakness and unsure of the home situation as he is currently reporting he lives with his sister and family. Patient has a history of diabetes and [facility] reports he takes Glucophage twice a day and will hold this for now and place the patient on Accu-Cheks before meals and at bedtime along with sliding scale and closely monitor. Patient does have a pain pump and also takes Percocets in the outpatient setting. Most likely this is secondary to his chronic back pain. The impression and plan of care has been dictated by Mary Ann Yoo, nurse practitioner as directed. Dr. Margarito MD I have performed a history and examination and MDM of this patient, discussed the same with the dictator, and agree with the dictator's assessment and plan as written ,documented as a scribe. Based on total visit time, I have performed more than 50% of the visit. Any additional findings or plans will be noted. Past Medical History Past Medical History: Asthma, Coronary Artery Disease (CAD), Cancer, Heart Failure, Diabetes Mellitus, Deep Vein Thrombosis (DVT), GERD/Reflux, Hyperlipidemia, Hypertension, Memory Impairment, Osteoarthritis (OA) Additional Past Medical History / Comment(s): Coronary artery disease, moderate to severe aortic valve stenosis, COPD, history of prostate cancer treated by radiation therapy back in 2005, history of melanoma of the back resected, history of lip cancer resected, history of bladder cancers treated intravesicular chemotherapy, abdominal aortic aneurysm surgically repaired, hi story of chronic back pain and the patient is a pain stimulator in place and the patient has undergone L4-L5 spinal fusion, diabetes mellitus, history of DVT, hypertension, hyperlipidemia, osteoarthritis, hiatal hernia History of Any Multi-Drug Resistant Organisms: None Reported Past Surgical History: Back Surgery, Bladder Surgery, Heart Catheterization With Stent, Hernia Repair, Orthopedic Surgery Additional Past Surgical History / Comment(s): Insertion of a pain pump on 11/07/2016 for chronic back pain/pain stimulator, abdominal aortic aneurysm repair 2, back pain with spinal fusion at the level of L4-L5, left inguinal hernia repair, abdominal hernia repair, THERESA, removal of a venous clot from the lower extremity in the setting of DVT, bladder surgery with intravesicular chemotherapy, cardiac catheterization with insertion of coronary stents, hernia repair Past Anesthesia/Blood Transfusion Reactions: No Reported Reaction Additional Past Anesthesia/Blood Transfusion Reaction / Comment(s): CLAUSTROPHOBIA Date of Last Stent Placement:: UNK Past Psychological History: Depression Additional Psychological History / Comment(s): SOMETIMES GETS DEPRESSED, NO MEDS TAKEN. Smoking Status: Current every day smoker Past Alcohol Use History: None Reported Additional Past Alcohol Use History / Comment(s): STARTED SMOKING AT AGE 15-15 SMOKES LESS THAN 1/2 PPD. Past Drug Use History: Marijuana Additional Drug Use History / Comment(s): OCC SMOKES MARIJUANA FOR PAIN. - Past Family History Father History Unknown: Yes Mother History Unknown: Yes Medications and Allergies Home Medications Medication Instructions Recorded Confirmed Type oxyCODONE-APAP 10-325MG [Percocet 1 tab PO DAILY 10/31/14 08/24/21 History 10-325 mg] Omeprazole [PriLOSEC] 20 mg PO DAILY 12/05/18 08/24/21 History metFORMIN HCL [Glucophage] 850 mg PO BID 12/05/18 08/24/21 History Budesonide/Formoterol Fumarate 2 puff INHALATION RT-BID 11/11/20 08/24/21 History [Symbicort 160-4.5 Mcg Inhaler] Potassium Chloride [Potassium 20 meq PO DAILY 11/11/20 08/24/21 History Chloride ER] Morphine Pain Pump 1 dose SQ CONTINUOUS 08/24/21 08/24/21 History Naloxone HCl 4 mg NS ONETIME PRN 08/24/21 08/24/21 History Allergies Allergy/AdvReac Type Severity Reaction Status Date / Time No Known Allergies Allergy Verified 08/24/21 21:58 Physical Exam Vitals: Vital Signs Temp Pulse Resp BP Pulse Ox 08/25/21 07:40 97.4 F L 101 H 16 133/89 100 08/25/21 07:29 100 08/25/21 05:31 100 16 130/86 96 08/25/21 03:05 99 14 118/71 97 08/24/21 21:57 123 H 16 106/63 97 08/24/21 21:44 99.6 F 08/24/21 20:27 115 H 19 143/85 98 08/24/21 20:01 102.6 F H 127 H 20 148/112 95 Intake and Output 08/24/21 08/25/21 08/25/21 22:59 06:59 14:59 Other: Weight 68.039 kg Results CBC & Chem 7: 08/24/21 20:26 08/24/21 20:26 Labs: Abnormal Lab Results - Last 24 Hours (Table) 08/24/21 08/24/21 08/24/21 Range/Units 20:26 20:26 20:26 Plt Count 131 L (150-450) k/uL Lymphocytes # 0.3 L (1.0-4.8) k/uL PT 12.3 H (9.0-12.0) sec INR 1.2 H (<1.2) Sodium (137-145) mmol/L Glucose (74-99) mg/dL Total Bilirubin (0.2-1.3) mg/dL Urine Protein 1+ H (Negative) Urine Ketones 2+ H (Negative) Urine Blood Small H (Negative) Urine Mucus Rare H (None) /hpf Coronavirus (PCR) (Not Detectd) 08/24/21 08/24/21 Range/Units 20:26 23:42 Plt Count (150-450) k/uL Lymphocytes # (1.0-4.8) k/uL PT (9.0-12.0) sec INR (<1.2) Sodium 135 L (137-145) mmol/L Glucose 107 H (74-99) mg/dL Total Bilirubin 1.5 H (0.2-1.3) mg/dL Urine Protein (Negative) Urine Ketones (Negative) Urine Blood (Negative) Urine Mucus (None) /hpf Coronavirus (PCR) Detected A (Not Detectd)
[2021-08-25] MEDS: NON FORMULARY DRUG (Morphine Pain Pump 1 DOSE) SQ SCH (16:58)
[2021-08-25 17:09] LABS: Glucose,Whole Blood 69 mg/dL (70-110)
[2021-08-25 17:41] LABS: Glucose,Whole Blood 65 mg/dL (70-110)
[2021-08-25 17:57] LABS: Glucose,Whole Blood 85 mg/dL (70-110)
[2021-08-25 20:06] LABS: Glucose,Whole Blood 102 mg/dL (70-110)
[2021-08-25] MEDS: ENOXAPARIN 40 MG/0.4 ML SYRINGE SQ SCH (20:06)
[2021-08-26] MEDS: NON FORMULARY DRUG (Morphine Pain Pump 1 DOSE) SQ SCH (03:08)
[2021-08-26 06:59] LABS: Glucose,Whole Blood 122 mg/dL (70-110)
[2021-08-26] MEDS: INSULIN ASPART (NovoLOG) 100 UNIT/ML VIAL SQ SCH ×4 (07:14→20:14)
--- NOTE | 2021-08-26 07:29 | CA ---
Transthoracic Echo Report Name: Real Estrada Age: 71 Gender: M : 1950 Exam Date: 08/25/2021 13:32 Exam Location: [facility] Ht (in): 68 Wt (lb): 150 Ordering Physician: Mary Ann Yoo Attending/Referring Phys: Seamer Cris Hinojosa RDCS Procedure CPT: Indications: chf?/covid Cardiac Hx: Technical Quality: Fair Contrast 1: Total Dose (mL): Contrast 2: Total Dose (mL): MEASUREMENTS (Male / Female) Normal Values 2D ECHO LV Diastolic Diameter PLAX 3.9 cm 4.2 - 5.9 / 3.9 - 5.3 cm LV Systolic Diameter PLAX 2.4 cm IVS Diastolic Thickness 1.3 cm 0.6 - 1.0 / 0.6 - 0.9 cm LVPW Diastolic Thickness 1.3 cm 0.6 - 1.0 / 0.6 - 0.9 cm LV Relative Wall Thickness 0.7 RV Internal Dim ED PLAX 2.8 cm LVOT Diameter 1.5 cm LA Systolic Diameter LX 4.1 cm 3.0 - 4.0 / 2.7 - 3.8 cm M-MODE Aortic Root Diameter MM 3.9 cm MV E Point Septal Separation 0.7 cm DOPPLER AV Peak Velocity 307.1 cm/s AV Peak Gradient 37.7 mmHg AV Mean Velocity 263.8 cm/s AV Mean Gradient 29.2 mmHg AV Velocity Time Integral 70.6 cm LVOT Peak Velocity 84.5 cm/s LVOT Peak Gradient 2.9 mmHg AV Area Cont Eq pk 0.5 cm??? TR Peak Velocity 272.8 cm/s TR Peak Gradient 29.8 mmHg Right Ventricular Systolic Press 33.0 mmHg FINDINGS Left Ventricle Left ventricular ejection fraction is estimated at 55-60 %. Left ventricular cavity size normal. Mild concentric left ventricular hypertrophy. Right Ventricle Normal right ventricular size and function. Mild pulmonary hypertension. Right Atrium Normal right atrial size. Left Atrium Mild left atrial dilatation. No evidence for an atrial septal defect. Mitral Valve Mitral valve thickened. Moderate mitral annular calcification. Mild mitral regurgitation. Aortic Valve Moderate thickening of the aortic valve cusps. Moderate aortic stenosis with a peak gradient of 38 mmHg and a mean gradient of 29 mmHg. Tricuspid Valve Mild tricuspid regurgitation. Tricuspid valve appears to be normal Pulmonic Valve Pulmonic valve not well visualized. Pericardium Normal pericardium. No pericardial effusion. Aorta Mild aortic dilatation at the level of the sinuses of valsalva (root). CONCLUSIONS 1. Normal size and systolic function 2. Mild mitral and tricuspid regurgitation 3. Moderate aortic stenosis with severely calcified cusps. Previewed by: Dr. Beltran Lobo MD (Electronically Signed) Final Date: 26 August 2021 07:28
[2021-08-26] MEDS: dexAMETHasone 2 MG TAB PO SCH (08:38)
[2021-08-26] MEDS: ENOXAPARIN 40 MG/0.4 ML SYRINGE SQ SCH ×2 (08:38→20:14)
[2021-08-26] MEDS: oxyCODONE-APAP 10-325MG 1 EACH TAB PO SCH (08:38)
[2021-08-26] MEDS: POTASSIUM CHLORIDE ER 10 MEQ TAB.ER.PRT PO SCH (08:38)
[2021-08-26] MEDS: PANTOPRAZOLE 40 MG TABLET PO SCH (08:38)
[2021-08-26] MEDS: PIPERACILLIN-TAZOBACTAM 3.375 GM in SODIUM CHLORIDE 0.9% 100 ML IVPB SCH ×2 (08:40→16:14)
[2021-08-26] MEDS ORDERED: VANCOMYCIN IV PER PHARMACY 1 EACH MISC MISCELLANE PRN (08:46)
[2021-08-26] MEDS ORDERED: ENOXAPARIN 40 MG/0.4 ML SYRINGE SQ SCH (09:00)
[2021-08-26 09:19] LABS: African American GFR (CKD) 110.8 (60.0-200.0); Anion Gap 10.5 mmol/L (10.00-18.00); BUN/Creat Ratio 23.71 Ratio (12.00-20.00); Blood Urea Nitrogen 16.6 mg/dL (9.0-27.0); Calcium 8.2 mg/dL (8.7-10.3); Carbon Dioxide 25.5 mmol/L (20.0-27.5); Non-African American GFR(CKD) 95.6 (60.0-200.0); Potassium 3.7 mmol/L (3.5-5.5)
[2021-08-26] MEDS: ALBUTEROL HFA INHALER INHALATION SCH ×4 (09:52→19:21)
[2021-08-26] MEDS: SYMBICORT 160-4.5 MCG INHALER INHALATION SCH ×2 (09:52→19:21)
[2021-08-26 10:08] LABS: C Reactive Protein 1.3 mg/dL (<1.0); Magnesium 1.5 mg/dL (1.6-2.3)
[2021-08-26 11:35] LABS: Glucose,Whole Blood 94 mg/dL (70-110)
[2021-08-26] MEDS: VANCOMYCIN 1,250 MG in SODIUM CHLORIDE 0.9% 250 ML IVPB SCH ×2 (12:10→21:03)
--- NOTE | 2021-08-26 12:39 | P.PN ---
Subjective Progress Note Date: 08/26/21 Principal diagnosis: Mental status changes. Pulmonary consult dated 08/25/2021. 71-year-old male, seen in room 8, and emergency department. The patient looks much older than his stated age. He has a history of abdominal aortic aneurysm, diabetes, coronary disease, and COPD. The patient apparently came in to the emergency room, with mental status changes. EMS apparently provided history to the physician in the emergency department. He apparently been weak and poorly responsive at home. He apparently lives with his sister and nephew. Over the couple days or so prior to admission to the emergency department, the patient's mental status to decline. He also apparently smelled of urine. He apparently also had a high fever and cough, and some shortness of breath. Currently, the patient's on 3 L nasal cannula. He is getting saline at 130 mL an hour. The patient is a very poor historian. The patient did test positive for coronavirus. He states he is vaccinated. Medical history the chart includes COPD, diabetes, and GERD. The patient does continue to smoke cigarettes. White count 5.6, hemoglobin 14.9, hematocrit 45.3, platelet count 231,000. PT 12.3 IN R 1.2 PTT 27.6. Sodium 135, potassium 4, chlorides 101, CO2 22, BUN 20, and creatinine 0.78. Total bilirubin was 1.5. Urine has 2+ ketones small amount of blood 1+ protein and rare mucus. Testing for coronavirus was positive. Brain CT was negative. Chest x-ray shows some possible bibasilar airspace disease in a patient with possible underlying COPD chronic interstitial changes. Progress note dated 08/26/2021. The patient was seen in consultation yesterday. Please see my note above. 71- year-old male, again seen in room 455. Currently, the patient's getting Zosyn and vancomycin. Blood cultures were positive for gram-positive cocci in clusters. He's not receiving any IV fluids. He is on 5 L nasal cannula. He appears much more awake and alert today although his memory is not that great. Lab data today includes a sodium 137, potassium 3.7, chlorides 101, CO2 26, anion gap 11, BUN 17, creatinine 0.7. Glucose is 94. Calcium 8.2, magnesium 1.5, LDH 748, and C-reactive protein 1.3. Blood cultures were positive for gram-positive cocci in clusters. For that reason, vancomycin was added until identification is determined. Objective - Vital Signs Vital signs: Vital Signs Temp 98.5 F 08/26/21 07:24 Pulse 94 08/26/21 07:24 Resp 18 08/26/21 07:24 BP 129/77 08/26/21 07:24 Pulse Ox 96 08/26/21 07:24 FiO2 Intake & Output 08/25/21 08/26/21 08/26/21 18:59 06:59 18:59 Output Total 2100 500 Balance -2100 -500 Weight 68.039 kg Output: Urine 2100 500 Uretheral (Galeas) 1700 Other: Voiding Method Indwelling Catheter Indwelling Catheter - Exam No acute distress, oriented 3. No conversational dyspnea or use of accessory muscles. HEENT examination is grossly unremarkable. Neck supple. Full range of motion. No adenopathy thyromegaly or neck vein distention. Cardiovascular examination reveals regular rhythm rate. S1-S2 normal. No S3 or S4. No discernible murmur noted. Heart rate 94 bpm. Heart sounds are distant. Lungs reveal scattered bilateral rhonchi. No wheezes. No crackles. Breath sounds equal bilaterally. 5 L saturation is 96%. Abdomen soft bowel sounds are heard. No masses or tenderness. Extremities reveal lower extremity chronic venous stasis changes, with mild edema. No cyanosis or clubbing. Skin is without rash or lesion. Neurologic examination is brief but nonfocal. - Labs CBC & Chem 7: 08/24/21 20:26 08/26/21 05:38 Labs: Abnormal Lab Results - Last 24 Hours (Table) 08/25/21 08/25/21 08/26/21 Range/Units 17:08 17:32 05:38 BUN/Creatinine Ratio 23.71 H (12.00-20.00) Ratio POC Glucose (mg/dL) 69 L 65 L (70-110) mg/dL Calcium 8.2 L (8.7-10.3) mg/dL Magnesium (1.6-2.3) mg/dL Lactate Dehydrogenase (313-618) U/L C-Reactive Protein (<1.0) mg/dL 08/26/21 08/26/21 Range/Units 05:38 06:58 BUN/Creatinine Ratio (12.00-20.00) Ratio POC Glucose (mg/dL) 122 H (70-110) mg/dL Calcium (8.7-10.3) mg/dL Magnesium 1.5 L (1.6-2.3) mg/dL Lactate Dehydrogenase 748 H (313-618) U/L C-Reactive Protein 1.3 H (<1.0) mg/dL Microbiology - Last 24 Hours (Table) 08/24/21 20:00 Blood Culture Gram Stain - Preliminary Blood 08/24/21 20:00 Blood Culture - Final Blood 08/24/21 20:15 Blood Culture - Preliminary Blood No Growth after 24 hours Assessment and Plan Assessment: Acute mental status changes, currently being evaluated by the primary service. Brain CT was negative for anything acute. Shortness of breath, likely related to patient's underlying COPD, as well as p ossible coronavirus associated pneumonitis. Ongoing tobacco use with nicotine addiction. History of diabetes mellitus. History of gastroesophageal reflux disease. Possible coronary artery disease. History of heart failure. History of deep venous thrombosis. History of hyperlipidemia. History of hypertension. Prostate cancer, status post radiation, 2005. History of melanoma. History of bladder cancer. Multiple other medical problems and comorbidities. Plan: Plan dated 08/25/2021. Currently, the patient's on Symbicort. We will had a albuterol inhaler. In addition, the patient should be on vitamins, have a d-dimer done, be given Decadron 6 mg a day, and also Lovenox at 40 mg subcu daily. We will continue to follow the patient make recommendations were appropriate. Prognosis is guarded. It's hard to know whether or not his shortness of breath relates his underlying COPD, or mild coronavirus associated pneumonitis. The patient was given a dose of Unasyn in the emergency department. We will continue to follow. Prognosis is guarded. Plan dated 08/26/2021. The patient appears much more awake and alert. The patient's medications are reviewed. He is on albuterol inhaler, and Symbicort. In addition, the patient is on Decadron, and Lovenox. We will continue to follow the patient and make recommendations were appropriate. Labs, x-rays, and medications are all reviewed. Prognosis is guarded. The patient does continue to smoke and we counseled about the importance of smoking cessation. 5 L saturation is 96%. Prognosis is certainly guarded. Time with Patient: Less than 30
[2021-08-26 13:48] VITALS: BMI 22.8
--- NOTE | 2021-08-26 14:27 | CT ---
EXAMINATION TYPE: CT chest angio for PE DATE OF EXAM: 08/26/2021 COMPARISON: 07/12/2018 HISTORY: +covid CT DLP: 333.1 mGycm CONTRAST: CT chest with contrast and 3D reconstruction with MIP imaging is performed with IV Contrast, patient injected with 80cc mL of Isovue 370. Contrast-enhanced CT of the chest was performed through the course of the pulmonary arteries with alicia g and mediastinal window settings submitted. 3D reconstruction with MIP imaging was also performed. PULMONARY ARTERIES: The pulmonary arteries and their major tributaries are patent. I do not see josefina dence for sizable filling defect to suggest pulmonary embolic process. LUNGS: Moderate emphysematous changes noted. Groundglass infiltrate left upper lobe 8 mm. Additional pulmonary nodule measuring 8.1 mm left upper lobe image 78 mild spiculation suggested. Basilar compre ssive atelectasis right greater than left with small right-sided effusion. No focal infiltrate identi fied. MEDIASTINUM: Thoracic aorta is of normal caliber,however, evaluation is limited given timing of the contrast bolus. If there is concern for thoracic aortic pathology consider THERESA. Correlate clinicall y . The heart is enlarged. No evidence for mediastinal mass. No mediastinal lymph nodes greater daniel n 1cm. HILAR STRUCTURES: No evidence for mass. No hilar lymph nodes greater than 1 cm. UPPER ABDOMEN: No significant abnormality is seen. IMPRESSION: 1. No evidence for Pulmonary embolism at this time. 2. Suspicious appearing pulmonary nodule left upper lobe with mild spiculation suggested. 3. Basilar compressive atelectasis. Small right-sided pleural effusion. 4 a moderate emphysematous ch sara with hyperinflation.
[2021-08-26] MEDS ORDERED: Magnesium Replacement Protocol 1 EACH MISC MISCELLANE PRN (15:06)
[2021-08-26] MEDS: MAGNESIUM SULFATE-D5W PMX 1 GM in DEXTROSE/WATER 1 100ML.BAG IVPB SCH ×2 (16:13→17:16)
[2021-08-26 16:25] LABS: Glucose,Whole Blood 110 mg/dL (70-110)
[2021-08-26 17:05] LABS: Basophils # (A) 0 X 10*3/uL (0.00-0.10); Basophils % (A) 0 %; Eosinophils # (A) 0 X 10*3/uL (0.04-0.35); Eosinophils % (A) 0 %; HCT 42.8 % (39.6-50.0); HGB 13.6 g/dL (13.0-17.0); Immature Grans, Automated 0.2 %; Lymphocytes # (A) 0.68 X 10*3/uL (0.90-5.00); Lymphocytes % (A) 15.1 %; MCH 29.5 pg (27.0-32.0); MCHC 31.8 g/dL (32.0-37.0); MCV 92.8 fL (80.0-97.0); Mean Platelet Volume 12.2 fL (9.5-12.2); Monocytes # (A) 0.67 X 10*3/uL (0.20-1.00); Monocytes % (A) 14.9 %; NRBC Per 100 WBC 0 /100 WBCS (0.0-0.0); Neutrophils # (A) 3.13 X 10*3/uL (1.80-7.70); Neutrophils % (A) 69.8 %; Platelet Count 98 X 10*3/uL (140-440); RBC 4.61 X 10*6/uL (4.40-5.60); RDW 13.8 % (11.5-14.5); WBC 4.49 X 10*3/uL (4.50-10.00)
[2021-08-26 20:03] LABS: Glucose,Whole Blood 178 mg/dL (70-110)
--- NOTE | 2021-08-26 23:28 | P.CONS ---
History of Present Illness - Reason for Consult Consult date: 08/26/21 - History of Present Illness Patient is a 71-year-old male with a past medical history significant for COPD diabetes mellitus coronary artery disease patient presenting to the ER with mental status changes apparently the patient has been weak and poorly responsive at home and the symptom has been getting worse for the last few days patient denies having any headache or URI symptoms no chest pain or shortness wi th occasional cough no abdominal pain or any diarrhea, patient on presentation to the hospital to have a fever of 102.6 F, patient did have a normal white count with lymphopenia D-dimer was mildly elevated procalcitonin normal creatinine is normal urine is negative did have positive COVID test influenza testing was negative patient did have a chest x-ray suspected airspace disease within the lung bases superimposed on chronic interstitial changes patient also have a CT abdominal pelvis lower abdominal aortic aneurysm extensive plaques formation stenosis at the origin of the celiac artery atelectasis the lung bases patient did have blood culture drawn which came back positive gram-positive c occi patient was started on vancomycin infectious he was consulted for further management of antibiotic therapy patient is already being managed for underlying COPD and covid19 by pulmonary Past Medical History Past Medical History: Asthma, Coronary Artery Disease (CAD), Cancer, Heart Failure, Diabetes Mellitus, Deep Vein Thrombosis (DVT), GERD/Reflux, Hype rlipidemia, Hypertension, Memory Impairment, Osteoarthritis (OA) Additional Past Medical History / Comment(s): Coronary artery disease, moderate to severe aortic valve stenosis, COPD, history of prostate cancer treated by radiation therapy back in 2005, history of melanoma of the back resected, history of lip cancer resected, history of bladder cancers treated intravesicul ar chemotherapy, abdominal aortic aneurysm surgically repaired, history of chronic back pain and the patient is a pain stimulator in place and the patient has undergone L4-L5 spinal fusion, diabetes mellitus, history of DVT, hypertension, hyperlipidemia, osteoarthritis, hiatal hernia History of Any Multi-Drug Resistant Organisms: None Reported Past Surgical History: Back Surgery, Bladder Surgery, Heart Catheterization With Stent, Hernia Repair, Orthopedic Surgery Additional Past Surgical History / Comment(s): Insertion of a pain pump on 11/07/2016 for chronic back pain/pain stimulator, abdominal aortic aneurysm repair 2, back pain with spinal fusion at the level of L4-L5, left inguinal hernia repair, abdominal hernia repair, THERESA, removal of a venous clot from the lower extremity in the setting of DVT, bladder surgery with intravesicular chemotherapy, cardiac catheterization with insertion of coronary stents, hernia repair Past Anesthesia/Blood Transfusion Reactions: No Reported Reaction Additional Past Anesthesia/Blood Transfusion Reaction / Comm: CLAUSTROPHOBIA Date of Last Stent Placement:: UNK Past Psychological History: Depression Additional Psychological History / Comment(s): SOMETIMES GETS DEPRESSED, NO MEDS TAKEN. Smoking Status: Current every day smoker Past Alcohol Use History: None Reported Additional Past Alcohol Use History / Comment(s): STARTED SMOKING AT AGE 14-15 SMOKES LESS THAN 1/2 PPD. Past Drug Use History: Marijuana Additional Drug Use History / Comment(s): OCC SMOKES MARIJUANA FOR PAIN. - Past Family History Father History Unknown: Yes Mother History Unknown: Yes Medications and Allergies Home Medications Medication Instructions Recorded Confirmed Type oxyCODONE-APAP 10-325MG [Percocet 1 tab PO DAILY 10/31/14 08/24/21 History 10-325 mg] Omeprazole [PriLOSEC] 20 mg PO DAILY 12/05/18 08/24/21 History metFORMIN HCL [Glucophage] 850 mg PO BID 12/05/18 08/24/21 History Budesonide/Formoterol Fumarate 2 puff INHALATION RT-BID 11/11/20 08/24/21 History [Symbicort 160-4.5 Mcg Inhaler] Potassium Chloride [Potassium 20 meq PO DAILY 11/11/20 08/24/21 History Chloride ER] Morphine Pain Pump 1 dose SQ CONTINUOUS 08/24/21 08/24/21 History Naloxone HCl 4 mg NS ONETIME PRN 08/24/21 08/24/21 History Allergies Allergy/AdvReac Type Severity Reaction Status Date / Time No Known Allergies Allergy Verified 08/24/21 21:58 Physical Exam Vitals: Vital Signs Temp Pulse Pulse Resp BP BP Pulse Ox 08/26/21 07:24 98.5 F 94 18 129/77 96 08/26/21 05:23 99.3 F 95 16 129/74 92 L 08/26/21 01:34 99.1 F 102 H 17 121/73 92 L 08/25/21 22:38 101 H 92 L 08/25/21 21:51 98.7 F 109 H 18 113/56 91 L 08/25/21 19:50 16 08/25/21 18:00 98.3 F 97 16 127/76 93 L 08/25/21 15:32 96 08/25/21 14:00 98.7 F 90 18 124/68 98 08/25/21 12:49 93 16 127/83 94 L 08/25/21 10:25 96 16 129/77 95 Intake and Output 08/25/21 08/26/21 08/26/21 22:59 06:59 14:59 Output Total 400 500 Balance -400 -500 Output: Urine 400 500 Other: Voiding Method Indwelling Catheter Results CBC & Chem 7: 08/26/21 05:38 08/26/21 05:38 Labs: Abnormal Lab Results - Last 24 Hours (Table) 08/25/21 08/25/21 08/25/21 Range/Units 11:09 17:08 17:32 D-Dimer 1.82 H (<0.60) mg/L FEU BUN/Creatinine Ratio (12.00-20.00) Ratio POC Glucose (mg/dL) 69 L 65 L (70-110) mg/dL Calcium (8.7-10.3) mg/dL 08/26/21 08/26/21 Range/Units 05:38 06:58 D-Dimer (<0.60) mg/L FEU BUN/Creatinine Ratio 23.71 H (12.00-20.00) Ratio POC Glucose (mg/dL) 122 H (70-110) mg/dL Calcium 8.2 L (8.7-10.3) mg/dL Microbiology - Last 24 Hours (Table) 08/24/21 20:00 Blood Culture Gram Stain - Preliminary Blood 08/24/21 20:00 Blood Culture - Final Blood 08/24/21 20:15 Blood Culture - Preliminary Blood No Growth after 24 hours Assessment and Plan Plan: 1patient presented hospital with mental status changes some cough patient did have a fever more likely related to underlying COVID-19 infection in this patient seem to have shown clinical improvement with the current treatment provided by pulmonary including dexamethasone Lovenox zinc and ascorbic acid to continue no evidence of any secondary bacterial pneumonia with normal procalcitonin. 2patient is a positive blood culture with gram-positive cocci waiting for the final ID, if staph epi will be disregarded as contamination however if staph auris further work-up will be needed with possible source. 3blood cultures will be repeated document clearance of bacteremia. 4vancomycin pharmacy to dose target trough of 15 while watching kidney function and vancomycin trough closely. We will follow on clinical condition and cultures to further adjust medication if needed Thank you for this consultation will follow this patient along with you Time with Patient: Greater than 30
[2021-08-27] MEDS: PIPERACILLIN-TAZOBACTAM 3.375 GM in SODIUM CHLORIDE 0.9% 100 ML IVPB SCH ×2 (00:19→08:00)
[2021-08-27] MEDS: NON FORMULARY DRUG (Morphine Pain Pump 1 DOSE) SQ SCH (03:54)
[2021-08-27 07:17] LABS: Basophils % (A) 1 %; Eosinophils % (A) 0 %; HCT 46.1 % (39.0-53.0); HGB 14.2 gm/dL (13.0-17.5); Lymphocytes # (A) 0.8 k/uL (1.0-4.8); Lymphocytes % (A) 27 %; MCH 29.5 pg (25.0-35.0); MCHC 30.9 g/dL (31.0-37.0); MCV 95.5 fL (80.0-100.0); Mean Platelet Volume 10.2; Monocytes # (A) 0.3 k/uL (0-1.0); Monocytes % (A) 11 %; Neutrophils # (A) 1.8 k/uL (1.3-7.7); Neutrophils % (A) 60 %; Platelet Count 98 k/uL (150-450); RBC 4.83 m/uL (4.30-5.90); RDW 13.7 % (11.5-15.5); WBC 3.1 k/uL (3.8-10.6)
[2021-08-27 07:30] LABS: Glucose,Whole Blood 73 mg/dL (70-110)
[2021-08-27] MEDS: INSULIN ASPART (NovoLOG) 100 UNIT/ML VIAL SQ SCH ×4 (07:32→20:58)
[2021-08-27 07:40] LABS: African American GFR (CKD) >90 (>60 ml/min/1.73 sqM); Anion Gap 6 mmol/L; Blood Urea Nitrogen 16 mg/dL (9-20); Calcium 8.1 mg/dL (8.4-10.2); Carbon Dioxide 25 mmol/L (22-30); Chloride 103 mmol/L (98-107); Glucose 80 mg/dL (74-99); Magnesium 1.8 mg/dL (1.6-2.3); Non-African American GFR(CKD) >90 (>60 ml/min/1.73 sqM); Sodium 134 mmol/L (137-145)
[2021-08-27] MEDS: oxyCODONE-APAP 10-325MG 1 EACH TAB PO SCH (08:02)
[2021-08-27] MEDS: ENOXAPARIN 40 MG/0.4 ML SYRINGE SQ SCH (08:03)
[2021-08-27] MEDS: POTASSIUM CHLORIDE ER 10 MEQ TAB.ER.PRT PO SCH (08:03)
[2021-08-27] MEDS: dexAMETHasone 2 MG TAB PO SCH (08:03)
[2021-08-27] MEDS: PANTOPRAZOLE 40 MG TABLET PO SCH (08:03)
[2021-08-27] MEDS: VANCOMYCIN 1,250 MG in SODIUM CHLORIDE 0.9% 250 ML IVPB SCH (08:10)
--- NOTE | 2021-08-27 08:50 | P.PN ---
Subjective Progress Note Date: 08/26/21 This is a 71-year-old male who was recently brought to the emergency room altered mental status via EMS and admitted for further evaluation. Patient reports he lives with his sister and family members and is normally able to care for himself but has been becoming more weak and unable to walk. Patient is somewhat of a poor historian and will have conversation but gets confused often. Patient with some abdominal discomfort with no guarding or rigidity noted on exam and patient reports he was having some nausea but denies vomiting or diarrhea. Patient is currently maintained on oxygen and reports he does not wear this at home. Patient does have a past medical history of asthma, coronary artery disease, heart failure, diabetes, DVT gastroesophageal reflux disease, hyperlipidemia, hypertension, osteoarthritis, and memory impairment. Patient does report chronic back pain as well. Patient also presented to the emergency department with fever and was found to be Covid positive. Patient currently maintained on 6 L via nasal cannula and does report shortness of breath. Pulmonary has been consulted. Chest x-ray showed airspace disease with the lung bases superimposed on chronic interstitial changes and COPD with possible aspiration. EKG showed sinus tachycardia with a heart rate of 122. When asking if the patient was vaccinated for Covid he was unsure and did not believe so. Again, the patient is a poor historian. Pulmonary has been consulted. 08/26/2021 Patient is seen in follow-up this morning appears more awake and alert although continues with confusion. Patient is currently sitting up in the chair and maintained on 5 L of oxygen via nasal cannula with pulmonary following. Patient reports today that he does normally wear oxygen in the outpatient setting although as mentioned previously patient is confused at times. Patient is maintained on oral dexamethasone along with inhalers and subcutaneous Lovenox along with vitamins and was found to have positive blood cultures showing gram- positive clusters and will add vancomycin and follow-up with repeat blood cul tures. Patient also continues with low-grade fevers. Patient reports the tolerating diet with no reports of nausea or vomiting patient denies any chest pain. Have physical therapy evaluate the patient and patient may likely need ECF. Review of systems: Constitutional: No reports of fatigue, fever, or chills Cardiovascular: No reports of chest pain or palpitations Respiratory: reports of shortness of breath GI: No reports of nausea, vomiting, or diarrhea : No reports of dysuria or retention Neurovascular: reports of generalized weakness All medications have been reviewed Active Medications Acetaminophen (Acetaminophen Tab 325 Mg Tab) 650 mg PO Q6HR PRN PRN Reason: Mild Pain or Fever > 100.5 Albuterol Sulfate (Albuterol Hfa Inhaler) 2 puff INHALATION RT-QID FOR[facility]LY [facility], 1928[facility]1983 Last Admin: 08/26/21 12:40 Dose: 2 puff Budesonide/Formoterol Fumarate (Symbicort 160-4.5 Mcg Inhaler) 2 puff INHALATION RT-BID [facility], [facility]–1983 Last Admin: 08/26/21 09:52 Dose: 2 puff Dexamethasone (Dexamethasone 2 Mg Tab) 6 mg PO DAILY [facility], [facility]1983 Last Admin: 08/26/21 08:38 Dose: 6 mg Enoxaparin Sodium (Enoxaparin 40 Mg/0.4 Ml Syringe) 40 mg SQ BID [facility], [facility]–1983 Last Admin: 08/26/21 08:38 Dose: 40 mg Piperacillin Sod/Tazobactam (Sod 3.375 gm/ Sodium Chloride) 100 mls @ 25 mls/hr IVPB Q8HR [facility], [facility]–1983; Protocol Last Admin: 08/26/21 08:40 Dose: 25 mls/hr Vancomycin HCl 1,250 mg/ (Sodium Chloride) 250 mls @ 125 mls/hr IVPB Q12HR [facility], [facility]–1983 Last Admin: 08/26/21 12:10 Dose: 125 mls/hr Magnesium Sulfate/Dextrose 1 (gm/ IV Solution) 100 mls @ 100 mls/hr IVPB Q1H [facility], [facility]–1983 Stop: 08/26/21 17:14 Ibuprofen (Ibuprofen 400 Mg Tab) 400 mg PO Q6HR PRN PRN Reason: Mild Pain or Fever > 100.5 Insulin Aspart (Insulin Aspart (Novolog) 100 Unit/Ml Vial) 0 unit SQ ACHS [facility], [facility]; Protocol Last Admin: 08/26/21 11:58 Dose: Not Given Miscellaneous Information (Magnesium Replacement Protocol 1 Each Misc) 1 each MISCELLANE DAILY PRN; Protocol PRN Reason: Per Protocol Naloxone HCl (Naloxone 0.4 Mg/Ml 1 Ml Vial) 0.2 mg IV Q2M PRN PRN Reason: Opioid Reversal Non-Formulary Medication (Morphine Pain Pump) 1 dose SQ CONTINUOUS [facility], [facility] Last Admin: 08/26/21 03:08 Dose: Not Given Oxycodone/Acetaminophen (Oxycodone-Apap 10-325mg 1 Each Tab) 1 each PO DAILY [facility] Last Admin: 08/26/21 08:38 Dose: 1 each Pantoprazole Sodium (Pantoprazole 40 Mg Tablet) 40 mg PO AC-BRKFST [facility], [facility]–1983 Last Admin: 08/26/21 08:38 Dose: 40 mg Potassium Chloride (Potassium Chloride Er 10 Meq Tab.Er.Prt) 20 meq PO DAILY [facility] Last Admin: 08/26/21 08:38 Dose: 20 meq PHYSICAL EXAMINATION: GENERAL: The patient is alert and oriented x2, ill-appearing, unkempt, thin, frail , more awake today and sitting up in the chair HEENT: Pupils are round and equally reacting to light. EOMI. no scleral icterus. No conjunctival pallor. Normocephalic, atraumatic. No pharyngeal erythema. No thyromegaly. CARDIOVASCULAR: S1 and S2 muffled PULMONARY: diminished breath sounds bilaterally with some scattered rhonchi noted. ABDOMEN: soft. Nontender on exam. non-distended, normoactive bowel sounds. No palpable organomegaly. MUSCULOSKELETAL: No joint swelling or deformity. EXTREMITIES: No cyanosis, clubbing, or pedal edema. Mild lower extremity edema noted NEUROLOGICAL: Gross neurological examination did not reveal any focal deficits. Diffuse weakness SKIN: No rashes. Assessment: Altered mental status, present on admission, possibly secondary to COVID-19 Acute hypoxic respiratory failure with shortness of breath possibly secondary to COPD, acute exacerbation and also a component of COVID-19, possible pneumonitis Bacteremia Diabetes mellitus Gastroesophageal reflux disease History of heart failure, unknown EF History of deep vein thrombosis Hyperlipidemia Hypertension Continued ongoing nicotine dependence Chronic back pain GI prophylaxis DVT prophylaxis Full code Plan: Recommend to continue with current medications and management of COVID-19. Pulmonary following and patient is maintained on Decadron along with vitamin C and D and zinc supplements and will receive albuterol and Symbicort inhalers. Patient currently on 5L via nasal cannula and reports he does not wear oxygen in the outpatient setting and will wean FiO2 as tolerated. Patient also has COPD history. Patient also with weakness and unsure of the home situation as he is currently reporting he lives with his sister and family. Patient has a history of diabetes and med rec reports he takes Glucophage twice a day and will hold this for now and place the patient on Accu-Cheks before meals and at bedtime along with sliding scale and closely monitor. Will have physical therapy evaluate the patient and also social work consult for possible ECF. Patient was found to have positive blood cultures and being initiated on IV antibiotics and will follow-up with labs and repeat blood cultures and also have consulted infectious disease and appreciate input and recommendations. Patient did have a positive d-dimer and will obtain CTa of the chest to evaluate for PE and will continue with subcutaneous Lovenox twice daily. The impression and plan of care has been dictated by Mary Ann Yoo, nurse practitioner as directed. Dr. Margarito MD I have performed a history and examination and MDM of this patient, discussed the same with the dictator, and agree with the dictator's assessment and plan as written ,documented as a scribe. Based on total visit time, I have performed more than 50% of the visit. Any additional findings or plans will be noted. Objective - Vital Signs Vital signs: Vital Signs Temp 98.5 F 08/26/21 07:24 Pulse 94 08/26/21 07:24 Resp 18 08/26/21 07:24 BP 129/77 08/26/21 07:24 Pulse Ox 96 08/26/21 07:24 FiO2 Intake & Output 08/25/21 08/26/21 08/26/21 18:59 06:59 18:59 Output Total 2100 500 Balance -2100 -500 Weight 68.039 kg Output: Urine 2100 500 Uretheral (Galeas) 1700 Other: Voiding Method Indwelling Catheter Indwelling Catheter - Labs CBC & Chem 7: 08/27/21 07:00 08/27/21 07:00 Labs: Abnormal Lab Results - Last 24 Hours (Table) 08/25/21 08/25/21 08/25/21 Range/Units 11:09 17:08 17:32 D-Dimer 1.82 H (<0.60) mg/L FEU BUN/Creatinine Ratio (12.00-20.00) Ratio POC Glucose (mg/dL) 69 L 65 L (70-110) mg/dL Calcium (8.7-10.3) mg/dL 08/26/21 08/26/21 Range/Units 05:38 06:58 D-Dimer (<0.60) mg/L FEU BUN/Creatinine Ratio 23.71 H (12.00-20.00) Ratio POC Glucose (mg/dL) 122 H (70-110) mg/dL Calcium 8.2 L (8.7-10.3) mg/dL Microbiology - Last 24 Hours (Table) 08/24/21 20:00 Blood Culture Gram Stain - Preliminary Blood 08/24/21 20:00 Blood Culture - Final Blood 08/24/21 20:15 Blood Culture - Preliminary Blood No Growth after 24 hours
[2021-08-27] MEDS: SYMBICORT 160-4.5 MCG INHALER INHALATION SCH ×2 (09:07→19:47)
[2021-08-27] MEDS: ALBUTEROL HFA INHALER INHALATION SCH ×4 (09:07→19:47)
[2021-08-27 11:15] LABS: Glucose,Whole Blood 105 mg/dL (70-110)
--- NOTE | 2021-08-27 11:52 | CDI ---
Documentation Clarification Form Date: 08/27/2021 11:34:22 AM From: Viv Miller CCS, CCDS Admit Date: 08/25/2021 12:20:00 AM Patient Name: Real Estrada Visit Number: [id number] Discharge Date: ATTENTION: The Clinical Documentation Specialists (CDI) and [facility] Coding Staff appreciate your assistance in clarifying documentation. Please respond to the clarification below the line at the bottom and electronically sign. The CDI & [facility] Coding staff will review the response and follow-up if needed. Please note: Queries are made part of the Legal Health Record. If you have any questions, please contact the author of this message via ITS. Dr. Bebe Pimentel: Your patient has the documented diagnosis of unspecified CHF in the 08/25 Pulmonary Consult and in the subsequent 08/26 subsequent Pulmonary Progress Note. An Echocardiogram was ordered by the attending physician on 08/25. Additional information regarding the Type & Acuity of CHF is requested. History/Risk Factors per the 08/25 H/P: Asthma, CAD, Prostate Cancer status post Radiation therapy, Melanoma resected, Lip Cancer, Bladder Cancers treated with Chemotherapy, Heart Failure, DM, DVT, GERD, Hyperlipidemia, Hypertension, Memory loss, Moderate to Severe Aortic Valve Stenosis, COPD, AAA: repaired, Chronic Back Pain with pain stimulator in place status post L4-L5 Spinal Fusion, Osteoarthritis. Clinical Indicators: Presented to the ED on 08/24 via EMS from home with Altered Mental Status, weakness, strong smelling urine, high fever and cough. Admit with COVID-19, Acute encephalopathy, Pyrexia, Tachycardia, Abdominal aortic aneurysm. 08/24 VS: T 102.6, P 127, R 20, BP 148/112, 106/63, PO 95 4Lnc, BMI: 22.8 08/24 LAB: Plt Ct 131, Lymph 0.3; PT 12.3, INR 1.2; Na 135, Glucose 107, total Bilirubin 1.5 UA: Cloudy, 1+ protein, 2+ Ketones, Small Blood. BNP: not done. Alcohol <10 COVID Detected Influenza A/B: not detected 08/24 CXR: Suspected airspace disease superimposed on chronic interstitial changes & COPD. Correlate for aspiration. 08/24 CT Abd/Pelvis: Large lower AAA w/aortofemoral bypass graft: patent. Subsegmental atelectasis at the lung bases. Plaque formation in the celiac artery & superior mesenteric artery. Atelectasis at the lung bases. 08/24 EKG: R 122 sinus tachycardia, Right BBB 08/25 ECHO: Indications: CHF?/COVID EF 55-60%, Mild LVH. Mild pulmonary hypertension. Mild MR. Moderate aortic stenosis. Mild TR. Treatment 08/24: IV Na Chl 1,000 mls @ 999 mls/hr q1H, IV Na Chl 1,000 mls @ 130 mls/hr q7H, IV Ampicillin 100 mls @ 200 mls/hr x1. 08/25: INH Symbicort, INH Ventolin, Lovenox 40 mg sq BID 08/26: IV Zosyn 100 mls @ 25 mls/hr q8H, po Hexadrol, Lovenox sq, IV Vancomycin 250 mls @ 125 mls/hr q12H, IV Mag Sulfate/Dextrose 100 mls @ 100 mls/hr q1H Home meds: Morphine pain pump, Percocet, Glucophage, Kcl, Prilosec, Naloxone, INH Symbicort In your professional opinion, can you please clarify the Type & Acuity of CHF if known? [ ] Chronic Diastolic Heart Failure (preserved EF) [ ] Acute on Chronic Diastolic Heart Failure (preserved EF) [ ] CHF is ruled out [ ] Other, please specify [ ] Unable to determine (Template Last Revised: March 2020) 08/28 Query response documented in the 08/27 Attn Phys PN (Dr. Pimentel): Chronic Diastolic CHF (CDS: KOLE) MTDD
--- NOTE | 2021-08-27 11:54 | P.PN ---
Subjective Progress Note Date: 08/27/21 Principal diagnosis: Mental status changes. Pulmonary consult dated 08/25/2021. 71-year-old male, seen in room 8, and emergency department. The patient looks much older than his stated age. He has a history of abdominal aortic aneurysm, diabetes, coronary disease, and COPD. The patient apparently came in to the emergency room, with mental status changes. EMS apparently provided history to the physician in the emergency department. He apparently been weak and poorly responsive at home. He apparently lives with his sister and nephew. Over the couple days or so prior to admission to the emergency department, the patient's mental status to decline. He also apparently smelled of urine. He apparently also had a high fever and cough, and some shortness of breath. Currently, the patient's on 3 L nasal cannula. He is getting saline at 130 mL an hour. The patient is a very poor historian. The patient did test positive for coronavirus. He states he is vaccinated. Medical history the chart includes COPD, diabetes, and GERD. The patient does continue to smoke cigarettes. White count 5.6, hemoglobin 14.9, hematocrit 45.3, platelet count 231,000. PT 12.3 IN R 1.2 PTT 27.6. Sodium 135, potassium 4, chlorides 101, CO2 22, BUN 20, and creatinine 0.78. Total bilirubin was 1.5. Urine has 2+ ketones small amount of blood 1+ protein and rare mucus. Testing for coronavirus was positive. Brain CT was negative. Chest x-ray shows some possible bibasilar airspace disease in a patient with possible underlying COPD chronic interstitial changes. Progress note dated 08/26/2021. The patient was seen in consultation yesterday. Please see my note above. 71- year-old male, again seen in room 455. Currently, the patient's getting Zosyn and vancomycin. Blood cultures were positive for gram-positive cocci in clusters. He's not receiving any IV fluids. He is on 5 L nasal cannula. He appears much more awake and alert today although his memory is not that great. Lab data today includes a sodium 137, potassium 3.7, chlorides 101, CO2 26, anion gap 11, BUN 17, creatinine 0.7. Glucose is 94. Calcium 8.2, magnesium 1.5, LDH 748, and C-reactive protein 1.3. Blood cultures were positive for gram-positive cocci in clusters. For that reason, vancomycin was added until identification is determined. Progress note dated 08/27/2021. The patient is seen in room 455. He appears relatively comfortable. He is currently on 4 L nasal cannula. Saturations are in the low 90s. The patient has no new complaints today. He is feeling better. Blood cultures did show gram-positive cocci in clusters. He previously was on Zosyn and vancomycin. White count 3.1, he will 14.2, hematocrit 46.1, and platelet count 98,000. Sodium 134, potassium 4, chlorides 103, CO2 25, within normal BUN and creatinine. CT angiogram was negative for pulmonary embolism. There is a suspicious-appearing pulmonary nodule, left upper lobe, with mild spiculation. It measures 8.1 mm in size. It would need follow-up. Objective - Vital Signs Vital signs: Vital Signs Temp 97.8 F 08/27/21 06:24 Pulse 74 08/27/21 07:40 Resp 16 08/27/21 07:40 BP 127/74 08/27/21 06:24 Pulse Ox 97 08/27/21 06:24 FiO2 Intake & Output 08/26/21 08/27/21 08/27/21 18:59 06:59 18:59 Output Total 900 Balance -900 Weight 68.039 kg Output: Urine 900 Other: Voiding Method Indwelling Catheter Indwelling Catheter Indwelling Catheter # Voids 5 # Bowel Movements 1 - Exam No acute distress, oriented 3. No conversational dyspnea or use of accessory muscles. HEENT examination is grossly unremarkable. Neck supple. Full range of motion. No adenopathy thyromegaly or neck vein distention. Cardiovascular examination reveals regular rhythm rate. S1-S2 normal. No S3 or S4. No discernible murmur noted. Heart rate 74 bpm. Heart sounds are distant. Lungs reveal scattered bilateral rhonchi. No wheezes. No crackles. Breath sounds equal bilaterally. 4 L saturation is 96%. Abdomen soft bowel sounds are heard. No masses or tenderness. Extremities reveal lower extremity chronic venous stasis changes, with mild edema. No cyanosis or clubbing. Skin is without rash or lesion. Neurologic examination is brief but nonfocal. - Labs CBC & Chem 7: 08/27/21 07:00 08/27/21 07:00 Labs: Abnormal Lab Results - Last 24 Hours (Table) 08/26/21 08/26/21 08/27/21 Range/Units 05:38 20:02 07:00 WBC 4.49 L (4.50-10.00) X 10*3/uL MCHC 31.8 L (32.0-37.0) g/dL Plt Count 98 L (140-440) X 10*3/uL Lymphocytes # 0.68 L (0.90-5.00) X 10*3/uL Eosinophils # 0 L (0.04-0.35) X 10*3/uL Sodium 134 L (137-145) mmol/L POC Glucose (mg/dL) 178 H (70-110) mg/dL Calcium 8.1 L (8.4-10.2) mg/dL 08/27/21 Range/Units 07:00 WBC 3.1 L (4.50-10.00) X 10*3/uL MCHC 30.9 L (32.0-37.0) g/dL Plt Count 98 L (140-440) X 10*3/uL Lymphocytes # 0.8 L (0.90-5.00) X 10*3/uL Eosinophils # (0.04-0.35) X 10*3/uL Sodium (137-145) mmol/L POC Glucose (mg/dL) (70-110) mg/dL Calcium (8.4-10.2) mg/dL Microbiology - Last 24 Hours (Table) 08/26/21 08:47 Blood Culture - Preliminary Blood No Growth after 24 hours 08/24/21 20:15 Blood Culture - Preliminary Blood No Growth after 48 hours 08/24/21 20:00 Blood Culture Gram Stain - Preliminary Blood Assessment and Plan Assessment: Acute mental status changes, currently being evaluated by the primary service. Brain CT was negative for anything acute. Shortness of breath, likely related to patient's underlying COPD, as well as possible coronavirus associated pneumonitis. Ongoing tobacco use with nicotine addiction. 8 mm pulmonary nodule, left upper lobe, spiculation, which will need outpatient follow-up. History of diabetes mellitus. History of gastroesophageal reflux disease. Possible coronary artery disease. History of heart failure. History of deep venous thrombosis. History of hyperlipidemia. History of hypertension. Prostate cancer, status post radiation, 2005. History of melanoma. History of bladder cancer. Multiple other medical problems and comorbidities. Plan: Plan dated 08/25/2021. Currently, the patient's on Symbicort. We will had a albuterol inhaler. In addition, the patient should be on vitamins, have a d-dimer done, be given Decadron 6 mg a day, and also Lovenox at 40 mg subcu daily. We will continue to follow the patient make recommendations were appropriate. Prognosis is guarded. It's hard to know whether or not his shortness of breath relates his underlying COPD, or mild coronavirus associated pneumonitis. The patient was given a dose of Unasyn in the emergency department. We will continue to follow. Prognosis is guarded. Plan dated 08/26/2021. The patient appears much more awake and alert. The patient's medications are reviewed. He is on albuterol inhaler, and Symbicort. In addition, the patient is on Decadron, and Lovenox. We will continue to follow the patient and make recommendations were appropriate. Labs, x-rays, and medications are all reviewed. Prognosis is guarded. The patient does continue to smoke and we counseled about the importance of smoking cessation. 5 L saturation is 96%. Prognosis is certainly guarded. Plan dated 08/27/2021. The patient appears to be doing much better. The patient remains on Decadron and Lovenox. He is also on albuterol inhaler, Symbicort. He's been weaned to 4 L of oxygen, which is his home dose. We will continue to follow. The small pulmonary nodule, left upper lobe, will need outpatient follow-up. He sees my partner in the office for his COPD. We will continue to follow make recommendations where appropriate. Prognosis is guarded Time with Patient: Less than 30
--- NOTE | 2021-08-27 12:14 | CDI ---
Documentation Clarification Form Date: 08/27/2021 11:56:00 AM From: Viv MillerRADHA posey, CCDS Admit Date: 08/25/2021 12:20:00 AM Patient Name: Real Estrada Visit Number: [id number] Discharge Date: ATTENTION: The Clinical Documentation Specialists (CDI) and [facility] Coding Staff appreciate your assistance in clarifying documentation. Please respond to the clarification below the line at the bottom and electronically sign. The CDI & [facility] Coding staff will review the response and follow-up if needed. Please note: Queries are made part of the Legal Health Record. If you have any questions, please contact the author of this message via ITS. Dr. Bebe Pimentel: Acute Encephalopathy is documented in the 08/24 ED Note without further specificity. Additional clarification regarding the type of encephalopathy is requested. History/Risk Factors per the 08/25 H/P: Asthma, CAD, Prostate Cancer status post Radiation therapy, Melanoma resected, Lip Cancer, Bladder Cancers treated with Chemotherapy, Heart Failure, DM, DVT, GERD, Hyperlipidemia, Hypertension, Memory loss, Moderate to Severe Aortic Valve Stenosis, COPD, AAA: repaired, Chronic Back Pain with pain stimulator in place status post L4-L5 Spinal Fusion, Osteoarthritis. Clinical Indicators: Presented to the ED on 08/24 via EMS from home with Altered Mental Status, weakness, strong smelling urine, high fever and cough. Admit with COVID-19, Acute encephalopathy, Pyrexia, Tachycardia, Abdominal aortic aneurysm. 08/24 VS: T 102.6, P 127, R 20, BP 148/112, 106/63, PO 95 4Lnc, BMI: 22.8 08/24 LAB: Plt Ct 131, Lymph 0.3; PT 12.3, INR 1.2; Na 135, Glucose 107, total Bilirubin 1.5 UA: Cloudy, 1+ protein, 2+ Ketones, Small Blood. Alcohol <10 COVID Detected Influenza A/B: not detected 08/24 CXR: Suspected airspace disease superimposed on chronic interstitial changes & COPD. Correlate for aspiration. 08/24 CT Abd/Pelvis: Large lower AAA w/aortofemoral bypass graft: patent. Subsegmental atelectasis at the lung bases. Plaque formation in the celiac artery & superior mesenteric artery. Atelectasis at the lung bases. 08/24 CT Brain: No acute intracranial process. 08/24 EKG: R 122 sinus tachycardia, Right BBB Treatment 08/24: IV Na Chl 1,000 mls @ 999 mls/hr q1H, IV Na Chl 1,000 mls @ 130 mls/hr q7H, IV Ampicillin 100 mls @ 200 mls/hr x1. 08/25: INH Symbicort, INH Ventolin, Lovenox 40 mg sq BID 08/26: IV Zosyn 100 mls @ 25 mls/hr q8H, po Hexadrol, Lovenox sq, IV Vancomycin 250 mls @ 125 mls/hr q12H, IV Mag Sulfate/Dextrose 100 mls @ 100 mls/hr q1H Home meds: Morphine pain pump, Percocet, Glucophage, Kcl, Prilosec, Naloxone, INH Symbicort Please clarify the Type of Encephalopathy, if known: [ x ] Metabolic Encephalopathy [ ] Toxic Encephalopathy [ ] Encephalopathy ruled out [ ] Other, please specify [ ] Unable to determine (Template Last Revised: April 2020) 08/28 Query response documented in the 08/[address] Margarito Reddy: Metabolic Encephalopathy (CDI: MA) MTDD
--- NOTE | 2021-08-27 15:54 | P.PN ---
Subjective Progress Note Date: 08/27/21 This is a 71-year-old male who was recently brought to the emergency room altered mental status via EMS and admitted for further evaluation. Patient reports he lives with his sister and family members and is normally able to care for himself but has been becoming more weak and unable to walk. Patient is somewhat of a poor historian and will have conversation but gets confused often. Patient with some abdominal discomfort with no guarding or rigidity noted on exam and patient reports he was having some nausea but denies vomiting or diarrhea. Patient is currently maintained on oxygen and reports he does not wear this at home. Patient does have a past medical history of asthma, coronary artery disease, heart failure, diabetes, DVT gastroesophageal reflux disease, hyperlipidemia, hypertension, osteoarthritis, and memory impairment. Patient does report chronic back pain as well. Patient also presented to the emergency department with fever and was found to be Covid positive. Patient currently maintained on 6 L via nasal cannula and does report shortness of breath. Pulmonary has been consulted. Chest x-ray showed airspace disease with the lung bases superimposed on chronic interstitial changes and COPD with possible aspiration. EKG showed sinus tachycardia with a heart rate of 122. When asking if the patient was vaccinated for Covid he was unsure and did not believe so. Again, the patient is a poor historian. Pulmonary has been consulted. 08/26/2021 Patient is seen in follow-up this morning appears more awake and alert although continues with confusion. Patient is currently sitting up in the chair and maintained on 5 L of oxygen via nasal cannula with pulmonary following. Patient reports today that he does normally wear oxygen in the outpatient setting although as mentioned previously patient is confused at times. Patient is maintained on oral dexamethasone along with inhalers and subcutaneous Lovenox along with vitamins and was found to have positive blood cultures showing gram- positive clusters and will add vancomycin and follow-up with repeat blood cul tures. Patient also continues with low-grade fevers. Patient reports the tolerating diet with no reports of nausea or vomiting patient denies any chest pain. Have physical therapy evaluate the patient and patient may likely need ECF. 08/27/2021 Patient is seen today and appears to be improving daily in terms of mentation. Patient is maintained on 4L via NC and apparently patient chronically wears this in the outpatient setting although is extremely non-compliant. Patient is also noncompliant with medications. Patient has positive blood cultures micrococcus species and awaiting repeat cultures. ID following and patient is not currently maintained on IV abx. Patient 2d echo shows mild concentric left ventricular hypertrophy with an EF of 55-60% and also moderate aortic stenosis with severely calcified cusps, mild tricuspid regurgitations and mild pulmonary hypertension. Patient is afebrile and PT also evaluated the patient recommending ECF for continued PT/OT therapy. Case management following as patient will need a covid hub and also insurance authorization. Awaiting clearance of blood cultures, although most likely contaminant. 08/26 blood culture is negative x 24 hours. Review of systems: Constitutional: No reports of fatigue, fever, or chills Cardiovascular: No reports of chest pain or palpitations Respiratory: no reports of shortness of breath GI: No reports of nausea, vomiting, or diarrhea : No reports of dysuria or retention Neurovascular: reports of generalized weakness All medications have been reviewed Active Medications Acetaminophen (Acetaminophen Tab 325 Mg Tab) 650 mg PO Q6HR PRN PRN Reason: Mild Pain or Fever > 100.5 Last Admin: 08/27/21 00:17 Dose: 650 mg Albuterol Sulfate (Albuterol Hfa Inhaler) 2 puff INHALATION RT-QID [facility] [place] Last Admin: 08/27/21 11:54 Dose: 2 puff Budesonide/Formoterol Fumarate (Symbicort 160-4.5 Mcg Inhaler) 2 puff INHALATION RT-BID [facility] [place] Last Admin: 08/27/21 09:07 Dose: 2 puff Dexamethasone (Dexamethasone 2 Mg Tab) 6 mg PO DAILY [facility] [place] Last Admin: 08/27/21 08:03 Dose: 6 mg Enoxaparin Sodium (Enoxaparin 40 Mg/0.4 Ml Syringe) 40 mg SQ BID [facility] [place] Last Admin: 08/27/21 08:03 Dose: 40 mg Ibuprofen (Ibuprofen 400 Mg Tab) 400 mg PO Q6HR PRN PRN Reason: Mild Pain or Fever > 100.5 Insulin Aspart (Insulin Aspart (Novolog) 100 Unit/Ml Vial) 0 unit SQ ACHS [facility] [place]; Protocol Last Admin: 08/27/21 12:03 Dose: Not Given Miscellaneous Information (Magnesium Replacement Protocol 1 Each Misc) 1 each MISCELLANE DAILY PRN; Protocol PRN Reason: Per Protocol Naloxone HCl (Naloxone 0.4 Mg/Ml 1 Ml Vial) 0.2 mg IV Q2M PRN PRN Reason: Opioid Reversal Non-Formulary Medication (Morphine Pain Pump) 1 dose SQ CONTINUOUS [facility] [place] Last Admin: 08/27/21 03:54 Dose: Not Given Oxycodone/Acetaminophen (Oxycodone-Apap 10-325mg 1 Each Tab) 1 each PO DAILY [facility] [place] Last Admin: 08/27/21 08:02 Dose: 1 each Pantoprazole Sodium (Pantoprazole 40 Mg Tablet) 40 mg PO AC-BRKFST [facility] [place] Last Admin: 08/27/21 08:03 Dose: 40 mg Potassium Chloride (Potassium Chloride Er 10 Meq Tab.Er.Prt) 20 meq PO DAILY [facility] [place] Last Admin: 08/27/21 08:03 Dose: 20 meq PHYSICAL EXAMINATION: GENERAL: The patient is alert and oriented x2, ill-appearing, unkempt, thin, frail , more awake today and sitting up in the chair HEENT: Pupils are round and equally reacting to light. EOMI. no scleral icterus. No conjunctival pallor. Normocephalic, atraumatic. No pharyngeal erythema. No thyromegaly. CARDIOVASCULAR: S1 and S2 muffled PULMONARY: diminished breath sounds bilaterally with some scattered rhonchi noted. ABDOMEN: soft. Nontender on exam. non-distended, normoactive bowel sounds. No palpable organomegaly. MUSCULOSKELETAL: No joint swelling or deformity. EXTREMITIES: No cyanosis, clubbing, or pedal edema. Mild lower extremity edema noted NEUROLOGICAL: Gross neurological examination did not reveal any focal deficits. Diffuse weakness SKIN: No rashes. Assessment: Altered mental status, metabolic encephalopathy, possibly secondary to COVID-19 Acute hypoxic respiratory failure with shortness of breath possibly secondary to COPD, acute exacerbation and also a component of COVID-19, possible pneumonitis Bacteremia with micrococcus species, possible contaminant Diabetes mellitus Gastroesophageal reflux disease elevated d dimer with no evidence of PE on CTA History of heart failure, chronic diastolic dysfunction with EF of 55-60% moderate pulmonary hypertension History of deep vein thrombosis Hyperlipidemia Hypertension Continued ongoing nicotine dependence Chronic back pain GI prophylaxis DVT prophylaxis Full code Plan: Recommend to continue with current medications and management of COVID-19. Pulmonary following and patient is maintained on Decadron along with vitamin C and D and zinc supplements and will receive albuterol and Symbicort inhalers. Patient currently on 4L via nasal cannula and apparently he does chronically wear this although per family is noncompliant with continued use and medications. Patient also has COPD history. Patient also with weakness and unsure of the home situation as he is currently reporting he lives with his sister and family. Sister currently hospitalized with shortness of breath. Patient has a history of diabetes and [facility] rec reports he takes Glucophage twice a day and will hold this for now and place the patient on Accu-Cheks before meals and at bedtime along with sliding scale and closely monitor. physical therapy evaluated the patient recommending ECF and case management following and working on accepting [facility] facility and also insurance authorization. Patient was found to have positive blood cultures and currently off IV antibiotics with ID following. micrococcus species, possible contaminant. Patient did have a positive d-dimer and CTa is negative for PE and will continue with subcutaneous Lovenox twice daily. Recommend repeat labs and await repeat blood cultures. There is a suspicious lung nodule noted and pulmonary aware and will require outpatient testing. The impression and plan of care has been dictated by Mary Ann Yoo, nurse practitioner as directed. Dr. Margarito MD I have performed a history and examination and MDM of this patient, discussed the same with the dictator, and agree with the dictator's assessment and plan as written ,documented as a scribe. Based on total visit time, I have performed more than 50% of the visit. Any additional findings or plans will be noted. Objective - Vital Signs Vital signs: Vital Signs Temp 97.8 F 08/27/21 06:24 Pulse 74 08/27/21 06:24 Resp 16 08/27/21 06:24 BP 127/74 08/27/21 06:24 Pulse Ox 97 08/27/21 06:24 FiO2 Intake & Output 08/26/21 08/27/21 08/27/21 18:59 06:59 18:59 Output Total 900 Balance -900 Weight 68.039 kg Output: Urine 900 Other: Voiding Method Indwelling Catheter Indwelling Catheter # Voids 5 # Bowel Movements 1 - Labs CBC & Chem 7: 08/27/21 07:00 08/27/21 07:00 Labs: Abnormal Lab Results - Last 24 Hours (Table) 08/26/21 08/26/21 08/26/21 Range/Units 05:38 05:38 05:38 WBC 4.49 L (4.50-10.00) X 10*3/uL MCHC 31.8 L (32.0-37.0) g/dL Plt Count 98 L (140-440) X 10*3/uL Lymphocytes # 0.68 L (0.90-5.00) X 10*3/uL Eosinophils # 0 L (0.04-0.35) X 10*3/uL Sodium (137-145) mmol/L BUN/Creatinine Ratio 23.71 H (12.00-20.00) Ratio POC Glucose (mg/dL) (70-110) mg/dL Calcium 8.2 L (8.7-10.3) mg/dL Magnesium 1.5 L (1.6-2.3) mg/dL Lactate Dehydrogenase 748 H (313-618) U/L C-Reactive Protein 1.3 H (<1.0) mg/dL 08/26/21 08/27/21 08/27/21 Range/Units 20:02 07:00 07:00 WBC 3.1 L (4.50-10.00) X 10*3/uL MCHC 30.9 L (32.0-37.0) g/dL Plt Count 98 L (140-440) X 10*3/uL Lymphocytes # 0.8 L (0.90-5.00) X 10*3/uL Eosinophils # (0.04-0.35) X 10*3/uL Sodium 134 L (137-145) mmol/L BUN/Creatinine Ratio (12.00-20.00) Ratio POC Glucose (mg/dL) 178 H (70-110) mg/dL Calcium 8.1 L (8.7-10.3) mg/dL Magnesium (1.6-2.3) mg/dL Lactate Dehydrogenase (313-618) U/L C-Reactive Protein (<1.0) mg/dL Microbiology - Last 24 Hours (Table) 08/24/21 20:15 Blood Culture - Preliminary Blood No Growth after 48 hours 08/24/21 20:00 Blood Culture Gram Stain - Preliminary Blood 08/24/21 20:00 Blood Culture - Final Blood
[2021-08-27 16:24] LABS: Glucose,Whole Blood 141 mg/dL (70-110)
[2021-08-27] MEDS ORDERED: Magnesium Replacement Protocol 1 EACH MISC MISCELLANE PRN (18:33)
[2021-08-27 20:56] LABS: Glucose,Whole Blood 125 mg/dL (70-110)
[2021-08-28] MEDS: MAGNESIUM SULFATE-D5W PMX 1 GM in DEXTROSE/WATER 1 100ML.BAG IVPB SCH ×2 (00:31→02:44)
[2021-08-28] MEDS: ENOXAPARIN 40 MG/0.4 ML SYRINGE SQ SCH ×2 (00:32→07:59)
[2021-08-28] MEDS: NON FORMULARY DRUG (Morphine Pain Pump 1 DOSE) SQ SCH (03:42)
[2021-08-28 07:05] LABS: Glucose,Whole Blood 77 mg/dL (70-110)
[2021-08-28] MEDS: INSULIN ASPART (NovoLOG) 100 UNIT/ML VIAL SQ SCH ×4 (07:59→21:14)
[2021-08-28] MEDS: oxyCODONE-APAP 10-325MG 1 EACH TAB PO SCH (08:05)
[2021-08-28] MEDS: PANTOPRAZOLE 40 MG TABLET PO SCH (08:05)
[2021-08-28] MEDS: dexAMETHasone 2 MG TAB PO SCH (08:05)
[2021-08-28] MEDS: POTASSIUM CHLORIDE ER 10 MEQ TAB.ER.PRT PO SCH (08:05)
[2021-08-28] MEDS: ALBUTEROL HFA INHALER INHALATION SCH ×4 (08:33→20:22)
[2021-08-28] MEDS: SYMBICORT 160-4.5 MCG INHALER INHALATION SCH ×2 (08:34→20:22)
[2021-08-28 09:29] LABS: HCT 42.8 % (39.0-53.0); HGB 13.7 gm/dL (13.0-17.5); MCH 30.1 pg (25.0-35.0); MCHC 31.9 g/dL (31.0-37.0); MCV 94.3 fL (80.0-100.0); Mean Platelet Volume 10.7; Platelet Count 104 k/uL (150-450); RBC 4.54 m/uL (4.30-5.90); RDW 13.8 % (11.5-15.5); WBC 5.7 k/uL (3.8-10.6)
[2021-08-28] MEDS: ZINC SULFATE 220 MG CAP PO SCH (10:37)
[2021-08-28] MEDS: NICOTINE 21MG/24HR PATCH TRANSDERM SCH (10:37)
[2021-08-28] MEDS: ASCORBIC ACID 500 MG TAB PO SCH (10:37)
[2021-08-28] MEDS: CHOLECALCIFEROL 25 MCG (1000 IU) TABLET PO SCH (10:37)
[2021-08-28 10:38] LABS: Appearance,Urine Clear (Clear); Bilirubin,Urine Negative (Negative); Blood,Urine Large (Negative); Color,Urine Light Red; Glucose,Urine (UA) Negative (Negative); Ketones,Urine Negative (Negative); Leukocyte Esterase,Urine Small (Negative); Nitrite,Urine Negative (Negative); PH, Urine 6.5 (5.0-8.0); Protein,Urine Trace (Negative); RBC,Urine >182 /hpf (0-5); Specific Gravity,Urine 1.015 (1.001-1.035); Urobilinogen,Urine <2.0 mg/dL (<2.0); WBC,Urine 18 /hpf (0-5)
--- NOTE | 2021-08-28 11:37 | P.PN ---
Subjective Progress Note Date: 08/28/21 71-year-old male, seen in room 8, and emergency department. The patient looks much older than his stated age. He has a history of abdominal aortic aneurysm, diabetes, coronary disease, and COPD. The patient apparently came in to the emergency room, with mental status changes. EMS apparently provided history to the physician in the emergency department. He apparently been weak and poorly responsive at home. He apparently lives with his sister and nephew. Over the couple days or so prior to admission to the emergency department, the patient's mental status to decline. He also apparently smelled of urine. He apparently also had a high fever and cough, and some shortness of breath. Currently, the patient's on 3 L nasal cannula. He is getting saline at 130 mL an hour. The patient is a very poor historian. The patient did test positive for coronavirus. He states he is vaccinated. Medical history the chart includes COPD, diabetes, and GERD. The patient does continue to smoke cigarettes. White count 5.6, hemoglobin 14.9, hematocrit 45.3, platelet count 231,000. PT 12.3 INR 1.2 PTT 27.6. Sodium 135, potassium 4, chlorides 101, CO2 22, BUN 20, and creatinine 0.78. Total bilirubin was 1.5. Urine has 2+ ketones small amount of blood 1+ protein and rare mucus. Testing for coronavirus was positive. Brain CT was negative. Chest x-ray shows some possible bibasilar airspace disease in a patient with possible underlying COPD chronic interstitial changes. Progress note dated 08/26/2021. The patient was seen in consultation yesterday. Please see my note above. 71-year-old male, again seen in room 455. Currently, the patient's getting Zosyn and vancomycin. Blood cultures were positive for gram-positive cocci in clusters. He's not receiving any IV fluids. He is on 5 L nasal cannula. He appears much more awake and alert today although his memory is not that great. Lab data today includes a sodium 137, potassium 3.7, chlorides 101, CO2 26, anion gap 11, BUN 17, creatinine 0.7. Glucose is 94. Calcium 8.2, magnesium 1.5, LDH 748, and C-reactive protein 1.3. Blood cultures were positive for gram-positive cocci in clusters. For that reason, vancomycin was added until identification is determined. Progress note dated 08/27/2021. The patient is seen in room 455. He appears relatively comfortable. He is currently on 4 L nasal cannula. Saturations are in the low 90s. The patient has no new complaints today. He is feeling better. Blood cultures did show gram-positive cocci in clusters. He previously was on Zosyn and vancomycin. White count 3.1, he will 14.2, hematocrit 46.1, and platelet count 98,000. Sodium 134, potassium 4, chlorides 103, CO2 25, within normal BUN and creatinine. CT angiogram was negative for pulmonary embolism. There is a suspicious-appearing pulmonary nodule, left upper lobe, with mild spiculation. It measures 8.1 mm in size. It would need follow-up. The patient is seen today 08/28/2021 in follow up. He is doing better. No shortness of breath, cough or congestion. Maintaining O2 saturations in the 90's on 6L nasal canula. He is currently resting in bed. He did have some episodes of confusion and pulled out his Galeas catheter. He di have hematuria following that as well. Blood cultures reveal no growth. White count 5.7. Hemoglobin 13.7. Platelets 104. He is continued on Decadron, lovenox, vitamin supplements. Nicoderm patch in place. Objective - Vital Signs Vital signs: Vital Signs Temp 98.2 F 08/28/21 08:08 Pulse 106 H 08/28/21 08:15 Resp 18 08/28/21 08:15 BP 125/68 08/28/21 08:08 Pulse Ox 92 L 08/28/21 08:34 FiO2 Intake & Output 08/27/21 08/28/21 08/28/21 18:59 06:59 18:59 Intake Total 75 450 Output Total 1300 750 Balance -1225 -300 Intake: Intake, IV Titration 75 Amount Piperacillin-Tazobactam 3 25 .375 gm In Sodium Chloride 0.9% 100 ml @ 25 mls/hr IVPB Q8HR [facility] Rx# :[id number] Vancomycin 1,250 mg In 50 Sodium Chloride 0.9% 250 ml @ 125 mls/hr IVPB Q12HR [facility] Rx#:[id number] Oral 450 Output: Urine 1300 750 Other: Voiding Method Indwelling Catheter Indwelling Catheter # Voids 1 # Bowel Movements 4 - Exam 71 year old male patient. No acute distress, oriented 2. On 6 liters nasal canula. No conversational dyspnea or use of accessory muscles. HEENT examination is grossly unremarkable. Neck supple. Full range of motion. No adenopathy thyromegaly or neck vein distention. Cardiovascular examination reveals regular rhythm rate. S1-S2 normal. No S3 or S4. No discernible murmur noted. Heart sounds are distant. Lungs reveal scattered bilateral rhonchi. No wheezes. No crackles. Breath sounds equal bilaterally. Abdomen soft bowel sounds are heard. No masses or tenderness. Extremities reveal lower extremity chronic venous stasis changes, with mild edema. No cyanosis or clubbing. Skin is without rash or lesion. Neurologic examination is brief but nonfocal. - Labs CBC & Chem 7: 08/28/21 05:42 08/27/21 07:00 Labs: Abnormal Lab Results - Last 24 Hours (Table) 08/27/21 08/27/21 08/28/21 Range/Units 16:23 20:53 05:42 Plt Count 104 L (150-450) k/uL POC Glucose (mg/dL) 141 H 125 H (70-110) mg/dL Urine Protein (Negative) Urine Blood (Negative) Ur Leukocyte Esterase (Negative) Urine RBC (0-5) /hpf Urine WBC (0-5) /hpf 08/28/21 Range/Units 09:30 Plt Count (150-450) k/uL POC Glucose (mg/dL) (70-110) mg/dL Urine Protein Trace H (Negative) Urine Blood Large H (Negative) Ur Leukocyte Esterase Small H (Negative) Urine RBC >182 H (0-5) /hpf Urine WBC 18 H (0-5) /hpf Microbiology - Last 24 Hours (Table) 08/26/21 08:47 Blood Culture - Preliminary Blood No Growth after 48 hours 08/27/21 07:00 Blood Culture - Preliminary Blood No Growth after 24 hours 08/24/21 20:15 Blood Culture Gram Stain - Preliminary Blood 08/24/21 20:15 Blood Culture - Final Blood 08/24/21 20:00 Blood Culture Gram Stain - Final Blood Blood Culture - Final Micrococcus species Assessment and Plan Assessment: Acute mental status changes, currently being evaluated by the primary service. Brain CT was negative for anything acute. Shortness of breath, likely related to patient's underlying COPD, as well as possible coronavirus associated pneumonitis. Ongoing tobacco use with nicotine addiction. 8 mm pulmonary nodule, left upper lobe, spiculation, which will need outpatient follow-up. History of diabetes mellitus. History of gastroesophageal reflux disease. Possible coronary artery disease. History of heart failure. History of deep venous thrombosis. History of hyperlipidemia. History of hypertension. Prostate cancer, status post radiation, 2005. History of melanoma. History of bladder cancer. Multiple other medical problems and comorbidities. Plan: The patient was seen and evaluated Stable from the pulmonary stanpoint Titrate down the FiO2 as tolerated Continue Decadron, bronchodilators Continue vitamin supplements Plan is for subacute rehabilitation I have personally seen and examined the patient, performed the documentation and the assessment and plan as written. Number of minutes spent on the visit: 10.
[2021-08-28 11:48] LABS: Glucose,Whole Blood 97 mg/dL (70-110)
[2021-08-28 17:06] LABS: Glucose,Whole Blood 108 mg/dL (70-110)
--- NOTE | 2021-08-28 17:21 | P.GSCN ---
History of Present Illness Consult date: 08/28/21 Reason for Consult: Urethral bleeding Requesting physician: Mary Ann Yoo History of present illness: The patient is a 71-year-old white male admitted with weakness and mental status changes. He has tested positive for COVID. He had an indwelling Galeas catheter, which he removed traumatically. He has been noted to have significant bleeding since that time. I am consulted for this reason. He reports mild discomfort with micturition. Review of Systems ROS unobtainable: due to mental status Past Medical History Past Medical History: Asthma, Coronary Artery Disease (CAD), Cancer, Heart Failure, Diabetes Mellitus, Deep Vein Thrombosis (DVT), GERD/Reflux, Hyperlipidemia, Hypertension, Memory Impairment, Osteoarthritis (OA) Additional Past Medical History / Comment(s): Coronary artery disease, moderate to severe aortic valve stenosis, COPD, history of prostate cancer treated by radiation therapy back in 2005, history of melanoma of the back resected, history of lip cancer resected, history of bladder cancers treated intravesicular chemotherapy, abdominal aortic aneurysm surgically repaired, history of chronic back pain and the patient is a pain stimulator in place and the patient has undergone L4-L5 spinal fusion, diabetes mellitus, history of DVT, hypertension, hyperlipidemia, osteoarthritis, hiatal hernia History of Any Multi-Drug Resistant Organisms: None Reported Past Surgical History: Back Surgery, Bladder Surgery, Heart Catheterization With Stent, Hernia Repair, Orthopedic Surgery Additional Past Surgical History / Comment(s): Insertion of a pain pump on 11/07/2016 for chronic back pain/pain stimulator, abdominal aortic aneurysm repair 2, back pain with spinal fusion at the level of L4-L5, left inguinal hernia repair, abdominal hernia repair, THERESA, removal of a venous clot from the lower extremity in the setting of DVT, bladder surgery with intravesicular chemotherapy, cardiac catheterization with insertion of coronary stents, hernia repair Past Anesthesia/Blood Transfusion Reactions: No Reported Reaction Additional Past Anesthesia/Blood Transfusion Reaction / Comm: CLAUSTROPHOBIA Date of Last Stent Placement:: UNK Past Psychological History: Depression Additional Psychological History / Comment(s): SOMETIMES GETS DEPRESSED, NO MEDS TAKEN. Smoking Status: Current every day smoker Past Alcohol Use History: None Reported Additional Past Alcohol Use History / Comment(s): STARTED SMOKING AT AGE 14-15 SMOKES LESS THAN 1/2 PPD. Past Drug Use History: Marijuana Additional Drug Use History / Comment(s): OCC SMOKES MARIJUANA FOR PAIN. - Past Family History Father History Unknown: Yes Mother History Unknown: Yes Medications and Allergies Home Medications Medication Instructions Recorded Confirmed Type oxyCODONE-APAP 10-325MG [Percocet 1 tab PO DAILY 10/31/14 08/24/21 History 10-325 mg] Omeprazole [PriLOSEC] 20 mg PO DAILY 12/05/18 08/24/21 History metFORMIN HCL [Glucophage] 850 mg PO BID 12/05/18 08/24/21 History Budesonide/Formoterol Fumarate 2 puff INHALATION RT-BID 11/11/20 08/24/21 His tory [Symbicort 160-4.5 Mcg Inhaler] Potassium Chloride [Potassium 20 meq PO DAILY 11/11/20 08/24/21 History Chloride ER] Morphine Pain Pump 1 dose SQ CONTINUOUS 08/24/21 08/24/21 History Naloxone HCl 4 mg NS ONETIME PRN 08/24/21 08/24/21 History Allergies Allergy/AdvReac Type Severity Reaction Status Date / Time No Known Allergies Allergy Verified 08/24/21 21:58 Surgical - Exam Vital Signs Temp Pulse Resp BP Pulse Ox 102.6 F H 127 H 20 148/112 95 08/24/21 20:01 08/24/21 20:01 08/24/21 20:01 08/24/21 20:01 08/24/21 20:01 - General well developed, well nourished, no distress - Respiratory normal respiratory effort - Abdomen Abdomen: soft, non tender, no guarding, no rigid, no rebound - Genitourinary The penis is normal. The scrotum and testes are normal. A small amount of blood is noted at the meatus. There is no active urethral bleeding. Results - Labs 08/28/21 05:42 08/27/21 07:00 Abnormal Lab Results - Last 24 Hours (Table) 08/27/21 08/28/21 08/28/21 Range/Units 20:53 05:42 09:30 Plt Count 104 L (150-450) k/uL POC Glucose (mg/dL) 125 H (70-110) mg/dL Urine Protein Trace H (Negative) Urine Blood Large H (Negative) Ur Leukocyte Esterase Small H (Negative) Urine RBC >182 H (0-5) /hpf Urine WBC 18 H (0-5) /hpf Microbiology - Last 24 Hours (Table) 08/28/21 09:30 Urine Culture - Preliminary Urine,Voided 08/26/21 08:47 Blood Culture - Preliminary Blood No Growth after 48 hours 08/27/21 07:00 Blood Culture - Preliminary Blood No Growth after 24 hours 08/24/21 20:15 Blood Culture Gram Stain - Preliminary Blood 08/24/21 20:15 Blood Culture - Final Blood Assessment and Plan (1) Transient iatrogenic urethrorrhagia Current Visit: Yes Status: Acute Code(s): N36.8 - OTHER SPECIFIED DISORDERS OF URETHRA SNOMED Code(s): 852786170 Plan: Urethral bleeding following traumatic Galeas catheter removal is common. Fortunately, it is self-limited. Bladder scan will be utilized to assess bladder emptying. I am hopeful that the Galeas catheter may remain out to prevent further urethral injury, and I will recommend that the catheter be replaced only for urinary retention. Thank you for allowing me to participate in Mr. Estrada's care.
--- NOTE | 2021-08-28 19:12 | P.PN ---
Subjective This is a 71-year-old male who was recently brought to the emergency room altered mental status via EMS and admitted for further evaluation. Patient reports he lives with his sister and family members and is normally able to care for himself but has been becoming more weak and unable to walk. Patient is somewhat of a poor historian and will have conversation but gets confused often. Patient with some abdominal discomfort with no guarding or rigidity noted on exam and patient reports he was having some nausea but denies vomiting or diarrhea. Patient is currently maintained on oxygen and reports he does not wear this at home. Patient does have a past medical history of asthma, coronary artery disease, heart failure, diabetes, DVT gastroesophageal reflux disease, hyperlipidemia, hypertension, osteoarthritis, and memory impairment. Patient does report chronic back pain as well. Patient also presented to the emergency department with fever and was found to be Covid positive. Patient currently maintained on 6 L via nasal cannula and does report shortness of breath. Pulmonary has been consulted. Chest x-ray showed airspace disease with the lung bases superimposed on chronic interstitial changes and COPD with possible aspiration. EKG showed sinus tachycardia with a heart rate of 122. When asking if the patient was vaccinated for Covid he was unsure and did not believe so. Again, the patient is a poor historian. Pulmonary has been consulted. 08/26/2021 Patient is seen in follow-up this morning appears more awake and alert although continues with confusion. Patient is currently sitting up in the chair and maintained on 5 L of oxygen via nasal cannula with pulmonary following. Patient reports today that he does normally wear oxygen in the outpatient setting although as mentioned previously patient is confused at times. Patient is maintained on oral dexamethasone along with inhalers and subcutaneous Lovenox along with vitamins and was found to have positive blood cultures showing gram- positive clusters and will add vancomycin and follow-up with repeat blood cultures. Patient also continues with low-grade fevers. Patient reports the tolerating diet with no reports of nausea or vomiting patient denies any chest pain. Have physical therapy evaluate the patient and patient may likely need ECF. 08/27/2021 Patient is seen today and appears to be improving daily in terms of mentation. Patient is maintained on 4L via NC and apparently patient chronically wears this in the outpatient setting although is extremely non-compliant. Patient is also noncompliant with medications. Patient has positive blood cultures micrococcus species and awaiting repeat cultures. ID following and patient is not currently maintained on IV abx. Patient 2d echo shows mild concentric left ventricular hypertrophy with an EF of 55-60% and also moderate aortic stenosis with severely calcified cusps, mild tricuspid regurgitations and mild pulmonary hypertension. Patient is afebrile and PT also evaluated the patient recommending ECF for continued PT/OT therapy. Case management following as patient will need a covid hub and also insurance authorization. Awaiting clearance of blood cultures, although most likely contaminant. 08/26 blood culture is negative x 24 hours. 08/28/2021 Patient is a pleasant 71 years old male with multiple medical problems was admitted with acute hypoxic respiratory failure on chronic respiratory failure secondary to Covid pneumonia and COPD and his been evaluated by pulmonary team and cleared for discharge. Currently he is on dexamethasone and vitamin C, vitamin D and zinc. Also he is on Lovenox for DVT prophylaxis Patient today has traumatic hematuria secondary to accidental pulling of Galeas catheter overnight, patient states that he was agitated because he wanted to smoke that's why he pulled his Galeas. Evaluated by urologist, bladder scan showing no urinary retention. Continue with monitoring hemoglobin tomorrow. Ejection fraction showing 55-60% with moderate aortic stenosis. Patient informed about his 8 mm left upper lobe lung nodule with recommendation for outpatient follow-up with Dr. Turcios, risks including but not limited to cancer are explained for him and he told me he will follow-up and that he verbalized understanding and acceptance. Also patient pending authorization for ECF for rehab We will consult vascular surgery team for his 8.2 cm abdominal aortic aneurysm Objective - Vital Signs Vital signs: Vital Signs Temp 98.2 F 08/28/21 08:08 Pulse 106 H 08/28/21 08:15 Resp 18 08/28/21 08:15 BP 125/68 08/28/21 08:08 Pulse Ox 92 L 08/28/21 08:34 FiO2 Intake & Output 08/27/21 08/28/21 08/28/21 18:59 06:59 18:59 Intake Total 75 450 Output Total 1300 750 Balance -1225 -300 Weight 68.039 kg Intake: Intake, IV Titration 75 Amount Piperacillin-Tazobactam 3 25 .375 gm In Sodium Chloride 0.9% 100 ml @ 25 mls/hr IVPB Q8HR [facility] Rx# :[id number] Vancomycin 1,250 mg In 50 Sodium Chloride 0.9% 250 ml @ 125 mls/hr IVPB Q12HR [facility] Rx#:[id number] Oral 450 Output: Urine 1300 750 Other: Voiding Method Indwelling Catheter Indwelling Catheter # Voids 1 # Bowel Movements 4 - Exam GENERAL: The patient is alert and oriented x3, not in any acute distress. Well developed, well nourished. HEENT: Pupils are round and equally reacting to light. EOMI. No scleral icterus. No conjunctival pallor. Normocephalic, atraumatic. No pharyngeal erythema. No thyromegaly. CARDIOVASCULAR: S1 and S2 present. No murmurs, rubs, or gallops. PULMONARY: Chest is clear to auscultation, no wheezing or crackles. ABDOMEN: Soft, nontender, nondistended, normoactive bowel sounds. No palpable organomegaly. MUSCULOSKELETAL: No joint swelling or deformity. EXTREMITIES: No cyanosis, clubbing, or pedal edema. NEUROLOGICAL: Gross neurological examination did not reveal any focal deficits. SKIN: No rashes. no petechiae. - Labs CBC & Chem 7: 08/28/21 05:42 08/27/21 07:00 Labs: Abnormal Lab Results - Last 24 Hours (Table) 08/27/21 08/27/21 08/28/21 Range/Units 16:23 20:53 05:42 Plt Count 104 L (150-450) k/uL POC Glucose (mg/dL) 141 H 125 H (70-110) mg/dL Urine Protein (Negative) Urine Blood (Negative) Ur Leukocyte Esterase (Negative) Urine RBC (0-5) /hpf Urine WBC (0-5) /hpf 08/28/21 Range/Units 09:30 Plt Count (150-450) k/uL POC Glucose (mg/dL) (70-110) mg/dL Urine Protein Trace H (Negative) Urine Blood Large H (Negative) Ur Leukocyte Esterase Small H (Negative) Urine RBC >182 H (0-5) /hpf Urine WBC 18 H (0-5) /hpf Microbiology - Last 24 Hours (Table) 08/26/21 08:47 Blood Culture - Preliminary Blood No Growth after 48 hours 08/27/21 07:00 Blood Culture - Preliminary Blood No Growth after 24 hours 08/24/21 20:15 Blood Culture Gram Stain - Preliminary Blood 08/24/21 20:15 Blood Culture - Final Blood 08/24/21 20:00 Blood Culture Gram Stain - Final Blood Blood Culture - Final Micrococcus species Assessment and Plan Assessment: Altered mental status, metabolic encephalopathy, possibly secondary to COVID-19 Acute hypoxic respiratory failure with shortness of breath possibly secondary to COPD, acute exacerbation and also a component of COVID-19pneumonitis Bacteremia with micrococcus species, possible contaminant. No antibiotics per ID team 8.2 cm abdominal aortic aneurysm Moderate aortic stenosis Diabetes mellitus Gastroesophageal reflux disease elevated d dimer with no evidence of PE on CTA History of heart failure, chronic diastolic dysfunction with EF of 55-60% moderate pulmonary hypertension History of deep vein thrombosis Hyperlipidemia Hypertension Continued ongoing nicotine dependence Chronic back pain Plan: This is a pleasant 71 years old male with Covid pneumonia, contaminant anemia with no need for antibiotic per ID team Continue with dexamethasone and vitamin C, D and zinc. Pulmonary team already cleared the patient Patient is already on oxygen at home, he is at baseline. No antibiotics per ID team, blood culture most likely is contaminant. Tubular blood culture is negative and patient is asymptomatic. 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 Neurologist on the case Labs and medication were reviewed.. Continue same treatment. Continue with symptomatic treatment. Resume home medication. Monitor lytes and vitals. DVT and GI prophylaxis. Further recommendations as per clinical course of the patient DVT prophylaxis: Subcutaneous Lovenox GI Prophylaxis: Ppi PT/OT: Subacute rehab pending authorization Prognosis is guarded
[2021-08-28 20:53] LABS: Glucose,Whole Blood 134 mg/dL (70-110)
--- NOTE | 2021-08-28 23:51 | P.PN ---
Subjective Progress Note Date: 08/27/21 Principal diagnosis: Covid 19 and bacteremia Patient is a 71-year-old male with a past medical history significant for COPD diabetes mellitus presented to the hospital mental status changes and did have a fever and has been diagnosed with Covid 19 infection, also noticed to have a positive blood culture. On today's evaluation that is 08/27/2021, the patient denies having any fever or any chills, the patient is breathing comfortably denies nausea and denies having any chest painand colposcopic production no abdominal pain no diarrhea Objective - Vital Signs Vital signs: Vital Signs Temp 97.8 F 08/27/21 06:24 Pulse 74 08/27/21 07:40 Resp 16 08/27/21 07:40 BP 127/74 08/27/21 06:24 Pulse Ox 97 08/27/21 06:24 FiO2 Intake & Output 08/26/21 08/27/21 08/27/21 18:59 06:59 18:59 Output Total 900 Balance -900 Weight 68.039 kg Output: Urine 900 Other: Voiding Method Indwelling Catheter Indwelling Catheter Indwelling Catheter # Voids 5 # Bowel Movements 1 - Exam GENERAL DESCRIPTION: An elderly male up in the chair in no distress RESPIRATORY SYSTEM: Unlabored breathing , decreased breath sounds at bases HEART: S1 S2 regular rate and rhythm , ABDOMEN: Soft , no tenderness EXTREMITIES: No edema feet - Labs CBC & Chem 7: 08/28/21 05:42 08/27/21 07:00 Labs: Abnormal Lab Results - Last 24 Hours (Table) 08/26/21 08/26/21 08/27/21 Range/Units 05:38 20:02 07:00 WBC 4.49 L (4.50-10.00) X 10*3/uL MCHC 31.8 L (32.0-37.0) g/dL Plt Count 98 L (140-440) X 10*3/uL Lymphocytes # 0.68 L (0.90-5.00) X 10*3/uL Eosinophils # 0 L (0.04-0.35) X 10*3/uL Sodium 134 L (137-145) mmol/L POC Glucose (mg/dL) 178 H (70-110) mg/dL Calcium 8.1 L (8.4-10.2) mg/dL 08/27/21 Range/Units 07:00 WBC 3.1 L (4.50-10.00) X 10*3/uL MCHC 30.9 L (32.0-37.0) g/dL Plt Count 98 L (140-440) X 10*3/uL Lymphocytes # 0.8 L (0.90-5.00) X 10*3/uL Eosinophils # (0.04-0.35) X 10*3/uL Sodium (137-145) mmol/L POC Glucose (mg/dL) (70-110) mg/dL Calcium (8.4-10.2) mg/dL Microbiology - Last 24 Hours (Table) 08/26/21 08:47 Blood Culture - Preliminary Blood No Growth after 24 hours 08/24/21 20:15 Blood Culture - Preliminary Blood No Growth after 48 hours 08/24/21 20:00 Blood Culture Gram Stain - Preliminary Blood 08/24/21 20:00 Blood Culture - Final Blood Assessment and Plan (1) COVID-19 Current Visit: Yes Status: Acute Code(s): U07.1 - COVID-19 SNOMED Code(s): 973993101 Plan: 1patient presented hospital with mental status changes some cough patient did have a fever more likely related to underlying COVID-19 infection in this patient seem to have shown clinical improvement with the current treatment provided by pulmonary including dexamethasone Lovenox zinc and ascorbic acid to continue no evidence of any secondary bacterial pneumonia with normal procalcitonin. 2patient is a positive blood culture with gram-positive cocci waiting for the final ID, blood cultures will be repeated document clearance of bacteremia which is so far negative. 3phlebitis has been discontinued by the pulmonary will monitor the patient closely off antibiotic Time with Patient: Less than 30
--- NOTE | 2021-08-28 23:53 | P.PN ---
Subjective Progress Note Date: 08/28/21 Principal diagnosis: Covid 19 and bacteremia Patient is a 71-year-old male with a past medical history significant for COPD diabetes mellitus presented to the hospital mental status changes and did have a fever and has been diagnosed with Covid 19 infection, also noticed to have a positive blood culture. On today's evaluation that is 08/28/2021, the patient remains to be afebrile, the patient is breathing comfortably on nasal cannula oxygen, the patient denies any chest pain no worsening cough or sputum production no abdominal pain no diarrhea, patient has pulled out his Galeas catheter with resulting hematuria Objective - Vital Signs Vital signs: Vital Signs Temp 98.2 F 08/28/21 08:08 Pulse 106 H 08/28/21 08:15 Resp 18 08/28/21 08:15 BP 125/68 08/28/21 08:08 Pulse Ox 92 L 08/28/21 08:34 FiO2 Intake & Output 08/27/21 08/28/21 08/28/21 18:59 06:59 18:59 Intake Total 75 450 Output Total 1300 750 Balance -1225 -300 Intake: Intake, IV Titration 75 Amount Piperacillin-Tazobactam 3 25 .375 gm In Sodium Chloride 0.9% 100 ml @ 25 mls/hr IVPB Q8HR [facility] Rx# :[id number] Vancomycin 1,250 mg In 50 Sodium Chloride 0.9% 250 ml @ 125 mls/hr IVPB Q12HR [facility] Rx#:[id number] Oral 450 Output: Urine 1300 750 Other: Voiding Method Indwelling Catheter Indwelling Catheter # Voids 1 # Bowel Movements 4 - Exam GENERAL DESCRIPTION: An elderly male up in the chair in no distress RESPIRATORY SYSTEM: Unlabored breathing , decreased breath sounds at bases HEART: S1 S2 regular rate and rhythm , ABDOMEN: Soft , no tenderness EXTREMITIES: No edema feet - Labs CBC & Chem 7: 08/28/21 05:42 08/27/21 07:00 Labs: Abnormal Lab Results - Last 24 Hours (Table) 08/27/21 08/27/21 08/28/21 Range/Units 16:23 20:53 05:42 Plt Count 104 L (150-450) k/uL POC Glucose (mg/dL) 141 H 125 H (70-110) mg/dL Urine Protein (Negative) Urine Blood (Negative) Ur Leukocyte Esterase (Negative) Urine RBC (0-5) /hpf Urine WBC (0-5) /hpf 08/28/21 Range/Units 09:30 Plt Count (150-450) k/uL POC Glucose (mg/dL) (70-110) mg/dL Urine Protein Trace H (Negative) Urine Blood Large H (Negative) Ur Leukocyte Esterase Small H (Negative) Urine RBC >182 H (0-5) /hpf Urine WBC 18 H (0-5) /hpf Microbiology - Last 24 Hours (Table) 08/26/21 08:47 Blood Culture - Preliminary Blood No Growth after 48 hours 08/27/21 07:00 Blood Culture - Preliminary Blood No Growth after 24 hours 08/24/21 20:15 Blood Culture Gram Stain - Preliminary Blood 08/24/21 20:15 Blood Culture - Final Blood 08/24/21 20:00 Blood Culture Gram Stain - Final Blood Blood Culture - Final Micrococcus species Assessment and Plan (1) Positive blood culture Current Visit: Yes Status: Acute Code(s): R78.81 - BACTEREMIA SNOMED Code(s): 414829990 (2) COVID-19 Current Visit: Yes Status: Acute Code(s): U07.1 - COVID-19 SNOMED Code(s): 172094971 Plan: 1patient presented hospital with mental status changes some cough patient did have a fever more likely related to underlying COVID-19 infection in this patient seem to have shown clinical improvement with the current treatment provided by pulmonary including dexamethasone Lovenox zinc and ascorbic acid to continue no evidence of any secondary bacterial pneumonia with normal procalc itonin. 2patient with positive blood culture which has been finalized as Micrococcus likely skin contaminant review blood culture had been negative and no need for vancomycin 3patient is currently being monitor off antibiotics and so far doing well there is no need for any antibiotic on discharge and this was discussed with the admitting physician Time with Patient: Less than 30
[2021-08-29] MEDS: NON FORMULARY DRUG (Morphine Pain Pump 1 DOSE) SQ SCH (03:05)
[2021-08-29 07:21] LABS: Glucose,Whole Blood 80 mg/dL (70-110)
[2021-08-29] MEDS: INSULIN ASPART (NovoLOG) 100 UNIT/ML VIAL SQ SCH ×4 (07:25→21:40)
[2021-08-29] MEDS: SYMBICORT 160-4.5 MCG INHALER INHALATION SCH ×2 (08:22→20:50)
[2021-08-29] MEDS: ALBUTEROL HFA INHALER INHALATION SCH ×4 (08:22→20:50)
--- NOTE | 2021-08-29 08:38 | P.PN ---
Progress Note - Text Progress Note Date: 08/29/21 Mr. Estrada's Galeas catheter remains out. His urethral bleeding has essentially resolved, and he indicates that he is voiding without difficulty. He will not require any urologic intervention, and I would suggest that the Galeas catheter be replaced only if he develops urinary retention. Please notify me if I can be of any further assistance.
[2021-08-29 08:51] LABS: HCT 39.6 % (39.6-50.0); HGB 12.8 g/dL (13.0-17.0); MCHC 32.3 g/dL (32.0-37.0); MCV 89.8 fL (80.0-97.0); Mean Platelet Volume 12.4 fL (9.5-12.2); NRBC Per 100 WBC 0 /100 WBCS (0.0-0.0); Platelet Count 103 X 10*3/uL (140-440); RBC 4.41 X 10*6/uL (4.40-5.60); RDW 13.7 % (11.5-14.5)
[2021-08-29] MEDS: dexAMETHasone 2 MG TAB PO SCH (09:12)
[2021-08-29] MEDS: POTASSIUM CHLORIDE ER 10 MEQ TAB.ER.PRT PO SCH (09:12)
[2021-08-29] MEDS: ENOXAPARIN 40 MG/0.4 ML SYRINGE SQ SCH (09:12)
[2021-08-29] MEDS: PANTOPRAZOLE 40 MG TABLET PO SCH (09:13)
[2021-08-29] MEDS: CHOLECALCIFEROL 25 MCG (1000 IU) TABLET PO SCH (09:13)
[2021-08-29] MEDS: ZINC SULFATE 220 MG CAP PO SCH (09:13)
[2021-08-29] MEDS: oxyCODONE-APAP 10-325MG 1 EACH TAB PO SCH (09:13)
[2021-08-29] MEDS: NICOTINE 21MG/24HR PATCH TRANSDERM SCH (09:14)
[2021-08-29] MEDS: ASCORBIC ACID 500 MG TAB PO SCH (09:14)
[2021-08-29 11:21] LABS: African American GFR (CKD) 107.2 (60.0-200.0); Albumin 3.9 g/dL (3.8-4.9); Albumin/Globulin Ratio 1.56 (1.60-3.17); Anion Gap 9.2 mmol/L (10.00-18.00); BUN/Creat Ratio 18.97 Ratio (12.00-20.00); Blood Urea Nitrogen 14.4 mg/dL (9.0-27.0); Calcium 8.9 mg/dL (8.7-10.3); Carbon Dioxide 30.6 mmol/L (20.0-27.5); Globulin 2.5 g/dL (1.6-3.3); Non-African American GFR(CKD) 92.5 (60.0-200.0); Potassium 4.6 mmol/L (3.5-5.5); Total Bilirubin 0.6 mg/dL (0.30-1.20); Total Protein 6.3 g/dL (6.2-8.2)
[2021-08-29 11:39] LABS: Glucose,Whole Blood 93 mg/dL (70-110)
--- NOTE | 2021-08-29 12:28 | P.PN ---
Subjective Progress Note Date: 08/29/21 71-year-old male, seen in room 8, and emergency department. The patient looks much older than his stated age. He has a history of abdominal aortic aneurysm, diabetes, coronary disease, and COPD. The patient apparently came in to the emergency room, with mental status changes. EMS apparently provided history to the physician in the emergency department. He apparently been weak and poorly responsive at home. He apparently lives with his sister and nephew. Over the couple days or so prior to admission to the emergency department, the patient's mental status to decline. He also apparently smelled of urine. He apparently also had a high fever and cough, and some shortness of breath. Currently, the patient's on 3 L nasal cannula. He is getting saline at 130 mL an hour. The patient is a very poor historian. The patient did test positive for coronavirus. He states he is vaccinated. Medical history the chart includes COPD, diabetes, and GERD. The patient does continue to smoke cigarettes. White count 5.6, hemoglobin 14.9, hematocrit 45.3, platelet count 231,000. PT 12.3 INR 1.2 PTT 27.6. Sodium 135, potassium 4, chlorides 101, CO2 22, BUN 20, and creatinine 0.78. Total bilirubin was 1.5. Urine has 2+ ketones small amount of blood 1+ protein and rare mucus. Testing for coronavirus was positive. Brain CT was negative. Chest x-ray shows some possible bibasilar airspace disease in a patient with possible underlying COPD chronic interstitial changes. Progress note dated 08/26/2021. The patient was seen in consultation yesterday. Please see my note above. 71-year-old male, again seen in room 455. Currently, the patient's getting Zosyn and vancomycin. Blood cultures were positive for gram-positive cocci in clusters. He's not receiving any IV fluids. He is on 5 L nasal cannula. He appears much more awake and alert today although his memory is not that great. Lab data today includes a sodium 137, potassium 3.7, chlorides 101, CO2 26, anion gap 11, BUN 17, creatinine 0.7. Glucose is 94. Calcium 8.2, magnesium 1.5, LDH 748, and C-reactive protein 1.3. Blood cultures were positive for gram-positive cocci in clusters. For that reason, vancomycin was added until identification is determined. Progress note dated 08/27/2021. The patient is seen in room 455. He appears relatively comfortable. He is currently on 4 L nasal cannula. Saturations are in the low 90s. The patient has no new complaints today. He is feeling better. Blood cultures did show gram-positive cocci in clusters. He previously was on Zosyn and vancomycin. White count 3.1, he will 14.2, hematocrit 46.1, and platelet count 98,000. Sodium 134, potassium 4, chlorides 103, CO2 25, within normal BUN and creatinine. CT angiogram was negative for pulmonary embolism. There is a suspicious-appearing pulmonary nodule, left upper lobe, with mild spiculation. It measures 8.1 mm in size. It would need follow-up. The patient is seen today 08/28/2021 in follow up. He is doing better. No shortness of breath, cough or congestion. Maintaining O2 saturations in the 90's on 6L nasal canula. He is currently resting in bed. He did have some episodes of confusion and pulled out his Galeas catheter. He di have hematuria following that as well. Blood cultures reveal no growth. White count 5.7. Hemoglobin 13.7. Platelets 104. He is continued on Decadron, lovenox, vitamin supplements. Nicoderm patch in place. The patient is seen today 08/29/2021 in follow-up on the regular medical floor. He is currently sitting up in a chair at the bedside. Maintaining good O2 saturations in the mid 90s on 5-6 L nasal cannula. Afebrile. Hemodynamically stable. Follow-up blood cultures revealed no growth. Urine culture pending. White count 5.7. Hemoglobin 12.8. Sodium 135. Potassium 4.6. Bicarb 30. BUN 14. Creatinine 0.8. He is continued on Symbicort, albuterol, Decadron, Lovenox and vitamin supplements. NicoDerm patch remains in place. Objective - Vital Signs Vital signs: Vital Signs Temp 98.7 F 08/29/21 06:00 Pulse 87 08/29/21 07:20 Resp 16 08/29/21 07:20 BP 129/79 08/29/21 06:00 Pulse Ox 93 L 08/29/21 08:23 FiO2 Intake & Output 08/28/21 08/29/21 08/29/21 18:59 06:59 18:59 Output Total 970 220 Balance -970 -220 Weight 68.039 kg Output: Urine 970 220 Other: Voiding Method Urinal Urinal # Voids 10 1 - Exam 71 year old male patient. No acute distress, oriented 2. On 6 liters nasal canula. No conversational dyspnea or use of accessory muscles. HEENT examination is grossly unremarkable. Neck supple. Full range of motion. No adenopathy thyromegaly or neck vein dis tention. Cardiovascular examination reveals regular rhythm rate. S1-S2 normal. No S3 or S4. No discernible murmur noted. Heart sounds are distant. Lungs reveal scattered bilateral rhonchi. No wheezes. No crackles. Breath sounds equal bilaterally. Abdomen soft bowel sounds are heard. No masses or tenderness. Extremities reveal lower extremity chronic venous stasis changes, with mild edema. No cyanosis or clubbing. Skin is without rash or lesion. Neurologic examination is brief but nonfocal. - Labs CBC & Chem 7: 08/29/21 06:11 08/29/21 06:11 Labs: Abnormal Lab Results - Last 24 Hours (Table) 08/28/21 08/29/21 08/29/21 Range/Units 20:41 06:11 06:11 Hgb 12.8 L (13.0-17.0) g/dL Plt Count 103 L (140-440) X 10*3/uL MPV 12.4 H (9.5-12.2) fL Chloride 95 L (96-109) mmol/L Carbon Dioxide 30.6 H (20.0-27.5) mmol/L Anion Gap 9.20 L (10.00-18.00) mmol/L POC Glucose (mg/dL) 134 H (70-110) mg/dL AST 69 H (14-35) U/L Albumin/Globulin Ratio 1.56 L (1.60-3.17) g/dL Microbiology - Last 24 Hours (Table) 08/26/21 08:47 Blood Culture - Preliminary Blood No Growth after 72 hours 08/27/21 07:00 Blood Culture - Preliminary Blood No Growth after 48 hours 08/27/21 16:03 Blood Culture - Preliminary Blood No Growth after 24 hours 08/28/21 09:30 Urine Culture - Preliminary Urine,Voided Assessment and Plan Assessment: Acute mental status changes, currently being evaluated by the primary service. Brain CT was negative for anything acute. Positive coronavirus by PCR 08/24/2021 Shortness of breath, likely related to patient's underlying COPD, as well as possible coronavirus associated pneumonitis. Ongoing tobacco use with nicotine addiction. 8 mm pulmonary nodule, left upper lobe, spiculation, which will need outpatient follow-up. History of diabetes mellitus. History of gastroesophageal reflux disease. Possible coronary artery disease. History of heart failure. History of deep venous thrombosis. History of hyperlipidemia. History of hypertension. Prostate cancer, status post radiation, 2005. History of melanoma. History of bladder cancer. Multiple other medical problems and comorbidities. Plan: The patient was seen and evaluated Stable from the pulmonary stanpoint Titrate down the FiO2 as tolerated Continue Decadron, Lovenox, bronchodilators Continue vitamin supplements Plan is for subacute rehabilitation I have personally seen and examined the patient, performed the documentation and the assessment and plan as written. Number of minutes spent on the visit: 10.
--- NOTE | 2021-08-29 17:32 | P.PN ---
Subjective This is a 71-year-old male who was recently brought to the emergency room altered mental status via EMS and admitted for further evaluation. Patient reports he lives with his sister and family members and is normally able to care for himself but has been becoming more weak and unable to walk. Patient is somewhat of a poor historian and will have conversation but gets confused often. Patient with some abdominal discomfort with no guarding or rigidity noted on exam and patient reports he was having some nausea but denies vomiting or diarrhea. Patient is currently maintained on oxygen and reports he does not wear this at home. Patient does have a past medical history of asthma, coronary artery disease, heart failure, diabetes, DVT gastroesophageal reflux disease, hyperlipidemia, hypertension, osteoarthritis, and memory impairment. Patient does report chronic back pain as well. Patient also presented to the emergency department with fever and was found to be Covid positive. Patient currently maintained on 6 L via nasal cannula and does report shortness of breath. Pulmonary has been consulted. Chest x-ray showed airspace disease with the lung bases superimposed on chronic interstitial changes and COPD with possible aspiration. EKG showed sinus tachycardia with a heart rate of 122. When asking if the patient was vaccinated for Covid he was unsure and did not believe so. Again, the patient is a poor historian. Pulmonary has been consulted. 08/26/2021 Patient is seen in follow-up this morning appears more awake and alert although continues with confusion. Patient is currently sitting up in the chair and maintained on 5 L of oxygen via nasal cannula with pulmonary following. Patient reports today that he does normally wear oxygen in the outpatient setting although as mentioned previously patient is confused at times. Patient is maintained on oral dexamethasone along with inhalers and subcutaneous Lovenox along with vitamins and was found to have positive blood cultures showing gram- positive clusters and will add vancomycin and follow-up with repeat blood cultures. Patient also continues with low-grade fevers. Patient reports the tolerating diet with no reports of nausea or vomiting patient denies any chest pain. Have physical therapy evaluate the patient and patient may likely need ECF. 08/27/2021 Patient is seen today and appears to be improving daily in terms of mentation. Patient is maintained on 4L via NC and apparently patient chronically wears this in the outpatient setting although is extremely non-compliant. Patient is also noncompliant with medications. Patient has positive blood cultures micrococcus species and awaiting repeat cultures. ID following and patient is not currently maintained on IV abx. Patient 2d echo shows mild concentric left ventricular hypertrophy with an EF of 55-60% and also moderate aortic stenosis with severely calcified cusps, mild tricuspid regurgitations and mild pulmonary hypertension. Patient is afebrile and PT also evaluated the patient recommending ECF for continued PT/OT therapy. Case management following as patient will need a covid hub and also insurance authorization. Awaiting clearance of blood cultures, although most likely contaminant. 08/26 blood culture is negative x 24 hours. 08/28/2021 Patient is a pleasant 71 years old male with multiple medical problems was admitted with acute hypoxic respiratory failure on chronic respiratory failure secondary to Covid pneumonia and COPD and his been evaluated by pulmonary team and cleared for discharge. Currently he is on dexamethasone and vitamin C, vitamin D and zinc. Also he is on Lovenox for DVT prophylaxis Patient today has traumatic hematuria secondary to accidental pulling of Galeas catheter overnight, patient states that he was agitated because he wanted to smoke that's why he pulled his Galeas. Evaluated by urologist, bladder scan showing no urinary retention. Continue with monitoring hemoglobin tomorrow. Ejection fraction showing 55-60% with moderate aortic stenosis. Patient informed about his 8 mm left upper lobe lung nodule with recommendation for outpatient follow-up with Dr. Turcios, risks including but not limited to cancer are explained for him and he told me he will follow-up and that he verbalized understanding and acceptance. Also patient pending authorization for ECF for rehab We will consult vascular surgery team for his 8.2 cm abdominal aortic aneurysm 08/29/2021 Patient pulmonary status is a stable, he is breathing quietly and he is on baseline of 5-6 L/m Hemodynamically stable Continue on dexamethasone and Lovenox 40 mg daily and multiple vitamins. Vascular surgery consult is placed for significant abdominal aortic aneurysm Patient will benefit from ECF upon discharge for rehab, discussed with social work Objective - Vital Signs Vital signs: Vital Signs Temp 98.7 F 08/29/21 06:00 Pulse 87 08/29/21 07:20 Resp 16 08/29/21 07:20 BP 129/79 08/29/21 06:00 Pulse Ox 93 L 08/29/21 08:23 FiO2 Intake & Output 08/28/21 08/29/21 08/29/21 18:59 06:59 18:59 Output Total 970 220 Balance -970 -220 Weight 68.039 kg Output: Urine 970 220 Other: Voiding Method Urinal Urinal # Voids 10 1 - Exam GENERAL: The patient is alert and oriented x3, not in any acute distress. Well developed, well nourished. HEENT: Pupils are round and equally reacting to light. EOMI. No scleral icterus. No conjunctival pallor. Normocephalic, atraumatic. No pharyngeal erythema. No thyromegaly. CARDIOVASCULAR: S1 and S2 present. No murmurs, rubs, or gallops. PULMONARY: Chest is clear to auscultation, no wheezing or crackles. ABDOMEN: Soft, nontender, nondistended, normoactive bowel sounds. No palpable organomegaly. MUSCULOSKELETAL: No joint swelling or deformity. EXTREMITIES: No cyanosis, clubbing, or pedal edema. NEUROLOGICAL: Gross neurological examination did not reveal any focal deficits. SKIN: No rashes. no petechiae. - Labs CBC & Chem 7: 08/29/21 06:11 08/29/21 06:11 Labs: Abnormal Lab Results - Last 24 Hours (Table) 08/28/21 08/29/21 08/29/21 Range/Units 20:41 06:11 06:11 Hgb 12.8 L (13.0-17.0) g/dL Plt Count 103 L (140-440) X 10*3/uL MPV 12.4 H (9.5-12.2) fL Chloride 95 L (96-109) mmol/L Carbon Dioxide 30.6 H (20.0-27.5) mmol/L Anion Gap 9.20 L (10.00-18.00) mmol/L POC Glucose (mg/dL) 134 H (70-110) mg/dL AST 69 H (14-35) U/L Albumin/Globulin Ratio 1.56 L (1.60-3.17) g/dL Microbiology - Last 24 Hours (Table) 08/26/21 08:47 Blood Culture - Preliminary Blood No Growth after 72 hours 08/27/21 07:00 Blood Culture - Preliminary Blood No Growth after 48 hours 08/27/21 16:03 Blood Culture - Preliminary Blood No Growth after 24 hours 08/28/21 09:30 Urine Culture - Preliminary Urine,Voided Assessment and Plan Assessment: Altered mental status, metabolic encephalopathy, possibly secondary to COVID-19 Acute hypoxic respiratory failure with shortness of breath possibly secondary to COPD, acute exacerbation and also a component of COVID-19pneumonitis Bacteremia with micrococcus species, possible contaminant. No antibiotics per ID team 8.2 cm abdominal aortic aneurysm Moderate aortic stenosis Diabetes mellitus Gastroesophageal reflux disease elevated d dimer with no evidence of PE on CTA History of heart failure, chronic diastolic dysfunction with EF of 55-60% moderate pulmonary hypertension History of deep vein thrombosis Hyperlipidemia Hypertension Continued ongoing nicotine dependence Chronic back pain Plan: This is a pleasant 71 years old male with Covid pneumonia, contaminant anemia with no need for antibiotic per ID team Continue with dexamethasone and vitamin C, D and zinc. Pulmonary team already cleared the patient Patient is already on oxygen at home, he is at baseline. No antibiotics per ID team, blood culture most likely is contaminant. Tubular blood culture is negative and patient is asymptomatic. Patient informed need to follow up with Dr. Narvaez pattern molder outpatient for his lung nodule, risk of cancer explained, he verbalized understanding and acceptance Keep monitoring for hematuria, keep Galeas out. Neurologist on the case Labs and medication were reviewed.. Continue same treatment. Continue with symptomatic treatment. Resume home medication. Monitor lytes and vitals. DVT and GI prophylaxis. Further recommendations as per clinical course of the patient DVT prophylaxis: Subcutaneous Lovenox GI Prophylaxis: Ppi PT/OT: Subacute rehab pending authorization Prognosis is guarded
[2021-08-29] MEDS ORDERED: LACTULOSE 20 GM/30 ML CUP PO ONE (17:56)
[2021-08-29 18:00] LABS: Glucose,Whole Blood 120 mg/dL (70-110)
--- NOTE | 2021-08-29 19:08 | P.GSCN ---
History of Present Illness Consult date: 08/29/21 Reason for Consult: AAA Requesting physician: Ronald E Sheet History of present illness: 71 year old male with past medical history of AAA and previous open repair presented to the ER with altered mental status and was admitted for further evaluation. Patient did complain of some abdominal discomfort during his workup and underwent a CT which demonstrated a large AAA. He was also found to have respiratory insufficiency and was Covid positive. He also has a history of asthma, CAD, heart failure, diabetes, DVT, and multiple episodes of cellulitis which we have seen in the hospital in the past. He did have previous imaging in 2019 of the abdominal aorta which demonstrated an aneurysm with patent aortobifemoral bypass graft. The AAA at that time measure 8.2cm. Review of Systems All systems: negative (what is mentioned in the PMH or HPI) Past Medical History Past Medical History: Asthma, Coronary Artery Disease (CAD), Cancer, Heart Failure, Diabetes Mellitus, Deep Vein Thrombosis (DVT), GERD/Reflux, Hyperlipidemia, Hypertension, Memory Impairment, Osteoarthritis (OA) Additional Past Medical History / Comment(s): Coronary artery disease, moderate to severe aortic valve stenosis, COPD, history of prostate cancer treated by radiation therapy back in 2005, history of melanoma of the back resected, history of lip cancer resected, history of bladder cancers treated intravesicular chemotherapy, abdominal aortic aneurysm surgically repaired, history of chronic back pain and the patient is a pain stimulator in place and the patient has undergone L4-L5 spinal fusion, diabetes mellitus, history of DVT, hypertension, hyperlipidemia, osteoarthritis, hiatal hernia History of Any Multi-Drug Resistant Organisms: None Reported Past Surgical History: Back Surgery, Bladder Surgery, Heart Catheterization With Stent, Hernia Repair, Orthopedic Surgery Additional Past Surgical History / Comment(s): Insertion of a pain pump on 11/07/2016 for chronic back pain/pain stimulator, abdominal aortic aneurysm repair 2, back pain with spinal fusion at the level of L4-L5, left inguinal hernia repair, abdominal hernia repair, THERESA, removal of a venous clot from the lower extremity in the setting of DVT, bladder surgery with intravesicular chemotherapy, cardiac catheterization with insertion of coronary stents, hernia repair Past Anesthesia/Blood Transfusion Reactions: No Reported Reaction Additional Past Anesthesia/Blood Transfusion Reaction / Comm: CLAUSTROPHOBIA Date of Last Stent Placement:: UNK Past Psychological History: Depression Additional Psychological History / Comment(s): SOMETIMES GETS DEPRESSED, NO MEDS TAKEN. Smoking Status: Current every day smoker Past Alcohol Use History: None Reported Additional Past Alcohol Use History / Comment(s): STARTED SMOKING AT AGE 14-15 SMOKES LESS THAN 1/2 PPD. Past Drug Use History: Marijuana Additional Drug Use History / Comment(s): OCC SMOKES MARIJUANA FOR PAIN. - Past Family History Father History Unknown: Yes Mother History Unknown: Yes Medications and Allergies Home Medications Medication Instructions Recorded Confirmed Type oxyCODONE-APAP 10-325MG [Percocet 1 tab PO DAILY 10/31/14 08/24/21 History 10-325 mg] Omeprazole [PriLOSEC] 20 mg PO DAILY 12/05/18 08/24/21 History metFORMIN HCL [Glucophage] 850 mg PO BID 12/05/18 08/24/21 History Budesonide/Formoterol Fumarate 2 puff INHALATION RT-BID 11/11/20 08/24/21 History [Symbicort 160-4.5 Mcg Inhaler] Potassium Chloride [Potassium 20 meq PO DAILY 11/11/20 08/24/21 History Chloride ER] Morphine Pain Pump 1 dose SQ CONTINUOUS 08/24/21 08/24/21 History Naloxone HCl 4 mg NS ONETIME PRN 08/24/21 08/24/21 History Allergies Allergy/AdvReac Type Severity Reaction Status Date / Time No Known Allergies Allergy Verified 08/24/21 21:58 Surgical - Exam Vital Signs Temp Pulse Resp BP Pulse Ox 102.6 F H 127 H 20 148/112 95 08/24/21 20:01 08/24/21 20:01 08/24/21 20:01 08/24/21 20:01 08/24/21 20:01 GENERAL: The patient is alert and oriented x2, ill-appearing, unkempt, thin, frail , hunched over HEENT: Pupils are round and equally reacting to light. EOMI. no scleral icterus. No conjunctival pallor. Normocephalic, atraumatic. No pharyngeal erythema. No thyromegaly. CARDIOVASCULAR: S1 and S2 muffled PULMONARY: diminished breath sounds bilaterally with some scattered rhonchi noted. ABDOMEN: soft. Nontender on exam. non-distended, normoactive bowel sounds. No palpable organomegaly. MUSCULOSKELETAL: No joint swelling or deformity. EXTREMITIES: No cyanosis, clubbing, or pedal edema. Mild lower extremity edema noted NEUROLOGICAL: Gross neurological examination did not reveal any focal deficits. Diffuse weakness SKIN: No rashes. Results - Labs 08/29/21 06:11 08/29/21 06:11 Abnormal Lab Results - Last 24 Hours (Table) 08/28/21 08/29/21 08/29/21 Range/Units 20:41 06:11 06:11 Hgb 12.8 L (13.0-17.0) g/dL Plt Count 103 L (140-440) X 10*3/uL MPV 12.4 H (9.5-12.2) fL Chloride 95 L (96-109) mmol/L Carbon Dioxide 30.6 H (20.0-27.5) mmol/L Anion Gap 9.20 L (10.00-18.00) mmol/L POC Glucose (mg/dL) 134 H (70-110) mg/dL AST 69 H (14-35) U/L Albumin/Globulin Ratio 1.56 L (1.60-3.17) g/dL 08/29/21 Range/Units 17:59 Hgb (13.0-17.0) g/dL Plt Count (140-440) X 10*3/uL MPV (9.5-12.2) fL Chloride (96-109) mmol/L Carbon Dioxide (20.0-27.5) mmol/L Anion Gap (10.00-18.00) mmol/L POC Glucose (mg/dL) 120 H (70-110) mg/dL AST (14-35) U/L Albumin/Globulin Ratio (1.60-3.17) g/dL Microbiology - Last 24 Hours (Table) 08/27/21 16:03 Blood Culture - Preliminary Blood No Growth after 48 hours 08/28/21 09:30 Urine Culture - Final Urine,Voided 08/24/21 20:15 Blood Culture Gram Stain - Final Blood Blood Culture - Final Micrococcus species Diphtheroid species 08/26/21 08:47 Blood Culture - Preliminary Blood No Growth after 72 hours 08/27/21 07:00 Blood Culture - Preliminary Blood No Growth after 48 hours Diabetes panel 08/29/21 Range/Units 06:11 Sodium 135 (135-145) mmol/L Potassium 4.6 (3.5-5.5) mmol/L Chloride 95 L (96-109) mmol/L Carbon Dioxide 30.6 H (20.0-27.5) mmol/L BUN 14.4 (9.0-27.0) mg/dL Creatinine 0.8 (0.6-1.5) mg/dL Glucose 75 (70-110) mg/dL Calcium 8.9 (8.7-10.3) mg/dL AST 69 H (14-35) U/L ALT 41 (10-49) U/L Alkaline Phosphatase 61 (41-126) U/L Total Protein 6.3 (6.2-8.2) g/dL Albumin 3.9 (3.8-4.9) g/dL Calcium panel 08/29/21 Range/Units 06:11 Calcium 8.9 (8.7-10.3) mg/dL Albumin 3.9 (3.8-4.9) g/dL Pituitary panel 08/29/21 Range/Units 06:11 Sodium 135 (135-145) mmol/L Potassium 4.6 (3.5-5.5) mmol/L Chloride 95 L (96-109) mmol/L Carbon Dioxide 30.6 H (20.0-27.5) mmol/L BUN 14.4 (9.0-27.0) mg/dL Creatinine 0.8 (0.6-1.5) mg/dL Glucose 75 (70-110) mg/dL Calcium 8.9 (8.7-10.3) mg/dL Adrenal panel 08/29/21 Range/Units 06:11 Sodium 135 (135-145) mmol/L Potassium 4.6 (3.5-5.5) mmol/L Chloride 95 L (96-109) mmol/L Carbon Dioxide 30.6 H (20.0-27.5) mmol/L BUN 14.4 (9.0-27.0) mg/dL Creatinine 0.8 (0.6-1.5) mg/dL Glucose 75 (70-110) mg/dL Calcium 8.9 (8.7-10.3) mg/dL Total Bilirubin 0.60 (0.30-1.20) mg/dL AST 69 H (14-35) U/L ALT 41 (10-49) U/L Alkaline Phosphatase 61 (41-126) U/L Total Protein 6.3 (6.2-8.2) g/dL Albumin 3.9 (3.8-4.9) g/dL Assessment and Plan Assessment: Known AAA with previous repairs x 2- stable Acute hypoxic respiratory failure Altered mental status COVID-19 Diabetes History of deep vein thrombosis History of lower extremity cellulitis Continued ongoing nicotine dependence Chronic back pain Plan: Reviewed CT abdomen- stable AAA from previous imaging. There is some new plaque involving the mesenteric vessels but no indication for intevention at this time. Follow up in office as previously scheduled. Thank you for the consultation.
[2021-08-29 21:40] LABS: Glucose,Whole Blood 124 mg/dL (70-110)
--- NOTE | 2021-08-30 01:26 | P.PN ---
Subjective Progress Note Date: 08/29/21 Principal diagnosis: Covid 19 and bacteremia Patient is a 71-year-old male with a past medical history significant for COPD diabetes mellitus presented to the hospital mental status changes and did have a fever and has been diagnosed with Covid 19 infection, also noticed to have a positive blood culture. On today's evaluation that is 08/29/2021, the patient continues to be afebrile, the patient is breathing comfortably on 6 L nasal cannula oxygen, the patient denies any chest pain the patient did have occasional cough no sputum production no abdominal pain no diarrhea, Objective - Vital Signs Vital signs: Vital Signs Temp 98.7 F 08/29/21 06:00 Pulse 87 08/29/21 07:20 Resp 16 08/29/21 07:20 BP 129/79 08/29/21 06:00 Pulse Ox 93 L 08/29/21 08:23 FiO2 Intake & Output 08/28/21 08/29/21 08/29/21 18:59 06:59 18:59 Output Total 970 220 Balance -970 -220 Weight 68.039 kg Output: Urine 970 220 Other: Voiding Method Urinal Urinal # Voids 10 1 - Exam GENERAL DESCRIPTION: An elderly male up in the chair in no distress RESPIRATORY SYSTEM: Unlabored breathing , decreased breath sounds at bases HEART: S1 S2 regular rate and rhythm , ABDOMEN: Soft , no tenderness EXTREMITIES: No edema feet - Labs CBC & Chem 7: 08/29/21 06:11 08/29/21 06:11 Labs: Abnormal Lab Results - Last 24 Hours (Table) 08/28/21 08/29/21 08/29/21 Range/Units 20:41 06:11 06:11 Hgb 12.8 L (13.0-17.0) g/dL Plt Count 103 L (140-440) X 10*3/uL MPV 12.4 H (9.5-12.2) fL Chloride 95 L (96-109) mmol/L Carbon Dioxide 30.6 H (20.0-27.5) mmol/L Anion Gap 9.20 L (10.00-18.00) mmol/L POC Glucose (mg/dL) 134 H (70-110) mg/dL AST 69 H (14-35) U/L Albumin/Globulin Ratio 1.56 L (1.60-3.17) g/dL Microbiology - Last 24 Hours (Table) 08/26/21 08:47 Blood Culture - Preliminary Blood No Growth after 72 hours 08/27/21 07:00 Blood Culture - Preliminary Blood No Growth after 48 hours 08/27/21 16:03 Blood Culture - Preliminary Blood No Growth after 24 hours 08/28/21 09:30 Urine Culture - Preliminary Urine,Voided Assessment and Plan (1) Positive blood culture Current Visit: Yes Status: Acute Code(s): R78.81 - BACTEREMIA SNOMED Code(s): 712775428 (2) COVID-19 Current Visit: Yes Status: Acute Code(s): U07.1 - COVID-19 SNOMED Code(s): 876434452 Plan: 1patient presented hospital with mental status changes some cough patient did have a fever more likely related to underlying COVID-19 infection in this patient seem to have shown clinical improvement with the current treatment provided by pulmonary including dexamethasone Lovenox zinc and ascorbic acid to continue no evidence of any secondary bacterial pneumonia with normal procalci tonin. 2patient with positive blood culture which has been finalized as Micrococcus and diphtheroids species likely skin contaminant repeat blood culture had been negative and no need for vancomycin 3patient will be monitored closely off antibiotics and continue supportive care Time with Patient: Less than 30
[2021-08-30] MEDS: NON FORMULARY DRUG (Morphine Pain Pump 1 DOSE) SQ SCH (02:48)
[2021-08-30 05:56] LABS: Glucose,Whole Blood 80 mg/dL (70-110)
[2021-08-30] MEDS: INSULIN ASPART (NovoLOG) 100 UNIT/ML VIAL SQ SCH ×4 (06:56→20:21)
[2021-08-30] MEDS: PANTOPRAZOLE 40 MG TABLET PO SCH (07:14)
[2021-08-30] MEDS: dexAMETHasone 2 MG TAB PO SCH (07:14)
[2021-08-30] MEDS: POTASSIUM CHLORIDE ER 10 MEQ TAB.ER.PRT PO SCH (07:15)
[2021-08-30] MEDS: oxyCODONE-APAP 10-325MG 1 EACH TAB PO SCH (07:16)
[2021-08-30] MEDS: ASCORBIC ACID 500 MG TAB PO SCH (07:17)
[2021-08-30] MEDS: ENOXAPARIN 40 MG/0.4 ML SYRINGE SQ SCH (07:17)
[2021-08-30] MEDS: CHOLECALCIFEROL 25 MCG (1000 IU) TABLET PO SCH (07:17)
[2021-08-30] MEDS: NICOTINE 21MG/24HR PATCH TRANSDERM SCH (07:17)
[2021-08-30] MEDS: ZINC SULFATE 220 MG CAP PO SCH (07:18)
[2021-08-30] MEDS: ALBUTEROL HFA INHALER INHALATION SCH ×4 (08:06→20:52)
[2021-08-30] MEDS: SYMBICORT 160-4.5 MCG INHALER INHALATION SCH ×2 (08:06→20:52)
--- NOTE | 2021-08-30 11:39 | P.PN ---
Subjective Progress Note Date: 08/30/21 71-year-old male, seen in room 8, and emergency department. The patient looks much older than his stated age. He has a history of abdominal aortic aneurysm, diabetes, coronary disease, and COPD. The patient apparently came in to the emergency room, with mental status changes. EMS apparently provided history to the physician in the emergency department. He apparently been weak and poorly responsive at home. He apparently lives with his sister and nephew. Over the couple days or so prior to admission to the emergency department, the patient's mental status to decline. He also apparently smelled of urine. He apparently also had a high fever and cough, and some shortness of breath. Currently, the patient's on 3 L nasal cannula. He is getting saline at 130 mL an hour. The patient is a very poor historian. The patient did test positive for coronavirus. He states he is vaccinated. Medical history the chart includes COPD, diabetes, and GERD. The patient does continue to smoke cigarettes. White count 5.6, hemoglobin 14.9, hematocrit 45.3, platelet count 231,000. PT 12.3 INR 1.2 PTT 27.6. Sodium 135, potassium 4, chlorides 101, CO2 22, BUN 20, and creatinine 0.78. Total bilirubin was 1.5. Urine has 2+ ketones small amount of blood 1+ protein and rare mucus. Testing for coronavirus was positive. Brain CT was negative. Chest x-ray shows some possible bibasilar airspace disease in a patient with possible underlying COPD chronic interstitial changes. Progress note dated 08/26/2021. The patient was seen in consultation yesterday. Please see my note above. 71-year-old male, again seen in room 455. Currently, the patient's getting Zosyn and vancomycin. Blood cultures were positive for gram-positive cocci in clusters. He's not receiving any IV fluids. He is on 5 L nasal cannula. He appears much more awake and alert today although his memory is not that great. Lab data today includes a sodium 137, potassium 3.7, chlorides 101, CO2 26, anion gap 11, BUN 17, creatinine 0.7. Glucose is 94. Calcium 8.2, magnesium 1.5, LDH 748, and C-reactive protein 1.3. Blood cultures were positive for gram-positive cocci in clusters. For that reason, vancomycin was added until identification is determined. Progress note dated 08/27/2021. The patient is seen in room 455. He appears relatively comfortable. He is currently on 4 L nasal cannula. Saturations are in the low 90s. The patient has no new complaints today. He is feeling better. Blood cultures did show gram-positive cocci in clusters. He previously was on Zosyn and vancomycin. White count 3.1, he will 14.2, hematocrit 46.1, and platelet count 98,000. Sodium 134, potassium 4, chlorides 103, CO2 25, within normal BUN and creatinine. CT angiogram was negative for pulmonary embolism. There is a suspicious-appearing pulmonary nodule, left upper lobe, with mild spiculation. It measures 8.1 mm in size. It would need follow-up. The patient is seen today 08/28/2021 in follow up. He is doing better. No shortness of breath, cough or congestion. Maintaining O2 saturations in the 90's on 6L nasal canula. He is currently resting in bed. He did have some episodes of confusion and pulled out his Galeas catheter. He di have hematuria following that as well. Blood cultures reveal no growth. White count 5.7. Hemoglobin 13.7. Platelets 104. He is continued on Decadron, lovenox, vitamin supplements. Nicoderm patch in place. The patient is seen today 08/29/2021 in follow-up on the regular medical floor. He is currently sitting up in a chair at the bedside. Maintaining good O2 saturations in the mid 90s on 5-6 L nasal cannula. Afebrile. Hemodynamically stable. Follow-up blood cultures revealed no growth. Urine culture pending. White count 5.7. Hemoglobin 12.8. Sodium 135. Potassium 4.6. Bicarb 30. BUN 14. Creatinine 0.8. He is continued on Symbicort, albuterol, Decadron, Lovenox and vitamin supplements. NicoDerm patch remains in place. The patient is seen today 08/31/2019 follow-up on the regular medical floor. He is awake and alert. Sitting up in a chair at the bedside. Maintaining O2 saturation in the low to mid 90s on 6 L high flow nasal cannula. He is afebr ile. Hemodynamically stable. Follow-up blood cultures reveal no growth. Urine culture reveals no growth. Blood glucose 80. He is continued on Symbicort, albuterol, Decadron, Lovenox, vitamin supplements. NicoDerm patch in place. Objective - Vital Signs Vital signs: Vital Signs Temp 98.0 F 08/30/21 10:45 Pulse 78 08/30/21 10:45 Resp 18 08/30/21 10:45 BP 111/65 08/30/21 10:45 Pulse Ox 95 08/30/21 10:45 FiO2 6 08/30/21 08:09 Intake & Output 08/29/21 08/30/21 08/30/21 18:59 06:59 18:59 Intake Total 550 Output Total 340 650 Balance 210 -650 Intake: Oral 550 Output: Urine 340 650 Other: Voiding Method Urinal Bedside Commode Urinal # Voids 2 # Bowel Movements 2 - Exam GENERAL EXAM: Alert, 71-year-old male patient, up in a chair at the bedside, on 6 L nasal cannula comfortable in no apparent distress. HEAD: Normocephalic. EYES: Normal reaction of pupils, equal size. NOSE: Clear with pink turbinates. THROAT: No erythema or exudates. NECK: No masses, no JVD. CHEST: No chest wall deformity. LUNGS: Equal air entry with few scattered rhonchi. CVS: S1 and S2 normal with no audible murmur, regular rhythm. ABDOMEN: No hepatosplenomegaly, normal bowel sounds, no guarding or rigidity. SPINE: No scoliosis or deformity SKIN: No rashes CENTRAL NERVOUS SYSTEM: No focal deficits, tone is normal in all 4 extremities. EXTREMITIES: There is no peripheral edema. No clubbing, no cyanosis. Peripheral pulses are intact. - Labs CBC & Chem 7: 08/29/21 06:11 08/29/21 06:11 Labs: Abnormal Lab Results - Last 24 Hours (Table) 08/29/21 08/29/21 Range/Units 17:59 21:37 POC Glucose (mg/dL) 120 H 124 H (70-110) mg/dL Microbiology - Last 24 Hours (Table) 08/26/21 08:47 Blood Culture - Preliminary Blood No Growth after 96 hours 08/27/21 07:00 Blood Culture - Preliminary Blood No Growth after 72 hours 08/27/21 16:03 Blood Culture - Preliminary Blood No Growth after 48 hours 08/28/21 09:30 Urine Culture - Final Urine,Voided 08/24/21 20:15 Blood Culture Gram Stain - Final Blood Blood Culture - Final Micrococcus species Diphtheroid species Assessment and Plan Assessment: Acute mental status changes, currently being evaluated by the primary service. Brain CT was negative for anything acute. Positive coronavirus by PCR 08/24/2021 Shortness of breath, likely related to patient's underlying COPD, as well as possible coronavirus associated pneumonitis. Ongoing tobacco use with nicotine addiction. 8 mm pulmonary nodule, left upper lobe, spiculation, which will need outpatient follow-up. History of diabetes mellitus. History of gastroesophageal reflux disease. Possible coronary artery disease. History of heart failure. History of deep venous thrombosis. History of hyperlipidemia. History of hypertension. Prostate cancer, status post radiation, 2005. History of melanoma. History of bladder cancer. History of abdominal aortic aneurysm with previous repair 2, stable Poor overall functional performance based on the above-mentioned multiple comorbidities Plan: The patient was seen and evaluated Labs and medications reviewed Stable from the pulmonary standpoint Titrate down the FiO2 as tolerated Continue Decadron, Lovenox, bronchodilators Continue vitamin supplements Plan is for subacute rehabilitation We will continue to follow I have personally seen and examined the patient, performed the documentation and the assessment and plan as written. Number of minutes spent on the visit: 10.
[2021-08-30 11:40] LABS: Glucose,Whole Blood 128 mg/dL (70-110)
[2021-08-30 16:36] LABS: Glucose,Whole Blood 125 mg/dL (70-110)
--- NOTE | 2021-08-30 16:46 | P.PN ---
Subjective This is a 71-year-old male who was recently brought to the emergency room altered mental status via EMS and admitted for further evaluation. Patient reports he lives with his sister and family members and is normally able to care for himself but has been becoming more weak and unable to walk. Patient is somewhat of a poor historian and will have conversation but gets confused often. Patient with some abdominal discomfort with no guarding or rigidity noted on exam and patient reports he was having some nausea but denies vomiting or diarrhea. Patient is currently maintained on oxygen and reports he does not wear this at home. Patient does have a past medical history of asthma, coronary artery disease, heart failure, diabetes, DVT gastroesophageal reflux disease, hyperlipidemia, hypertension, osteoarthritis, and memory impairment. Patient does report chronic back pain as well. Patient also presented to the emergency department with fever and was found to be Covid positive. Patient currently maintained on 6 L via nasal cannula and does report shortness of breath. Pulmonary has been consulted. Chest x-ray showed airspace disease with the lung bases superimposed on chronic interstitial changes and COPD with possible aspiration. EKG showed sinus tachycardia with a heart rate of 122. When asking if the patient was vaccinated for Covid he was unsure and did not believe so. Again, the patient is a poor historian. Pulmonary has been consulted. 08/26/2021 Patient is seen in follow-up this morning appears more awake and alert although continues with confusion. Patient is currently sitting up in the chair and maintained on 5 L of oxygen via nasal cannula with pulmonary following. Patient reports today that he does normally wear oxygen in the outpatient setting although as mentioned previously patient is confused at times. Patient is maintained on oral dexamethasone along with inhalers and subcutaneous Lovenox along with vitamins and was found to have positive blood cultures showing gram- positive clusters and will add vancomycin and follow-up with repeat blood cultures. Patient also continues with low-grade fevers. Patient reports the tolerating diet with no reports of nausea or vomiting patient denies any chest pain. Have physical therapy evaluate the patient and patient may likely need ECF. 08/27/2021 Patient is seen today and appears to be improving daily in terms of mentation. Patient is maintained on 4L via NC and apparently patient chronically wears this in the outpatient setting although is extremely non-compliant. Patient is also noncompliant with medications. Patient has positive blood cultures micrococcus species and awaiting repeat cultures. ID following and patient is not currently maintained on IV abx. Patient 2d echo shows mild concentric left ventricular hypertrophy with an EF of 55-60% and also moderate aortic stenosis with severely calcified cusps, mild tricuspid regurgitations and mild pulmonary hypertension. Patient is afebrile and PT also evaluated the patient recommending ECF for continued PT/OT therapy. Case management following as patient will need a covid hub and also insurance authorization. Awaiting clearance of blood cultures, although most likely contaminant. 08/26 blood culture is negative x 24 hours. 08/28/2021 Patient is a pleasant 71 years old male with multiple medical problems was admitted with acute hypoxic respiratory failure on chronic respiratory failure secondary to Covid pneumonia and COPD and his been evaluated by pulmonary team and cleared for discharge. Currently he is on dexamethasone and vitamin C, vitamin D and zinc. Also he is on Lovenox for DVT prophylaxis Patient today has traumatic hematuria secondary to accidental pulling of Galeas catheter overnight, patient states that he was agitated because he wanted to smoke that's why he pulled his Galeas. Evaluated by urologist, bladder scan showing no urinary retention. Continue with monitoring hemoglobin tomorrow. Ejection fraction showing 55-60% with moderate aortic stenosis. Patient informed about his 8 mm left upper lobe lung nodule with recommendation for outpatient follow-up with Dr. Turcios, risks including but not limited to cancer are explained for him and he told me he will follow-up and that he verbalized understanding and acceptance. Also patient pending authorization for ECF for rehab We will consult vascular surgery team for his 8.2 cm abdominal aortic aneurysm 08/29/2021 Patient pulmonary status is a stable, he is breathing quietly and he is on baseline of 5-6 L/m Hemodynamically stable Continue on dexamethasone and Lovenox 40 mg daily and multiple vitamins. Vascular surgery consult is placed for significant abdominal aortic aneurysm Patient will benefit from ECF upon discharge for rehab, discussed with social work 08/30/2021 Patient currently clinically stable. No new complaint. Patient was cleared for discharge by all consultants. Pending placement Objective - Vital Signs Vital signs: Vital Signs Temp 97.4 F L 08/30/21 07:57 Pulse 89 08/30/21 07:57 Resp 20 08/30/21 07:57 BP 125/76 08/30/21 07:57 Pulse Ox 94 L 08/30/21 08:09 FiO2 6 08/30/21 08:09 Intake & Output 08/29/21 08/30/21 08/30/21 18:59 06:59 18:59 Intake Total 550 Output Total 340 Balance 210 Intake: Oral 550 Output: Urine 340 Other: Voiding Method Urinal Bedside Commode Urinal # Voids 2 # Bowel Movements 2 - Exam GENERAL: The patient is alert and oriented x3, not in any acute distress. Well developed, well nourished. HEENT: Pupils are round and equally reacting to light. EOMI. No scleral icterus. No conjunctival pallor. Normocephalic, atraumatic. No pharyngeal erythema. No thyromegaly. CARDIOVASCULAR: S1 and S2 present. No murmurs, rubs, or gallops. PULMONARY: Chest is clear to auscultation, no wheezing or crackles. ABDOMEN: Soft, nontender, nondistended, normoactive bowel sounds. No palpable organomegaly. MUSCULOSKELETAL: No joint swelling or deformity. EXTREMITIES: No cyanosis, clubbing, or pedal edema. NEUROLOGICAL: Gross neurological examination did not reveal any focal deficits. SKIN: No rashes. no petechiae. - Labs CBC & Chem 7: 08/29/21 06:11 08/29/21 06:11 Labs: Abnormal Lab Results - Last 24 Hours (Table) 08/29/21 08/29/21 08/29/21 Range/Units 06:11 17:59 21:37 Chloride 95 L (96-109) mmol/L Carbon Dioxide 30.6 H (20.0-27.5) mmol/L Anion Gap 9.20 L (10.00-18.00) mmol/L POC Glucose (mg/dL) 120 H 124 H (70-110) mg/dL AST 69 H (14-35) U/L Albumin/Globulin Ratio 1.56 L (1.60-3.17) g/dL Microbiology - Last 24 Hours (Table) 08/27/21 07:00 Blood Culture - Preliminary Blood No Growth after 72 hours 08/27/21 16:03 Blood Culture - Preliminary Blood No Growth after 48 hours 08/28/21 09:30 Urine Culture - Final Urine,Voided 08/24/21 20:15 Blood Culture Gram Stain - Final Blood Blood Culture - Final Micrococcus species Diphtheroid species 08/26/21 08:47 Blood Culture - Preliminary Blood No Growth after 72 hours Assessment and Plan Assessment: Altered mental status, metabolic encephalopathy, possibly secondary to COVID-19 Acute hypoxic respiratory failure with shortness of breath possibly secondary to COPD, acute exacerbation and also a component of COVID-19pneumonitis Bacteremia with micrococcus species, possible contaminant. No antibiotics per ID team 8.2 cm abdominal aortic aneurysm Moderate aortic stenosis Diabetes mellitus Gastroesophageal reflux disease elevated d dimer with no evidence of PE on CTA History of heart failure, chronic diastolic dysfunction with EF of 55-60% moderate pulmonary hypertension History of deep vein thrombosis Hyperlipidemia Hypertension Continued ongoing nicotine dependence Chronic back pain Plan: This is a pleasant 71 years old male with Covid pneumonia, contaminant anemia with no need for antibiotic per ID team Continue with dexamethasone and vitamin C, D and zinc. Pulmonary team already cleared the patient Patient is already on oxygen at home, he is at baseline. No antibiotics per ID team, blood culture most likely is contaminant. Tubular blood culture is negative and patient is asymptomatic. Patient informed need to follow up with Dr. Narvaez chain dyer outpatient for h is lung nodule, risk of cancer explained, he verbalized understanding and acceptance Keep monitoring for hematuria, keep Galeas out. Neurologist on the case Labs and medication were reviewed.. Continue same treatment. Continue with symptomatic treatment. Resume home medication. Monitor lytes and vitals. DVT and GI prophylaxis. Further recommendations as per clinical course of the patient DVT prophylaxis: Subcutaneous Lovenox GI Prophylaxis: Ppi PT/OT: Subacute rehab pending authorization Prognosis is guarded
[2021-08-30 20:20] LABS: Glucose,Whole Blood 106 mg/dL (70-110)
[2021-08-31] MEDS: NON FORMULARY DRUG (Morphine Pain Pump 1 DOSE) SQ SCH (01:25)
[2021-08-31] MEDS: INSULIN ASPART (NovoLOG) 100 UNIT/ML VIAL SQ SCH ×2 (07:19→11:40)
[2021-08-31 07:23] LABS: Glucose,Whole Blood 94 mg/dL (70-110)
[2021-08-31] MEDS: oxyCODONE-APAP 10-325MG 1 EACH TAB PO SCH (07:28)
[2021-08-31] MEDS: ASCORBIC ACID 500 MG TAB PO SCH (07:29)
[2021-08-31] MEDS: CHOLECALCIFEROL 25 MCG (1000 IU) TABLET PO SCH (07:29)
[2021-08-31] MEDS: ZINC SULFATE 220 MG CAP PO SCH (07:29)
[2021-08-31] MEDS: dexAMETHasone 2 MG TAB PO SCH (07:29)
[2021-08-31] MEDS: ENOXAPARIN 40 MG/0.4 ML SYRINGE SQ SCH (07:30)
[2021-08-31] MEDS: POTASSIUM CHLORIDE ER 10 MEQ TAB.ER.PRT PO SCH (07:30)
[2021-08-31] MEDS: PANTOPRAZOLE 40 MG TABLET PO SCH (07:30)
[2021-08-31] MEDS: NICOTINE 21MG/24HR PATCH TRANSDERM SCH (07:30)
--- NOTE | 2021-08-31 08:00 | P.PN ---
Subjective Progress Note Date: 08/30/21 Principal diagnosis: Covid 19 and bacteremia Patient is a 71-year-old male with a past medical history significant for COPD diabetes mellitus presented to the hospital mental status changes and did have a fever and has been diagnosed with Covid 19 infection, also noticed to have a positive blood culture. On today's evaluation that is 08/30/2021, the patient remains to be afebrile, the patient is breathing comfortably on 6 L nasal cannula oxygen, the patient denies any chest pain the patient cough has diffuse in intensity and not bringing up any sputum, the patient denies abdominal pain and no diarrhea Objective - Vital Signs Vital signs: Vital Signs Temp 98.0 F 08/30/21 10:45 Pulse 78 08/30/21 10:45 Resp 18 08/30/21 10:45 BP 111/65 08/30/21 10:45 Pulse Ox 95 08/30/21 10:45 FiO2 6 08/30/21 08:09 Intake & Output 08/29/21 08/30/21 08/30/21 18:59 06:59 18:59 Intake Total 550 Output Total 340 650 Balance 210 -650 Intake: Oral 550 Output: Urine 340 650 Other: Voiding Method Urinal Bedside Commode Indwelling Catheter Urinal # Voids 2 # Bowel Movements 2 - Exam GENERAL DESCRIPTION: An elderly male up in the chair in no distress RESPIRATORY SYSTEM: Unlabored breathing , few scattered rhonchi HEART: S1 S2 regular rate and rhythm , ABDOMEN: Soft , no tenderness EXTREMITIES: No edema feet - Labs CBC & Chem 7: 08/29/21 06:11 08/29/21 06:11 Labs: Abnormal Lab Results - Last 24 Hours (Table) 08/29/21 08/29/21 08/30/21 Range/Units 17:59 21:37 11:39 POC Glucose (mg/dL) 120 H 124 H 128 H (70-110) mg/dL Microbiology - Last 24 Hours (Table) 08/26/21 08:47 Blood Culture - Preliminary Blood No Growth after 96 hours 08/27/21 07:00 Blood Culture - Preliminary Blood No Growth after 72 hours 08/27/21 16:03 Blood Culture - Preliminary Blood No Growth after 48 hours 08/28/21 09:30 Urine Culture - Final Urine,Voided 08/24/21 20:15 Blood Culture Gram Stain - Final Blood Blood Culture - Final Micrococcus species Diphtheroid species Assessment and Plan (1) Positive blood culture Current Visit: Yes Status: Acute Code(s): R78.81 - BACTEREMIA SNOMED Code(s): 959490595 (2) COVID-19 Current Visit: Yes Status: Acute Code(s): U07.1 - COVID-19 SNOMED Code(s): 079136512 Plan: 1patient presented hospital with mental status changes some cough patient did have a fever more likely related to underlying COVID-19 infection in this patient seem to have shown clinical improvement with the current treatment provided by pulmonary including dexamethasone Lovenox zinc and ascorbic acid to continue no evidence of any secondary bacterial pneumonia with normal procalcitonin. 2patient with positive blood culture which has been finalized as Micrococcus and diphtheroids species likely skin contaminant repeat blood culture had been negative there's no need for vancomycin on any antibiotics and the patient will monitor closely off antibiotics
[2021-08-31] MEDS: ALBUTEROL HFA INHALER INHALATION SCH ×3 (09:16→15:09)
[2021-08-31] MEDS: SYMBICORT 160-4.5 MCG INHALER INHALATION SCH (09:16)
[2021-08-31 11:40] LABS: Glucose,Whole Blood 111 mg/dL (70-110)
--- NOTE | 2021-08-31 11:50 | P.DS ---
Providers Date of admission: 08/25/21 00:20 Expected date of discharge: 08/31/21 Attending physician: Dede Hopkins Consults: 08/25/21 00:27 Consult Physician ONCE Consulting Provider: Richie Narvaez Consult Reason/Comments: acute covid infection Do you want consulting provider notified?: Yes, Notify in am 08/26/21 09:22 Consult Physician Urgent Consulting Provider: Beronica Lino Consult Reason/Comments: covid, pna, pos blood cultures Do you want consulting provider notified?: Yes 08/28/21 06:38 Consult Physician Stat Consulting Provider: Jermaine Casey Consult Reason/Comments: traumatic caro removal (patient removed caro), significant bleeding. Do you want consulting provider notified?: Yes 08/28/21 19:04 Consult Physician Urgent Consulting Provider: Tiffany Caro Consult Reason/Comments: large abdominal aortic aneurysm Do you want consulting provider notified?: Yes, Notify in am Primary care physician: Marivel Hudson Hospital Course: Final diagnosis Altered mental status, metabolic encephalopathy, possibly secondary to COVID-19 Acute hypoxic respiratory failure with shortness of breath possibly secondary to COPD, acute exacerbation and also a component of COVID-19 pneumonitis Bacteremia with micrococcus species, possible contaminant. Most recent repeat blood cultures have been negative. No antibiotics per ID team 8.2 cm abdominal aortic aneurysm Moderate aortic stenosis Diabetes mellitus Gastroesophageal reflux disease elevated d dimer with no evidence of PE on CTA History of heart failure, chronic diastolic dysfunction with EF of 55-60% moderate pulmonary hypertension History of deep vein thrombosis Hyperlipidemia Hypertension Continued ongoing nicotine dependence Chronic back pain GI prophylaxis DVT prophylaxis Full code Discharge disposition Patient is being discharged in a stable condition with guarded prognosis to [facility] for continued PT/OT therapy. Patient will follow-up with Dr. Hudson in the outpatient setting upon discharge. Patient is to follow-up with pulmonary outpatient as scheduled. Total time taken is greater than 35 minutes. Hospital course This is a 71-year-old male who was recently admitted with altered mental status along with shortness of breath and was found to be Covid positive. Patient does have an extensive past medical history of asthma, COPD, heart failure, diabetes and has poor noncompliance with medications and treatment adherence per family. Patient also with extreme weakness and was evaluated by physical therapy recomm ending ECF for continued PT/OT therapy. Patient was seen and evaluated by pulmonary along with infectious diseases patient initial blood cultures were positive resulting in Micrococcus species which is most likely a contaminant with repeat blood cultures being negative. Patient did have indwelling Caro catheter for strict intake and output although was removed by the patient and did have some hematuria which has since resolved. Patient denies any difficulty urinating and is voiding with no problems. Patient chronically is supposed to wear 4 L in the outpatient setting be nasal cannula although is noncompliant with this and is currently maintained on 5 L maintaining oxygen saturations above 90%. Patient encouraged to use incentive spirometer although needs strong encouragement as he has not been doing so. Patient reports the eating and tolerating diet with no reports of nausea or vomiting noted. Recommend continue with Lovenox subcutaneous injections along with vitamin and zinc supplements while in rehab. Currently no reports of chest pain, worsening shortness of breath, or palpitations. Patient is afebrile. No reports of nausea or vomiting and patient is tolerating diet. Patient will be going to [facility] today. Guarded prognosis. Physical exam: Gen: This is a 71-year-old male awake, alert and oriented 2, confused at times, more alert today and responds appropriately to questions and commands. Well- developed, well-nourished. Elderly HEENT: Head is atraumatic, normocephalic. Pupils equal, round. Sclerae is anicteric. NECK: Supple. No JVD. No lymphadenopathy. No thyromegaly. LUNGS: Diminished breath sounds with some bilateral rhonchi noted at the bases. No intercostal retractions. HEART: Regular rate and rhythm. No murmur. ABDOMEN: Soft. Bowel sounds are present. No masses. No tenderness. EXTREMITIES: No pedal edema. No calf tenderness. NEUROLOGICAL: Patient is awake, alert and oriented x2-3. Cranial nerves 2 through 12 are grossly intact. Diffuse weakness Please refer to medication reconciliation sheet for a list of medications. The impression and plan of care has been dictated by Mary Ann Yoo, Nurse Practitioner as directed. Dr. Margarito MD I have performed a history and examination and MDM of this patient, discussed the same with the dictator, and agree with the dictator's assessment and plan as written ,documented as a scribe. Based on total visit time, I have performed more than 50% of the visit. Patient Condition at Discharge: Stable Plan - Discharge Summary Discharge Rx Participant: No New Discharge Prescriptions: New Enoxaparin [Lovenox] 40 mg SQ DAILY each Zinc Sulfate [Orazinc] 220 mg PO DAILY 14 Days #14 cap Acetaminophen Tab [Tylenol] 650 mg PO Q6HR PRN tab PRN Reason: Mild Pain Or Fever > 100.5 Nicotine 21Mg/24Hr Patch [Habitrol] 1 patch TRANSDERM DAILY patch dexAMETHasone ORAL [Hexadrol] 6 mg PO DAILY 4 Days #4 tab Ibuprofen [Motrin] 400 mg PO Q6HR PRN tab PRN Reason: Mild Pain Or Fever > 100.5 Albuterol Inhaler [Ventolin Hfa Inhaler] 2 puff INHALATION RT-QID each Ascorbic Acid [Vitamin C] 500 mg PO DAILY tab Cholecalciferol [Vitamin D3 (25 Mcg = 1000 Iu)] 25 mcg PO DAILY tab Continue metFORMIN HCL [Glucophage] 850 mg PO BID Omeprazole [PriLOSEC] 20 mg PO DAILY Budesonide/Formoterol Fumarate [Symbicort 160-4.5 Mcg Inhaler] 2 puff INHALATION RT-BID Naloxone HCl 4 mg NS ONETIME PRN PRN Reason: OVERDOSE Morphine Pain Pump 1 dose SQ CONTINUOUS oxyCODONE-APAP 10-325MG [Percocet 10-325 mg] 1 tab PO DAILY #6 tab Potassium Chloride [Potassium Chloride ER] 20 meq PO DAILY Discharge Medication List Omeprazole [PriLOSEC] 20 mg PO DAILY 12/05/18 [History] metFORMIN HCL [Glucophage] 850 mg PO BID 12/05/18 [History] Budesonide/Formoterol Fumarate [Symbicort 160-4.5 Mcg Inhaler] 2 puff INHALATION RT-BID 11/11/20 [History] Potassium Chloride [Potassium Chloride ER] 20 meq PO DAILY 11/11/20 [History] Morphine Pain Pump 1 dose SQ CONTINUOUS 08/24/21 [History] Naloxone HCl 4 mg NS ONETIME PRN 08/24/21 [History] Acetaminophen Tab [Tylenol] 650 mg PO Q6HR PRN tab 08/31/21 [Rx] Albuterol Inhaler [Ventolin Hfa Inhaler] 2 puff INHALATION RT-QID each 08/31/21 [Rx] Ascorbic Acid [Vitamin C] 500 mg PO DAILY tab 08/31/21 [Rx] Cholecalciferol [Vitamin D3 (25 Mcg = 1000 Iu)] 25 mcg PO DAILY tab 08/31/21 [Rx] Enoxaparin [Lovenox] 40 mg SQ DAILY each 08/31/21 [Rx] Ibuprofen [Motrin] 400 mg PO Q6HR PRN tab 08/31/21 [Rx] Nicotine 21Mg/24Hr Patch [Habitrol] 1 patch TRANSDERM DAILY patch 08/31/21 [Rx] Zinc Sulfate [Orazinc] 220 mg PO DAILY 14 Days #14 cap 08/31/21 [Rx] dexAMETHasone ORAL [Hexadrol] 6 mg PO DAILY 4 Days #4 tab 08/31/21 [Rx] oxyCODONE-APAP 10-325MG [Percocet 10-325 mg] 1 tab PO DAILY #6 tab 08/31/21 [Rx] Follow up Appointment(s)/Referral(s): Marivel Hudson MD [Primary Care Provider] - 1-2 days Ata Kauffman DO [STAFF PHYSICIAN] - 1 Week Activity/Diet/Wound Care/Special Instructions: Patient is going to [facility] Activity as tolerated Recommend continue on 4-5 L and chronically wears 4 L outpatient Recommend continue with Lovenox until more mobile daily injections Recommend monitoring Accu-Cheks before meals and at bedtime and will resume oral diabetic agents Recommend continue with consistent carb heart healthy diet Continue vitamin and zinc supplements for 2 weeks Patient will need follow-up with pulmonary in the outpatient setting Patient also follow-up with vascular surgery in the outpatient setting Discharge Disposition: TRANSFER TO SNF/ECF
--- NOTE | 2021-08-31 14:18 | P.PN ---
Subjective Progress Note Date: 08/31/21 Principal diagnosis: On 08/31/2021 patient is seen in follow-up on medical surgical floor, he sitting up in a recliner, awake and alert, oriented 3, breathing comfortably. Patient is on 6 L of oxygen pulse ox is 97%, patient normally wears 4 L of oxygen at home on a regular basis, and FiO2 has been dropped down to 4 L. Issues overnight, patient denies worsening dyspnea cough or wheezing. He remains on Decadron, remains on Symbicort and albuterol, prophylactic Lovenox. Pro-calcitonin level was negative at 0.08, inflammatory markers were only mildly elevated. Patient resides with his sister is also currently hospitalized with COVID-19 pneumonia, he is generally weak, and he is being considered for discharge to [facility] after discharge Objective - Vital Signs Vital signs: Vital Signs Temp 98.0 F 08/31/21 10:00 Pulse 99 08/31/21 10:00 Resp 22 08/31/21 10:00 BP 119/76 08/31/21 10:00 Pulse Ox 97 08/31/21 10:00 FiO2 6 08/30/21 08:09 Intake & Output 08/30/21 08/31/21 08/31/21 18:59 06:59 18:59 Output Total 650 670 Balance -650 -670 Output: Urine 650 670 Other: Voiding Method Indwelling Catheter Urinal # Voids 2 - Exam GENERAL EXAM: Alert, very pleasant, 71-year-old white male 4 L of oxygen, sitting up in the recliner, breathing comfortable, comfortable in no apparent distress. HEAD: Normocephalic/atraumatic. EYES: Normal reaction of pupils, equal size. Conjunctiva pink, sclera white. NOSE: Clear with pink turbinates. THROAT: No erythema or exudates. NECK: No masses, no JVD, no thyroid enlargement, no adenopathy. CHEST: No chest wall deformity. Symmetrical expansion. LUNGS: Equal air entry with no crackles, wheeze, rhonchi or dullness. CVS: Regular rate and rhythm, normal S1 and S2, no gallops, no murmurs, no rubs ABDOMEN: Soft, nontender. No hepatosplenomegaly, normal bowel sounds, no guarding or rigidity. EXTREMITIES: No clubbing, no edema, no cyanosis, 2+ pulses and upper and lower extremities. MUSCULOSKELETAL: Muscle strength and tone normal. SPINE: No scoliosis or deformity SKIN: No rashes CENTRAL NERVOUS SYSTEM: Alert and oriented -3. No focal deficits, tone is normal in all 4 extremities. PSYCHIATRIC: Alert and oriented -3. Appropriate affect. Intact judgment and insight. - Labs CBC & Chem 7: 08/29/21 06:11 08/29/21 06:11 Labs: Abnormal Lab Results - Last 24 Hours (Table) 08/30/21 08/31/21 Range/Units 16:34 11:38 POC Glucose (mg/dL) 125 H 111 H (70-110) mg/dL Microbiology - Last 24 Hours (Table) 08/26/21 08:47 Blood Culture - Preliminary Blood No Growth after 120 hours 08/27/21 07:00 Blood Culture - Preliminary Blood No Growth after 96 hours 08/27/21 16:03 Blood Culture - Preliminary Blood No Growth after 72 hours Assessment and Plan Plan: Acute mental status changes, currently being evaluated by the primary service. Brain CT was negative for anything acute. Positive coronavirus by PCR 08/24/2021 Shortness of breath, likely related to patient's underlying COPD, as well as possible coronavirus associated pneumonitis. Ongoing tobacco use with nicotine addiction. 8 mm pulmonary nodule, left upper lobe, spiculation, which will need outpatient follow-up. History of diabetes mellitus. History of gastroesophageal reflux disease. Possible coronary artery disease. History of heart failure. History of deep venous thrombosis. History of hyperlipidemia. History of hypertension. Prostate cancer, status post radiation, 2006. History of melanoma. History of bladder cancer. History of abdominal aortic aneurysm with previous repair 2, stable Poor overall functional performance based on the above-mentioned multiple comorbidities Plan: Continue weaning FiO2 Patient is down to 4 L which is what he usually wears at home Vital stable Patient is being discharged to ECF possibly today He will complete 10 day course of Decadron Continue on Symbicort and albuterol Outpatient follow-up with Dr. Narvaez in the office in 2 weeks I have personally seen and examined the patient, performed the documentation and the assessment and plan as written. Number of minutes spent on the visit: 10 I have personally seen and examined the patient and reviewed the documentation. I performed a joint evaluation with the nurse practitioner in this evaluation w as done more than 20 minutes. I fully agree with the documentation above and the plan of care.. Possible discharge to ECF today. No active issues for now. A lot of comorbidities as mentioned above. The patient's is quite debilitated. Were completed a course of Decadron. Time with Patient: Less than 30
[2021-08-31 15:25] VITALS: BP 110/64; PULSE 71; RESP 20; TEMP 98.6
[2021-08-31 16:42] LABS: Glucose,Whole Blood 118 mg/dL (70-110)
== END 2021-08-31 16:46 | DRG 177 ==
LOC: EC 19:30 → 4SSUR 08-25 00:20
PROVIDERS: ADMIT Hospitalist; ATTEND Hospitalist
DX: U07.1 COVID-19 (principal); J12.82 Pneumonia due to coronavirus disease 2019; G93.41 Metabolic encephalopathy; J96.21 Acute and chronic respiratory failure with hypoxia; I50.32 Chronic diastolic (congestive) heart failure; J44.0 Chronic obstructive pulmonary disease with (acute) lower respiratory infection; J44.1 Chronic obstructive pulmonary disease with (acute) exacerbation; J98.11 Atelectasis; F40.240 Claustrophobia; G89.29 Other chronic pain; M54.9 Dorsalgia, unspecified; E11.9 Type 2 diabetes mellitus without complications; E78.5 Hyperlipidemia, unspecified; F17.210 Nicotine dependence, cigarettes, uncomplicated; F32.A Depression, unspecified; I27.20 Pulmonary hypertension, unspecified; I71.4 Abdominal aortic aneurysm, without rupture; I11.0 Hypertensive heart disease with heart failure; I25.10 Atherosclerotic heart disease of native coronary artery without angina pectoris; I77.1 Stricture of artery; I08.2 Rheumatic disorders of both aortic and tricuspid valves; R91.1 Solitary pulmonary nodule; R31.9 Hematuria, unspecified; R45.1 Restlessness and agitation; K21.9 Gastro-esophageal reflux disease without esophagitis; N36.8 Other specified disorders of urethra; I87.8 Other specified disorders of veins; R53.81 Other malaise; R79.1 Abnormal coagulation profile; Z91.19 Patient's noncompliance with other medical treatment and regimen; Z91.14 Patient's other noncompliance with medication regimen; Z71.6 Tobacco abuse counseling; Z96.82 Presence of neurostimulator; Z98.890 Other specified postprocedural states; Z85.46 Personal history of malignant neoplasm of prostate; Z85.820 Personal history of malignant melanoma of skin; Z85.819 Personal history of malignant neoplasm of unspecified site of lip, oral cavity, and pharynx; Z85.51 Personal history of malignant neoplasm of bladder; Z92.3 Personal history of irradiation; Z98.1 Arthrodesis status; Z95.5 Presence of coronary angioplasty implant and graft; Z86.718 Personal history of other venous thrombosis and embolism; Z79.84 Long term (current) use of oral hypoglycemic drugs; Z79.51 Long term (current) use of inhaled steroids; Z79.891 Long term (current) use of opiate analgesic; Z79.899 Other long term (current) drug therapy
CPT/HCPCS: 36415; 51702; 70450; 71046; 71275; 74177; 80048; 80053; 80320; 81001; 83036; 83605; 83615; 83735; 84145; 84484; 85025; 85027; 85379; 85610; 85730; 86140; 87040; 87086; 87502; 87635; 93005; 93306; 94640; 94760; 96361; 96365; 96366; 99285